=== PATIENT | female | born 1945 | race Caucasian/White ===

== ENCOUNTER 2017-08-12 13:21 | Emergency (ER) | payer OTHER ==
[~2017-08-12] VITALS: Ht 154.9 cm; Wt 42.6 kg
[~2017-08-12 13:21] MED LIST: ALBU2.5V14 NEB; ALPR0.5T PO; ASPI-630 PO; BACL10TA PO; BUDE10.2 IH; CALC200T3 PO; CETI10TA22 PO; FAMO-63 PO; FLUT9.9S NS; GABA-585 PO; GABA-586 PO; GLIP5TAB10 PO; Hydrocodone/Acetaminophen PO; LISI-338 PO; LISI10TA2 PO; MOME13HF IH; MONT10TA6 PO; PRED-220 PO; PROAIR HFA8.5 GM INH; ROFL500T7 PO; SIMV10TA3 PO; SIMV20TA PO; TIOT18CA IH
--- NOTE | 2017-08-12 14:28 | PHYS DOC ---
Past Medical History Past Medical History: Arthritis, COPD, Diabetes-Type II, Hypertension, Other Additional Past Medical Histor: o2 dependent , hip fx Past Surgical History: Other Additional Past Surgical Histo: left hip; left eye and face fx with surgery. Additional Information: Quit about 7months ago. "When I wasn't sleeping I was doing about 3 PPD." Alcohol Use: Rarely Drug Use: None Adult General Chief Complaint Chief Complaint: SHORTNESS OF BREATH HPI HPI Patient is a 72 year old female who presents with complaint of shortness of breath. Patient has history of COPD and chronic hypoxia. Patient is currently on home oxygen and runs at 2.5 L/m at baseline. The patient states that over the past few days she has had worsening shortness of breath. Patient states that she had a recent acute exacerbation of COPD and has been on a prednisone taper. Patient states that she recently stopped her prednisone taper but states that she started having worsening symptoms shortly after stopping. Patient states that she's taken a total of 30 mg today. At this time, patient states that her symptoms have improved. The patient states that she called her primary care physician's office earlier and was told to increase her home oxygen but stated this did not help. She called again and was told to come to the emergency department for evaluation. Patient follows a Dr. Coley for primary care. Patient denies any chest pain or abdominal pain currently and states that she is breathing at her baseline currently. The patient states that she thinks she needs to be placed back on prednisone for a longer period to help resolve her symptoms. Review of Systems Review of Systems Constitutional: Denies fever or chills [] Eyes: Denies change in visual acuity, redness, or eye pain [] HENT: Denies nasal congestion or sore throat [] Respiratory: Shortness of breath[] Cardiovascular: Denies chest pain or edema[] GI: Denies abdominal pain, nausea, vomiting, bloody stools or diarrhea [] : Denies dysuria or hematuria [] Musculoskeletal: Denies back pain or joint pain [] Integument: Denies rash or skin lesions [] Neurologic: Denies headache, focal weakness or sensory changes [] All other systems were reviewed and found to be within normal limits, except as documented in this note. Current Medications Current Medications Current Medications Medications (Trade) Dose Ordered Sig/Geovanny Start Time Stop Time Status Last Admin Dose Admin Methylprednisolone Sodium Succinate (SOLU-Medrol 125MG VIAL) 60 mg 1X ONCE 08/12/17 14:30 08/12/17 14:31 DC 08/12/17 15:03 60 MG Allergies Allergies Allergies Coded Allergies Type Severity Reaction Last Updated Verified No Known Drug Allergies 04/22/15 No Physical Exam Physical Exam Constitutional: Alert, afebrile, no acute distress. [] HENT: Normocephalic, atraumatic, bilateral external ears normal, oropharynx moist, no oral exudates, nose normal. [] Eyes: PERRLA, EOMI, conjunctiva normal, no discharge. [] Neck: Normal range of motion, no tenderness, supple, no stridor. [] Cardiovascular:Heart rate regular rhythm, no murmur [] Lungs & Thorax: Bilateral breath sounds clear to auscultation [] Abdomen: Bowel sounds normal, soft, no tenderness, no masses, no pulsatile masses. [] Skin: Warm, dry, no erythema, no rash. [] Back: No tenderness, no CVA tenderness. [] Extremities: No tenderness, no cyanosis, no clubbing, ROM intact, no edema. [] Neurologic: Alert and oriented X 3, normal motor function, normal sensory function, no focal deficits noted. [] Current Patient Data Vital Signs Vital Signs Date Time Temp Pulse Resp B/P (MAP) Pulse Ox O2 Delivery O2 Flow Rate FiO2 08/12/17 16:32 68 20 122/62 (82) 08/12/17 13:25 98.2 98 Nasal Cannula 4.0 98.2 Lab Values Laboratory Tests Test 08/12/17 13:42 White Blood Count 12.9 x10^3/uL (4.0-11.0) H Red Blood Count 5.11 x10^6/uL (3.50-5.40) Hemoglobin 14.5 g/dL (12.0-15.5) Hematocrit 44.9 % (36.0-47.0) Mean Corpuscular Volume 88 fL (79-100) Mean Corpuscular Hemoglobin 29 pg (25-35) Mean Corpuscular Hemoglobin Concent 32 g/dL (31-37) Red Cell Distribution Width 15.4 % (11.5-14.5) H Platelet Count 269 x10^3/uL (140-400) Neutrophils (%) (Auto) 82 % (31-73) H Lymphocytes (%) (Auto) 10 % (24-48) L Monocytes (%) (Auto) 6 % (0-9) Eosinophils (%) (Auto) 1 % (0-3) Basophils (%) (Auto) 1 % (0-3) Neutrophils # (Auto) 10.7 x10^3uL (1.8-7.7) H Lymphocytes # (Auto) 1.3 x10^3/uL (1.0-4.8) Monocytes # (Auto) 0.7 x10^3/uL (0.0-1.1) Eosinophils # (Auto) 0.2 x10^3/uL (0.0-0.7) Basophils # (Auto) 0.1 x10^3/uL (0.0-0.2) Sodium Level 136 mmol/L (136-145) Potassium Level 3.8 mmol/L (3.5-5.1) Chloride Level 96 mmol/L (98-107) L Carbon Dioxide Level 34 mmol/L (21-32) H Anion Gap 6 (6-14) Blood Urea Nitrogen 16 mg/dL (7-20) Creatinine 0.8 mg/dL (0.6-1.0) Estimated GFR (Cockcroft-Gault) 70.3 BUN/Creatinine Ratio 20 (6-20) Glucose Level 115 mg/dL (70-99) H Calcium Level 9.6 mg/dL (8.5-10.1) Total Bilirubin 0.5 mg/dL (0.2-1.0) Aspartate Amino Transferase (AST) 26 U/L (15-37) Alanine Aminotransferase (ALT) 39 U/L (14-59) Alkaline Phosphatase 66 U/L (46-116) Total Protein 7.9 g/dL (6.4-8.2) Albumin 4.2 g/dL (3.4-5.0) Albumin/Globulin Ratio 1.1 (1.0-1.7) Laboratory Tests 08/12/17 13:42 Laboratory Tests 08/12/17 13:42 EKG EKG Interpreted by me: Heart rate 64, sinus rhythm, normal intervals, normal axis, no acute ST/T-wave abnormalities present[] Radiology/Procedures Radiology/Procedures [facility] [address] [place] [address] IMAGING REPORT Signed PATIENT: ZULEIKA PIZARRO ACCOUNT: [id number] : 1945 LOCATION: ER AGE: 72 SEX: F EXAM STATUS: REG ER ORD. PHYSICIAN: PEPE LYNN MD REASON: shortness of breath PROCEDURE: PORTABLE CHEST 1V Chest x-ray Indication: Shortness of breath. History of COPD. Technique: Portable AP upright chest x-ray Comparison: Previous study from 07/22/2017 Findings: Heart is normal in size. Lungs are hyperinflated with flattening of diaphragms. No focal consolidation. No pneumothorax or pleural effusion. Visualized bony thorax within normal limits. Impression: Findings of COPD. No acute cardiopulmonary process. DICTATED and SIGNED BY: NILSON COLEY DO DATE: 08/12/17 1501 CC: PEPE LYNN MD; MARIANELA COLEY MD ~ [] Course & Med Decision Making Course & Med Decision Making Pertinent Labs and Imaging studies reviewed. (See chart for details) Patient was given 60 mg of IV Solu-Medrol in the emergency department. Patient remained in stable condition throughout her entire emergency department stay and patient's respirations are nonlabored at this time. The patient's chest x- ray does not reveal evidence of acute pneumonia or other acute cardiopulmonary abnormality. Patient feels well and states that she would like to go home but would like to be started on prednisone to continue for treatment. I spoke with her primary physician, Dr. Coley, who agreed to have patient put on a 9 day taper of prednisone. Recommended that the patient follow-up with Dr. Coley in 3- 5 days for reevaluation and recommended return emergency department for any worsening symptoms. Patient voiced understanding and in agreement with treatment plan. Dragon Disclaimer Dragon Disclaimer This electronic medical record was generated, in whole or in part, using a voice recognition dictation system. Departure Departure Impression: Primary Impression: COPD exacerbation Disposition: 01 HOME, SELF-CARE Condition: IMPROVED Referrals: MARIANELA COLEY MD (PCP) Patient Instructions: Chronic Obstructive Pulmonary Disease Additional Instructions: Follow-up with Dr. Coley in the next 3-5 days for reevaluation. Return to the emergency department for any worsening symptoms. Scripts Prednisone (PREDNISONE) 10 Mg Tablet 10 MG PO UD for PREDNISONE TAPER, #18 TAB 0 Refills Take 1 tablet by mouth three times a day for 3 days, then take 1 tablet by mouth twice a day for 3 days, then take 1 tablet by mouth daily for 3 days, then stop. Prov: PEPE LYNN MD 08/12/17 PEPE LYNN MD Aug 12, 2017 14:28
[2017-08-12 14:29] LABS: BASO # 0.1 x10^3/uL (0.0-0.2); BASO % 1 % (0-3); EOS % 1 % (0-3); HEMATOCRIT 44.9 % (36.0-47.0); HEMOGLOBIN 14.5 g/dL (12.0-15.5); LYMPH # 1.3 x10^3/uL (1.0-4.8); LYMPH % 10 % (24-48); MEAN CORPUSCULAR HEMOGLOBIN 29 pg (25-35); MEAN CORPUSCULAR HGB CONC 32 g/dL (31-37); MEAN CORPUSCULAR VOLUME 88 fL (79-100); MONO % 6 % (0-9); NEUT % 82 % (31-73); PLATELET COUNT 269 x10^3/uL (140-400); RED BLOOD COUNT 5.11 x10^6/uL (3.50-5.40); RED CELL DISTRIBUTION WIDTH 15.4 % (11.5-14.5); WHITE BLOOD COUNT 12.9 x10^3/uL (4.0-11.0)
[2017-08-12] MEDS ORDERED: methylPREDNISolone SOD SUCC PF 125 MG/2 ML VIAL. IV ONE (14:30)
[2017-08-12 14:51] LABS: CALCIUM 9.6 mg/dL (8.5-10.1); CREATININE 0.8 mg/dL (0.6-1.0); GFR 70.3; POTASSIUM 3.8 mmol/L (3.5-5.1)
[2017-08-12 14:57] LABS: ALBUMIN 4.2 g/dL (3.4-5.0); ALBUMIN/GLOBULIN RATIO 1.1 (1.0-1.7); TOTAL BILIRUBIN 0.5 mg/dL (0.2-1.0); TOTAL PROTEIN 7.9 g/dL (6.4-8.2)
--- NOTE | 2017-08-12 15:07 | RAD ---
Chest x-ray Indication: Shortness of breath. History of COPD. Technique: Portable AP upright chest x-ray Comparison: Previous study from 07/22/2017 Findings: Heart is normal in size. Lungs are hyperinflated with flattening of diaphragms. No focal consolidation. No pneumothorax or pleural effusion. Visualized bony thorax within normal limits. Impression: Findings of COPD. No acute cardiopulmonary process.
--- NOTE | 2017-08-12 16:08 | EKG ---
[facility] [address] [place] [address] Test Date: 2017-08-12 Test Time: 15:11:42 Pat Name: ZULEIKA PIZARRO Department: Room: Gender: F Mover: : 1945 Requested By: PEPE LYNN Order Number: [id number] Reading MD: Sanjiv Burch Measurements Intervals [place] Rate: 64 P: 36 OK: 110 QRS: 53 QRSD: 74 T: 59 QT: 396 QTc: 408 Interpretive Statements SINUS RHYTHM NO SPECIFIC ECG ABNORMALITIES RI6.01 Compared to ECG 07/22/2017 16:01:14 No significant changes Electronically Signed On 08-12-2017 17:56:53 [employer] DIRECTOR by Sanjiv Burch
[2017-08-12 16:32] VITALS: BP 122/62
[2017-08-12] MEDS ORDERED: PRED-220 PO (16:33)
== END 2017-08-12 17:05 | disposition home or self-care (01) ==
LOC: ER 13:21
DX: J44.1 Chronic obstructive pulmonary disease with (acute) exacerbation (principal); M19.90 Unspecified osteoarthritis, unspecified site; E11.9 Type 2 diabetes mellitus without complications; I10 Essential (primary) hypertension; Z99.81 Dependence on supplemental oxygen; Z87.891 Personal history of nicotine dependence
CPT/HCPCS: 36415; 71010; 80053; 85025; 93005; 96374; 99285; J2930

== ENCOUNTER 2017-10-16 15:06 | Inpatient (IN) | payer OTHER ==
[2017-10-16 15:31] LABS: ADD MAN DIFF? NO
[2017-10-16 15:37] LABS: BASO # 0.1 x10^3/uL (0.0-0.2); BASO % 1 % (0-3); EOS % 0 % (0-3); HEMATOCRIT 44.5 % (36.0-47.0); HEMOGLOBIN 14.3 g/dL (12.0-15.5); LYMPH # 1.6 x10^3/uL (1.0-4.8); LYMPH % 20 % (24-48); MEAN CORPUSCULAR HEMOGLOBIN 27 pg (25-35); MEAN CORPUSCULAR HGB CONC 32 g/dL (31-37); MEAN CORPUSCULAR VOLUME 84 fL (79-100); MONO # 0.5 x10^3/uL (0.0-1.1); MONO % 6 % (0-9); NEUT # 5.9 x10^3uL (1.8-7.7); NEUT % 73 % (31-73); PLATELET COUNT 280 x10^3/uL (140-400); RED BLOOD COUNT 5.32 x10^6/uL (3.50-5.40); RED CELL DISTRIBUTION WIDTH 15.9 % (11.5-14.5)
[2017-10-16 15:47] LABS: ANION GAP 8 (6-14); BLOOD UREA NITROGEN 14 mg/dL (7-20); CALCIUM 9.3 mg/dL (8.5-10.1); CARBON DIOXIDE 32 mmol/L (21-32); CHLORIDE 100 mmol/L (98-107); CREATININE 0.7 mg/dL (0.6-1.0); GLUCOSE 94 mg/dL (70-99); POTASSIUM 3.7 mmol/L (3.5-5.1); SODIUM 140 mmol/L (136-145)
[2017-10-16] MEDS: IPRATRPIUM/ALBUTEROL 0.5/2.5MG 3 ML NEBU. NEB ×4 (15:53→19:26)
[2017-10-16 15:58] LABS: LACTIC ACID 1.6 mmol/L (0.4-2.0); TROPONINI < 0.017 ng/mL (0.000-0.055)
[2017-10-16 15:59] LABS: INFLUENZA A PATIENT NEGATIVE (NEGATIVE); INFLUENZA B PATIENT NEGATIVE (NEGATIVE); OBC FLU VALID
[2017-10-16] MEDS: methylPREDNISolone SOD SUCC PF 125 MG/2 ML VIAL. IV (15:59)
[2017-10-16 16:00] LABS: NT-PRO BNP 651 pg/mL (0-124)
[2017-10-16 16:45] LABS: BASE EXCESS ABG 3 mmol/L (-3-3); HCO3 ABG 28 mmol/L (21-28); PCO2 ABG 43 mmHg (35-46); PH ABG 7.43 (7.35-7.45); PO2 ABG 76 mmHg (65-108); SAT O2 ABG 95 % (92-99)
[2017-10-16] MEDS ORDERED: ONDANSETRON PF 4 MG/2 ML VIAL. IV (16:45)
[2017-10-16] MEDS ORDERED: MORPHINE SULFATE 2 MG/ML DISP.SYRIN. IV (16:45)
[2017-10-16] MEDS ORDERED: ACETAMINOPHEN 325 MG TABLET. PO (16:45)
[2017-10-16 17:50] LABS: BILIRUBIN,URINE NEGATIVE (NEG); CLARITY,URINE CLEAR; COLOR,URINE YELLOW; GLUCOSE,URINE NEGATIVE (NEG); NITRITE,URINE NEGATIVE (NEG); PROTEIN,URINE NEGATIVE (NEG-TRACE); UROBILINOGEN,URINE 0.2 mg/dL (0.2 mg/dL)
[2017-10-16 17:59] LABS: BACTERIA,URINE 0 /HPF (0-FEW); RBC,URINE OCC /HPF (0-2); SQUAMOUS EPITHELIAL CELL,UR OCC /LPF; WBC,URINE 20-40 /HPF (0-4)
[2017-10-16] MEDS ORDERED: NON FORMULARY ITEM (Albuterol Sulfate (Proair Hfa Inhaler) 2 PUFF) INH (21:15)
[2017-10-16] MEDS ORDERED: ALBUTEROL SULFATE 2.5 MG/3 ML NEBU. NEB (21:30)
[2017-10-16] MEDS ORDERED: SIMVASTATIN 10 MG TABLET PO (21:30)
[2017-10-16] MEDS ORDERED: GABAPENTIN 100 MG CAPSULE. PO (21:30)
[2017-10-16] MEDS ORDERED: FAMOTIDINE 20 MG TABLET. PO (21:30)
[2017-10-16] MEDS: ALPRAZolam 0.5 MG TABLET PO ×2 (22:00→22:04)
[2017-10-16] MEDS: SIMVASTATIN 10 MG TABLET PO (22:05)
[2017-10-16 23:38] LABS: TROPONINI < 0.017 ng/mL (0.000-0.055)
[2017-10-17 04:02] LABS: POC GLUCOSE 147 mg/dL (70-99)
[2017-10-17 04:29] LABS: ADD MAN DIFF? NO
[2017-10-17 04:43] LABS: BASO % 0 % (0-3); EOS % 0 % (0-3); HEMATOCRIT 38.4 % (36.0-47.0); HEMOGLOBIN 12.4 g/dL (12.0-15.5); LYMPH # 1.3 x10^3/uL (1.0-4.8); LYMPH % 25 % (24-48); MEAN CORPUSCULAR HEMOGLOBIN 27 pg (25-35); MEAN CORPUSCULAR HGB CONC 32 g/dL (31-37); MEAN CORPUSCULAR VOLUME 83 fL (79-100); MONO # 0.5 x10^3/uL (0.0-1.1); MONO % 10 % (0-9); NEUT # 3.5 x10^3uL (1.8-7.7); NEUT % 65 % (31-73); PLATELET COUNT 258 x10^3/uL (140-400); RED BLOOD COUNT 4.63 x10^6/uL (3.50-5.40); RED CELL DISTRIBUTION WIDTH 15.9 % (11.5-14.5); WHITE BLOOD COUNT 5.4 x10^3/uL (4.0-11.0)
[2017-10-17 04:56] LABS: ALBUMIN 3.1 g/dL (3.4-5.0); ALBUMIN/GLOBULIN RATIO 0.9 (1.0-1.7); ALK PHOS 59 U/L (46-116); ALT (SGPT) 19 U/L (14-59); ANION GAP 6 (6-14); AST (SGOT) 16 U/L (15-37); BLOOD UREA NITROGEN 22 mg/dL (7-20); BUN/CREATININE RATIO 31 (6-20); CALCIUM 9.2 mg/dL (8.5-10.1); CARBON DIOXIDE 31 mmol/L (21-32); CHLORIDE 100 mmol/L (98-107); CREATININE 0.7 mg/dL (0.6-1.0); GLUCOSE 163 mg/dL (70-99); POTASSIUM 4.6 mmol/L (3.5-5.1); SODIUM 137 mmol/L (136-145); TOTAL BILIRUBIN 0.2 mg/dL (0.2-1.0); TOTAL PROTEIN 6.7 g/dL (6.4-8.2)
[2017-10-17 05:00] LABS: TROPONINI < 0.017 ng/mL (0.000-0.055)
[2017-10-17] MEDS ORDERED: ALBUTEROL SULFATE 2.5 MG/3 ML NEBU. NEB (07:15)
[2017-10-17] MEDS: INSULIN ASPART 300 UNITS/3 ML INSULN.PEN SQ ×3 (07:30→16:30)
[2017-10-17 07:54] LABS: POC GLUCOSE 121 mg/dL (70-99)
[2017-10-17] MEDS: BUDESONIDE 0.5 MG/2 ML NEBU. NEB ×2 (08:20→20:44)
[2017-10-17] MEDS: MONTELUKAST SODIUM 10 MG TABLET. PO (08:36)
[2017-10-17] MEDS: CETIRIZINE HCL 10 MG TABLET. PO (08:37)
[2017-10-17] MEDS: LACTOBACILLUS RHAMNOSUS GG 1 CAPSULE. PO ×2 (08:37→21:36)
[2017-10-17] MEDS: GABAPENTIN 100 MG CAPSULE. PO ×2 (08:37→21:38)
[2017-10-17] MEDS: LISINOPRIL 10 MG TABLET PO (08:37)
[2017-10-17] MEDS: glipiZIDE 5 MG TABLET PO ×2 (08:38→17:00)
[2017-10-17] MEDS: ASPIRIN CHEWABLE 81 MG TABLET. PO (08:38)
[2017-10-17] MEDS: BACLOFEN 10 MG TABLET. PO (08:38)
[2017-10-17] MEDS: ALPRAZolam 0.5 MG TABLET PO ×2 (08:38→21:37)
[2017-10-17] MEDS: FAMOTIDINE 20 MG TABLET. PO (08:39)
[2017-10-17] MEDS: methylPREDNISolone SOD SUCC PF 40 MG/ML VIAL. IV ×2 (08:39→21:36)
[2017-10-17] MEDS ORDERED: NON FORMULARY ITEM (Budesonide/Formoterol Fumarate (Symbicort 160-4.5 Mcg Inhaler) 2 PUFF) IH (09:00)
[2017-10-17] MEDS ORDERED: NON FORMULARY ITEM (Albuterol Sulfate (Albuterol Sulfate Conc Neb Soln) 1 VIAL) NEB (09:00)
[2017-10-17] MEDS ORDERED: NON FORMULARY ITEM (Tiotropium Bromide (Spiriva) 1 CAP) IH (09:00)
[2017-10-17] MEDS: IPRATRPIUM/ALBUTEROL 0.5/2.5MG 3 ML NEBU. NEB ×3 (12:00→20:44)
[2017-10-17 12:04] LABS: POC GLUCOSE 64 mg/dL (70-99)
[2017-10-17 20:47] LABS: POC GLUCOSE 143 mg/dL (70-99)
[2017-10-17] MEDS: SIMVASTATIN 10 MG TABLET PO (21:38)
[2017-10-18 05:22] LABS: ADD MAN DIFF? NO
[2017-10-18 05:39] LABS: BASO % 0 % (0-3); EOS % 0 % (0-3); HEMATOCRIT 40.1 % (36.0-47.0); HEMOGLOBIN 13.1 g/dL (12.0-15.5); LYMPH # 1.1 x10^3/uL (1.0-4.8); LYMPH % 14 % (24-48); MEAN CORPUSCULAR HEMOGLOBIN 27 pg (25-35); MEAN CORPUSCULAR HGB CONC 33 g/dL (31-37); MEAN CORPUSCULAR VOLUME 83 fL (79-100); MONO # 0.3 x10^3/uL (0.0-1.1); MONO % 4 % (0-9); NEUT # 6.5 x10^3uL (1.8-7.7); NEUT % 83 % (31-73); PLATELET COUNT 287 x10^3/uL (140-400); RED BLOOD COUNT 4.82 x10^6/uL (3.50-5.40); RED CELL DISTRIBUTION WIDTH 15.7 % (11.5-14.5); WHITE BLOOD COUNT 7.9 x10^3/uL (4.0-11.0)
[2017-10-18 06:18] LABS: ANION GAP 10 (6-14); BLOOD UREA NITROGEN 30 mg/dL (7-20); CALCIUM 9.7 mg/dL (8.5-10.1); CARBON DIOXIDE 29 mmol/L (21-32); CHLORIDE 98 mmol/L (98-107); CREATININE 0.9 mg/dL (0.6-1.0); GFR 61.4; GLUCOSE 157 mg/dL (70-99); POTASSIUM 4.2 mmol/L (3.5-5.1); SODIUM 137 mmol/L (136-145)
[2017-10-18] MEDS: IPRATRPIUM/ALBUTEROL 0.5/2.5MG 3 ML NEBU. NEB ×4 (07:21→18:42)
[2017-10-18] MEDS: BUDESONIDE 0.5 MG/2 ML NEBU. NEB ×2 (07:21→18:42)
[2017-10-18] MEDS: INSULIN ASPART 300 UNITS/3 ML INSULN.PEN SQ ×3 (07:30→16:30)
[2017-10-18] MEDS: MONTELUKAST SODIUM 10 MG TABLET. PO (08:35)
[2017-10-18] MEDS: LACTOBACILLUS RHAMNOSUS GG 1 CAPSULE. PO ×2 (08:35→21:43)
[2017-10-18] MEDS: glipiZIDE 5 MG TABLET PO ×2 (08:35→17:00)
[2017-10-18] MEDS: GABAPENTIN 100 MG CAPSULE. PO ×2 (08:35→21:42)
[2017-10-18] MEDS: FAMOTIDINE 20 MG TABLET. PO (08:35)
[2017-10-18] MEDS: ASPIRIN CHEWABLE 81 MG TABLET. PO (08:35)
[2017-10-18] MEDS: ALPRAZolam 0.5 MG TABLET PO ×2 (08:35→21:44)
[2017-10-18] MEDS: LISINOPRIL 10 MG TABLET PO (08:36)
[2017-10-18] MEDS: CETIRIZINE HCL 10 MG TABLET. PO (08:36)
[2017-10-18 08:37] LABS: POC GLUCOSE 130 mg/dL (70-99)
[2017-10-18] MEDS: methylPREDNISolone SOD SUCC PF 40 MG/ML VIAL. IV ×2 (08:37→21:42)
[2017-10-18 11:48] LABS: POC GLUCOSE 133 mg/dL (70-99)
[2017-10-18 16:36] LABS: POC GLUCOSE 104 mg/dL (70-99)
[2017-10-18 21:20] LABS: POC GLUCOSE 136 mg/dL (70-99)
[2017-10-18] MEDS: SIMVASTATIN 10 MG TABLET PO (21:43)
[2017-10-19 03:41] LABS: POC GLUCOSE 100 mg/dL (70-99)
[2017-10-19 05:18] LABS: ADD MAN DIFF? NO
[2017-10-19 05:48] LABS: BASO % 0 % (0-3); EOS % 0 % (0-3); HEMATOCRIT 39.8 % (36.0-47.0); HEMOGLOBIN 13.2 g/dL (12.0-15.5); LYMPH # 1.1 x10^3/uL (1.0-4.8); LYMPH % 11 % (24-48); MEAN CORPUSCULAR HEMOGLOBIN 27 pg (25-35); MEAN CORPUSCULAR HGB CONC 33 g/dL (31-37); MEAN CORPUSCULAR VOLUME 83 fL (79-100); MONO # 0.5 x10^3/uL (0.0-1.1); MONO % 5 % (0-9); NEUT # 8.7 x10^3uL (1.8-7.7); NEUT % 84 % (31-73); PLATELET COUNT 313 x10^3/uL (140-400); RED BLOOD COUNT 4.82 x10^6/uL (3.50-5.40); RED CELL DISTRIBUTION WIDTH 15.9 % (11.5-14.5); WHITE BLOOD COUNT 10.4 x10^3/uL (4.0-11.0)
[2017-10-19 06:01] LABS: ANION GAP 8 (6-14); BLOOD UREA NITROGEN 35 mg/dL (7-20); CALCIUM 9.6 mg/dL (8.5-10.1); CARBON DIOXIDE 31 mmol/L (21-32); CHLORIDE 96 mmol/L (98-107); CREATININE 0.8 mg/dL (0.6-1.0); GFR 70.3; GLUCOSE 159 mg/dL (70-99); POTASSIUM 4.2 mmol/L (3.5-5.1); SODIUM 135 mmol/L (136-145)
[2017-10-19] MEDS: INSULIN ASPART 300 UNITS/3 ML INSULN.PEN SQ ×3 (07:30→16:09)
[2017-10-19 08:23] LABS: POC GLUCOSE 132 mg/dL (70-99)
[2017-10-19] MEDS: ALPRAZolam 0.5 MG TABLET PO ×2 (08:57→20:42)
[2017-10-19] MEDS: methylPREDNISolone SOD SUCC PF 40 MG/ML VIAL. IV ×3 (08:57→20:41)
[2017-10-19] MEDS: CETIRIZINE HCL 10 MG TABLET. PO (08:57)
[2017-10-19] MEDS: FAMOTIDINE 20 MG TABLET. PO (08:57)
[2017-10-19] MEDS: glipiZIDE 5 MG TABLET PO ×2 (08:57→17:28)
[2017-10-19] MEDS: LACTOBACILLUS RHAMNOSUS GG 1 CAPSULE. PO ×2 (08:57→20:42)
[2017-10-19] MEDS: ASPIRIN CHEWABLE 81 MG TABLET. PO (08:57)
[2017-10-19] MEDS: GABAPENTIN 100 MG CAPSULE. PO ×2 (08:57→20:42)
[2017-10-19] MEDS: LISINOPRIL 10 MG TABLET PO (08:57)
[2017-10-19] MEDS: MONTELUKAST SODIUM 10 MG TABLET. PO (08:57)
[2017-10-19] MEDS: IPRATRPIUM/ALBUTEROL 0.5/2.5MG 3 ML NEBU. NEB ×4 (09:32→19:51)
[2017-10-19] MEDS: BUDESONIDE 0.5 MG/2 ML NEBU. NEB ×2 (09:32→19:51)
[2017-10-19 11:23] LABS: POC GLUCOSE 128 mg/dL (70-99)
[2017-10-19] MEDS: LORazepam 0.5 MG TABLET PO (15:29)
[2017-10-19 16:02] LABS: POC GLUCOSE 109 mg/dL (70-99)
[2017-10-19] MEDS: SIMVASTATIN 10 MG TABLET PO (20:42)
[2017-10-19 21:24] LABS: POC GLUCOSE 150 mg/dL (70-99)
[2017-10-20 05:09] LABS: ADD MAN DIFF? NO
[2017-10-20 05:27] LABS: BASO % 0 % (0-3); EOS % 0 % (0-3); HEMATOCRIT 37.2 % (36.0-47.0); HEMOGLOBIN 12.3 g/dL (12.0-15.5); LYMPH # 1.2 x10^3/uL (1.0-4.8); LYMPH % 9 % (24-48); MEAN CORPUSCULAR HEMOGLOBIN 28 pg (25-35); MEAN CORPUSCULAR HGB CONC 33 g/dL (31-37); MEAN CORPUSCULAR VOLUME 83 fL (79-100); MONO # 0.9 x10^3/uL (0.0-1.1); MONO % 7 % (0-9); NEUT # 11.2 x10^3uL (1.8-7.7); NEUT % 84 % (31-73); PLATELET COUNT 308 x10^3/uL (140-400); RED BLOOD COUNT 4.46 x10^6/uL (3.50-5.40); RED CELL DISTRIBUTION WIDTH 15.6 % (11.5-14.5); WHITE BLOOD COUNT 13.3 x10^3/uL (4.0-11.0)
[2017-10-20 05:37] LABS: ANION GAP 6 (6-14); BLOOD UREA NITROGEN 38 mg/dL (7-20); CALCIUM 9.8 mg/dL (8.5-10.1); CARBON DIOXIDE 30 mmol/L (21-32); CHLORIDE 99 mmol/L (98-107); CREATININE 0.8 mg/dL (0.6-1.0); GFR 70.3; GLUCOSE 98 mg/dL (70-99); POTASSIUM 4.3 mmol/L (3.5-5.1); SODIUM 135 mmol/L (136-145)
[2017-10-20] MEDS: INSULIN ASPART 300 UNITS/3 ML INSULN.PEN SQ ×3 (07:30→16:30)
[2017-10-20] MEDS: glipiZIDE 5 MG TABLET PO ×2 (08:00→16:59)
[2017-10-20] MEDS: FAMOTIDINE 20 MG TABLET. PO (08:20)
[2017-10-20] MEDS: GABAPENTIN 100 MG CAPSULE. PO ×2 (08:20→20:29)
[2017-10-20] MEDS: LACTOBACILLUS RHAMNOSUS GG 1 CAPSULE. PO ×2 (08:20→20:30)
[2017-10-20] MEDS: MONTELUKAST SODIUM 10 MG TABLET. PO (08:21)
[2017-10-20] MEDS: ALPRAZolam 0.5 MG TABLET PO ×2 (08:21→20:30)
[2017-10-20] MEDS: CETIRIZINE HCL 10 MG TABLET. PO (08:21)
[2017-10-20] MEDS: ASPIRIN CHEWABLE 81 MG TABLET. PO (08:21)
[2017-10-20] MEDS: LISINOPRIL 10 MG TABLET PO (08:21)
[2017-10-20] MEDS: methylPREDNISolone SOD SUCC PF 40 MG/ML VIAL. IV ×3 (08:22→20:30)
[2017-10-20] MEDS: OXYMETAZOLINE 0.05% NASAL SPRAY 30ML BOTTLE. NS (09:00)
[2017-10-20] MEDS ORDERED: OXYMETAZOLINE 0.05% NASAL SPRAY 30ML BOTTLE. NS (09:00)
[2017-10-20] MEDS: IPRATRPIUM/ALBUTEROL 0.5/2.5MG 3 ML NEBU. NEB ×4 (09:22→20:02)
[2017-10-20] MEDS: BUDESONIDE 0.5 MG/2 ML NEBU. NEB ×2 (09:23→20:02)
[2017-10-20] MEDS ORDERED: FLUTICASONE 50MCG/NASAL SPRAY 16GM BOTTLE. NS (11:00)
[2017-10-20 12:11] LABS: POC GLUCOSE 62 mg/dL (70-99)
[2017-10-20 12:12] LABS: POC GLUCOSE 150 mg/dL (70-99)
[2017-10-20 16:58] LABS: POC GLUCOSE 172 mg/dL (70-99)
[2017-10-20] MEDS: SIMVASTATIN 10 MG TABLET PO (20:29)
[2017-10-20] MEDS: CALCIUM CARBONATE 500 MG TAB.CHEW PO (20:29)
[2017-10-20] MEDS: BACLOFEN 10 MG TABLET. PO (20:30)
[2017-10-20] MEDS: FLUTICASONE 50MCG/NASAL SPRAY 16GM BOTTLE. NS (20:32)
[2017-10-21 06:04] LABS: ADD MAN DIFF? NO
[2017-10-21 06:16] LABS: BASO % 0 % (0-3); EOS % 0 % (0-3); HEMATOCRIT 38.4 % (36.0-47.0); HEMOGLOBIN 12.4 g/dL (12.0-15.5); LYMPH % 7 % (24-48); MEAN CORPUSCULAR HEMOGLOBIN 27 pg (25-35); MEAN CORPUSCULAR HGB CONC 32 g/dL (31-37); MEAN CORPUSCULAR VOLUME 83 fL (79-100); MONO # 1.8 x10^3/uL (0.0-1.1); MONO % 12 % (0-9); NEUT # 12.4 x10^3uL (1.8-7.7); NEUT % 82 % (31-73); PLATELET COUNT 303 x10^3/uL (140-400); RED BLOOD COUNT 4.62 x10^6/uL (3.50-5.40); RED CELL DISTRIBUTION WIDTH 16.1 % (11.5-14.5); WHITE BLOOD COUNT 15.1 x10^3/uL (4.0-11.0)
[2017-10-21 06:28] LABS: ANION GAP 6 (6-14); BLOOD UREA NITROGEN 40 mg/dL (7-20); CALCIUM 9.7 mg/dL (8.5-10.1); CARBON DIOXIDE 31 mmol/L (21-32); CHLORIDE 99 mmol/L (98-107); CREATININE 0.8 mg/dL (0.6-1.0); GFR 70.3; GLUCOSE 114 mg/dL (70-99); POTASSIUM 4.9 mmol/L (3.5-5.1); SODIUM 136 mmol/L (136-145)
[2017-10-21] MEDS: INSULIN ASPART 300 UNITS/3 ML INSULN.PEN SQ ×3 (07:30→16:30)
[2017-10-21] MEDS: IPRATRPIUM/ALBUTEROL 0.5/2.5MG 3 ML NEBU. NEB ×5 (07:57→21:13)
[2017-10-21] MEDS: BUDESONIDE 0.5 MG/2 ML NEBU. NEB ×3 (07:57→21:12)
[2017-10-21] MEDS: CETIRIZINE HCL 10 MG TABLET. PO (08:40)
[2017-10-21] MEDS: glipiZIDE 5 MG TABLET PO ×2 (08:40→17:25)
[2017-10-21] MEDS: MONTELUKAST SODIUM 10 MG TABLET. PO (08:40)
[2017-10-21] MEDS: ALPRAZolam 0.5 MG TABLET PO ×2 (08:41→20:44)
[2017-10-21] MEDS: ASPIRIN CHEWABLE 81 MG TABLET. PO (08:41)
[2017-10-21] MEDS: GABAPENTIN 100 MG CAPSULE. PO ×2 (08:41→20:44)
[2017-10-21] MEDS: LACTOBACILLUS RHAMNOSUS GG 1 CAPSULE. PO ×2 (08:41→20:44)
[2017-10-21] MEDS: FAMOTIDINE 20 MG TABLET. PO (08:41)
[2017-10-21] MEDS: methylPREDNISolone SOD SUCC PF 40 MG/ML VIAL. IV ×2 (08:41→20:45)
[2017-10-21] MEDS: LISINOPRIL 10 MG TABLET PO (08:41)
[2017-10-21] MEDS: FLUTICASONE 50MCG/NASAL SPRAY 16GM BOTTLE. NS ×2 (08:44→21:27)
[2017-10-21] MEDS: ROFLUMILAST 500 MCG TABLET. PO (08:44)
[2017-10-21 12:25] LABS: POC GLUCOSE 117 mg/dL (70-99)
[2017-10-21 16:53] LABS: POC GLUCOSE 102 mg/dL (70-99)
[2017-10-21] MEDS: SIMVASTATIN 10 MG TABLET PO (20:44)
[2017-10-22 05:51] LABS: BASO % 0 % (0-3); EOS % 0 % (0-3); HEMATOCRIT 36.3 % (36.0-47.0); HEMOGLOBIN 12.1 g/dL (12.0-15.5); LYMPH # 0.7 x10^3/uL (1.0-4.8); LYMPH % 5 % (24-48); MEAN CORPUSCULAR HEMOGLOBIN 28 pg (25-35); MEAN CORPUSCULAR HGB CONC 33 g/dL (31-37); MEAN CORPUSCULAR VOLUME 83 fL (79-100); MONO # 0.9 x10^3/uL (0.0-1.1); MONO % 6 % (0-9); NEUT # 14.3 x10^3uL (1.8-7.7); NEUT % 90 % (31-73); PLATELET COUNT 279 x10^3/uL (140-400); RED BLOOD COUNT 4.37 x10^6/uL (3.50-5.40); RED CELL DISTRIBUTION WIDTH 16.2 % (11.5-14.5)
[2017-10-22 05:52] LABS: ADD MAN DIFF? YES
[2017-10-22 06:26] LABS: ANION GAP 7 (6-14); BLOOD UREA NITROGEN 38 mg/dL (7-20); CALCIUM 9.7 mg/dL (8.5-10.1); CARBON DIOXIDE 31 mmol/L (21-32); CHLORIDE 99 mmol/L (98-107); CREATININE 0.7 mg/dL (0.6-1.0); GLUCOSE 128 mg/dL (70-99); POTASSIUM 4.7 mmol/L (3.5-5.1); SODIUM 137 mmol/L (136-145)
[2017-10-22] MEDS: INSULIN ASPART 300 UNITS/3 ML INSULN.PEN SQ ×3 (07:30→16:30)
[2017-10-22 08:10] LABS: POC GLUCOSE 120 mg/dL (70-99)
[2017-10-22] MEDS: LACTOBACILLUS RHAMNOSUS GG 1 CAPSULE. PO ×2 (08:34→21:06)
[2017-10-22] MEDS: ALPRAZolam 0.5 MG TABLET PO ×2 (08:34→21:06)
[2017-10-22] MEDS: FAMOTIDINE 20 MG TABLET. PO (08:35)
[2017-10-22] MEDS: glipiZIDE 5 MG TABLET PO ×2 (08:35→18:15)
[2017-10-22] MEDS: CETIRIZINE HCL 10 MG TABLET. PO (08:35)
[2017-10-22] MEDS: LISINOPRIL 10 MG TABLET PO (08:35)
[2017-10-22] MEDS: ROFLUMILAST 500 MCG TABLET. PO (08:35)
[2017-10-22] MEDS: MONTELUKAST SODIUM 10 MG TABLET. PO (08:36)
[2017-10-22] MEDS: GABAPENTIN 100 MG CAPSULE. PO ×2 (08:36→21:06)
[2017-10-22] MEDS: methylPREDNISolone SOD SUCC PF 40 MG/ML VIAL. IV ×2 (08:37→21:07)
[2017-10-22] MEDS: FLUTICASONE 50MCG/NASAL SPRAY 16GM BOTTLE. NS ×2 (08:40→21:07)
[2017-10-22] MEDS: ASPIRIN CHEWABLE 81 MG TABLET. PO (08:40)
[2017-10-22 11:20] LABS: ACANTHOCYTES OCC; BURR CELLS FEW; OVALOCYTES FEW; PLT ESTIMATE ADEQUATE (ADEQUATE)
[2017-10-22 11:21] LABS: % BANDS 3 % (0-9); % LYMPHS 7 % (24-48); % MONOS 4 % (0-10); % SEGS 86 % (35-66)
[2017-10-22 11:22] LABS: ANISOCYTOSIS SLIGHT
[2017-10-22 11:47] LABS: POC GLUCOSE 149 mg/dL (70-99)
[2017-10-22] MEDS: IPRATRPIUM/ALBUTEROL 0.5/2.5MG 3 ML NEBU. NEB ×3 (12:01→19:45)
[2017-10-22 17:47] LABS: POC GLUCOSE 101 mg/dL (70-99)
[2017-10-22] MEDS: BUDESONIDE 0.5 MG/2 ML NEBU. NEB (19:45)
[2017-10-22] MEDS: SIMVASTATIN 10 MG TABLET PO (21:06)
[2017-10-23] MEDS: BUDESONIDE 0.5 MG/2 ML NEBU. NEB ×2 (06:19→19:33)
[2017-10-23] MEDS: IPRATRPIUM/ALBUTEROL 0.5/2.5MG 3 ML NEBU. NEB ×4 (06:19→19:33)
[2017-10-23] MEDS: INSULIN ASPART 300 UNITS/3 ML INSULN.PEN SQ ×3 (07:30→16:30)
[2017-10-23 07:59] LABS: POC GLUCOSE 130 mg/dL (70-99)
[2017-10-23] MEDS: CETIRIZINE HCL 10 MG TABLET. PO (08:43)
[2017-10-23] MEDS: GABAPENTIN 100 MG CAPSULE. PO ×2 (08:44→20:31)
[2017-10-23] MEDS: methylPREDNISolone SOD SUCC PF 40 MG/ML VIAL. IV ×2 (08:44→20:31)
[2017-10-23] MEDS: FAMOTIDINE 20 MG TABLET. PO (08:44)
[2017-10-23] MEDS: LACTOBACILLUS RHAMNOSUS GG 1 CAPSULE. PO ×2 (08:44→20:31)
[2017-10-23] MEDS: glipiZIDE 5 MG TABLET PO ×2 (08:44→17:50)
[2017-10-23] MEDS: ALPRAZolam 0.5 MG TABLET PO ×2 (08:45→20:31)
[2017-10-23] MEDS: ASPIRIN CHEWABLE 81 MG TABLET. PO (08:45)
[2017-10-23] MEDS: MONTELUKAST SODIUM 10 MG TABLET. PO (08:45)
[2017-10-23] MEDS: LISINOPRIL 10 MG TABLET PO (08:45)
[2017-10-23] MEDS: ROFLUMILAST 500 MCG TABLET. PO (08:45)
[2017-10-23] MEDS: FLUTICASONE 50MCG/NASAL SPRAY 16GM BOTTLE. NS ×2 (09:00→20:32)
[2017-10-23 09:40] LABS: ADD MAN DIFF? NO
[2017-10-23 09:45] LABS: BASO % 0 % (0-3); EOS % 0 % (0-3); HEMOGLOBIN 13.2 g/dL (12.0-15.5); LYMPH # 1.8 x10^3/uL (1.0-4.8); LYMPH % 11 % (24-48); MEAN CORPUSCULAR HEMOGLOBIN 27 pg (25-35); MEAN CORPUSCULAR HGB CONC 32 g/dL (31-37); MEAN CORPUSCULAR VOLUME 84 fL (79-100); MONO # 1.5 x10^3/uL (0.0-1.1); MONO % 9 % (0-9); NEUT # 13.1 x10^3uL (1.8-7.7); NEUT % 80 % (31-73); PLATELET COUNT 290 x10^3/uL (140-400); RED BLOOD COUNT 4.89 x10^6/uL (3.50-5.40); RED CELL DISTRIBUTION WIDTH 15.7 % (11.5-14.5); WHITE BLOOD COUNT 16.4 x10^3/uL (4.0-11.0)
[2017-10-23 11:29] LABS: POC GLUCOSE 155 mg/dL (70-99)
[2017-10-23 17:34] LABS: POC GLUCOSE 106 mg/dL (70-99)
[2017-10-23] MEDS: SIMVASTATIN 10 MG TABLET PO (20:31)
[2017-10-23] MEDS: BACLOFEN 10 MG TABLET. PO (20:32)
[2017-10-23 20:52] LABS: POC GLUCOSE 131 mg/dL (70-99)
[2017-10-24 05:17] LABS: ADD MAN DIFF? NO
[2017-10-24 05:33] LABS: BASO % 0 % (0-3); EOS % 0 % (0-3); HEMATOCRIT 36.3 % (36.0-47.0); HEMOGLOBIN 11.8 g/dL (12.0-15.5); LYMPH # 0.8 x10^3/uL (1.0-4.8); LYMPH % 7 % (24-48); MEAN CORPUSCULAR HEMOGLOBIN 27 pg (25-35); MEAN CORPUSCULAR HGB CONC 33 g/dL (31-37); MEAN CORPUSCULAR VOLUME 83 fL (79-100); MONO # 0.9 x10^3/uL (0.0-1.1); MONO % 7 % (0-9); NEUT # 10.2 x10^3uL (1.8-7.7); NEUT % 86 % (31-73); PLATELET COUNT 279 x10^3/uL (140-400); RED BLOOD COUNT 4.37 x10^6/uL (3.50-5.40); RED CELL DISTRIBUTION WIDTH 16.2 % (11.5-14.5); WHITE BLOOD COUNT 11.9 x10^3/uL (4.0-11.0)
[2017-10-24 05:52] LABS: ANION GAP 4 (6-14); BLOOD UREA NITROGEN 31 mg/dL (7-20); CALCIUM 8.6 mg/dL (8.5-10.1); CARBON DIOXIDE 33 mmol/L (21-32); CHLORIDE 98 mmol/L (98-107); CREATININE 0.6 mg/dL (0.6-1.0); GLUCOSE 202 mg/dL (70-99); POTASSIUM 4.5 mmol/L (3.5-5.1); SODIUM 135 mmol/L (136-145)
[2017-10-24] MEDS: INSULIN ASPART 300 UNITS/3 ML INSULN.PEN SQ (07:30)
[2017-10-24] MEDS: BUDESONIDE 0.5 MG/2 ML NEBU. NEB (08:36)
[2017-10-24] MEDS: IPRATRPIUM/ALBUTEROL 0.5/2.5MG 3 ML NEBU. NEB ×2 (08:37→11:25)
[2017-10-24 09:26] LABS: POC GLUCOSE 120 mg/dL (70-99)
[2017-10-24] MEDS: ROFLUMILAST 500 MCG TABLET. PO (09:48)
[2017-10-24] MEDS: FLUTICASONE 50MCG/NASAL SPRAY 16GM BOTTLE. NS (09:48)
[2017-10-24] MEDS: LACTOBACILLUS RHAMNOSUS GG 1 CAPSULE. PO (09:48)
[2017-10-24] MEDS: MONTELUKAST SODIUM 10 MG TABLET. PO (09:49)
[2017-10-24] MEDS: glipiZIDE 5 MG TABLET PO (09:49)
[2017-10-24] MEDS: GABAPENTIN 100 MG CAPSULE. PO (09:54)
[2017-10-24] MEDS: CETIRIZINE HCL 10 MG TABLET. PO (09:54)
[2017-10-24] MEDS: ALPRAZolam 0.5 MG TABLET PO (09:54)
[2017-10-24] MEDS: FAMOTIDINE 20 MG TABLET. PO (09:54)
[2017-10-24] MEDS: ASPIRIN CHEWABLE 81 MG TABLET. PO (09:54)
[2017-10-24] MEDS: methylPREDNISolone SOD SUCC PF 40 MG/ML VIAL. IV (09:55)
[2017-10-24] MEDS: LISINOPRIL 10 MG TABLET PO (09:55)
[2017-10-24 11:30] LABS: POC GLUCOSE 84 mg/dL (70-99)
== END 2017-10-24 14:25 | disposition home or self-care (01) | DRG 682 ==
LOC: ER 15:06 → ED HOLD 17:27 → 2 SOUTH 19:39 → 2 NORTH 20:33 → 2 SOUTH 20:41
PROC: 5A09357 Assistance with Respiratory Ventilation, Less than 24 Consecutive Hours, Continuous Positive Airway Pressure (ICD-10-PCS; principal; 2017-10-17)
DX: I12.9 Hypertensive chronic kidney disease with stage 1 through stage 4 chronic kidney disease, or unspecified chronic kidney disease (principal); J96.21 Acute and chronic respiratory failure with hypoxia; E44.0 Moderate protein-calorie malnutrition; J96.22 Acute and chronic respiratory failure with hypercapnia; N39.0 Urinary tract infection, site not specified; J44.1 Chronic obstructive pulmonary disease with (acute) exacerbation; Z68.1 Body mass index [BMI] 19.9 or less, adult; N18.2 Chronic kidney disease, stage 2 (mild); E11.22 Type 2 diabetes mellitus with diabetic chronic kidney disease; E11.40 Type 2 diabetes mellitus with diabetic neuropathy, unspecified; E78.5 Hyperlipidemia, unspecified; F32.9 Major depressive disorder, single episode, unspecified; F41.9 Anxiety disorder, unspecified; I27.29 Other secondary pulmonary hypertension; Z87.891 Personal history of nicotine dependence; Z96.641 Presence of right artificial hip joint; Z99.81 Dependence on supplemental oxygen; M19.90 Unspecified osteoarthritis, unspecified site; J20.8 Acute bronchitis due to other specified organisms
CPT/HCPCS: 31720; 36415; 36600; 71045; 80048; 80053; 81001; 82805; 82962; 83605; 83880; 84484; 85007; 85025; 87086; 87804; 87804-59; 93005; 94640; 94760; 96374; 97162-GP; 97166-GO; 97530-GO; 97530-GP; 97535-GO; 99291; 99291-25; J1815; J1956; J2920; J2930; J7620; J7626

== ENCOUNTER 2018-06-06 13:58 | Emergency (ER) | payer OTHER ==
[~2018-06-06] VITALS: Ht 154.9 cm; Wt 42.6 kg
[~2018-06-06 13:58] MED LIST changes: +AMOX1TAB61 PO; +BUDE0.5A NEB; +DEXT15DR5 EACHEYE; +DOXY100C2 PO; +GUAI600T47 PO; +IPRA3AMP29 NEB; +OXYM30MI NS; +PRED2.5T PO
[2018-06-06 14:28] LABS: BILIRUBIN,URINE NEGATIVE (NEG); CLARITY,URINE CLEAR; COLOR,URINE YELLOW; NITRITE,URINE NEGATIVE (NEG); PROTEIN,URINE NEGATIVE (NEG-TRACE); UROBILINOGEN,URINE 0.2 mg/dL (0.2 mg/dL)
[2018-06-06 14:36] LABS: BACTERIA,URINE 0 /HPF (0-FEW); RBC,URINE 0 /HPF (0-2); SQUAMOUS EPITHELIAL CELL,UR FEW /LPF; WBC,URINE 0 /HPF (0-4)
[2018-06-06 14:43] VITALS: BP 144/78
--- NOTE | 2018-06-06 15:07 | PHYS DOC ---
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 Patient states she has chronic pain. She states most of the time the pain is around her abdomen. She states she was admitted at the beginning of this month for the pain. She states she called her doctor and they asked her to come to the ED to be admitted. Patient is very vague about her doctor. She initially said she has an [employer]ACILITATOR Dr. Shipman who sent her to be admitted. When inquired where Dr. Shipman practices from and if she can provided me the phone number to his clinic she was unable to produce any information. I finally asked her who her PCP is, she stated Dr. Coley Pratip. Informed patient I'll call the PCP to find out information on her visit today. I called patient's PCP Dr. Coley, he states patient has been calling his office and threatening them for pain medications. He states he already gave patient a prescription for hydrocodone 3 days ago. He states patient has called the office multiple times today. He states the office told patient they will not give her any more pain medicine and she threatened the office to come to the emergency room because they refused to give her pain medicine. Dr. Coley stated we can evaluate patient but she does not need to be admitted unless we find something acute Talk to patient about information I got from the PCP. Informed patient I will not give her any narcotics in the emergency room. PCP Dr. Coley 15:35 Informed by RN patient signed out AMA Review of Systems Review of Systems Constitutional: Denies fever or chills [] Eyes: Denies change in visual acuity, redness, or eye pain [] HENT: Denies nasal congestion or sore throat [] Respiratory: Denies cough or shortness of breath [] Cardiovascular: No additional information not addressed in HPI [] GI: Reports chronic abdominal pain denies nausea, vomiting, bloody stools or diarrhea [] : Denies dysuria or hematuria [] Musculoskeletal: Denies back pain or joint pain [] Integument: Denies rash or skin lesions [] Neurologic: Denies headache, focal weakness or sensory changes [] All other systems were reviewed and found to be within normal limits, except as documented in this note. Allergies Allergies Allergies Coded Allergies Type Severity Reaction Last Updated Verified No Known Drug Allergies 04/22/15 No Physical Exam Physical Exam Constitutional: Appears smaller than normal, no acute distress, non-toxic appearance. [] HENT: Normocephalic, atraumatic, bilateral external ears normal, oropharynx moist, no oral exudates, nose normal. [] Eyes: PERRLA, EOMI, conjunctiva normal, no discharge. [] Neck: Normal range of motion, no tenderness, supple, no stridor. [] Cardiovascular:Heart rate regular rhythm, no murmur [] Lungs & Thorax: Bilateral breath sounds clear to auscultation patient is on oxygen Abdomen: Bowel sounds normal, soft, no tenderness, no masses, no pulsatile masses. [] Skin: Warm, dry, no erythema, no rash. [] Back: No tenderness, no CVA tenderness. [] Extremities: No tenderness, no cyanosis, no clubbing, ROM intact, no edema. [] Neurologic: Alert and oriented X 3, normal motor function, normal sensory function, no focal deficits noted. [] Psychologic: Affect normal, judgement normal, mood normal. [] Current Patient Data Vital Signs Vital Signs Date Time Temp Pulse Resp B/P (MAP) Pulse Ox O2 Delivery O2 Flow Rate FiO2 06/06/18 14:43 98.7 95 18 144/78 (100) 98 Room Air 98.7 Lab Values Laboratory Tests Test 06/06/18 14:14 06/06/18 15:10 Urine Collection Type Unknown Urine Color Yellow Urine Clarity Clear Urine pH 7.0 Urine Specific [place] 1.010 Urine Protein Negative mg/dL (NEG-TRACE) Urine Glucose (UA) Negative mg/dL (NEG) Urine Ketones (Stick) Negative mg/dL (NEG) Urine Blood Negative (NEG) Urine Nitrite Negative (NEG) Urine Bilirubin Negative (NEG) Urine Urobilinogen Dipstick 0.2 mg/dL (0.2 mg/dL) Urine Leukocyte Esterase Negative (NEG) Urine RBC 0 /HPF (0-2) Urine WBC 0 /HPF (0-4) Urine Squamous Epithelial Cells Few /LPF Urine Bacteria 0 /HPF (0-FEW) Urine Opiates Screen Pos (NEG) Urine Methadone Screen Neg (NEG) Urine Barbiturates Neg (NEG) Urine Phencyclidine Screen Neg (NEG) Urine Amphetamine/Methamphetamine Neg (NEG) Urine Benzodiazepines Screen Neg (NEG) Urine Cocaine Screen Neg (NEG) Urine Cannabinoids Screen Neg (NEG) Urine Ethyl Alcohol Neg (NEG) White Blood Count 12.1 x10^3/uL (4.0-11.0) H Red Blood Count 4.32 x10^6/uL (3.50-5.40) Hemoglobin 12.2 g/dL (12.0-15.5) Hematocrit 37.2 % (36.0-47.0) Mean Corpuscular Volume 86 fL (79-100) Mean Corpuscular Hemoglobin 28 pg (25-35) Mean Corpuscular Hemoglobin Concent 33 g/dL (31-37) Red Cell Distribution Width 16.1 % (11.5-14.5) H Platelet Count 348 x10^3/uL (140-400) Neutrophils (%) (Auto) 86 % (31-73) H Lymphocytes (%) (Auto) 8 % (24-48) L Monocytes (%) (Auto) 5 % (0-9) Eosinophils (%) (Auto) 0 % (0-3) Basophils (%) (Auto) 1 % (0-3) Neutrophils # (Auto) 10.4 x10^3uL (1.8-7.7) H Lymphocytes # (Auto) 1.0 x10^3/uL (1.0-4.8) Monocytes # (Auto) 0.6 x10^3/uL (0.0-1.1) Eosinophils # (Auto) 0.0 x10^3/uL (0.0-0.7) Basophils # (Auto) 0.1 x10^3/uL (0.0-0.2) Platelet Estimate Pending Sodium Level 134 mmol/L (136-145) L Potassium Level 4.5 mmol/L (3.5-5.1) Chloride Level 96 mmol/L (98-107) L Carbon Dioxide Level 29 mmol/L (21-32) Anion Gap 9 (6-14) Blood Urea Nitrogen 20 mg/dL (7-20) Creatinine 0.7 mg/dL (0.6-1.0) Estimated GFR (Cockcroft-Gault) 81.8 BUN/Creatinine Ratio 29 (6-20) H Glucose Level 139 mg/dL (70-99) H Calcium Level 9.6 mg/dL (8.5-10.1) Total Bilirubin Pending Aspartate Amino Transferase (AST) Pending Alanine Aminotransferase (ALT) Pending Alkaline Phosphatase Pending Total Protein Pending Albumin Pending Albumin/Globulin Ratio Pending Lipase Pending Ethyl Alcohol Level < 10 mg/dL (0-10) Laboratory Tests 06/06/18 15:10 Laboratory Tests 06/06/18 15:10 EKG EKG [] Radiology/Procedures Radiology/Procedures [] Course & Med Decision Making Course & Med Decision Making Pertinent Labs and Imaging studies reviewed. (See chart for details) See HPI Dragon Disclaimer Dragon Disclaimer This electronic medical record was generated, in whole or in part, using a voice recognition dictation system. Departure Departure Impression: Primary Impression: Chronic abdominal pain Disposition: AGAINST MEDICAL ADVICE Condition: STABLE Referrals: MARIANELA COLEY MD (PCP) BERNARD THORNTON APRN Jun 06, 2018 15:07
[2018-06-06 15:18] LABS: BARBITURATES NEG (NEG); BENZODIAZEPINES NEG (NEG); CANNABINOIDS NEG (NEG); COCAINE NEG (NEG); METHADONE NEG (NEG); OPIATES POS (NEG); PHENCYCLIDINE NEG (NEG)
[2018-06-06 15:22] LABS: AMPHETAMINE/METHAMPHETAMINE NEG (NEG)
[2018-06-06 15:23] LABS: BASO # 0.1 x10^3/uL (0.0-0.2); BASO % 1 % (0-3); EOS % 0 % (0-3); HEMATOCRIT 37.2 % (36.0-47.0); HEMOGLOBIN 12.2 g/dL (12.0-15.5); LYMPH % 8 % (24-48); MEAN CORPUSCULAR HEMOGLOBIN 28 pg (25-35); MEAN CORPUSCULAR HGB CONC 33 g/dL (31-37); MEAN CORPUSCULAR VOLUME 86 fL (79-100); MONO # 0.6 x10^3/uL (0.0-1.1); MONO % 5 % (0-9); NEUT # 10.4 x10^3uL (1.8-7.7); NEUT % 86 % (31-73); PLATELET COUNT 348 x10^3/uL (140-400); RED BLOOD COUNT 4.32 x10^6/uL (3.50-5.40); RED CELL DISTRIBUTION WIDTH 16.1 % (11.5-14.5); WHITE BLOOD COUNT 12.1 x10^3/uL (4.0-11.0)
[2018-06-06 15:32] LABS: CALCIUM 9.6 mg/dL (8.5-10.1); CREATININE 0.7 mg/dL (0.6-1.0); GFR 81.8; POTASSIUM 4.5 mmol/L (3.5-5.1)
[2018-06-06 15:38] LABS: ALBUMIN 3.8 g/dL (3.4-5.0); ALBUMIN/GLOBULIN RATIO 1.1 (1.0-1.7); TOTAL BILIRUBIN 0.5 mg/dL (0.2-1.0); TOTAL PROTEIN 7.2 g/dL (6.4-8.2)
[2018-06-06 16:03] LABS: % BANDS 1 % (0-9); % LYMPHS 9 % (24-48); % MONOS 4 % (0-10); % SEGS 86 % (35-66)
[2018-06-06 16:06] LABS: ANISOCYTOSIS SLIGHT; PLT ESTIMATE ADEQUATE (ADEQUATE)
== END 2018-06-06 15:35 | disposition left against medical advice (07) ==
LOC: ER 13:58
DX: G89.29 Other chronic pain (principal); R10.9 Unspecified abdominal pain; J44.9 Chronic obstructive pulmonary disease, unspecified; E11.9 Type 2 diabetes mellitus without complications; I10 Essential (primary) hypertension
CPT/HCPCS: 36415; 80053; 80307; 81001; 83690; 85007; 85025; 99284; G0480; G0479

== ENCOUNTER 2018-06-12 16:20 | Emergency (ER) | payer OTHER ==
[~2018-06-12] VITALS: Ht 154.9 cm; Wt 42.2 kg
[2018-06-12 18:28] VITALS: BP 157/68
--- NOTE | 2018-06-12 18:40 | PHYS DOC ---
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 She reportedly called her urologist office, Dr. Antonio, because the catheter was irritating her, and she was told to come to the emergency department to have it removed. She had a catheter placed, for urinary retention, according to records reviewed from earlier this month. The patient denies any complaints of pain at this time other than discomfort from the catheter itself. Her catheter has been draining non-cloudy yellow, normal appearing urine. She denies any fevers or chills or back pain. She insists that she wants the catheter out, although I explained to her this certainly possible that she would have recurrent urinary retention and required further catheterization. The patient expressed understanding of this and still would like the catheter out. Review of Systems Review of Systems Constitutional: Denies fever or chills [] HENT: Denies nasal congestion or sore throat [] Respiratory: Denies cough or shortness of breath [] Cardiovascular: No additional information not addressed in HPI [] GI: Denies abdominal pain, nausea, vomiting, bloody stools or diarrhea [] : Denies dysuria or hematuria [] Integument: Denies rash or skin lesions [] Neurologic: Denies headache, focal weakness or sensory changes [] Endocrine: Denies polyuria or polydipsia [] Allergies Allergies Allergies Coded Allergies Type Severity Reaction Last Updated Verified No Known Drug Allergies 04/22/15 No Physical Exam Physical Exam PHYSICAL EXAM: CONSTITUTIONAL: Well developed, well nourished HEAD: normocephalic, atraumatic EENT: PERRL, EOMI. Conjunctivae normal color, sclerae non-icteric; moist mucous membranes. NECK: Supple, non-tender; no meningismus. LUNGS: Lungs CTA, breathing even and unlabored. Normal air movement. HEART: Regular rate and rhythm, no murmur CHEST: No deformity; non-tender ABDOMEN: The abdomen is soft, and non-tender, no masses or bruits. There is a Ivory catheter present, with clear urine drainage bag. EXTREM: Normal ROM; no deformity, no calf tenderness. Normal pulses palpable in all extremities. There is no pedal edema. SKIN: No rash; no diaphoresis NEURO: Alert; normal speech and cognition; CN's grossly intact; strength grossly intact without focal deficit. BACK: No CVA TTP. Current Patient Data Vital Signs Vital Signs Date Time Temp Pulse Resp B/P (MAP) Pulse Ox O2 Delivery O2 Flow Rate FiO2 06/12/18 18:28 97.9 92 24 157/68 (97) 100 2.0 97.9 06/12/18 17:55 Nasal Cannula EKG EKG [] Radiology/Procedures Radiology/Procedures [] Course & Med Decision Making Course & Med Decision Making []Patient's recent lab and imaging results of been reviewed. I discussed importance of close follow-up with her PCP and urologist for further bladder drainage monitoring and we discussed return precautions. Dragon Disclaimer Dragon Disclaimer This electronic medical record was generated, in whole or in part, using a voice recognition dictation system. Departure Departure Impression: Primary Impression: Encounter for Ivory catheter removal Disposition: HOME, SELF-CARE Condition: STABLE Referrals: MARIANELA COLEY MD (PCP) WAYNE LEVY MD Patient Instructions: Urinary Retention, Acute, Female MICHELLE HURTADO MD Jun 12, 2018 18:40
== END 2018-06-12 18:57 | disposition home or self-care (01) ==
LOC: ER 16:20
DX: Z46.6 Encounter for fitting and adjustment of urinary device (principal); R33.9 Retention of urine, unspecified; I10 Essential (primary) hypertension; J44.9 Chronic obstructive pulmonary disease, unspecified; E11.9 Type 2 diabetes mellitus without complications
CPT/HCPCS: 99281

== ENCOUNTER 2018-08-20 10:19 | Day surgery (SDC) | payer OTHER ==
[~2018-08-20] VITALS: Ht 154.9 cm; Wt 44.5 kg
[~2018-08-20 10:19] MED LIST changes: +ALEN70TA5 PO; +BUPIVAC MPF-EPI 0.5%-1:200000 30 ML VIAL. ONE; +CIPROFLOXACIN 400MG PREMIX 200 ML IV PRN; -GABA-586 PO; +GABA300C18 PO; +HYDROmorphone 2 MG/ML VIAL IV PRN; +IV RINGERS,LACTATED 1000ML 1,000 ML IV SCH; +LIDOCAINE 1% PF 2 ML VIAL. ID PRN; +LIDOCAINE 2% JELLY 6ML IN APPLICATOR. ONE; +LIDOCAINE 2% PF Vial for OR 5 ML VIAL. ONE; +LISI-334 PO; +MORPHINE SULFATE 2 MG/ML VIAL. IV PRN; +ONDANSETRON PF 4 MG/2 ML VIAL. IV PRN; +PROCHLORPERAZINE 10 MG/2 ML VIAL. IV PRN; +PROPOFOL 20 ML IV ONE; +fentaNYL PF VIAL 100 MCG/2 ML VIAL IV PRN; +fentaNYL PF VIAL 100 MCG/2 ML VIAL ONE
[2018-08-20] MEDS ORDERED: LIDOCAINE 2% 20 ML VIAL. ONE (11:07)
[2018-08-20] MEDS ORDERED: SEVOFLURANE 31 TO 60 MINUTES. IH ONE (11:13)
[2018-08-20] MEDS ORDERED: ONDANSETRON PF 4 MG/2 ML VIAL. ONE (11:13)
[2018-08-20] MEDS ORDERED: DEXAMETHASONE SOD PHOS 20 MG/5 ML VIAL. ONE (11:13)
[2018-08-20] MEDS ORDERED: ePHEDrine PF IN SALINE 50 MG/5 ML DISP.SYRIN IV ONE (11:16)
--- NOTE | 2018-08-20 12:09 | PDOC4 ---
OPERATIVE NOTE Pre-Op Diagnosis: urine retention Post-Op Diagnosis: same Procedure Performed: cysto, perc SPT placement urethra enriquez placement Surgeon: Anesthesia Type: ga Blood Loss: 10ml Specimans Obtained: none Findings: very large, thin wall, floppy bladder Complications: vaginal bleeding from atrophic vaginitis and instrumentation. WAYNE LEVY MD Aug 20, 2018 12:09
[2018-08-20 12:46] VITALS: BP 165/72
--- NOTE | 2018-08-20 12:46 | DISCH ---
DISCHARGE INSTRUCTIONS Condition on Discharge Condition on Discharge: Stable Activity After Discharge Activity Instructions for Disc: Activity as tolerated Weight Bearing Status after Di: As tolerated Diet after Discharge Diet after Discharge: Regular Diet Texture: Regular Liquid Texture: Thin Liquid Swallowing Supervision: None needed Checks after Discharge Checks after discharge: Check blood press - daily, Check blood sugar, ac/hs Contacting the DRChristopher after DC Call your doctor for: Concerns you may have Follow-Up Follow up with: dr jacobs 2 weeks Treatment/Equipment after DC Adaptive Equipment Issued: Walker Discharge Respiratory Equipmen: Oxygen, Nebulizer WAYNE JACOBS MD Aug 20, 2018 12:46
--- NOTE | 2018-08-20 13:16 | OP ---
DATE OF SURGERY: PREOPERATIVE DIAGNOSES: 1. Urinary retention. 2. Neurogenic bladder. POSTOPERATIVE DIAGNOSES: 1. Urinary retention. 2. Neurogenic bladder. PROCEDURES: 1. Cystoscopy and percutaneous suprapubic tube placement. 2. Urethral Ivory placement. SURGEON: Martha Eisenberg M.D. ANESTHESIA: General inhalation. COMPLICATIONS: Vaginal bleeding from atrophic vaginitis and instrumentation found and very large thin-walled bladder, it was very floppy. DESCRIPTION OF PROCEDURE IN DETAIL: The patient was taken back to the procedure room and placed under general anesthesia in the supine position per protocol. She was prepped and draped in the usual sterile manner in dorsal lithotomy position. Time-out was performed, SCDs were attached and IV antibiotics were administered. A 21-Filipino rigid cystoscope was advanced per urethra into the bladder. Careful systematic review of the bladder visualized a very large-capacity trabeculated with prominent vascularity of the bladder. Suprapubic area was inspected and marked under cystoscopic guidance. An 11 blade was used to cut the skin. She had bleeding from the skin, which was controlled with compression. A Bard suprapubic catheter kit was assembled with a 16-Filipino placed into the sheath. Upon entry into the bladder, the patient had unexpected movement and the sheath caused some abrasion of the posterior wall. Sheath was removed and a balloon was inflated. The needle was removed. There was some bleeding from the suprapubic site and also from inadvertent injury during the patient's move during anesthesia. This was irrigated to a clear urine. To ensure that there were no developing clots, I decided to leave a urethral Ivory, also to optimize drainage. During instrumentation, there were noted some vaginal bleeding. Speculum was used and noted this to be related to atrophic vaginitis with tear at the vaginal entry. These were stitched with 2-0 Vicryl. Vaginal packing was used just to tamponade the bleeding with excellent hemostasis. Upon final inspection, she had some mild oozing from the suprapubic tube site, presumably during entry of the trocar at one of the blood vessels. I do not think at this point she needs continuous bladder irrigation, but I will optimize her drainage for the next 2 weeks. DISPOSITION: Might observe overnight if her bleeding issues persist after anesthesia. I will keep a urethral Ivory over the next 2 weeks and will come back to the clinic to have that removed. She will have suprapubic changed as outpatient. MARTHA EISENBERG MD DR: AUGUSTINE/shaq JOB#: [id number] / [id number]
[2018-08-20] MEDS ORDERED: HYDROcodone/APAP 5/325MG 1 TAB TABLET PO ONE (13:30)
[2018-08-20] MEDS ORDERED: HYDR-3164 PO (13:43)
== END 2018-08-20 15:18 | disposition home or self-care (01) ==
LOC: SURG 10:19
PROVIDERS: ATTEND Urology
DX: R33.9 Retention of urine, unspecified (principal); N95.2 Postmenopausal atrophic vaginitis; N31.8 Other neuromuscular dysfunction of bladder; E11.9 Type 2 diabetes mellitus without complications; Z79.899 Other long term (current) drug therapy; Z79.82 Long term (current) use of aspirin; Z79.84 Long term (current) use of oral hypoglycemic drugs
CPT/HCPCS: 51040; 82962; A7015; C1725; J1100; J2001; J2405; J2704; J3010; J3490

== ENCOUNTER 2019-01-08 14:00 | Inpatient (IN) | payer OTHER ==
[~2019-01-08] VITALS: Ht 154.9 cm; Wt 41.7 kg
[~2019-01-08 14:00] MED LIST changes: +ACET325T9 PO; +ALBU2.5V8 INH; -ALEN70TA5 PO; +ALEN70TA6 PO; -BUPIVAC MPF-EPI 0.5%-1:200000 30 ML VIAL. ONE; +CIPR500T PO; -CIPROFLOXACIN 400MG PREMIX 200 ML IV PRN; +GUAI12003 PO; +HYDR-2761 PO; +HYDR-3164 PO; -HYDROmorphone 2 MG/ML VIAL IV PRN; -IV RINGERS,LACTATED 1000ML 1,000 ML IV SCH; -LIDOCAINE 1% PF 2 ML VIAL. ID PRN; -LIDOCAINE 2% JELLY 6ML IN APPLICATOR. ONE; -LIDOCAINE 2% PF Vial for OR 5 ML VIAL. ONE; -MORPHINE SULFATE 2 MG/ML VIAL. IV PRN; -ONDANSETRON PF 4 MG/2 ML VIAL. IV PRN; -PROAIR HFA8.5 GM INH; -PROCHLORPERAZINE 10 MG/2 ML VIAL. IV PRN; -PROPOFOL 20 ML IV ONE; +SENN-22 PO; -fentaNYL PF VIAL 100 MCG/2 ML VIAL IV PRN; -fentaNYL PF VIAL 100 MCG/2 ML VIAL ONE
[2019-01-08] MEDS ORDERED: ACETAMINOPHEN 325 MG TABLET. PO ONE (16:30)
--- NOTE | 2019-01-08 16:44 | PHYS DOC ---
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 She told them it has been swelling and hurting for the last few days and they recommended she come to ER for evaluation. She has been taking tylenol for pain and denies any known injury. Review of Systems Review of Systems Constitutional: Denies fever or chills Respiratory: Denies cough or shortness of breath Cardiovascular: Denies chest pain GI: Denies abdominal pain, nausea, vomiting, bloody stools or diarrhea : Denies dysuria or hematuria Musculoskeletal: Denies back pain. Reports R foot pain. Integument: Reports R foot erythema, edema and pain Neurologic: Denies headache, focal weakness or sensory changes Endocrine: Denies polyuria or polydipsia All other systems were reviewed and found to be within normal limits, except as documented in this note. Current Medications Current Medications Current Medications Medications (Trade) Dose Ordered Sig/Geovanny Start Time Stop Time Status Last Admin Dose Admin Acetaminophen (Tylenol) 650 mg 1X ONCE 01/08/19 16:30 01/08/19 16:31 DC 01/08/19 16:30 650 MG Cefazolin Sodium 50 ml @ 100 mls/hr 1X ONCE 01/08/19 16:30 01/08/19 16:59 DC 01/08/19 16:30 100 MLS/HR Allergies Allergies Allergies Coded Allergies Type Severity Reaction Last Updated Verified No Known Drug Allergies 10/30/18 No Physical Exam Physical Exam Constitutional: Well developed, well nourished, no acute distress, non-toxic appearance. Neck: Normal range of motion, no tenderness, supple, no stridor. Cardiovascular:Heart rate regular rhythm, no murmur Lungs & Thorax: Mild scattered wheezes throughout. Abdomen: Bowel sounds normal, soft, no tenderness, no masses, no pulsatile masses. Skin: Warm, dry. Erythematous R foot and ankle with small amount of redness coming up leg. Back: No tenderness, no CVA tenderness. Extremities: Significant edema of R foot, with pain and erythema. Neurologic: Alert and oriented X 3, normal motor function, normal sensory function, no focal deficits noted. Psychologic: Affect normal, judgement normal, mood normal. Current Patient Data Vital Signs Vital Signs Date Time Temp Pulse Resp B/P (MAP) Pulse Ox O2 Delivery O2 Flow Rate FiO2 01/08/19 17:00 60 175/73 (107) 100 Nasal Cannula 2.5 01/08/19 16:02 98.0 18 98.0 Lab Values Laboratory Tests Test 01/08/19 15:58 01/08/19 17:00 Urine Collection Type Unknown Urine Color Straw Urine Clarity Clear Urine pH 6.5 Urine Specific [place] <=1.005 Urine Protein Negative mg/dL (NEG-TRACE) Urine Glucose (UA) Negative mg/dL (NEG) Urine Ketones (Stick) Negative mg/dL (NEG) Urine Blood Small (NEG) Urine Nitrite Positive (NEG) Urine Bilirubin Negative (NEG) Urine Urobilinogen Dipstick 0.2 mg/dL (0.2 mg/dL) Urine Leukocyte Esterase Large (NEG) Urine RBC Occ /HPF (0-2) Urine WBC 11-20 /HPF (0-4) Urine Squamous Epithelial Cells Few /LPF Urine Bacteria Many /HPF (0-FEW) White Blood Count 9.5 x10^3/uL (4.0-11.0) Red Blood Count 4.93 x10^6/uL (3.50-5.40) Hemoglobin 12.2 g/dL (12.0-15.5) Hematocrit 38.9 % (36.0-47.0) Mean Corpuscular Volume 79 fL (79-100) Mean Corpuscular Hemoglobin 25 pg (25-35) Mean Corpuscular Hemoglobin Concent 31 g/dL (31-37) Red Cell Distribution Width 16.9 % (11.5-14.5) H Platelet Count 328 x10^3/uL (140-400) Neutrophils (%) (Auto) 64 % (31-73) Lymphocytes (%) (Auto) 25 % (24-48) Monocytes (%) (Auto) 8 % (0-9) Eosinophils (%) (Auto) 3 % (0-3) Basophils (%) (Auto) 1 % (0-3) Neutrophils # (Auto) 6.0 x10^3uL (1.8-7.7) Lymphocytes # (Auto) 2.3 x10^3/uL (1.0-4.8) Monocytes # (Auto) 0.8 x10^3/uL (0.0-1.1) Eosinophils # (Auto) 0.3 x10^3/uL (0.0-0.7) Basophils # (Auto) 0.1 x10^3/uL (0.0-0.2) Sodium Level 136 mmol/L (136-145) Potassium Level 4.2 mmol/L (3.5-5.1) Chloride Level 99 mmol/L (98-107) Carbon Dioxide Level 28 mmol/L (21-32) Anion Gap 9 (6-14) Blood Urea Nitrogen 18 mg/dL (7-20) Creatinine 0.7 mg/dL (0.6-1.0) Estimated GFR (Cockcroft-Gault) 81.8 BUN/Creatinine Ratio 26 (6-20) H Glucose Level 78 mg/dL (70-99) Lactic Acid Level 1.0 mmol/L (0.4-2.0) Calcium Level 11.1 mg/dL (8.5-10.1) H Total Bilirubin 0.3 mg/dL (0.2-1.0) Aspartate Amino Transferase (AST) 44 U/L (15-37) H Alanine Aminotransferase (ALT) 24 U/L (14-59) Alkaline Phosphatase 77 U/L (46-116) C-Reactive Protein, Quantitative 4.8 mg/L (0-3.3) H Total Protein 9.1 g/dL (6.4-8.2) H Albumin 4.4 g/dL (3.4-5.0) Albumin/Globulin Ratio 0.9 (1.0-1.7) L Laboratory Tests 01/08/19 17:00 Laboratory Tests 01/08/19 17:00 EKG EKG [] Radiology/Procedures Radiology/Procedures US neg for DVT Xray neg for osseous findings. CXR shows possible early pneumonia Course & Med Decision Making Course & Med Decision Making Pertinent Labs and Imaging studies reviewed. (See chart for details) Pt will be admitted for IV abx for cellulitis of R foot and lower leg and possible pneumonia. Urinalysis pending at time of admission. Discussed case with Dr. Coley, who is pt's PCP. Dragon Disclaimer Dragon Disclaimer This electronic medical record was generated, in whole or in part, using a voice recognition dictation system. Departure Departure Impression: Primary Impression: Cellulitis of foot, right Disposition: 09 ADMITTED INPATIENT Admitting Physician: Marianela Coley Condition: STABLE Referrals: MARIANELA COLEY MD (PCP) ECTOR CAMARILLO Jan 08, 2019 16:44
[2019-01-08 17:18] LABS: BASO # 0.1 x10^3/uL (0.0-0.2); BASO % 1 % (0-3); CALCIUM 11.1 mg/dL (8.5-10.1); CREATININE 0.7 mg/dL (0.6-1.0); EOS # 0.3 x10^3/uL (0.0-0.7); EOS % 3 % (0-3); GFR 81.8; HEMATOCRIT 38.9 % (36.0-47.0); HEMOGLOBIN 12.2 g/dL (12.0-15.5); LYMPH # 2.3 x10^3/uL (1.0-4.8); LYMPH % 25 % (24-48); MEAN CORPUSCULAR HEMOGLOBIN 25 pg (25-35); MEAN CORPUSCULAR HGB CONC 31 g/dL (31-37); MEAN CORPUSCULAR VOLUME 79 fL (79-100); MONO # 0.8 x10^3/uL (0.0-1.1); MONO % 8 % (0-9); NEUT % 64 % (31-73); PLATELET COUNT 328 x10^3/uL (140-400); POTASSIUM 4.2 mmol/L (3.5-5.1); RED BLOOD COUNT 4.93 x10^6/uL (3.50-5.40); RED CELL DISTRIBUTION WIDTH 16.9 % (11.5-14.5); WHITE BLOOD COUNT 9.5 x10^3/uL (4.0-11.0)
[2019-01-08 17:23] LABS: ALBUMIN 4.4 g/dL (3.4-5.0); ALBUMIN/GLOBULIN RATIO 0.9 (1.0-1.7); TOTAL BILIRUBIN 0.3 mg/dL (0.2-1.0); TOTAL PROTEIN 9.1 g/dL (6.4-8.2)
--- NOTE | 2019-01-08 17:24 | RAD ---
FOOT RIGHT 3V, CHEST AP ONLY Clinical History: RIGHT FOOT CELLULITIS, REDNESS, DISTAL SWELLING & PAIN FOR A FEW DAYS RATIATING UP TO THE DISTAL TIB/FIB, 1 View Chest: Nonproductive cough Technique: AP view of the chest was obtained at 01/08/2019 4:19 PM. Comparison: October 30, 2018. Findings: The cardiomediastinal silhouette is normal. The pulmonary vasculature is normal. There is vague patchy opacities in the lung bases bilaterally right more than left. Impression: Mild basal infiltrates could be early pneumonia. End impression Three-view right foot: AP lateral oblique views There is moderate bunion deformity. There is gross osteopenia which can limit sensitivity for possible nondisplaced fracture. There is no lytic destructive changes. End impression Electronically signed by: Paco Castro III, MD (01/08/2019 5:21 PM) [facility]
[2019-01-08 17:32] LABS: BILIRUBIN,URINE NEGATIVE (NEG); CLARITY,URINE CLEAR; NITRITE,URINE POSITIVE (NEG); PH,URINE 6.5; PROTEIN,URINE NEGATIVE (NEG-TRACE); UROBILINOGEN,URINE 0.2 mg/dL (0.2 mg/dL)
[2019-01-08 17:33] LABS: C-REACTIVE PROTEIN 4.8 mg/L (0-3.3)
[2019-01-08 17:41] LABS: COLOR,URINE STRAW
[2019-01-08 17:42] LABS: BACTERIA,URINE MANY /HPF (0-FEW); RBC,URINE OCC /HPF (0-2)
[2019-01-08 17:43] LABS: SQUAMOUS EPITHELIAL CELL,UR FEW /LPF
--- NOTE | 2019-01-08 18:40 | RAD ---
Right Lower Extremity Venous Doppler Ultrasound History: 3 weeks of redness and tenderness of the right foot Comparison: None Procedure: Color flow, duplex, spectral analysis and 2D images are obtained with and without compression in the area of the common femoral vein, superficial femoral vein - femoral vein junction, main femoral vein (superficial femoral vein) and popliteal vein. Veins of the proximal calf are also imaged. Findings: The soft tissue edema in the distal lower leg. There is normal duplex flow, color flow and compressibility of all visualized vein segments. No evidence of deep venous thrombus is present. Impression: No evidence of DVT. Electronically signed by: Paco Castro III, MD (01/08/2019 6:37 PM) [facility]
[2019-01-08 19:30] VITALS: BP 140/61
[2019-01-08] MEDS ORDERED: ALBUTEROL SULFATE 2.5 MG/3 ML NEBU. INH PRN (20:45)
[2019-01-08] MEDS ORDERED: ACETAMINOPHEN 325 MG TABLET. PO PRN (20:45)
[2019-01-08] MEDS ORDERED: SENNOSIDES/DOCUSATE 8.6/50MG TABLET. PO PRN (20:45)
[2019-01-08] MEDS ORDERED: BACLOFEN 10 MG TABLET. PO PRN (20:45)
[2019-01-08] MEDS: HYDROcodone/APAP 5/325MG 1 TAB TABLET PO PRN (20:55)
[2019-01-08] MEDS: GABAPENTIN 100 MG CAPSULE. PO SCH (20:55)
[2019-01-08] MEDS: ALPRAZolam 0.5 MG TABLET PO SCH (20:55)
[2019-01-08] MEDS: SIMVASTATIN 10 MG TABLET PO SCH (20:55)
[2019-01-08] MEDS: CETIRIZINE HCL 10 MG TABLET. PO SCH (20:56)
[2019-01-08] MEDS: MONTELUKAST SODIUM 10 MG TABLET. PO SCH (20:59)
[2019-01-08] MEDS ORDERED: NON FORMULARY ITEM (Budesonide/Formoterol Fumarate (Symbicort 160-4.5 Mcg Inhaler) 2 PUFF) IH SCH (21:00)
[2019-01-08 23:00] VITALS: BP 84/49
[2019-01-08] MEDS: ceFAZolin SODIUM 1 GM in IV DEXTROSE 5% 50 ML IV SCH (23:48)
[2019-01-09] VITALS (9 sets, daily range): BP systolic 84–138; BP diastolic 40–97
[2019-01-09] MEDS ORDERED: IV NORMAL SALINE 500ML BAG 500 ML IV ONE (04:00)
[2019-01-09] MEDS ORDERED: IV NORMAL SALINE 1000ML BAG 1,000 ML IV SCH (05:00)
[2019-01-09] MEDS: ceFAZolin SODIUM 1 GM in IV DEXTROSE 5% 50 ML IV SCH (06:20)
[2019-01-09] MEDS: BUDESONIDE 0.5 MG/2 ML NEBU. NEB SCH ×2 (08:00→20:48)
[2019-01-09] MEDS: ALPRAZolam 0.5 MG TABLET PO SCH ×2 (08:15→20:13)
[2019-01-09] MEDS: FAMOTIDINE 20 MG TABLET. PO SCH (08:15)
[2019-01-09] MEDS: GABAPENTIN 100 MG CAPSULE. PO SCH ×2 (08:15→20:13)
[2019-01-09] MEDS: ASPIRIN CHEWABLE 81 MG TABLET. PO SCH (08:15)
[2019-01-09] MEDS: HYDROcodone/APAP 5/325MG 1 TAB TABLET PO PRN (08:16)
[2019-01-09] MEDS: FLUTICASONE 50MCG/NASAL SPRAY 16GM BOTTLE. NS SCH (08:16)
[2019-01-09] MEDS: IPRATRPIUM/ALBUTEROL 0.5/2.5MG 3 ML NEBU. NEB SCH ×4 (08:36→20:48)
[2019-01-09] MEDS ORDERED: NON FORMULARY ITEM (Tiotropium Bromide (Spiriva) 1 CAP) IH SCH (09:00)
[2019-01-09 09:27] LABS: BASO # 0.1 x10^3/uL (0.0-0.2); BASO % 2 % (0-3); EOS # 0.4 x10^3/uL (0.0-0.7); EOS % 6 % (0-3); HEMATOCRIT 33.1 % (36.0-47.0); HEMOGLOBIN 10.7 g/dL (12.0-15.5); LYMPH # 2.4 x10^3/uL (1.0-4.8); LYMPH % 40 % (24-48); MEAN CORPUSCULAR HEMOGLOBIN 25 pg (25-35); MEAN CORPUSCULAR HGB CONC 32 g/dL (31-37); MEAN CORPUSCULAR VOLUME 79 fL (79-100); MONO # 0.7 x10^3/uL (0.0-1.1); MONO % 12 % (0-9); NEUT # 2.4 x10^3uL (1.8-7.7); NEUT % 40 % (31-73); PLATELET COUNT 275 x10^3/uL (140-400); RED BLOOD COUNT 4.19 x10^6/uL (3.50-5.40); WHITE BLOOD COUNT 6.1 x10^3/uL (4.0-11.0)
[2019-01-09 09:37] LABS: ALBUMIN 3.4 g/dL (3.4-5.0); CALCIUM 8.8 mg/dL (8.5-10.1); CREATININE 1.2 mg/dL (0.6-1.0); GFR 43.9; POTASSIUM 4.2 mmol/L (3.5-5.1); TOTAL BILIRUBIN 0.2 mg/dL (0.2-1.0); TOTAL PROTEIN 6.9 g/dL (6.4-8.2)
--- NOTE | 2019-01-09 10:14 | PDOC ---
Provider Note Provider Note Patient seen. History and Physical dictated. See dictation#[id number] MARIANELA COLEY MD Jan 09, 2019 10:14
--- NOTE | 2019-01-09 10:44 | PDOC ---
Infectious Disease Note Vital Sign Vital Signs Vital Signs Date Time Temp Pulse Resp B/P (MAP) Pulse Ox O2 Delivery O2 Flow Rate FiO2 01/09/19 09:18 Nasal Cannula 2.0 01/09/19 08:36 95 01/09/19 07:00 98.0 65 18 138/97 (111) 98.0 Labs Lab Laboratory Tests Test 01/08/19 15:58 01/08/19 17:00 01/08/19 20:55 01/09/19 07:24 Urine Collection Type Unknown Urine Color Straw Urine Clarity Clear Urine pH 6.5 Urine Specific [place] <=1.005 Urine Protein Negative mg/dL (NEG-TRACE) Urine Glucose (UA) Negative mg/dL (NEG) Urine Ketones (Stick) Negative mg/dL (NEG) Urine Blood Small (NEG) Urine Nitrite Positive (NEG) Urine Bilirubin Negative (NEG) Urine Urobilinogen Dipstick 0.2 mg/dL (0.2 mg/dL) Urine Leukocyte Esterase Large (NEG) Urine RBC Occ /HPF (0-2) Urine WBC 11-20 /HPF (0-4) Urine Squamous Epithelial Cells Few /LPF Urine Bacteria Many /HPF (0-FEW) White Blood Count 9.5 x10^3/uL (4.0-11.0) Red Blood Count 4.93 x10^6/uL (3.50-5.40) Hemoglobin 12.2 g/dL (12.0-15.5) Hematocrit 38.9 % (36.0-47.0) Mean Corpuscular Volume 79 fL (79-100) Mean Corpuscular Hemoglobin 25 pg (25-35) Mean Corpuscular Hemoglobin Concent 31 g/dL (31-37) Red Cell Distribution Width 16.9 % (11.5-14.5) Platelet Count 328 x10^3/uL (140-400) Neutrophils (%) (Auto) 64 % (31-73) Lymphocytes (%) (Auto) 25 % (24-48) Monocytes (%) (Auto) 8 % (0-9) Eosinophils (%) (Auto) 3 % (0-3) Basophils (%) (Auto) 1 % (0-3) Neutrophils # (Auto) 6.0 x10^3uL (1.8-7.7) Lymphocytes # (Auto) 2.3 x10^3/uL (1.0-4.8) Monocytes # (Auto) 0.8 x10^3/uL (0.0-1.1) Eosinophils # (Auto) 0.3 x10^3/uL (0.0-0.7) Basophils # (Auto) 0.1 x10^3/uL (0.0-0.2) Sodium Level 136 mmol/L (136-145) Potassium Level 4.2 mmol/L (3.5-5.1) Chloride Level 99 mmol/L (98-107) Carbon Dioxide Level 28 mmol/L (21-32) Anion Gap 9 (6-14) Blood Urea Nitrogen 18 mg/dL (7-20) Creatinine 0.7 mg/dL (0.6-1.0) Estimated GFR (Cockcroft-Gault) 81.8 BUN/Creatinine Ratio 26 (6-20) Glucose Level 78 mg/dL (70-99) Lactic Acid Level 1.0 mmol/L (0.4-2.0) Calcium Level 11.1 mg/dL (8.5-10.1) Total Bilirubin 0.3 mg/dL (0.2-1.0) Aspartate Amino Transf (AST/SGOT) 44 U/L (15-37) Alanine Aminotransferase (ALT/SGPT) 24 U/L (14-59) Alkaline Phosphatase 77 U/L (46-116) C-Reactive Protein, Quantitative 4.8 mg/L (0-3.3) Total Protein 9.1 g/dL (6.4-8.2) Albumin 4.4 g/dL (3.4-5.0) Albumin/Globulin Ratio 0.9 (1.0-1.7) Glucose (Fingerstick) 76 mg/dL (70-99) 78 mg/dL (70-99) Test 01/09/19 08:46 White Blood Count 6.1 x10^3/uL (4.0-11.0) Red Blood Count 4.19 x10^6/uL (3.50-5.40) Hemoglobin 10.7 g/dL (12.0-15.5) Hematocrit 33.1 % (36.0-47.0) Mean Corpuscular Volume 79 fL (79-100) Mean Corpuscular Hemoglobin 25 pg (25-35) Mean Corpuscular Hemoglobin Concent 32 g/dL (31-37) Red Cell Distribution Width 16.0 % (11.5-14.5) Platelet Count 275 x10^3/uL (140-400) Neutrophils (%) (Auto) 40 % (31-73) Lymphocytes (%) (Auto) 40 % (24-48) Monocytes (%) (Auto) 12 % (0-9) Eosinophils (%) (Auto) 6 % (0-3) Basophils (%) (Auto) 2 % (0-3) Neutrophils # (Auto) 2.4 x10^3uL (1.8-7.7) Lymphocytes # (Auto) 2.4 x10^3/uL (1.0-4.8) Monocytes # (Auto) 0.7 x10^3/uL (0.0-1.1) Eosinophils # (Auto) 0.4 x10^3/uL (0.0-0.7) Basophils # (Auto) 0.1 x10^3/uL (0.0-0.2) Sodium Level 140 mmol/L (136-145) Potassium Level 4.2 mmol/L (3.5-5.1) Chloride Level 103 mmol/L (98-107) Carbon Dioxide Level 30 mmol/L (21-32) Anion Gap 7 (6-14) Blood Urea Nitrogen 21 mg/dL (7-20) Creatinine 1.2 mg/dL (0.6-1.0) Estimated GFR (Cockcroft-Gault) 43.9 BUN/Creatinine Ratio 18 (6-20) Glucose Level 119 mg/dL (70-99) Calcium Level 8.8 mg/dL (8.5-10.1) Total Bilirubin 0.2 mg/dL (0.2-1.0) Aspartate Amino Transf (AST/SGOT) 32 U/L (15-37) Alanine Aminotransferase (ALT/SGPT) 24 U/L (14-59) Alkaline Phosphatase 63 U/L (46-116) Total Protein 6.9 g/dL (6.4-8.2) Albumin 3.4 g/dL (3.4-5.0) Albumin/Globulin Ratio 1.0 (1.0-1.7) Micro seudomonas aeruginosa 4+ AEROBIC RES 2 Final Proteus mirabilis 4+ AEROBIC RES 3 Final Mixed skin alexis 4+ ANTIMICROBIAL SUSCEPTIBILITY Final Comment S = Susceptible; I = Intermediate; R = Resistant P = Positive; N = Negative MICS are expressed in micrograms per mL Antibiotic RSLT#1 RSLT#2 RSLT#3 RSLT#4 Amikacin S<=2 Ampicillin R>=32 Cefazolin R>=64 Cefepime S =8 S<=0.12 Ceftazidime S =4 CONTINUED ON NEXT PAGE RUN DATE: 11/03/18 PAGE 2 RUN TIME: 1809 [facility] [address] [place] [address] Kodi Hampton M.D., Database Security Administrator SPEC: [id number] PATIENT: ZULEIKA PIZARRO [id number] (Continued) ------- Procedure Result ANTIMICROBIAL SUSCEPTIBILITY Final (continued) Ceftriaxone S<=0.25 Cefuroxime R>=64 Ciprofloxacin S =1 S<=0.25 Ertapenem S<=0.12 Gentamicin S<=1 S<=1 Imipenem S<=1 Levofloxacin I =4 S<=0.12 Meropenem S<=0.25 S<=0.25 Piperacillin S =8 Piperacillin/Tazobactam S<=4 Tetracycline R>=16 Ticarcillin S =16 Tobramycin S<=1 S<=1 Trimethoprim/Sulfa S<=20 Objective Assessment RLE cellultis ? UTI vs colonization of SPC POA 01/08 Tinea Recent Proteus and PSA DM Plan Plan of Care Add Fluconazole - has tolerated previously Change to Cefepime F/u labs and cults Elevation of RLE Thank you # [id number] CONNOR MCFADDEN MD Jan 09, 2019 10:44
--- NOTE | 2019-01-09 11:09 | HP ---
ADMIT DATE: 01/08/2019 HISTORY OF PRESENT ILLNESS: This 73-year-old female, who is known to have severe COPD and is oxygen dependent and who is actually homebound, went to the urologist yesterday to change her suprapubic catheter. At that time, the physician and the staff noted that her right foot was quite swollen and red and because of that, she was sent to the Emergency Room. In the Emergency Room, she was noted to have cellulitis of the right foot. She also was noted to have positive nitrite, 11-20 wbc's and many bacteria in the urine. WBC count was 9.5, hemoglobin was 12.2. Sodium 136, potassium 4.2, BUN 18, creatinine 0.7 and calcium 11.1. C-reactive protein 4.8. Total protein 9.1. Albumin 4.4. Her lower extremity ultrasound of the right lower extremity was negative for DVT. Chest x-ray was negative for acute abnormalities. X-rays of the right foot showed osteopenia and moderate bunion deformity. Chest x-ray shows mild basal infiltrates which could be chronic. Because of the cellulitis of the right foot as well as UTI, the patient was admitted for further evaluation and management. REVIEW OF SYSTEMS: The patient is complaining of dry cough. She denies any dyspnea, chest pains, palpitations, nausea, vomiting or abdominal pain. She states that she is eating better today. She admits to some pain in the right foot. She denies any history of trauma to the right foot or falls recently. Other systems reviewed and are negative. PAST MEDICAL HISTORY: The patient has a history of recurrent bronchitis and pneumonia; exacerbation of COPD; recurrent UTI; suprapubic catheter placement; recent cellulitis of the right foot; chronic respiratory failure, on oxygen by nasal cannula, doing 2-1/2 liters with exertion and 2 liters at rest, has severe COPD; chronic short-term and long-term memory loss; diabetes mellitus type 2 with neuropathy; history of hypoglycemia; hypertension; hyperlipidemia; anxiety; depression; severe protein-calorie malnutrition; physical deconditioning; secondary pulmonary hypertension and mild CKD 3 and a history of metabolic encephalopathy. PAST SURGICAL HISTORY: The patient has a right renal stone approximately in 2008. She has a history of fractured hip with open reduction and internal fixation in 2012, history of peptic ulcer disease, internal hemorrhoids, left breast surgery for fibrocystic breast disease and placement of suprapubic catheter and history of infection of the suprapubic catheter site. ALLERGIES: THE PATIENT IS ALLERGIC TO TRAMADOL. FAMILY HISTORY: Father had bleeding peptic ulcer disease and cancer of the colon. Sister had cancer of the colon. SOCIAL HISTORY: The patient is a former smoker, lives alone at home, has caregivers who provide her with part-time care. No history of alcoholism or drug abuse. MEDICATIONS: Reviewed and reconciled. PHYSICAL EXAMINATION: VITAL SIGNS: On admission, temperature 98, pulse 94 per minute, respirations 18 per minute and blood pressure was 195/88 mmHg. Subsequently, in the middle of the night, her blood pressure dropped into 70s and I ordered IV normal saline bolus as well as IV fluids. Now, the blood pressure this morning is 138/97. She is on oxygen by nasal cannula at 2 liters per minute. GENERAL: The patient is alert, oriented and in mild respiratory distress. She is coughing; cough is dry. EYES: Pupils reacting to light. Conjunctivae pale. Sclerae muddy. HENT: Throat congested. NECK: Supple. JVP normal. No thyromegaly. Trachea midline. LUNGS: Bilateral rhonchi and occasional wheezes. CARDIOVASCULAR SYSTEM: S1, S2 regular. ABDOMEN: Soft, nontender. No guarding, no rigidity. Bowel sounds present. The patient has a suprapubic catheter in place. EXTREMITIES: No edema of the legs. The patient has some edema of the right foot with some redness and slight increase in warmth. The patient states that this is a lot better than yesterday. No calf tenderness noted. CENTRAL NERVOUS SYSTEM: Alert and oriented, some cognitive deficits noted. No acute changes noted. Generalized weakness. LABORATORY DATA: Lab findings as noted earlier. IMPRESSION: 1. Cellulitis of the right foot. 2. Urinary tract infection. 3. Suprapubic catheter in place. 4. Chronic bronchitis. 5. Chronic obstructive pulmonary disease. 6. Chronic hypoxic and hypercapnic respiratory failure, on oxygen by nasal cannula at 2-1/2 liters with exertion and 2 liters at rest. 7. Osteoarthritis. 8. Diabetes mellitus type 2, diet controlled. 9. Hypertension, not controlled. 10. Acute hypotension, resolved with IV fluids last night. 11. Hypercalcemia. This may be reactive. This morning, the calcium has dropped from 11.1 to 8.8. 12. Chronic pain. 13. Memory loss. 14. Acute renal failure. PLAN: Continue IV fluids for now. May need to discontinue once the patient is seen by Dr. Vilchis, who I have consulted because of hypercalcemia as well as acute renal failure and hypotension. The patient does have a tendency to retain fluids, so we will have to be careful with the administration of fluids. Creatinine went from 0.7 on admission to 1.2. Acute renal failure is present on admission and this is due to her UTI as well as cellulitis. The patient has been started on IV Ancef. Urine culture is pending. Consult Dr. Cisneros for Infectious Disease evaluation and management. Continue to monitor blood pressure, continue to change dressing for the suprapubic catheter. For details, please review the orders. The patient has an oxygen concentrator now, but as in the past, she does not like the machine and would like to let the company that has provided her also be fired. In the past, she has fired many caregivers, home health agencies as well as equipment companies. Prognosis of this patient, longterm as well as short term, is very poor, as she insists on staying at home and she is unable to properly care for herself even with the help of caregivers. For details, please review the orders. MARIANELA COLEY MD DR: ORA/shaq JOB#: [id number] / [id number]
[2019-01-09] MEDS: CEFEPIME HCL IV Push 1 GM VIAL. IVP SCH ×2 (11:11→20:14)
[2019-01-09] MEDS: FLUCONAZOLE 100 MG TABLET. PO SCH (11:11)
--- NOTE | 2019-01-09 12:18 | PDOC2 ---
CONSULT Date of Consult Date of Consult DATE: 01/09/19 TIME: 12:09 Reason for Consult Reason for Consult: [place] Referring Physician Referring Physician: VIANCA Identification/Chief Complaint Chief Complaint FOOT INFECTION Source Source: Chart review History of Present Illness Reason for Visit: THIS IS A 73 YR OLD WITH A RIGHT FOOT INFECTION. ON ADMIT CR IS NORMAL BUT TO DAY IT IS 1.2 UP 0.5 FROM YESTERDAY C/W LA. CA LEVEL WAS HIGH AT 11.1 YESTERDAY AND TODAY IT IS WNL. RENAL CONSULT DUE TO ABOVE. PT HAS BEEN ON VIT D AT HOME BUT NO CA SUPPLEMENTS. OVERNIGHT SHE HAD AN EPISODE OF HYPOTENSION WHICH RESOLVED WITH IVF'S. TODAY SHE IS NORMOTENSIVE AND FEELING WELL. OTHER PERTINENT HX INCLUDES A SPC FOR ATONIC BLADDER. SHE HAS NO CKD Past Medical History Cardiovascular: HTN, Hyperlipidemia Pulmonary: COPD, Other CENTRAL NERVOUS SYSTEM: Other Psych: Anxiety, Depression Rheumatologic: No pertinent hx Infectious disease: No pertinent hx Renal/: No pertinent hx, Other Endocrine: Diabetes Past Surgical History Past Surgical History: Total hip replacement Social History ALCOHOL: rare Drugs: None Current Problem List Problem List Problems Medical Problems: (1) Cellulitis of foot, right Status: Acute Current Medications Current Medications Current Medications Acetaminophen (Tylenol) 650 mg 1X ONCE PO Last administered on 01/08/19at 16:30; Start 01/08/19 at 16:30; Stop 01/08/19 at 16:31; Status DC Cefazolin Sodium 50 ml @ 100 mls/hr 1X ONCE IV Last administered on 01/08/19at 16:30; Start 01/08/19 at 16:30; Stop 01/08/19 at 16:59; Status DC Acetaminophen (Tylenol) 650 mg PRN Q6HRS PRN PO MILD PAIN / TEMP; Start 01/08/19 at 20:45 Albuterol Sulfate (Ventolin Neb Soln) 2 mg PRN Q6HRS PRN INH SHORTNESS OF BREATH; Start 01/08/19 at 20:45 Alprazolam (Xanax) 0.5 mg BID PO Last administered on 01/09/19at 08:15; Start 01/08/19 at 21:00 Aspirin (Children'S Aspirin) 81 mg DAILY PO Last administered on 01/09/19at 08:15; Start 01/09/19 at 09:00 Baclofen (Lioresal) 10 mg PRN TID PRN PO MUSCLE PAIN; Start 01/08/19 at 20:45 Cetirizine HCl (ZyrTEC) 10 mg QHS PO Last administered on 01/08/19 20:56; Start 01/08/19 at 21:30 Famotidine (Pepcid) 20 mg DAILY PO Last administered on 01/09/19 08:15; Start 01/09/19 at 09:00 Gabapentin (Neurontin) 100 mg BID PO Last administered on 01/09/19 08:15; Start 01/08/19 at 21:30 Acetaminophen/ Hydrocodone Bitart (Lortab 5/325) 1 tab PRN Q6HRS PRN PO MODERATE-SEVERE PAIN Last administered on 01/09/19 08:16; Start 01/08/19 at 20:45 Albuterol/ Ipratropium (Duoneb) 3 ml RTQID NEB Last administered on 01/09/19 11:26; Start 01/09/19 at 08:00 Senna/Docusate Sodium (Senna Plus) 2 tab PRN DAILY PRN PO CONSTIPATION; Start 01/08/19 at 20:45 Simvastatin (Zocor) 10 mg QHS PO Last administered on 01/08/19 20:55; Start 01/08/19 at 21:30 Non-Formulary Medication (Alendronate Sodium ) 1 tab WEEKLY PO ; Start 01/15/19 at 09:00; Status UNV Non-Formulary Medication (Budesonide/ Formoterol Fumarate (Symbicort 160-4.5 Mcg Inhaler)) 2 puff BID IH ; Start 01/08/19 at 21:00; Status UNV Fluticasone Propionate (Flonase) 2 spray DAILY NS Last administered on 01/09/19 08:16; Start 01/09/19 at 09:00 Guaifenesin (Mucinex) 1,200 mg BID PO Last administered on 01/09/19 08:15; Start 01/08/19 at 21:30 Montelukast Sodium (Singulair) 10 mg QHS PO Last administered on 01/08/19 20:59; Start 01/08/19 at 21:00 Non-Formulary Medication (Tiotropium [place] (Spiriva)) 1 cap DAILY IH ; Start 01/09/19 at 09:00; Status UNV Cefazolin Sodium 1 gm/Dextrose 50 ml @ 100 mls/hr Q8HRS IV Last administered on 01/09/19at 06:20; Start 01/08/19 at 23:00; Stop 01/09/19 at 10:36; Status DC Budesonide (Pulmicort) 0.5 mg RTBID NEB Last administered on 01/09/19at 08:00; Start 01/09/19 at 08:00 Sodium Chloride 500 ml @ 500 mls/hr 1X ONCE IV Last administered on 01/09/19at 03:51; Start 01/09/19 at 04:00; Stop 01/09/19 at 04:59; Status DC Sodium Chloride 1,000 ml @ 100 mls/hr Q10H IV Last administered on 01/09/19at 04:59; Start 01/09/19 at 05:00; Stop 01/09/19 at 09:39; Status DC Fluconazole (Diflucan) 100 mg DAILY PO Last administered on 01/09/19at 11:11; Start 01/09/19 at 10:30 Cefepime HCl (Maxipime) 1 gm Q12HR IVP Last administered on 01/09/19at 11:11; Start 01/09/19 at 10:30 Active Scripts Active Hydrocodone-Apap 5-325 (Hydrocodone Bit/Acetaminophen) 1 Tab Tablet 1 Tab PO PRN Q6HRS PRN 7 Days Senna-Time S Tablet (Sennosides/Docusate Sodium) 1 Each Tablet 2 Tab PO PRN DAILY PRN 30 Days Tylenol (Acetaminophen) 325 Mg Tablet 650 Mg PO PRN Q6HRS PRN 30 Days Symbicort 160-4.5 Mcg Inhaler (Budesonide/Formoterol Fumarate) 10.2 Gm Hfa.aer.ad 2 Puff IH BID Duoneb 0.5-3(2.5) Mg/3 Ml (Albuterol/Ipratropium) 3 Ml Ampul.neb 3 Ml NEB RTQID Reported Mucinex (Guaifenesin) 1,200 Mg Tbmp.12hr 1 Tab PO BID Spiriva (Tiotropium [place]) 18 Mcg Cap.w.dev 1 Cap IH DAILY Alendronate Sodium 70 Mg Tablet 1 Tab PO WEEKLY Flonase Allergy Relief (Fluticasone Propionate) 9.9 Ml [place].susp 2 Sprays NS BID Simvastatin 10 Mg Tablet 1 Tab PO QHS Pepcid (Famotidine) 20 Mg Tablet 20 Mg PO BID Proair Hfa Inhaler (Albuterol Sulfate) 8.5 Gm Hfa.aer.ad 2 Puff INH PRN Q6HRS PRN Aspirin 81 Mg Tab.chew 1 Tab PO DAILY Gabapentin (Gabapentin) 100 Mg Capsule 100 Mg PO BID Baclofen 10 Mg Tablet 1 Tab PO TID PRN Singulair Tablet (Montelukast Sodium) 10 Mg Tablet 1 Tab PO QEVNG Zyrtec (Cetirizine Hcl) 10 Mg Tablet 1 Tab PO QHS Xanax (Alprazolam) 0.5 Mg Tablet 1 Tab PO BID Allergies Allergies: Coded Allergies: No Known Drug Allergies (Unverified , 10/30/18) ROS General: YES: Fatigue, Malaise PSYCHOLOGICAL ROS: YES: Anxiety, Depression HEENT: YES: Heacaches Respiratory: YES: Cough, Shortness of breath Gastrointestinal: Yes Constipation Genitourinary: YES Incontinence, YES Other (SPC) Musculoskeletal: Yes Muscular Weakness Neurological: Yes Weakness Skin: Yes Dry Skin Physical Exam General: Alert, Oriented X3, Cooperative, No acute distress HEENT: Atraumatic, PERRLA, EOMI, Mucous membr. moist/pink Lungs: Clear to auscultation, Normal air movement Heart: Regular rate, Normal S1, Normal S2 Abdomen: Normal bowel sounds, Soft, No tenderness Extremities: No cyanosis Skin: No breakdown Neuro: Normal speech Psych/Mental Status: Mental status NL, Mood NL MUSCULOSKELETAL: No joint tenderness, No deformity, No swelling Vitals VITALS Vital Signs Date Time Temp Pulse Resp B/P (MAP) Pulse Ox O2 Delivery O2 Flow Rate FiO2 01/09/19 11:27 100 Nasal Cannula 2.0 01/09/19 11:00 98.9 73 18 130/40 (70) 98.9 Labs Labs Laboratory Tests Test 01/08/19 15:58 01/08/19 17:00 01/08/19 20:55 01/09/19 07:24 Urine Collection Type Unknown Urine Color Straw Urine Clarity Clear Urine pH 6.5 Urine Specific [place] <=1.005 Urine Protein Negative mg/dL (NEG-TRACE) Urine Glucose (UA) Negative mg/dL (NEG) Urine Ketones (Stick) Negative mg/dL (NEG) Urine Blood Small (NEG) Urine Nitrite Positive (NEG) Urine Bilirubin Negative (NEG) Urine Urobilinogen Dipstick 0.2 mg/dL (0.2 mg/dL) Urine Leukocyte Esterase Large (NEG) Urine RBC Occ /HPF (0-2) Urine WBC 11-20 /HPF (0-4) Urine Squamous Epithelial Cells Few /LPF Urine Bacteria Many /HPF (0-FEW) White Blood Count 9.5 x10^3/uL (4.0-11.0) Red Blood Count 4.93 x10^6/uL (3.50-5.40) Hemoglobin 12.2 g/dL (12.0-15.5) Hematocrit 38.9 % (36.0-47.0) Mean Corpuscular Volume 79 fL (79-100) Mean Corpuscular Hemoglobin 25 pg (25-35) Mean Corpuscular Hemoglobin Concent 31 g/dL (31-37) Red Cell Distribution Width 16.9 % (11.5-14.5) Platelet Count 328 x10^3/uL (140-400) Neutrophils (%) (Auto) 64 % (31-73) Lymphocytes (%) (Auto) 25 % (24-48) Monocytes (%) (Auto) 8 % (0-9) Eosinophils (%) (Auto) 3 % (0-3) Basophils (%) (Auto) 1 % (0-3) Neutrophils # (Auto) 6.0 x10^3uL (1.8-7.7) Lymphocytes # (Auto) 2.3 x10^3/uL (1.0-4.8) Monocytes # (Auto) 0.8 x10^3/uL (0.0-1.1) Eosinophils # (Auto) 0.3 x10^3/uL (0.0-0.7) Basophils # (Auto) 0.1 x10^3/uL (0.0-0.2) Sodium Level 136 mmol/L (136-145) Potassium Level 4.2 mmol/L (3.5-5.1) Chloride Level 99 mmol/L (98-107) Carbon Dioxide Level 28 mmol/L (21-32) Anion Gap 9 (6-14) Blood Urea Nitrogen 18 mg/dL (7-20) Creatinine 0.7 mg/dL (0.6-1.0) Estimated GFR (Cockcroft-Gault) 81.8 BUN/Creatinine Ratio 26 (6-20) Glucose Level 78 mg/dL (70-99) Lactic Acid Level 1.0 mmol/L (0.4-2.0) Calcium Level 11.1 mg/dL (8.5-10.1) Total Bilirubin 0.3 mg/dL (0.2-1.0) Aspartate Amino Transf (AST/SGOT) 44 U/L (15-37) Alanine Aminotransferase (ALT/SGPT) 24 U/L (14-59) Alkaline Phosphatase 77 U/L (46-116) C-Reactive Protein, Quantitative 4.8 mg/L (0-3.3) Total Protein 9.1 g/dL (6.4-8.2) Albumin 4.4 g/dL (3.4-5.0) Albumin/Globulin Ratio 0.9 (1.0-1.7) Glucose (Fingerstick) 76 mg/dL (70-99) 78 mg/dL (70-99) Test 01/09/19 08:46 01/09/19 11:41 White Blood Count 6.1 x10^3/uL (4.0-11.0) Red Blood Count 4.19 x10^6/uL (3.50-5.40) Hemoglobin 10.7 g/dL (12.0-15.5) Hematocrit 33.1 % (36.0-47.0) Mean Corpuscular Volume 79 fL (79-100) Mean Corpuscular Hemoglobin 25 pg (25-35) Mean Corpuscular Hemoglobin Concent 32 g/dL (31-37) Red Cell Distribution Width 16.0 % (11.5-14.5) Platelet Count 275 x10^3/uL (140-400) Neutrophils (%) (Auto) 40 % (31-73) Lymphocytes (%) (Auto) 40 % (24-48) Monocytes (%) (Auto) 12 % (0-9) Eosinophils (%) (Auto) 6 % (0-3) Basophils (%) (Auto) 2 % (0-3) Neutrophils # (Auto) 2.4 x10^3uL (1.8-7.7) Lymphocytes # (Auto) 2.4 x10^3/uL (1.0-4.8) Monocytes # (Auto) 0.7 x10^3/uL (0.0-1.1) Eosinophils # (Auto) 0.4 x10^3/uL (0.0-0.7) Basophils # (Auto) 0.1 x10^3/uL (0.0-0.2) Erythrocyte Sedimentation Rate 13 (0-25) Sodium Level 140 mmol/L (136-145) Potassium Level 4.2 mmol/L (3.5-5.1) Chloride Level 103 mmol/L (98-107) Carbon Dioxide Level 30 mmol/L (21-32) Anion Gap 7 (6-14) Blood Urea Nitrogen 21 mg/dL (7-20) Creatinine 1.2 mg/dL (0.6-1.0) Estimated GFR (Cockcroft-Gault) 43.9 BUN/Creatinine Ratio 18 (6-20) Glucose Level 119 mg/dL (70-99) Calcium Level 8.8 mg/dL (8.5-10.1) Total Bilirubin 0.2 mg/dL (0.2-1.0) Aspartate Amino Transf (AST/SGOT) 32 U/L (15-37) Alanine Aminotransferase (ALT/SGPT) 24 U/L (14-59) Alkaline Phosphatase 63 U/L (46-116) Total Protein 6.9 g/dL (6.4-8.2) Albumin 3.4 g/dL (3.4-5.0) Albumin/Globulin Ratio 1.0 (1.0-1.7) Glucose (Fingerstick) 61 mg/dL (70-99) Laboratory Tests Test 01/08/19 15:58 01/08/19 17:00 01/08/19 20:55 01/09/19 07:24 Urine Collection Type Unknown Urine Color Straw Urine Clarity Clear Urine pH 6.5 Urine Specific [place] <=1.005 Urine Protein Negative mg/dL (NEG-TRACE) Urine Glucose (UA) Negative mg/dL (NEG) Urine Ketones (Stick) Negative mg/dL (NEG) Urine Blood Small (NEG) Urine Nitrite Positive (NEG) Urine Bilirubin Negative (NEG) Urine Urobilinogen Dipstick 0.2 mg/dL (0.2 mg/dL) Urine Leukocyte Esterase Large (NEG) Urine RBC Occ /HPF (0-2) Urine WBC 11-20 /HPF (0-4) Urine Squamous Epithelial Cells Few /LPF Urine Bacteria Many /HPF (0-FEW) White Blood Count 9.5 x10^3/uL (4.0-11.0) Red Blood Count 4.93 x10^6/uL (3.50-5.40) Hemoglobin 12.2 g/dL (12.0-15.5) Hematocrit 38.9 % (36.0-47.0) Mean Corpuscular Volume 79 fL (79-100) Mean Corpuscular Hemoglobin 25 pg (25-35) Mean Corpuscular Hemoglobin Concent 31 g/dL (31-37) Red Cell Distribution Width 16.9 % (11.5-14.5) Platelet Count 328 x10^3/uL (140-400) Neutrophils (%) (Auto) 64 % (31-73) Lymphocytes (%) (Auto) 25 % (24-48) Monocytes (%) (Auto) 8 % (0-9) Eosinophils (%) (Auto) 3 % (0-3) Basophils (%) (Auto) 1 % (0-3) Neutrophils # (Auto) 6.0 x10^3uL (1.8-7.7) Lymphocytes # (Auto) 2.3 x10^3/uL (1.0-4.8) Monocytes # (Auto) 0.8 x10^3/uL (0.0-1.1) Eosinophils # (Auto) 0.3 x10^3/uL (0.0-0.7) Basophils # (Auto) 0.1 x10^3/uL (0.0-0.2) Sodium Level 136 mmol/L (136-145) Potassium Level 4.2 mmol/L (3.5-5.1) Chloride Level 99 mmol/L (98-107) Carbon Dioxide Level 28 mmol/L (21-32) Anion Gap 9 (6-14) Blood Urea Nitrogen 18 mg/dL (7-20) Creatinine 0.7 mg/dL (0.6-1.0) Estimated GFR (Cockcroft-Gault) 81.8 BUN/Creatinine Ratio 26 (6-20) Glucose Level 78 mg/dL (70-99) Lactic Acid Level 1.0 mmol/L (0.4-2.0) Calcium Level 11.1 mg/dL (8.5-10.1) Total Bilirubin 0.3 mg/dL (0.2-1.0) Aspartate Amino Transf (AST/SGOT) 44 U/L (15-37) Alanine Aminotransferase (ALT/SGPT) 24 U/L (14-59) Alkaline Phosphatase 77 U/L (46-116) C-Reactive Protein, Quantitative 4.8 mg/L (0-3.3) Total Protein 9.1 g/dL (6.4-8.2) Albumin 4.4 g/dL (3.4-5.0) Albumin/Globulin Ratio 0.9 (1.0-1.7) Glucose (Fingerstick) 76 mg/dL (70-99) 78 mg/dL (70-99) Test 01/09/19 08:46 01/09/19 11:41 White Blood Count 6.1 x10^3/uL (4.0-11.0) Red Blood Count 4.19 x10^6/uL (3.50-5.40) Hemoglobin 10.7 g/dL (12.0-15.5) Hematocrit 33.1 % (36.0-47.0) Mean Corpuscular Volume 79 fL (79-100) Mean Corpuscular Hemoglobin 25 pg (25-35) Mean Corpuscular Hemoglobin Concent 32 g/dL (31-37) Red Cell Distribution Width 16.0 % (11.5-14.5) Platelet Count 275 x10^3/uL (140-400) Neutrophils (%) (Auto) 40 % (31-73) Lymphocytes (%) (Auto) 40 % (24-48) Monocytes (%) (Auto) 12 % (0-9) Eosinophils (%) (Auto) 6 % (0-3) Basophils (%) (Auto) 2 % (0-3) Neutrophils # (Auto) 2.4 x10^3uL (1.8-7.7) Lymphocytes # (Auto) 2.4 x10^3/uL (1.0-4.8) Monocytes # (Auto) 0.7 x10^3/uL (0.0-1.1) Eosinophils # (Auto) 0.4 x10^3/uL (0.0-0.7) Basophils # (Auto) 0.1 x10^3/uL (0.0-0.2) Erythrocyte Sedimentation Rate 13 (0-25) Sodium Level 140 mmol/L (136-145) Potassium Level 4.2 mmol/L (3.5-5.1) Chloride Level 103 mmol/L (98-107) Carbon Dioxide Level 30 mmol/L (21-32) Anion Gap 7 (6-14) Blood Urea Nitrogen 21 mg/dL (7-20) Creatinine 1.2 mg/dL (0.6-1.0) Estimated GFR (Cockcroft-Gault) 43.9 BUN/Creatinine Ratio 18 (6-20) Glucose Level 119 mg/dL (70-99) Calcium Level 8.8 mg/dL (8.5-10.1) Total Bilirubin 0.2 mg/dL (0.2-1.0) Aspartate Amino Transf (AST/SGOT) 32 U/L (15-37) Alanine Aminotransferase (ALT/SGPT) 24 U/L (14-59) Alkaline Phosphatase 63 U/L (46-116) Total Protein 6.9 g/dL (6.4-8.2) Albumin 3.4 g/dL (3.4-5.0) Albumin/Globulin Ratio 1.0 (1.0-1.7) Glucose (Fingerstick) 61 mg/dL (70-99) Assessment/Plan Assessment/Plan IMP LA CR UP TODAY HYPOTENSION - RESOLVED MOST LIKELY CAUSE OF LA [id number] TO VIT D SUPPLEMENTS AT HOME URINARY TRACT INFECTION RIGHT LE CELLULITIS COPD HX AND CHRONIC O2 NEEDS HX OF ATONIC BLADDER AND SPC PLAN SHE RECEIVED IVF'S OVER NIGHT AND CURRENTLY HEMODYNAMICALLY STABLE EXPECT LA TO RESOLVE, NO FURTHER IVF'S DUE TO CONCERNS OF CHF WILL CHECK LABS IN AM. FURTHER EVAL IF RENAL FXN IS NOT BETTER D/W SINGH GARCIA MD Jan 09, 2019 12:18
[2019-01-09] MEDS: SIMVASTATIN 10 MG TABLET PO SCH (20:13)
[2019-01-09] MEDS: MONTELUKAST SODIUM 10 MG TABLET. PO SCH (20:13)
[2019-01-09] MEDS: CETIRIZINE HCL 10 MG TABLET. PO SCH (20:13)
[2019-01-09] MEDS ORDERED: ALBUTEROL SULFATE 2.5 MG/3 ML NEBU. INH PRN (23:45)
[2019-01-10 03:00] VITALS: BP 102/42
--- NOTE | 2019-01-10 03:00 | CONS ---
DATE OF CONSULTATION: 01/09/2019 ROOM: 506. REQUESTING PHYSICIAN: Dr. Conner. REASON FOR CONSULTATION: UTI, cellulitis. HISTORY OF PRESENT ILLNESS: The patient is a 73-year-old female with history of diabetes and recently underwent a suprapubic catheter placement in 08/2018. She has had a history of right lower extremity cellulitis in the past and she states for 3 weeks, she has had some redness and swelling of the right lower extremity. Yesterday, she reports seeing a physician where they replaced her urinary catheter, although she states they changed the bag, but while at the appointment, she was noted to have a red lower extremity and she was sent to the Emergency Room for further evaluation. She states she has been hurting and swelling some. She states she took some antibiotics a couple of weeks ago for cold, but did not have any effect on her leg. On arrival, she had a white count of 9.5 and her creatinine was 0.7. She has been afebrile since her presentation. Urine was collected and is questionable for UTI. She was placed on cefazolin and admitted to the hospital. Currently, she is sitting upright in bed, states she is feeling somewhat better, but she has not been on her foot. Denies any fever or chills. She has no pain in her foot. No nausea, no vomiting, no shortness of air, no cough. PAST MEDICAL HISTORY: Positive for recent abdominal wound with Pseudomonas, also intermediate to Levaquin, but otherwise sensitive and Proteus that was resistant to ampicillin, cefazolin, cefuroxime, and tetracycline. She does have a history as mentioned above with previous right lower extremity cellulitis, chronic respiratory failure on home O2, urinary retention, severe COPD, diabetes with neuropathy, anxiety, depression, chronic kidney disease, history of metabolic encephalopathy. PAST SURGICAL HISTORY: Positive for right renal stone, hip fracture with open reduction and internal fixation, left breast surgery for fibrocystic breast disease as well as suprapubic catheter placement. ALLERGIES: Listed as TRAMADOL. SOCIAL HISTORY: She is a former smoker. No pets. Lives at home. FAMILY HISTORY: Noncontributory. CURRENT MEDICATIONS: Cefazolin, Tylenol, Ventolin, Xanax, baby aspirin, baclofen, Pulmicort, Zyrtec, Pepcid, gabapentin, Singulair, Zocor. PHYSICAL EXAMINATION: VITAL SIGNS: Afebrile, temperature is 98, pulse 65, respirations 18, blood pressure 138/97, satting 95% on 2 liters. CONSTITUTIONAL: She is very pleasant. She is cooperative. She is sitting upright in bed. She is in no acute distress. HEENT: Pupils equal and reactive. Oral cavity, pharynx is clear. NECK: Supple. LUNGS: Decreased in the bases. HEART: S1, S2. ABDOMEN: Soft, nontender. Suprapubic catheter without signs of any complications. EXTREMITIES: Without clubbing, cyanosis. Right lower extremity has 1+ edema. There is erythema from just below her knee to the top of her foot. She also has some tenia and some onychomycoses. SKIN: Otherwise, warm to touch without signs of rash. NEUROLOGIC: She is nonfocal and appropriate. PSYCHIATRIC: Affect is pleasant. LABORATORY DATA: White count of 6.1, hemoglobin 10.7, platelets 275, neutrophils 40, lymphs are 40. Creatinine is 1.2. Glucose of 119. Normal liver function study tests. Urine has many bacteria, few squamous cells, 11-20 wbc's, leukocyte esterase large, nitrite is positive. Foot x-ray was without osteomyelitis, but she had gross osteopenia. Chest x-ray had some mild basilar infiltrates. Lower extremity ultrasound negative for any DVT. IMPRESSION: 1. Right lower extremity cellulitis. 2. Urinary tract infection versus colonization a suprapubic catheter present on admission, 01/08/2019. 3. Tinea of her feet. 4. Recent Proteus, Pseudomonas as mentioned above. 5. Diabetes. RECOMMENDATIONS: For now, add fluconazole. She has tolerated this previously in the past. Change cefepime. We will follow up labs and cultures. Elevation of right lower extremity. Thank you for asking us to participate in this patient's care. If you have any questions, please do not hesitate to contact me. CONNOR MCFADDEN MD DR: [email or web address]/shaq JOB#: [id number] / [id number]
[2019-01-10 04:37] LABS: BASO # 0.1 x10^3/uL (0.0-0.2); BASO % 1 % (0-3); EOS # 0.2 x10^3/uL (0.0-0.7); EOS % 4 % (0-3); HEMATOCRIT 28.5 % (36.0-47.0); HEMOGLOBIN 9.1 g/dL (12.0-15.5); LYMPH # 2.6 x10^3/uL (1.0-4.8); LYMPH % 39 % (24-48); MEAN CORPUSCULAR HEMOGLOBIN 25 pg (25-35); MEAN CORPUSCULAR HGB CONC 32 g/dL (31-37); MEAN CORPUSCULAR VOLUME 78 fL (79-100); MONO % 14 % (0-9); NEUT # 2.9 x10^3uL (1.8-7.7); NEUT % 43 % (31-73); PLATELET COUNT 230 x10^3/uL (140-400); RED BLOOD COUNT 3.66 x10^6/uL (3.50-5.40); WHITE BLOOD COUNT 6.8 x10^3/uL (4.0-11.0)
[2019-01-10 05:06] LABS: ALBUMIN 2.9 g/dL (3.4-5.0); ALBUMIN/GLOBULIN RATIO 0.9 (1.0-1.7); CALCIUM 8.7 mg/dL (8.5-10.1); CREATININE 0.9 mg/dL (0.6-1.0); GFR 61.2; POTASSIUM 4.5 mmol/L (3.5-5.1); TOTAL BILIRUBIN 0.2 mg/dL (0.2-1.0); TOTAL PROTEIN 6.1 g/dL (6.4-8.2)
[2019-01-10 07:00] VITALS: BP 107/52
[2019-01-10] MEDS: IPRATRPIUM/ALBUTEROL 0.5/2.5MG 3 ML NEBU. NEB SCH ×2 (07:27→11:25)
[2019-01-10] MEDS: BUDESONIDE 0.5 MG/2 ML NEBU. NEB SCH (07:27)
[2019-01-10] MEDS: ASPIRIN CHEWABLE 81 MG TABLET. PO SCH (08:24)
[2019-01-10] MEDS: FAMOTIDINE 20 MG TABLET. PO SCH (08:24)
[2019-01-10] MEDS: FLUCONAZOLE 100 MG TABLET. PO SCH (08:24)
[2019-01-10] MEDS: ALPRAZolam 0.5 MG TABLET PO SCH (08:24)
[2019-01-10] MEDS: GABAPENTIN 100 MG CAPSULE. PO SCH (08:24)
[2019-01-10] MEDS: CEFEPIME HCL IV Push 1 GM VIAL. IVP SCH (08:25)
[2019-01-10] MEDS: FLUTICASONE 50MCG/NASAL SPRAY 16GM BOTTLE. NS SCH (08:25)
[2019-01-10 11:00] VITALS: BP 115/65
--- NOTE | 2019-01-10 11:44 | PDOC ---
PROGRESS NOTES Subjective Subjective feels better want to go home Objective Objective Vital Signs Date Time Temp Pulse Resp B/P (MAP) Pulse Ox O2 Delivery O2 Flow Rate FiO2 01/10/19 11:25 96 Nasal Cannula 2.0 01/10/19 11:00 97.9 92 18 115/65 (82) 97.9 Intake and Output 01/10/19 07:00 Intake Total 2020 ml Output Total 1300 ml Balance 720 ml Intake Oral 2020 ml Output Urine Total 1300 ml Physical Exam Abdomen: Normal bowel sounds, Soft, No tenderness Heart: Regular rate, Normal S1, Normal S2 Extremities: No cyanosis General: Alert, Oriented X3, Cooperative, No acute distress HEENT: Atraumatic, PERRLA, EOMI, Mucous membr. moist/pink Lungs: Clear to auscultation, Normal air movement MUSCULOSKELETAL: No joint tenderness, No deformity, No swelling Neuro: Normal speech Psych/Mental Status: Mental status NL, Mood NL Skin: No breakdown Diagnosis Problem List Problems Medical Problems: (1) Cellulitis of foot, right Status: Acute Assessment Assessment Problems Medical Problems: (1) Cellulitis of foot, right Status: Acute IMPRESSION: 1. Cellulitis of the right foot resolved. 2. Urinary tract infection. 3. Suprapubic catheter in place. 4. Chronic bronchitis. 5. Chronic obstructive pulmonary disease. 6. Chronic hypoxic and hypercapnic respiratory failure, on oxygen by nasal cannula at 2-1/2 liters with exertion and 2 liters at rest. 7. Osteoarthritis. 8. Diabetes mellitus type 2, diet controlled. 9. Hypertension, not controlled. 10. Acute hypotension, resolved with IV fluids last night. 11. Hypercalcemia. This may be reactive. 12. Chronic pain. 13. Memory loss. PLAN: d/c home on pts request. po Vantin urine c/s pending labs ok Plan Plan of Care Problems Medical Problems: (1) Cellulitis of foot, right Status: Acute Comment Review of Relevant I have reviewed the following items ayo (where applicable) has been applied. Labs Laboratory Tests Test 01/09/19 16:15 01/09/19 20:54 01/10/19 03:40 01/10/19 07:15 Glucose (Fingerstick) 113 mg/dL (70-99) 106 mg/dL (70-99) 105 mg/dL (70-99) White Blood Count 6.8 x10^3/uL (4.0-11.0) Red Blood Count 3.66 x10^6/uL (3.50-5.40) Hemoglobin 9.1 g/dL (12.0-15.5) Hematocrit 28.5 % (36.0-47.0) Mean Corpuscular Volume 78 fL (79-100) Mean Corpuscular Hemoglobin 25 pg (25-35) Mean Corpuscular Hemoglobin Concent 32 g/dL (31-37) Red Cell Distribution Width 16.0 % (11.5-14.5) Platelet Count 230 x10^3/uL (140-400) Neutrophils (%) (Auto) 43 % (31-73) Lymphocytes (%) (Auto) 39 % (24-48) Monocytes (%) (Auto) 14 % (0-9) Eosinophils (%) (Auto) 4 % (0-3) Basophils (%) (Auto) 1 % (0-3) Neutrophils # (Auto) 2.9 x10^3uL (1.8-7.7) Lymphocytes # (Auto) 2.6 x10^3/uL (1.0-4.8) Monocytes # (Auto) 1.0 x10^3/uL (0.0-1.1) Eosinophils # (Auto) 0.2 x10^3/uL (0.0-0.7) Basophils # (Auto) 0.1 x10^3/uL (0.0-0.2) Sodium Level 139 mmol/L (136-145) Potassium Level 4.5 mmol/L (3.5-5.1) Chloride Level 102 mmol/L (98-107) Carbon Dioxide Level 32 mmol/L (21-32) Anion Gap 5 (6-14) Blood Urea Nitrogen 26 mg/dL (7-20) Creatinine 0.9 mg/dL (0.6-1.0) Estimated GFR (Cockcroft-Gault) 61.2 BUN/Creatinine Ratio 29 (6-20) Glucose Level 124 mg/dL (70-99) Calcium Level 8.7 mg/dL (8.5-10.1) Total Bilirubin 0.2 mg/dL (0.2-1.0) Aspartate Amino Transf (AST/SGOT) 27 U/L (15-37) Alanine Aminotransferase (ALT/SGPT) 15 U/L (14-59) Alkaline Phosphatase 71 U/L (46-116) Total Protein 6.1 g/dL (6.4-8.2) Albumin 2.9 g/dL (3.4-5.0) Albumin/Globulin Ratio 0.9 (1.0-1.7) Test 01/10/19 10:52 Glucose (Fingerstick) 107 mg/dL (70-99) Microbiology 01/08/19 Blood Culture - Preliminary, Resulted NO GROWTH AFTER 1 DAY Medications Current Medications Albuterol Sulfate (Ventolin Neb Soln) 2.5 mg PRN Q6HRS PRN INH SHORTNESS OF BREATH; Start 01/09/19 at 23:45 Non-Formulary Medication (Alendronate Sodium ) 1 tab WEEKLY PO ; Start 01/15/19 at 09:00; Status UNV Vitals/I & O Vital Sign - Last 24 Hours 01/09/19 01/09/19 01/09/19 01/09/19 15:00 15:32 16:53 16:54 Temp 98.9 98.9 98.9 98.9 98.9 98.9 Pulse 74 74 74 Resp 18 B/P (MAP) 109/45 (66) 109/45 (66) 109/45 (66) Pulse Ox 98 100 100 100 O2 Delivery Nasal Cannula Nasal Cannula Nasal Cannula Nasal Cannula O2 Flow Rate 2.0 2.0 2.0 2.0 01/09/19 01/09/19 01/09/19 01/09/19 19:00 19:29 20:49 23:00 Temp 98.8 98.1 98.8 98.1 Pulse 81 83 Resp 18 18 B/P (MAP) 97/55 (69) 112/62 (79) Pulse Ox 96 97 95 O2 Delivery Nasal Cannula Nasal Cannula Nasal Cannula Nasal Cannula O2 Flow Rate 2.0 2.0 2.0 2.0 01/09/19 01/10/19 01/10/19 01/10/19 23:38 03:00 07:00 07:27 Temp 97.6 98.2 97.6 98.2 Pulse 71 88 Resp 18 18 B/P (MAP) 102/42 (62) 107/52 (70) Pulse Ox 97 97 99 97 O2 Delivery Nasal Cannula Nasal Cannula Nasal Cannula Nasal Cannula O2 Flow Rate 2.0 2.0 2.0 2.0 01/10/19 01/10/19 01/10/19 08:00 11:00 11:25 Temp 97.9 97.9 Pulse 92 Resp 18 B/P (MAP) 115/65 (82) Pulse Ox 96 96 O2 Delivery Nasal Cannula Nasal Cannula Nasal Cannula O2 Flow Rate 2.0 2.0 2.0 Intake and Output 01/09/19 01/09/19 01/10/19 15:00 23:00 07:00 Intake Total 840 ml 460 ml 720 ml Output Total 1300 ml Balance 840 ml 460 ml -580 ml NIXON HOU MD Jan 10, 2019 11:44
[2019-01-10] MEDS ORDERED: CEFP200T PO (11:49)
[2019-01-10] MEDS ORDERED: Fluconazole PO (11:49)
--- NOTE | 2019-01-10 11:51 | SNU/HH DC ---
DISCHARGE WITH HOME HEALTH DISCHARGE INFORMATION: Discharge Date: Jan 10, 2019 Final Diagnosis: Problems Medical Problems: (1) Cellulitis of foot, right Status: Acute Condition on Discharge: Stable CODE STATUS: Code Status: Full HOME HEALTH: Face to Face: I certify this patient is under my care and that I, or a nurse practitioner or physician's triage assistant working with me, had a face to face encounter that meets the physician face to face encounter requirements with this patient on []. Medical Complications: COPD RN For Eval/Treatment: Yes Physical Therapy For: Evalulation/Treatment Home Health Aide For: Self-care Pt Meets Homebound Status: Unsteady balance w/ amb, POST DISCHARGE ORDERS: Activity Instructions for Disc: Activity as tolerated Weight Bearing Status after Di: As tolerated DIET AFTER DISCHARGE: Cardiac Wound/Incision Care: Change dressing CHECKS AFTER DISCHARGE: Checks after discharge: Check blood press - daily, Check your Temp as needed FOLLOW-UP: DC TO SNF LABS: CBC,CMP in AM and once a week TREATMENT/EQUIPMENT ORDERS: Adaptive Equipment Issued: Front wheeled walker Discharge Respiratory Equipmen: Oxygen, Nebulizer CERTIFICATION STATEMENT: Certification Statement: Certification Statement: Based on the above finding, I certify that this patient is confined to the home and needs intermittent custodial care, physical therapy and/or speech therapy, or continues to need occupational therapy.~ This patient is under my care, and I have initiated the establishment of the plan of care.~ This patient will be followed by myself or a community physician who will periodically review the plan of care. Home Meds Active Scripts Cefpodoxime Proxetil (CEFPODOXIME PROXETIL) 200 Mg Tablet, 1 TAB PO BID for uti for 5 Days, #10 TAB Prov:NIXON HOU MD 01/10/19 [Fluconazole] 100 MG TABLET No Conflict Check, 100 MG PO DAILY for yeast for 5 Days, #5 TAB Prov:NIXON HOU MD 01/10/19 Hydrocodone Bit/Acetaminophen (HYDROCODONE-APAP 5-325 ) 1 Tab Tablet, 1 TAB PO PRN Q6HRS PRN for MILD PAIN for 7 Days, #28 TAB Prov:MARIANELA COLEY MD 11/03/18 Sennosides/Docusate Sodium (SENNA-TIME S TABLET) 1 Each Tablet, 2 TAB PO PRN DAILY PRN for CONSTIPATION for 30 Days, #60 TAB Prov:MARIANELA COLEY MD 11/03/18 Acetaminophen (TYLENOL) 325 Mg Tablet, 650 MG PO PRN Q6HRS PRN for MILD PAIN / TEMP for 30 Days, TAB Prov:MARIANELA COLEY MD 09/22/18 Budesonide/Formoterol Fumarate (SYMBICORT 160-4.5 MCG INHALER) 10.2 Gm Hfa.aer.ad, 2 PUFF IH BID, #10.6 GM 3 Refills Prov:JEREMY CRUZ PRECISION FILER HAND 01/06/18 Ipratropium/Albuterol Sulfate (DUONEB 0.5-3(2.5) MG/3 ML) 3 Ml Ampul.neb, 3 ML NEB RTQID, #120 EACH Prov:JEREMY CRUZ PRECISION FILER HAND 10/23/17 Reported Medications Guaifenesin (MUCINEX) 1,200 Mg Tbmp.12hr, 1 TAB PO BID for cough, #14 TAB 10/30/18 Tiotropium [place] (SPIRIVA) 18 Mcg Cap.w.dev, 1 CAP IH DAILY for COPD, #30 CAP 3 Refills 08/15/18 Alendronate Sodium (ALENDRONATE SODIUM) 70 Mg Tablet, 1 TAB PO WEEKLY for HELLP JOINTS, #4 TAB 3 Refills 08/15/18 Fluticasone Propionate (Flonase Allergy Relief) 9.9 Ml [place].susp, 2 SPRAYS NS BID, BOTTLE 10/20/17 Simvastatin (SIMVASTATIN) 10 Mg Tablet, 1 TAB PO QHS, #30 TAB 5 Refills 07/22/17 Famotidine (PEPCID) 20 Mg Tablet, 20 MG PO BID, TAB 07/22/17 Albuterol Sulfate (PROAIR HFA INHALER) 8.5 Gm Hfa.aer.ad, 2 PUFF INH PRN Q6HRS PRN for SHORTNESS OF BREATH, INHALER 0 Refills 07/22/17 Aspirin (ASPIRIN) 81 Mg Tab.chew, 1 TAB PO DAILY, #30 TAB 3 Refills 07/22/17 Gabapentin (GABAPENTIN ) 100 Mg Capsule, 100 MG PO BID, CAP 07/22/17 Baclofen (BACLOFEN) 10 Mg Tablet, 1 TAB PO TID PRN for PAIN, #90 TAB 2 Refills 04/23/15 Montelukast Sodium (SINGULAIR TABLET) 10 Mg Tablet, 1 TAB PO QEVNG for asthma, #90 TAB 1 Refill 04/23/15 Cetirizine Hcl (ZYRTEC) 10 Mg Tablet, 1 TAB PO QHS for allergy, #30 TAB 2 Refills 04/23/15 Alprazolam (XANAX) 0.5 Mg Tablet, 1 TAB PO BID for anxiety, #60 TAB 04/23/15 NIXON HOU MD Jan 10, 2019 11:51
--- NOTE | 2019-01-10 13:32 | PDOC ---
Infectious Disease Note Subjective Subjective Hoping to go home today Says swelling is gone No F/C/S + cough O2 2L NC Vital Sign Vital Signs Vital Signs Date Time Temp Pulse Resp B/P (MAP) Pulse Ox O2 Delivery O2 Flow Rate FiO2 01/10/19 11:25 96 Nasal Cannula 2.0 01/10/19 11:00 97.9 92 18 115/65 (82) 97.9 Physical Exam PHYSICAL EXAM CONSTITUTIONAL: Propped up in bed, alert, NAD HEENT: Pupils equal and reactive. Oral cavity, pharynx is clear. Dentures in place NECK: Supple. LUNGS: Decreased in the bases. HEART: S1, S2. ABDOMEN: Soft, nontender. Suprapubic catheter without signs of any compli cations. EXTREMITIES: Without clubbing, cyanosis. RLE swelling and redness improved. DP palpable some tenia and some onychomycoses. SKIN: No rash NEUROLOGIC: She is nonfocal and appropriate. PIV Labs Lab Laboratory Tests Test 01/09/19 16:15 01/09/19 20:54 01/10/19 03:40 01/10/19 07:15 Glucose (Fingerstick) 113 mg/dL (70-99) 106 mg/dL (70-99) 105 mg/dL (70-99) White Blood Count 6.8 x10^3/uL (4.0-11.0) Red Blood Count 3.66 x10^6/uL (3.50-5.40) Hemoglobin 9.1 g/dL (12.0-15.5) Hematocrit 28.5 % (36.0-47.0) Mean Corpuscular Volume 78 fL (79-100) Mean Corpuscular Hemoglobin 25 pg (25-35) Mean Corpuscular Hemoglobin Concent 32 g/dL (31-37) Red Cell Distribution Width 16.0 % (11.5-14.5) Platelet Count 230 x10^3/uL (140-400) Neutrophils (%) (Auto) 43 % (31-73) Lymphocytes (%) (Auto) 39 % (24-48) Monocytes (%) (Auto) 14 % (0-9) Eosinophils (%) (Auto) 4 % (0-3) Basophils (%) (Auto) 1 % (0-3) Neutrophils # (Auto) 2.9 x10^3uL (1.8-7.7) Lymphocytes # (Auto) 2.6 x10^3/uL (1.0-4.8) Monocytes # (Auto) 1.0 x10^3/uL (0.0-1.1) Eosinophils # (Auto) 0.2 x10^3/uL (0.0-0.7) Basophils # (Auto) 0.1 x10^3/uL (0.0-0.2) Sodium Level 139 mmol/L (136-145) Potassium Level 4.5 mmol/L (3.5-5.1) Chloride Level 102 mmol/L (98-107) Carbon Dioxide Level 32 mmol/L (21-32) Anion Gap 5 (6-14) Blood Urea Nitrogen 26 mg/dL (7-20) Creatinine 0.9 mg/dL (0.6-1.0) Estimated GFR (Cockcroft-Gault) 61.2 BUN/Creatinine Ratio 29 (6-20) Glucose Level 124 mg/dL (70-99) Calcium Level 8.7 mg/dL (8.5-10.1) Total Bilirubin 0.2 mg/dL (0.2-1.0) Aspartate Amino Transf (AST/SGOT) 27 U/L (15-37) Alanine Aminotransferase (ALT/SGPT) 15 U/L (14-59) Alkaline Phosphatase 71 U/L (46-116) Total Protein 6.1 g/dL (6.4-8.2) Albumin 2.9 g/dL (3.4-5.0) Albumin/Globulin Ratio 0.9 (1.0-1.7) Test 01/10/19 10:52 Glucose (Fingerstick) 107 mg/dL (70-99) Micro BLOOD CULTURE Preliminary NO GROWTH AFTER 1 DAY Objective Assessment Right lower extremity cellulitis. Urinary tract infection versus colonization a suprapubic catheter present on admission, 01/08/2019. Tinea of her feet. Recent Proteus, Pseudomonas Diabetes. Severe COPD, O2 dependent Plan Plan of Care Fluconazole - has tolerated previously Cefepime F/u labs and cults Elevation of RLE D/w nursing Attending Co-Sign The patient was seen and interviewed as well as examined at the bedside. The chart was reviewed. The case was discussed. Agree with the plan of care. KAREN TANG HI TEACHER Jan 10, 2019 13:32 EMILIANO PRICE MD Jan 10, 2019 14:28
[2019-01-10 15:00] VITALS: BP 129/59
--- NOTE | 2019-01-10 16:01 | NUR ---
Patient discharged, home with home health. Nursing machine setter supervisor to set up home health with [facility]. Patient understands discharge instructions. New prescription education given. IV line discontinued. Patient alert and stable. All belongings with patient. Patient very adamant about driving self back home as car was parked at doctor's office. Patient does not have any family/friends to come get her. This RN offered a cab multiple times if patient wanted one, but patient say she felt "completely fine to drive myself, I got to the doctor's office just fine when I drove here and my foot was even swollen at that time." Dr. Kulkarni had no restraints on her if she really wanted to drive herself home. Called caregiver, with no answer, will try again to let her know that patient has successfully discharged.
[2019-01-10] MEDS ORDERED: LACTOBACILLUS RHAMNOSUS GG 1 CAPSULE. PO SCH (21:00)
[2019-01-15] MEDS ORDERED: NON FORMULARY ITEM (Alendronate Sodium 1 TAB) PO SCH (09:00)
--- NOTE | 2019-01-15 10:12 | PDOC3 ---
IM DISCHARGE SUMMARY Date of Admission Date of Admission Date of Admission: Jan 08, 2019 at 17:28 Date of Discharge Date of Discharge January 10, 2019 Primary Diagnosis Primary Diagnosis 1. Cellulitis of the right foot. 2. Urinary tract infection. 3. Suprapubic catheter in place. 4. Chronic bronchitis. 5. Chronic obstructive pulmonary disease. 6. Chronic hypoxic and hypercapnic respiratory failure, on oxygen by nasal cannula at 2-1/2 liters with exertion and 2 liters at rest. 7. Osteoarthritis. 8. Diabetes mellitus type 2, diet controlled. 9. Hypertension, not controlled. 10. Acute hypotension, resolved with IV fluids last night. 11. Hypercalcemia. This may be reactive. This morning, the calcium has dropped from 11.1 to 8.8. 12. Chronic pain. 13. Memory loss. 14. Acute renal failure. Consults Consults Karsten Cisneros MD Brief hospital course Brief hospital course This 73-year-old female, who is known to have severe COPD and is oxygen dependent and who is actually homebound, went to the urologist yesterday to change her suprapubic catheter. At that time, the physician and the staff noted that her right foot was quite swollen and red and because of that, she was sent to the Emergency Room. In the Emergency Room, she was noted to have cellulitis of the right foot. She also was noted to have positive nitrite, 11-20 wbc's and many bacteria in the urine. WBC count was 9.5, hemoglobin was 12.2. Sodium 136, potassium 4.2, BUN 18, creatinine 0.7 and calcium 11.1. C-reactive protein 4.8. Total protein 9.1. Albumin 4.4. Her lower extremity ultrasound of the right lower extremity was negative for DVT. Chest x-ray was negative for acute abnormalities. X-rays of the right foot showed osteopenia and moderate bunion deformity. Chest x-ray shows mild basal infiltrates which could be chronic. Because of the cellulitis of the right foot as well as UTI, the patient was admitted for further evaluation and management. For more details regarding the past history, family history, social history, surgical history and other details, please refer to History and Physical. Continue IV fluids for now. May need to discontinue once the patient is seen by Dr. Vilchis, who I have consulted because of hypercalcemia as well as acute renal failure and hypotension. The patient does have a tendency to retain fluids, so we will have to be careful with the administration of fluids. Creatinine went from 0.7 on admission to 1.2. Acute renal failure is present on admission and this is due to her UTI as well as cellulitis. The patient has been started on IV Ancef. Urine culture is pending. Consult Dr. Cisneros for Infectious Disease evaluation and management. Continue to monitor blood pressure, continue to change dressing for the suprapubic catheter. For details, please review the orders. The patient has an oxygen concentrator now, but as in the past, she does not like the machine and would like to let the company that has provided her also be fired. In the past, she has fired many caregivers, home health agencies as well as equipment companies. 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 During the stay in the hospital patient was treated with IV fluids. Her acute renal failure continued to improve. She also was given IV cefepime and oral fluconazole for cellulitis as well as UTI. Her urine tract infection could likely also be colonization as she has a suprapubic catheter. As patient continued to do better she wanted to go home soon. She was discharged home with home health services. She was discharged on oral Vantin. Urine culture was pending at the time of discharge but subsequent a showed Pseudomonas in the urine which could be colonization. See me in the office in 5 days. Medications Medications reviewed and reconciled for discharge. Allergy Allergies Coded Allergies Type Severity Reaction Last Updated Verified No Known Drug Allergies 10/30/18 No Follow up in 5 days. DISPOSITION: Home health services Comments Discharge Management - 35 minutes. For other details please refer to discharge instructions MARIANELA COLEY MD January 15, 2019 10:12
== END 2019-01-10 16:08 | disposition home health service (06) | DRG 683 ==
LOC: ER 14:00 → 5 NORTH 17:28
PROVIDERS: ADMIT Internal Medicine; ATTEND Internal Medicine
DX: N17.9 Acute kidney failure, unspecified (principal); L03.115 Cellulitis of right lower limb; N39.0 Urinary tract infection, site not specified; J96.11 Chronic respiratory failure with hypoxia; J96.12 Chronic respiratory failure with hypercapnia; I10 Essential (primary) hypertension; B35.9 Dermatophytosis, unspecified; E11.22 Type 2 diabetes mellitus with diabetic chronic kidney disease; E11.40 Type 2 diabetes mellitus with diabetic neuropathy, unspecified; E78.5 Hyperlipidemia, unspecified; I95.9 Hypotension, unspecified; E83.52 Hypercalcemia; G89.29 Other chronic pain; I12.9 Hypertensive chronic kidney disease with stage 1 through stage 4 chronic kidney disease, or unspecified chronic kidney disease; J44.9 Chronic obstructive pulmonary disease, unspecified; M19.90 Unspecified osteoarthritis, unspecified site; F41.8 Other specified anxiety disorders; M21.619 Bunion of unspecified foot; M85.80 Other specified disorders of bone density and structure, unspecified site; Z96.649 Presence of unspecified artificial hip joint; N18.2 Chronic kidney disease, stage 2 (mild); N31.2 Flaccid neuropathic bladder, not elsewhere classified; Z80.0 Family history of malignant neoplasm of digestive organs; Z87.11 Personal history of peptic ulcer disease; Z87.440 Personal history of urinary (tract) infections; Z87.442 Personal history of urinary calculi; Z87.891 Personal history of nicotine dependence; Z99.81 Dependence on supplemental oxygen; Z87.01 Personal history of pneumonia (recurrent)
CPT/HCPCS: 36415; 71045; 73630; 80053; 81001; 82962; 83605; 85025; 85651; 86140; 87040; 87086; 87186; 93971; 94640; 94760; J0690; J0692; J7030; J7040; J7613; J7620; J7626; 97535; 99285-25

== ENCOUNTER 2019-03-02 18:22 | Inpatient (IN) | payer OTHER ==
[~2019-03-02] VITALS: Ht 154.9 cm; Wt 42.7 kg
[~2019-03-02 18:22] MED LIST changes: +CEFP200T PO; +Fluconazole PO; +MONT10TA49 PO; -MONT10TA6 PO
[2019-03-02] MEDS ORDERED: IV NORMAL SALINE 1000ML BAG 1,000 ML IV ONE (20:00)
[2019-03-02] MEDS ORDERED: ACETAMINOPHEN 325 MG TABLET. PO PRN (20:30)
[2019-03-02] MEDS ORDERED: ONDANSETRON PF 4 MG/2 ML VIAL. IV PRN (20:30)
[2019-03-02] MEDS ORDERED: CLINDAMYCIN 600MG PREMIX 50 ML IV ONE (20:30)
--- NOTE | 2019-03-02 20:31 | PHYS DOC ---
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, Alcohol Use: Rarely Drug Use: None Adult General Chief Complaint Chief Complaint: CELLULITIS HPI HPI Patient is a 74 year old [f__sex] who presents with [] Review of Systems Review of Systems Constitutional: Denies fever or chills [] Eyes: Denies change in visual acuity, redness, or eye pain [] HENT: Denies nasal congestion or sore throat [] Respiratory: Denies cough or shortness of breath [] Cardiovascular: No additional information not addressed in HPI [] GI: Denies abdominal pain, nausea, vomiting, bloody stools or diarrhea [] : Denies dysuria or hematuria [] Musculoskeletal: Denies back pain or joint pain [] Integument: Denies rash or skin lesions [] Neurologic: Denies headache, focal weakness or sensory changes [] Endocrine: Denies polyuria or polydipsia [] All other systems were reviewed and found to be within normal limits, except as documented in this note. Current Medications Current Medications Current Medications Medications (Trade) Dose Ordered Sig/Geovanny Start Time Stop Time Status Last Admin Dose Admin Sodium Chloride 1,000 ml @ 1,000 mls/hr 1X ONCE 03/02/19 20:00 03/02/19 20:59 DC 03/02/19 20:00 1,000 MLS/HR Allergies Allergies Allergies Coded Allergies Type Severity Reaction Last Updated Verified No Known Drug Allergies 10/30/18 No Physical Exam Physical Exam Constitutional: Well developed, well nourished, no acute distress, non-toxic appearance. [] HENT: Normocephalic, atraumatic, bilateral external ears normal, oropharynx moist, no oral exudates, nose normal. [] Eyes: PERRLA, EOMI, conjunctiva normal, no discharge. [] Neck: Normal range of motion, no tenderness, supple, no stridor. [] Cardiovascular:Heart rate regular rhythm, no murmur [] Lungs & Thorax: Bilateral breath sounds clear to auscultation [] Abdomen: Bowel sounds normal, soft, no tenderness, no masses, no pulsatile masses. [] Skin: Warm, dry, no erythema, no rash. [] Back: No tenderness, no CVA tenderness. [] Extremities: No tenderness, no cyanosis, no clubbing, ROM intact, no edema. [] Neurologic: Alert and oriented X 3, normal motor function, normal sensory function, no focal deficits noted. [] Psychologic: Affect normal, judgement normal, mood normal. [] Current Patient Data Vital Signs Vital Signs Date Time Temp Pulse Resp B/P (MAP) Pulse Ox O2 Delivery O2 Flow Rate FiO2 03/02/19 19:27 98.5 97 18 161/78 (105) 97 2.0 98.5 Lab Values Laboratory Tests Test 03/02/19 20:20 White Blood Count 7.9 x10^3/uL (4.0-11.0) Red Blood Count 4.62 x10^6/uL (3.50-5.40) Hemoglobin 11.4 g/dL (12.0-15.5) L Hematocrit 35.7 % (36.0-47.0) L Mean Corpuscular Volume 77 fL (79-100) L Mean Corpuscular Hemoglobin 25 pg (25-35) Mean Corpuscular Hemoglobin Concent 32 g/dL (31-37) Red Cell Distribution Width 16.7 % (11.5-14.5) H Platelet Count 360 x10^3/uL (140-400) Neutrophils (%) (Auto) 69 % (31-73) Lymphocytes (%) (Auto) 20 % (24-48) L Monocytes (%) (Auto) 8 % (0-9) Eosinophils (%) (Auto) 2 % (0-3) Basophils (%) (Auto) 1 % (0-3) Neutrophils # (Auto) 5.4 x10^3uL (1.8-7.7) Lymphocytes # (Auto) 1.6 x10^3/uL (1.0-4.8) Monocytes # (Auto) 0.6 x10^3/uL (0.0-1.1) Eosinophils # (Auto) 0.2 x10^3/uL (0.0-0.7) Basophils # (Auto) 0.1 x10^3/uL (0.0-0.2) Prothrombin Time 12.3 SEC (11.7-14.0) Prothrombin Time INR 0.9 (0.8-1.1) PTT 35 SEC (24-38) Sodium Level 139 mmol/L (136-145) Potassium Level 3.8 mmol/L (3.5-5.1) Chloride Level 101 mmol/L (98-107) Carbon Dioxide Level 31 mmol/L (21-32) Anion Gap 7 (6-14) Blood Urea Nitrogen 13 mg/dL (7-20) Creatinine 0.7 mg/dL (0.6-1.0) Estimated GFR (Cockcroft-Gault) 81.6 BUN/Creatinine Ratio 19 (6-20) Glucose Level 87 mg/dL (70-99) Lactic Acid Level 0.7 mmol/L (0.4-2.0) Calcium Level 9.7 mg/dL (8.5-10.1) Magnesium Level 1.9 mg/dL (1.8-2.4) Total Bilirubin 0.4 mg/dL (0.2-1.0) Aspartate Amino Transferase (AST) 27 U/L (15-37) Alanine Aminotransferase (ALT) 31 U/L (14-59) Alkaline Phosphatase 66 U/L (46-116) Total Protein 8.6 g/dL (6.4-8.2) H Albumin 3.7 g/dL (3.4-5.0) Albumin/Globulin Ratio 0.8 (1.0-1.7) L Laboratory Tests 03/02/19 20:20 Laboratory Tests 03/02/19 20:20 EKG EKG [] Radiology/Procedures Radiology/Procedures [] Course & Med Decision Making Course & Med Decision Making Pertinent Labs and Imaging studies reviewed. (See chart for details) Discussed antibiotic selection with Dr. Coley. Had already given Clindamycin for cellulitis. Dr. Coley requests Unasyn 1.5gm IV q6. Attempted to order, however unable due to pharmacy shortage. UA also with signs of UTI. Decision to given Rocephin 1gm x [address] Coley further evaluate in the AM. Dragon Disclaimer Dragon Disclaimer This electronic medical record was generated, in whole or in part, using a voice recognition dictation system. Departure Departure Impression: Primary Impression: Cellulitis of both lower extremities Additional Impression: UTI (urinary tract infection) Disposition: 09 ADMITTED INPATIENT Admitting Physician: Marianela Coley Condition: GUARDED Referrals: MARIANELA COLEY MD (PCP) Problem Qualifiers Additional Impression: UTI (urinary tract infection) Urinary tract infection type: acute cystitis Hematuria presence: without hematuria Qualified Codes: N30.00 - Acute cystitis without hematuria KARY TURNER DO Mar 02, 2019 20:31
[2019-03-02 20:37] LABS: BASO # 0.1 x10^3/uL (0.0-0.2); BASO % 1 % (0-3); EOS # 0.2 x10^3/uL (0.0-0.7); EOS % 2 % (0-3); HEMATOCRIT 35.7 % (36.0-47.0); HEMOGLOBIN 11.4 g/dL (12.0-15.5); LYMPH # 1.6 x10^3/uL (1.0-4.8); LYMPH % 20 % (24-48); MEAN CORPUSCULAR HEMOGLOBIN 25 pg (25-35); MEAN CORPUSCULAR HGB CONC 32 g/dL (31-37); MEAN CORPUSCULAR VOLUME 77 fL (79-100); MONO # 0.6 x10^3/uL (0.0-1.1); MONO % 8 % (0-9); NEUT # 5.4 x10^3uL (1.8-7.7); NEUT % 69 % (31-73); PLATELET COUNT 360 x10^3/uL (140-400); RED BLOOD COUNT 4.62 x10^6/uL (3.50-5.40); RED CELL DISTRIBUTION WIDTH 16.7 % (11.5-14.5); WHITE BLOOD COUNT 7.9 x10^3/uL (4.0-11.0)
[2019-03-02 20:47] LABS: PROTHROMBIN TIME PATIENT 12.3 SEC (11.7-14.0)
[2019-03-02 20:52] LABS: CALCIUM 9.7 mg/dL (8.5-10.1); CREATININE 0.7 mg/dL (0.6-1.0); GFR 81.6; POTASSIUM 3.8 mmol/L (3.5-5.1)
[2019-03-02 21:05] LABS: ALBUMIN 3.7 g/dL (3.4-5.0); ALBUMIN/GLOBULIN RATIO 0.8 (1.0-1.7); MAGNESIUM 1.9 mg/dL (1.8-2.4); TOTAL BILIRUBIN 0.4 mg/dL (0.2-1.0); TOTAL PROTEIN 8.6 g/dL (6.4-8.2)
[2019-03-02 21:11] LABS: BILIRUBIN,URINE NEGATIVE (NEG); CLARITY,URINE CLEAR; COLOR,URINE YELLOW; NITRITE,URINE POSITIVE (NEG); PROTEIN,URINE NEGATIVE (NEG-TRACE); UROBILINOGEN,URINE 0.2 mg/dL (0.2 mg/dL)
[2019-03-02 21:17] LABS: BACTERIA,URINE MANY /HPF (0-FEW); RBC,URINE 0 /HPF (0-2); WBC,URINE >40 /HPF (0-4)
[2019-03-02 21:18] LABS: HYALINE CASTS, URINE FEW /HPF; SQUAMOUS EPITHELIAL CELL,UR OCC /LPF
[2019-03-02 21:35] VITALS: BP 158/65
[2019-03-02] MEDS ORDERED: cefTRIAXone IV Push 1 GM VIAL. IVP ONE (22:00)
[2019-03-02 23:00] VITALS: BP 135/82
[2019-03-03] MEDS: ALPRAZolam 0.5 MG TABLET PO SCH ×3 (00:04→21:01)
[2019-03-03] MEDS ORDERED: ALBU1.25 NEB (00:43)
[2019-03-03] MEDS ORDERED: SENNOSIDES/DOCUSATE 8.6/50MG TABLET. PO PRN (00:45)
[2019-03-03] MEDS ORDERED: BACLOFEN 10 MG TABLET. PO PRN (00:45)
[2019-03-03] MEDS ORDERED: LISI-334 PO (01:51)
[2019-03-03] MEDS ORDERED: ROFL500T7 PO (01:53)
[2019-03-03 03:00] VITALS: BP 119/57
[2019-03-03] MEDS: IPRATRPIUM/ALBUTEROL 0.5/2.5MG 3 ML NEBU. NEB SCH ×4 (07:21→20:36)
[2019-03-03] MEDS: BUDESONIDE 0.5 MG/2 ML NEBU. NEB SCH ×2 (07:21→20:36)
[2019-03-03] MEDS: HYDROcodone/APAP 5/325MG 1 TAB TABLET PO PRN ×3 (07:23→21:00)
[2019-03-03 07:54] VITALS: BP 111/49
[2019-03-03] MEDS: ALBUTEROL SULFATE 2.5 MG/3 ML NEBU. NEB SCH ×4 (08:00→20:00)
[2019-03-03] MEDS ORDERED: ACETAMINOPHEN 325 MG TABLET. PO PRN (08:45)
[2019-03-03] MEDS ORDERED: FLUCONAZOLE 100 MG PO SCH (09:00)
[2019-03-03] MEDS ORDERED: NON FORMULARY ITEM (Alendronate Sodium 1 TAB) PO SCH (09:00)
[2019-03-03] MEDS ORDERED: NON FORMULARY ITEM (Tiotropium Bromide (Spiriva) 1 CAP) IH SCH (09:00)
[2019-03-03] MEDS ORDERED: NON FORMULARY ITEM (Budesonide/Formoterol Fumarate (Symbicort 160-4.5 Mcg Inhaler) 2 PUFF) IH SCH (09:00)
[2019-03-03] MEDS ORDERED: ALBUTEROL SULFATE 2.5 MG/3 ML NEBU. NEB SCH (09:00)
[2019-03-03] MEDS ORDERED: NON FORMULARY ITEM (Cefpodoxime Proxetil 1 TAB) PO SCH (09:00)
[2019-03-03] MEDS: ASPIRIN CHEWABLE 81 MG TABLET. PO SCH (09:14)
[2019-03-03] MEDS: GABAPENTIN 100 MG CAPSULE. PO SCH ×2 (09:14→21:01)
[2019-03-03] MEDS: FLUTICASONE 50MCG/NASAL SPRAY 16GM BOTTLE. NS SCH ×2 (09:14→21:00)
[2019-03-03] MEDS: ROFLUMILAST 500 MCG TABLET. PO SCH (09:14)
[2019-03-03] MEDS: FAMOTIDINE 20 MG TABLET. PO SCH (09:14)
[2019-03-03] MEDS: LISINOPRIL 20 MG TABLET PO SCH (09:15)
--- NOTE | 2019-03-03 09:24 | PDOC ---
Provider Note Provider Note Patient seen. History and Physical dictated. See dictation#[id number] MARIANELA COLEY MD Mar 03, 2019 09:24
--- NOTE | 2019-03-03 09:52 | HP ---
ADMIT DATE: 03/02/2019 HISTORY OF PRESENT ILLNESS: This 74-year-old female presented to our office yesterday with complaints of swelling and redness of the lower extremities. She has had some dyspnea. She denies any nausea, vomiting, abdominal pain, dysuria, fever or chills. In the office, the patient was noted to have significant cellulitis of the lower extremities with redness. Her oxygen cylinders were malfunctioning and her oxygen saturation was also low. She was sent to the hospital to the Emergency Room and subsequently admitted for further evaluation and management. SYSTEMS REVIEW: At present time, the patient does admit to some cough, congestion and dyspnea. She denies any fever, chills, nausea, vomiting, abdominal pain or diarrhea. Other systems reviewed and are negative. PAST MEDICAL HISTORY: The patient has been admitted here several times in the past for exacerbation of COPD; recurrent bronchitis; pneumonia; recurrent UTI, had a suprapubic catheter placement; recent cellulitis of the right foot; chronic respiratory failure, on oxygen by nasal cannula 2-1/2 liters with exertion and 2 liters at rest; has severe COPD; chronic short-term and long-term memory loss; diabetes mellitus type 2 with neuropathy; history of hypoglycemia; hypertension; hyperlipidemia; anxiety; depression; severe protein-calorie malnutrition; physical deconditioning; secondary pulmonary hypertension and mild CKD 3 and a history of metabolic encephalopathy. PAST SURGICAL HISTORY: The patient has a right renal stone, probably around in 2008. She has a history of fractured hip with open reduction and internal fixation in 2012, history of peptic ulcer disease and internal hemorrhoids, left breast surgery for fibrocystic disease and placement of suprapubic catheter and also history of infection of the suprapubic catheter site. ALLERGIES: The patient is allergic to TRAMADOL. FAMILY HISTORY: Father had bleeding peptic ulcer disease, cancer of the colon. Sister had cancer of the colon. SOCIAL HISTORY: The patient is a former smoker, lives alone at home, has caregivers who provide her with part-time care. No history of alcoholism or drug abuse. MEDICATIONS: Reviewed and reconciled. PHYSICAL EXAMINATION: VITAL SIGNS: Temperature 98.3, pulse 63 per minute, respirations 18 per minute and blood pressure 135/82 mmHg. GENERAL: The patient is alert and oriented, in mild distress. EYES: Pupils reacting to light. Conjunctivae pale. Sclerae muddy. HEAD, EARS, NOSE AND THROAT: Throat congested. NECK: Supple. JVP normal. No thyromegaly. Trachea midline. LUNGS: Decreased breath sounds at bases with occasional rhonchi, on oxygen by nasal cannula. CARDIOVASCULAR SYSTEM: S1 and S2 regular. ABDOMEN: Soft and nontender. No guarding and no rigidity. Bowel sounds present. EXTREMITIES: The patient has 1+ edema of both lower extremities and with redness of both legs and feet. Increased warmth. NERVOUS SYSTEM: Alert and oriented. No acute changes noted. Has chronic cognitive deficits and generalized weakness. LABORATORY FINDINGS: As noted earlier, WBC count 7.9 and hemoglobin 11.4. Sodium 139, potassium 3.8, BUN 13 and creatinine 0.7. Albumin 3.7. WBC count 7.9 and hemoglobin 11.4. INR is 0.9. Urinalysis: Nitrite positive, large leukocyte esterase and many bacteria. Urine wbc's, more than 40. However, this is a suprapubic catheter specimen. IMPRESSION: 1. Cellulitis of both lower extremities. 2. Possible urinary tract infection; however, this could be contaminated as it is a suprapubic catheter specimen. 3. Chronic bronchitis. 4. Chronic obstructive pulmonary disease. 5. Chronic hypoxic and hypercapnic respiratory failure, on oxygen by nasal cannula at 2-1/2 liters with exertion and 2 liters at rest. 6. Osteoarthritis. 7. Diabetes mellitus type 2, diet controlled. 8. Hypertension, controlled. 9. Chronic pain. 10. Cognitive deficits. 11. Physical deconditioning. PLAN: Consult Dr. Cisneros for infectious disease evaluation due to possible UTI and cellulitis. Consult Dr. Perez for Pulmonary evaluation and management. For details, please review the orders. There is a shortage of Unasyn, so it could not be ordered. I have continued IV Rocephin. We will await Dr. Cisneros's input. For details, please review the orders. MARIANELA COLEY MD DR: ORA/shaq JOB#: [id number] / [id number]
[2019-03-03 11:00] VITALS: BP 98/49
[2019-03-03] MEDS ORDERED: NON FORMULARY ITEM (Albuterol Sulfate (Albuterol Sulfate Neb Soln) 1 VIAL) NEB SCH (12:00)
--- NOTE | 2019-03-03 12:48 | NUR ---
SW following for discharge planning. Discussed with RN, pt is from home alone, has been to [facility] in the past. Pulmonary and ID consult. Pt is on 2L NC. SW will continue to follow for discharge planning.
--- NOTE | 2019-03-03 12:56 | RAD ---
Portable chest, 03/03/2019: HISTORY: COPD Comparison is made to a study from 01/08/2019. The heart size is normal. Mildly prominent interstitial opacities are probably due to fibrosis. No pulmonary consolidation is seen. There is no evidence of pleural fluid. IMPRESSION: No acute cardiopulmonary abnormality is detected. Electronically signed by: Pietro Miner MD (03/03/2019 12:53 PM) [facility]
[2019-03-03] MEDS: cefTRIAXone IV Push 1 GM VIAL. IVP SCH (13:16)
[2019-03-03] MEDS: HEPARIN for SUB-Q USE 5,000 UNIT/ML VIAL. SQ SCH ×2 (13:22→21:00)
[2019-03-03 15:00] VITALS: BP 87/45
--- NOTE | 2019-03-03 17:52 | PDOC ---
PULMONARY PROGRESS NOTES Vitals Vital Signs Date Time Temp Pulse Resp B/P (MAP) Pulse Ox O2 Delivery O2 Flow Rate FiO2 03/03/19 15:36 98 Nasal Cannula 2.0 03/03/19 15:00 97.2 67 18 87/45 (59) 97.2 General: Alert, No acute distress HEENT: Other Lungs: Clear Cardiovascular: S1, S2 Abdomen: Soft Extremities: No Edema Labs Laboratory Tests Test 03/02/19 20:20 03/02/19 21:00 03/03/19 07:12 03/03/19 11:46 White Blood Count 7.9 x10^3/uL (4.0-11.0) Red Blood Count 4.62 x10^6/uL (3.50-5.40) Hemoglobin 11.4 g/dL (12.0-15.5) Hematocrit 35.7 % (36.0-47.0) Mean Corpuscular Volume 77 fL (79-100) Mean Corpuscular Hemoglobin 25 pg (25-35) Mean Corpuscular Hemoglobin Concent 32 g/dL (31-37) Red Cell Distribution Width 16.7 % (11.5-14.5) Platelet Count 360 x10^3/uL (140-400) Neutrophils (%) (Auto) 69 % (31-73) Lymphocytes (%) (Auto) 20 % (24-48) Monocytes (%) (Auto) 8 % (0-9) Eosinophils (%) (Auto) 2 % (0-3) Basophils (%) (Auto) 1 % (0-3) Neutrophils # (Auto) 5.4 x10^3uL (1.8-7.7) Lymphocytes # (Auto) 1.6 x10^3/uL (1.0-4.8) Monocytes # (Auto) 0.6 x10^3/uL (0.0-1.1) Eosinophils # (Auto) 0.2 x10^3/uL (0.0-0.7) Basophils # (Auto) 0.1 x10^3/uL (0.0-0.2) Prothrombin Time 12.3 SEC (11.7-14.0) Prothromb Time International Ratio 0.9 (0.8-1.1) Activated Partial Thromboplast Time 35 SEC (24-38) Sodium Level 139 mmol/L (136-145) Potassium Level 3.8 mmol/L (3.5-5.1) Chloride Level 101 mmol/L (98-107) Carbon Dioxide Level 31 mmol/L (21-32) Anion Gap 7 (6-14) Blood Urea Nitrogen 13 mg/dL (7-20) Creatinine 0.7 mg/dL (0.6-1.0) Estimated GFR (Cockcroft-Gault) 81.6 BUN/Creatinine Ratio 19 (6-20) Glucose Level 87 mg/dL (70-99) Lactic Acid Level 0.7 mmol/L (0.4-2.0) Calcium Level 9.7 mg/dL (8.5-10.1) Magnesium Level 1.9 mg/dL (1.8-2.4) Total Bilirubin 0.4 mg/dL (0.2-1.0) Aspartate Amino Transf (AST/SGOT) 27 U/L (15-37) Alanine Aminotransferase (ALT/SGPT) 31 U/L (14-59) Alkaline Phosphatase 66 U/L (46-116) Total Protein 8.6 g/dL (6.4-8.2) Albumin 3.7 g/dL (3.4-5.0) Albumin/Globulin Ratio 0.8 (1.0-1.7) Urine Collection Type Unknown Urine Color Yellow Urine Clarity Clear Urine pH 6.0 Urine Specific [place] 1.015 Urine Protein Negative mg/dL (NEG-TRACE) Urine Glucose (UA) Negative mg/dL (NEG) Urine Ketones (Stick) Negative mg/dL (NEG) Urine Blood Negative (NEG) Urine Nitrite Positive (NEG) Urine Bilirubin Negative (NEG) Urine Urobilinogen Dipstick 0.2 mg/dL (0.2 mg/dL) Urine Leukocyte Esterase Large (NEG) Urine RBC 0 /HPF (0-2) Urine WBC >40 /HPF (0-4) Urine Squamous Epithelial Cells Occ /LPF Urine Bacteria Many /HPF (0-FEW) Urine Hyaline Casts Few /HPF Urine Mucus Mod /LPF Glucose (Fingerstick) 104 mg/dL (70-99) 98 mg/dL (70-99) Test 03/03/19 16:37 Glucose (Fingerstick) 79 mg/dL (70-99) Laboratory Tests Test 03/02/19 20:20 03/02/19 21:00 03/03/19 07:12 03/03/19 11:46 White Blood Count 7.9 x10^3/uL (4.0-11.0) Red Blood Count 4.62 x10^6/uL (3.50-5.40) Hemoglobin 11.4 g/dL (12.0-15.5) Hematocrit 35.7 % (36.0-47.0) Mean Corpuscular Volume 77 fL (79-100) Mean Corpuscular Hemoglobin 25 pg (25-35) Mean Corpuscular Hemoglobin Concent 32 g/dL (31-37) Red Cell Distribution Width 16.7 % (11.5-14.5) Platelet Count 360 x10^3/uL (140-400) Neutrophils (%) (Auto) 69 % (31-73) Lymphocytes (%) (Auto) 20 % (24-48) Monocytes (%) (Auto) 8 % (0-9) Eosinophils (%) (Auto) 2 % (0-3) Basophils (%) (Auto) 1 % (0-3) Neutrophils # (Auto) 5.4 x10^3uL (1.8-7.7) Lymphocytes # (Auto) 1.6 x10^3/uL (1.0-4.8) Monocytes # (Auto) 0.6 x10^3/uL (0.0-1.1) Eosinophils # (Auto) 0.2 x10^3/uL (0.0-0.7) Basophils # (Auto) 0.1 x10^3/uL (0.0-0.2) Prothrombin Time 12.3 SEC (11.7-14.0) Prothromb Time International Ratio 0.9 (0.8-1.1) Activated Partial Thromboplast Time 35 SEC (24-38) Sodium Level 139 mmol/L (136-145) Potassium Level 3.8 mmol/L (3.5-5.1) Chloride Level 101 mmol/L (98-107) Carbon Dioxide Level 31 mmol/L (21-32) Anion Gap 7 (6-14) Blood Urea Nitrogen 13 mg/dL (7-20) Creatinine 0.7 mg/dL (0.6-1.0) Estimated GFR (Cockcroft-Gault) 81.6 BUN/Creatinine Ratio 19 (6-20) Glucose Level 87 mg/dL (70-99) Lactic Acid Level 0.7 mmol/L (0.4-2.0) Calcium Level 9.7 mg/dL (8.5-10.1) Magnesium Level 1.9 mg/dL (1.8-2.4) Total Bilirubin 0.4 mg/dL (0.2-1.0) Aspartate Amino Transf (AST/SGOT) 27 U/L (15-37) Alanine Aminotransferase (ALT/SGPT) 31 U/L (14-59) Alkaline Phosphatase 66 U/L (46-116) Total Protein 8.6 g/dL (6.4-8.2) Albumin 3.7 g/dL (3.4-5.0) Albumin/Globulin Ratio 0.8 (1.0-1.7) Urine Collection Type Unknown Urine Color Yellow Urine Clarity Clear Urine pH 6.0 Urine Specific [place] 1.015 Urine Protein Negative mg/dL (NEG-TRACE) Urine Glucose (UA) Negative mg/dL (NEG) Urine Ketones (Stick) Negative mg/dL (NEG) Urine Blood Negative (NEG) Urine Nitrite Positive (NEG) Urine Bilirubin Negative (NEG) Urine Urobilinogen Dipstick 0.2 mg/dL (0.2 mg/dL) Urine Leukocyte Esterase Large (NEG) Urine RBC 0 /HPF (0-2) Urine WBC >40 /HPF (0-4) Urine Squamous Epithelial Cells Occ /LPF Urine Bacteria Many /HPF (0-FEW) Urine Hyaline Casts Few /HPF Urine Mucus Mod /LPF Glucose (Fingerstick) 104 mg/dL (70-99) 98 mg/dL (70-99) Test 03/03/19 16:37 Glucose (Fingerstick) 79 mg/dL (70-99) Medications Active Scripts Medications Dose Route/Sig Max Daily Dose Days Date Category Daliresp (Roflumilast) 500 Mcg Tablet 1 Tab PO DAILY 03/03/19 Reported Lisinopril 20 Mg Tablet 1 Tab PO DAILY 03/03/19 Reported Albuterol Sulfate Neb Soln (Albuterol Sulfate) 1.25 Mg/3 Ml Vial.neb 1 Vial NEB Q6HRS 03/03/19 Reported Cefpodoxime Proxetil 200 Mg Tablet 1 Tab PO BID 5 01/10/19 Rx [Fluconazole] 100 MG Tablet 100 Mg PO DAILY 5 01/10/19 Rx Hydrocodone-Apap 5-325 (Hydrocodone Bit/Acetaminophen) 1 Tab Tablet 1 Tab PO PRN Q6HRS PRN 7 11/03/18 Rx Senna-Time S Tablet (Sennosides/Docusate Sodium) 1 Each Tablet 2 Tab PO PRN DAILY PRN 30 11/03/18 Rx Mucinex (Guaifenesin) 1,200 Mg Tbmp.12hr 1 Tab PO BID 10/30/18 Reported Tylenol (Acetaminophen) 325 Mg Tablet 650 Mg PO PRN Q6HRS PRN 30 09/22/18 Rx Spiriva (Tiotropium [place]) 18 Mcg Cap.w.dev 1 Cap IH DAILY 08/15/18 Reported Alendronate Sodium 70 Mg Tablet 1 Tab PO WEEKLY 08/15/18 Reported Symbicort 160-4.5 Mcg Inhaler (Budesonide/Formoterol Fumarate) 10.2 Gm Hfa.aer.ad 2 Puff IH BID 01/06/18 Rx Duoneb 0.5-3(2.5) Mg/3 Ml (Albuterol/Ipratropium) 3 Ml Ampul.neb 3 Ml NEB RTQID 10/23/17 Rx Flonase Allergy Relief (Fluticasone Propionate) 9.9 Ml [place].susp 2 Sprays NS BID 10/20/17 Reported Simvastatin 10 Mg Tablet 1 Tab PO QHS 07/22/17 Reported Pepcid (Famotidine) 20 Mg Tablet 20 Mg PO BID 07/22/17 Reported Proair Hfa Inhaler (Albuterol Sulfate) 8.5 Gm Hfa.aer.ad 2 Puff INH PRN Q6HRS PRN 07/22/17 Reported Aspirin 81 Mg Tab.chew 1 Tab PO DAILY 07/22/17 Reported Gabapentin (Gabapentin) 100 Mg Capsule 100 Mg PO BID 07/22/17 Reported Baclofen 10 Mg Tablet 1 Tab PO TID PRN 04/23/15 Reported Singulair Tablet (Montelukast Sodium) 10 Mg Tablet 1 Tab PO QEVNG 04/23/15 Reported Zyrtec (Cetirizine Hcl) 10 Mg Tablet 1 Tab PO QHS 04/23/15 Reported Xanax (Alprazolam) 0.5 Mg Tablet 1 Tab PO BID 04/23/15 Reported Impression . FULL NOTE DICTATED THANKS ELMER STANLEY MD Mar 03, 2019 17:52
[2019-03-03] MEDS: MONTELUKAST SODIUM 10 MG TABLET. PO SCH (18:14)
--- NOTE | 2019-03-03 18:38 | PDOC ---
Provider Note Provider Note Pt seen and examined ID consult dictated [id number] Thank you MIKE PRICE MD Mar 03, 2019 18:38
[2019-03-03 19:00] VITALS: BP 100/46
--- NOTE | 2019-03-03 20:32 | NUR ---
VENTOLIN NOT ADMINISTERED AT THIS TIME DUONEB WAS ALSO SCHEDULED AT THE SAME TIME. ALBUTEROL IS A DUPLICATE ORDER. PHARMACY INFORMED
--- NOTE | 2019-03-03 21:00 | NUR ---
RN non-administered fluticasone at this time due to patient refusing med. Pt stated she takes fluticasone in the morning only.
--- NOTE | 2019-03-03 21:00 | NUR ---
Patient refused Heparin at this time. RN non-administered at this time and will continue to monitor.
[2019-03-03] MEDS: SIMVASTATIN 10 MG TABLET PO SCH (21:01)
[2019-03-03] MEDS: LACTOBACILLUS RHAMNOSUS GG 1 CAPSULE. PO SCH (21:01)
[2019-03-03] MEDS: FLUCONAZOLE 100 MG TABLET. PO SCH (21:01)
[2019-03-03] MEDS: CETIRIZINE HCL 10 MG TABLET. PO SCH (21:01)
--- NOTE | 2019-03-03 22:55 | CONS ---
DATE OF CONSULTATION: 03/03/2019 ATTENDING PHYSICIAN: Dr. Randy Conner. REASON FOR CONSULTATION: The patient is seen in pulmonary consultation at the request of Dr. Conner for increasing shortness of air. The patient is a 74-year-old female that presented to the office with complaints of lower extremity edema, redness. She also had some increasing shortness of breath, nausea, vomiting, and diarrhea. The patient was admitted. I was asked to see her in consultation. The patient denies productive cough. No nausea, vomiting, or diarrhea. PAST MEDICAL HISTORY: Underlying COPD with frequent acute exacerbation, recurrent bronchitis, pneumonia, recent recurrent UTI. She also has a history of suprapubic catheter placement; chronic cellulitis of the lower extremities; chronic respiratory failure, on oxygen supplementation; peripheral neuropathy; hyperlipidemia; depression; protein malnutrition; secondary pulmonary hypertension; chronic kidney disease. PAST SURGICAL HISTORY: Status post previous renal stone, fractured hip that was repaired. She has had a suprapubic catheter placement. ALLERGIES: LISTED TO TRAMADOL. FAMILY HISTORY: Father from peptic ulcer disease and cancer of the colon. Sister had cancer of the colon. SOCIAL HISTORY: She is a former smoker, quit approximately a year ago. MEDICATIONS: List was reviewed. REVIEW OF SYSTEMS: CONSTITUTIONAL: No fever or chills. EYES: No change in visual acuity. HENT: No nasal congestion or sore throat. PULMONARY: As indicated above. CARDIOVASCULAR: No chest pain. No pressure. GASTROINTESTINAL: No nausea, vomiting, or diarrhea. GENITOURINARY: No dysuria or frequency. MUSCULOSKELETAL: No localized muscle aches or joint pains. SKIN: No new skin rashes. NEUROLOGIC: No headaches, diplopia or blurred vision. CURRENT MEDICATION: List was reviewed. PHYSICAL EXAMINATION: GENERAL: The patient was on 2 liters of oxygen supplementation, in no respiratory distress. VITAL SIGNS: Stable. O2 saturation was greater than 92%. HEENT: Eyes: The sclerae were nonicteric. NECK: Jugular venous distention was not elevated. No lymphadenopathy. CHEST: Full expansion. LUNGS: Adequate airway flow with no wheezes, rales or rhonchi. CARDIOVASCULAR: Regular rate and rhythm with S1, S2, no S3. ABDOMEN: Soft, nontender, nondistended. EXTREMITIES: No clubbing, cyanosis or edema. NEUROLOGIC: The patient was awake, alert, following commands. A detailed neuro exam was not performed. Chest x-ray was reviewed. There is no acute cardiopulmonary process. LABORATORY DATA: Likewise reviewed. White count was normal. Hemoglobin and hematocrit were noted. Electrolytes were noted. IMPRESSION: 1. Acute lower extremity cellulitis. 2. Chronic obstructive pulmonary disease. 3. Chronic hypoxemic respiratory failure. 4. Osteoarthritis. 5. Chronic bronchitis. PLAN: 1. Continue nebulized treatments and oxygen supplementation. 2. The patient is seen in consultation by the Infectious Disease Service for lower extremity acute cellulitis and edema. 3. Continue home meds. I do appreciate the privilege in sharing in the patient's care. ELMER STANLEY MD DR: ZEN/shaq JOB#: [id number] / [id number]
[2019-03-03 23:00] VITALS: BP 99/48
--- NOTE | 2019-03-04 00:25 | CONS ---
DATE OF CONSULTATION: 03/03/2019 REFERRING PHYSICIAN: Dr. Conner. REASON FOR CONSULTATION: Bilateral lower extremity cellulitis. HISTORY OF PRESENT ILLNESS: A 74-year-old female who was admitted through the ER with complaints of worsening swelling, redness of both lower extremities, left greater than the right. She also had some dyspnea. The patient denies any fevers, chills, nausea, vomiting, diarrhea, abdominal pain. She has SPC which has been changed, but the patient cannot recall when, in Dr. Eisenberg office recently. Per nurse, they have made a call to Dr. Eisenberg's office to see when the last SPC exchange was done. She was sent to the Emergency Department. She had received clindamycin as an outpatient. She was started on ceftriaxone as Unasyn is on short supply. Today, the patient states that she feels a little better. The left lower extremity pain, swelling, redness has improved some. She is now able to bend her toes little better. PAST MEDICAL HISTORY: Exacerbation of COPD; recurrent bronchitis; pneumonia; recurrent UTI with suprapubic catheter in place; recent cellulitis of right foot; chronic respiratory failure, on oxygen by nasal cannula; severe COPD; short term memory loss; diabetes mellitus 2 with neuropathy; history of hypoglycemia; hypertension; hyperlipidemia; anxiety; depression; severe protein-calorie malnutrition; physical deconditioning; secondary pulmonary hypertension; mild CKD; history of metabolic encephalopathy. PAST SURGICAL HISTORY: Right renal stone, fractured hip with ORIF in 2012, history of peptic ulcer disease, internal hemorrhoids, left breast surgery for suprapubic catheter. ALLERGIES: TRAMADOL. FAMILY HISTORY: Father had peptic ulcer disease, cancer in mother. There is history of cancer of colon with sister. SOCIAL HISTORY: Former smoker, quit a year ago. Lives alone at home with caregivers. No alcoholism. No drug abuse. CURRENT MEDICATIONS: IV ceftriaxone. Other medications reviewed in medication list. PHYSICAL EXAMINATION: VITAL SIGNS: Temperature 97.2, pulse 67, respiratory rate 18, blood pressure 84/45, oxygen saturation 97% on 2 liters by nasal cannula. GENERAL: Alert, oriented, thin female in no acute distress, cooperative, pleasant. HEENT: Normocephalic, atraumatic, anicteric. No thrush. NECK: Supple. No JVD. LUNGS: Decreased breath sounds at the bases on O2 by nasal cannula. HEART: S1, S2. ABDOMEN: Soft, nontender. Suprapubic catheter site looks clean, nontender, nondistended. No CVA tenderness. EXTREMITIES: 1+ edema both lower extremities with redness, left greater than the right. Slight warmth improving per patient. Edema is improving per patient. CENTRAL NERVOUS SYSTEM: Alert, oriented. Chronic memory problems. Generalized weakness. LABORATORY DATA: WBC 7.9, hemoglobin 11.4, hematocrit 35.7, platelets 360. Sodium 139, potassium 3.8, chloride 101, bicarbonate 31, BUN 13, creatinine 0.7, glucose 87. Lactate 0.7. calcium 9.7, magnesium 1.9. LFTs within normal limits. Total protein 8.7. IMAGING: Chest x-ray shows no acute cardiopulmonary abnormality, mild prominent interstitial opacities are probably due to fibrosis. No evidence of pleural fluid. IMPRESSION: 1. Bilateral lower extremity swelling, redness, pain, left greater than the right, likely cellulitis. 2. Pyuria with SPC in place, could be contamination as the patient does not have any associated symptoms.Team is trying to reach Urology DR Eisenberg office to see when it was exchanged last time 3. Chronic bronchitis with history of chronic obstructive pulmonary disease, on home O2. 4. Osteoarthritis. 5. Diabetes mellitus 2. 6. Mild cognitive disorder. 7. Hypertension. 8. Chronic pain. 9. Physical deconditioning. RECOMMENDATIONS: 1. Continue ceftriaxone. 2. We will add fluconazole renal dosing for tinea.Renal dosing 3. Elevate both lower extremities 4. Monitor closely. 5. We will transition to p.o. soon. 6. Follow up blood culture results. 7. Discussed with RN. Thank you, Dr. Conner, for consulting Infectious Disease to participate in this patient's care. If you have any questions, do not hesitate to contact me. MIKE PRICE MD DR: SAVANNA/shaq JOB#: [id number] / [id number] MTDD
[2019-03-04 03:00] VITALS: BP 114/50
[2019-03-04 07:00] VITALS: BP 97/53
[2019-03-04] MEDS: BUDESONIDE 0.5 MG/2 ML NEBU. NEB SCH ×2 (07:31→19:18)
[2019-03-04] MEDS: IPRATRPIUM/ALBUTEROL 0.5/2.5MG 3 ML NEBU. NEB SCH ×4 (07:31→19:18)
[2019-03-04] MEDS: FLUTICASONE 50MCG/NASAL SPRAY 16GM BOTTLE. NS SCH ×2 (08:29→21:00)
[2019-03-04] MEDS: FAMOTIDINE 20 MG TABLET. PO SCH (08:30)
[2019-03-04] MEDS: ROFLUMILAST 500 MCG TABLET. PO SCH (08:30)
[2019-03-04] MEDS: ASPIRIN CHEWABLE 81 MG TABLET. PO SCH (08:30)
[2019-03-04] MEDS: LACTOBACILLUS RHAMNOSUS GG 1 CAPSULE. PO SCH ×2 (08:30→21:21)
[2019-03-04] MEDS: cefTRIAXone IV Push 1 GM VIAL. IVP SCH (08:30)
[2019-03-04] MEDS: LISINOPRIL 20 MG TABLET PO SCH (08:31)
[2019-03-04] MEDS: GABAPENTIN 100 MG CAPSULE. PO SCH ×2 (08:32→21:21)
[2019-03-04] MEDS: ALPRAZolam 0.5 MG TABLET PO SCH ×2 (08:32→21:21)
[2019-03-04] MEDS: HEPARIN for SUB-Q USE 5,000 UNIT/ML VIAL. SQ SCH ×2 (08:49→21:32)
[2019-03-04 08:56] LABS: BASO # 0.1 x10^3/uL (0.0-0.2); BASO % 1 % (0-3); EOS # 0.2 x10^3/uL (0.0-0.7); EOS % 3 % (0-3); HEMATOCRIT 30.3 % (36.0-47.0); HEMOGLOBIN 9.5 g/dL (12.0-15.5); LYMPH # 2.6 x10^3/uL (1.0-4.8); LYMPH % 40 % (24-48); MEAN CORPUSCULAR HEMOGLOBIN 24 pg (25-35); MEAN CORPUSCULAR HGB CONC 31 g/dL (31-37); MEAN CORPUSCULAR VOLUME 78 fL (79-100); MONO # 0.8 x10^3/uL (0.0-1.1); MONO % 12 % (0-9); NEUT # 2.8 x10^3uL (1.8-7.7); NEUT % 43 % (31-73); PLATELET COUNT 255 x10^3/uL (140-400); RED BLOOD COUNT 3.91 x10^6/uL (3.50-5.40); RED CELL DISTRIBUTION WIDTH 16.7 % (11.5-14.5); WHITE BLOOD COUNT 6.5 x10^3/uL (4.0-11.0)
[2019-03-04 09:06] LABS: CREATININE 0.8 mg/dL (0.6-1.0); GFR 69.9
--- NOTE | 2019-03-04 09:19 | PDOC ---
Infectious Disease Note Subjective: Subjective Pt feels better ROS: ROS Negative except for above. Vital Signs: Vital Signs Vital Signs Date Time Temp Pulse Resp B/P (MAP) Pulse Ox O2 Delivery O2 Flow Rate FiO2 03/04/19 08:31 57 97/53 03/04/19 07:31 99 Nasal Cannula 2.0 03/04/19 07:00 98.2 18 98.2 Physical Exam: PHYSICAL EXAM GENERAL: Alert, oriented, thin female in no acute distress, cooperative, pleasant. HEENT: Normocephalic, atraumatic, anicteric. No thrush. NECK: Supple. No JVD. LUNGS: Decreased breath sounds at the bases on O2 by nasal cannula. HEART: S1, S2. ABDOMEN: Soft, nontender. Suprapubic catheter site looks clean, nontender, nondistended. No CVA tenderness. EXTREMITIES: 1+ edema both lower extremities with redness, left greater than the right. Slight warmth improving per patient. Edema is improving per patient. CENTRAL NERVOUS SYSTEM: Alert, oriented. Chronic memory problems. Generalized weakness. Medications: Inpatient Meds: Current Medications Medications (Trade) Dose Ordered Sig/Geovanny Start Time Stop Time Status Last Admin Dose Admin Acetaminophen (Tylenol) 650 mg PRN Q6HRS PRN 03/03/19 08:45 Acetaminophen/ Hydrocodone Bitart (Lortab 5/325) 1 tab PRN Q6HRS PRN 03/03/19 00:45 03/03/19 21:00 1 TAB Albuterol Sulfate (Ventolin Neb Soln) 1.25 mg Q6HRS 03/03/19 09:00 Cancel Albuterol/ Ipratropium (Duoneb) 3 ml RTQID 03/03/19 08:00 03/04/19 07:31 3 ML Alprazolam (Xanax) 0.5 mg BID 03/02/19 23:45 03/04/19 08:32 0.5 MG Aspirin (Children'S Aspirin) 81 mg [id number] 03/03/19 08:00 03/04/19 08:30 81 MG Baclofen (Lioresal) 10 mg PRN TID PRN 03/03/19 00:45 Budesonide (Pulmicort) 0.5 mg RTBID 03/03/19 08:00 03/04/19 07:31 0.5 MG Ceftriaxone Sodium (Rocephin) 1 gm Q24H 03/03/19 09:00 03/04/19 08:30 1 GM Cetirizine HCl (ZyrTEC) 10 mg QHS 03/03/19 21:00 03/03/19 21:01 10 MG Clindamycin Phosphate 50 ml @ 100 mls/hr 1X ONCE 03/02/19 20:30 03/02/19 20:59 DC 03/02/19 20:30 100 MLS/HR Famotidine (Pepcid) 20 mg DAILY 03/03/19 09:00 03/04/19 08:30 20 MG Fluconazole (Diflucan) 100 mg QODAY 03/03/19 19:00 03/03/19 21:01 100 MG Fluticasone Propionate (Flonase) 2 spray BID 03/03/19 09:00 03/04/19 08:29 2 SPRAY Gabapentin (Neurontin) 100 mg BID 03/03/19 09:00 03/04/19 08:32 100 MG Guaifenesin (Mucinex) 1,200 mg BID 03/03/19 09:00 03/04/19 08:31 1,200 MG Heparin Sodium (Porcine) (Heparin Sodium) 5,000 unit Q12HR 03/03/19 09:00 03/04/19 08:49 5,000 UNIT Lactobacillus Rhamnosus (Culturelle) 1 cap BID 03/03/19 21:00 03/04/19 08:30 1 CAP Lisinopril (Prinivil) 20 mg DAILY 03/03/19 09:00 03/03/19 09:15 20 MG Montelukast Sodium (Singulair) 10 mg QEVNG 03/03/19 18:00 03/03/19 18:14 10 MG Non-Formulary Medication (Albuterol Sulfate (Albuterol Sulfate Neb Soln)) 1 vial Q6HRS 03/03/19 12:00 UNV Non-Formulary Medication (Alendronate Sodium ) 1 tab WEEKLY 03/03/19 09:00 UNV Non-Formulary Medication (Budesonide/ Formoterol Fumarate (Symbicort 160-4.5 Mcg Inhaler)) 2 puff BID 03/03/19 09:00 UNV Non-Formulary Medication (Cefpodoxime Proxetil ) 1 tab BID 03/03/19 09:00 UNV Non-Formulary Medication (Tiotropium [place] (Spiriva)) 1 cap DAILY 03/03/19 09:00 UNV Non-Formulary Medication ([Fluconazole] ) 100 mg DAILY 03/03/19 09:00 UNV Ondansetron HCl (Zofran) 4 mg PRN Q8HRS PRN 03/02/19 20:30 03/03/19 20:29 DC Roflumilast (Daliresp) 500 mcg DAILY 03/03/19 09:00 03/04/19 08:30 500 MCG Senna/Docusate Sodium (Senna Plus) 2 tab PRN DAILY PRN 03/03/19 00:45 Simvastatin (Zocor) 10 mg QHS 03/03/19 21:00 03/03/19 21:01 10 MG Sodium Chloride 1,000 ml @ 1,000 mls/hr 1X ONCE 03/02/19 20:00 03/02/19 20:59 DC 03/02/19 20:00 1,000 MLS/HR Labs: Lab Laboratory Tests Test 03/03/19 11:46 03/03/19 16:37 03/03/19 21:00 03/04/19 07:41 Glucose (Fingerstick) 98 mg/dL (70-99) 79 mg/dL (70-99) 95 mg/dL (70-99) 91 mg/dL (70-99) Test 03/04/19 08:17 White Blood Count 6.5 x10^3/uL (4.0-11.0) Red Blood Count 3.91 x10^6/uL (3.50-5.40) Hemoglobin 9.5 g/dL (12.0-15.5) Hematocrit 30.3 % (36.0-47.0) Mean Corpuscular Volume 78 fL (79-100) Mean Corpuscular Hemoglobin 24 pg (25-35) Mean Corpuscular Hemoglobin Concent 31 g/dL (31-37) Red Cell Distribution Width 16.7 % (11.5-14.5) Platelet Count 255 x10^3/uL (140-400) Neutrophils (%) (Auto) 43 % (31-73) Lymphocytes (%) (Auto) 40 % (24-48) Monocytes (%) (Auto) 12 % (0-9) Eosinophils (%) (Auto) 3 % (0-3) Basophils (%) (Auto) 1 % (0-3) Neutrophils # (Auto) 2.8 x10^3uL (1.8-7.7) Lymphocytes # (Auto) 2.6 x10^3/uL (1.0-4.8) Monocytes # (Auto) 0.8 x10^3/uL (0.0-1.1) Eosinophils # (Auto) 0.2 x10^3/uL (0.0-0.7) Basophils # (Auto) 0.1 x10^3/uL (0.0-0.2) Sodium Level 138 mmol/L (136-145) Potassium Level 4.0 mmol/L (3.5-5.1) Chloride Level 100 mmol/L (98-107) Carbon Dioxide Level 34 mmol/L (21-32) Anion Gap 4 (6-14) Blood Urea Nitrogen 14 mg/dL (7-20) Creatinine 0.8 mg/dL (0.6-1.0) Estimated GFR (Cockcroft-Gault) 69.9 Glucose Level 94 mg/dL (70-99) Calcium Level 9.0 mg/dL (8.5-10.1) Objective: Assessment: 1. Bilateral lower extremity swelling, redness, pain, left greater than the right, likely cellulitis.Improving 2. Pyuria with SPC in place, could be contamination as the patient does not have any associated symptoms. 3. Chronic bronchitis with history of chronic obstructive pulmonary disease, on home O2. 4. Osteoarthritis. 5. Diabetes mellitus 2. 6. Mild cognitive disorder. 7. Hypertension. 8. Chronic pain. 9. Physical deconditioning. Plan: Plan of Care Continue ceftriaxone.Transition to keflex to po when ready for dc home fluconazole renal dosing for tinea for 7 days SPC to be exchanged per urology protocol, DR Eisenberg elevate both lower extremities Follow up blood culture results. Discussed with FERNANDO. MIKE PRICE MD Mar 04, 2019 09:19
--- NOTE | 2019-03-04 09:57 | PDOC ---
IM PROGRESS NOTES- Subjective Subjective No pain,dyspnea. Objective Vitals Vital Signs Date Time Temp Pulse Resp B/P (MAP) Pulse Ox O2 Delivery O2 Flow Rate FiO2 03/04/19 08:31 57 97/53 03/04/19 07:31 99 Nasal Cannula 2.0 03/04/19 07:00 98.2 18 98.2 Input & Output Intake and Output 03/04/19 06:59 Intake Total 680 ml Output Total 1250 ml Balance -570 ml Intake Oral 680 ml Output Urine Total 1250 ml Physical Exam Physical Exam GENERAL: The patient is alert and oriented, in mild distress. EYES: Pupils reacting to light. Conjunctivae pale. Sclerae muddy. HEAD, EARS, NOSE AND THROAT: Throat congested. NECK: Supple. JVP normal. No thyromegaly. Trachea midline. LUNGS: Decreased breath sounds at bases with occasional rhonchi, on oxygen by nasal cannula. CARDIOVASCULAR SYSTEM: S1 and S2 regular. ABDOMEN: Soft and nontender. No guarding and no rigidity. Bowel sounds present. EXTREMITIES: The patient has 1+ edema of both lower extremities and with redness of both legs and feet. Increased warmth. NERVOUS SYSTEM: Alert and oriented. No acute changes noted. Has chronic cognitive deficits and generalized weakness. Labs Laboratory Tests Test 03/02/19 20:20 03/02/19 21:00 03/03/19 07:12 03/03/19 11:46 White Blood Count 7.9 x10^3/uL (4.0-11.0) Red Blood Count 4.62 x10^6/uL (3.50-5.40) Hemoglobin 11.4 g/dL (12.0-15.5) Hematocrit 35.7 % (36.0-47.0) Mean Corpuscular Volume 77 fL (79-100) Mean Corpuscular Hemoglobin 25 pg (25-35) Mean Corpuscular Hemoglobin Concent 32 g/dL (31-37) Red Cell Distribution Width 16.7 % (11.5-14.5) Platelet Count 360 x10^3/uL (140-400) Neutrophils (%) (Auto) 69 % (31-73) Lymphocytes (%) (Auto) 20 % (24-48) Monocytes (%) (Auto) 8 % (0-9) Eosinophils (%) (Auto) 2 % (0-3) Basophils (%) (Auto) 1 % (0-3) Neutrophils # (Auto) 5.4 x10^3uL (1.8-7.7) Lymphocytes # (Auto) 1.6 x10^3/uL (1.0-4.8) Monocytes # (Auto) 0.6 x10^3/uL (0.0-1.1) Eosinophils # (Auto) 0.2 x10^3/uL (0.0-0.7) Basophils # (Auto) 0.1 x10^3/uL (0.0-0.2) Prothrombin Time 12.3 SEC (11.7-14.0) Prothromb Time International Ratio 0.9 (0.8-1.1) Activated Partial Thromboplast Time 35 SEC (24-38) Sodium Level 139 mmol/L (136-145) Potassium Level 3.8 mmol/L (3.5-5.1) Chloride Level 101 mmol/L (98-107) Carbon Dioxide Level 31 mmol/L (21-32) Anion Gap 7 (6-14) Blood Urea Nitrogen 13 mg/dL (7-20) Creatinine 0.7 mg/dL (0.6-1.0) Estimated GFR (Cockcroft-Gault) 81.6 BUN/Creatinine Ratio 19 (6-20) Glucose Level 87 mg/dL (70-99) Lactic Acid Level 0.7 mmol/L (0.4-2.0) Calcium Level 9.7 mg/dL (8.5-10.1) Magnesium Level 1.9 mg/dL (1.8-2.4) Total Bilirubin 0.4 mg/dL (0.2-1.0) Aspartate Amino Transf (AST/SGOT) 27 U/L (15-37) Alanine Aminotransferase (ALT/SGPT) 31 U/L (14-59) Alkaline Phosphatase 66 U/L (46-116) Total Protein 8.6 g/dL (6.4-8.2) Albumin 3.7 g/dL (3.4-5.0) Albumin/Globulin Ratio 0.8 (1.0-1.7) Urine Collection Type Unknown Urine Color Yellow Urine Clarity Clear Urine pH 6.0 Urine Specific [place] 1.015 Urine Protein Negative mg/dL (NEG-TRACE) Urine Glucose (UA) Negative mg/dL (NEG) Urine Ketones (Stick) Negative mg/dL (NEG) Urine Blood Negative (NEG) Urine Nitrite Positive (NEG) Urine Bilirubin Negative (NEG) Urine Urobilinogen Dipstick 0.2 mg/dL (0.2 mg/dL) Urine Leukocyte Esterase Large (NEG) Urine RBC 0 /HPF (0-2) Urine WBC >40 /HPF (0-4) Urine Squamous Epithelial Cells Occ /LPF Urine Bacteria Many /HPF (0-FEW) Urine Hyaline Casts Few /HPF Urine Mucus Mod /LPF Glucose (Fingerstick) 104 mg/dL (70-99) 98 mg/dL (70-99) Test 03/03/19 16:37 03/03/19 21:00 03/04/19 07:41 03/04/19 08:17 Glucose (Fingerstick) 79 mg/dL (70-99) 95 mg/dL (70-99) 91 mg/dL (70-99) White Blood Count 6.5 x10^3/uL (4.0-11.0) Red Blood Count 3.91 x10^6/uL (3.50-5.40) Hemoglobin 9.5 g/dL (12.0-15.5) Hematocrit 30.3 % (36.0-47.0) Mean Corpuscular Volume 78 fL (79-100) Mean Corpuscular Hemoglobin 24 pg (25-35) Mean Corpuscular Hemoglobin Concent 31 g/dL (31-37) Red Cell Distribution Width 16.7 % (11.5-14.5) Platelet Count 255 x10^3/uL (140-400) Neutrophils (%) (Auto) 43 % (31-73) Lymphocytes (%) (Auto) 40 % (24-48) Monocytes (%) (Auto) 12 % (0-9) Eosinophils (%) (Auto) 3 % (0-3) Basophils (%) (Auto) 1 % (0-3) Neutrophils # (Auto) 2.8 x10^3uL (1.8-7.7) Lymphocytes # (Auto) 2.6 x10^3/uL (1.0-4.8) Monocytes # (Auto) 0.8 x10^3/uL (0.0-1.1) Eosinophils # (Auto) 0.2 x10^3/uL (0.0-0.7) Basophils # (Auto) 0.1 x10^3/uL (0.0-0.2) Sodium Level 138 mmol/L (136-145) Potassium Level 4.0 mmol/L (3.5-5.1) Chloride Level 100 mmol/L (98-107) Carbon Dioxide Level 34 mmol/L (21-32) Anion Gap 4 (6-14) Blood Urea Nitrogen 14 mg/dL (7-20) Creatinine 0.8 mg/dL (0.6-1.0) Estimated GFR (Cockcroft-Gault) 69.9 Glucose Level 94 mg/dL (70-99) Calcium Level 9.0 mg/dL (8.5-10.1) Laboratory Tests Test 03/03/19 11:46 03/03/19 16:37 03/03/19 21:00 03/04/19 07:41 Glucose (Fingerstick) 98 mg/dL (70-99) 79 mg/dL (70-99) 95 mg/dL (70-99) 91 mg/dL (70-99) Test 03/04/19 08:17 White Blood Count 6.5 x10^3/uL (4.0-11.0) Red Blood Count 3.91 x10^6/uL (3.50-5.40) Hemoglobin 9.5 g/dL (12.0-15.5) Hematocrit 30.3 % (36.0-47.0) Mean Corpuscular Volume 78 fL (79-100) Mean Corpuscular Hemoglobin 24 pg (25-35) Mean Corpuscular Hemoglobin Concent 31 g/dL (31-37) Red Cell Distribution Width 16.7 % (11.5-14.5) Platelet Count 255 x10^3/uL (140-400) Neutrophils (%) (Auto) 43 % (31-73) Lymphocytes (%) (Auto) 40 % (24-48) Monocytes (%) (Auto) 12 % (0-9) Eosinophils (%) (Auto) 3 % (0-3) Basophils (%) (Auto) 1 % (0-3) Neutrophils # (Auto) 2.8 x10^3uL (1.8-7.7) Lymphocytes # (Auto) 2.6 x10^3/uL (1.0-4.8) Monocytes # (Auto) 0.8 x10^3/uL (0.0-1.1) Eosinophils # (Auto) 0.2 x10^3/uL (0.0-0.7) Basophils # (Auto) 0.1 x10^3/uL (0.0-0.2) Sodium Level 138 mmol/L (136-145) Potassium Level 4.0 mmol/L (3.5-5.1) Chloride Level 100 mmol/L (98-107) Carbon Dioxide Level 34 mmol/L (21-32) Anion Gap 4 (6-14) Blood Urea Nitrogen 14 mg/dL (7-20) Creatinine 0.8 mg/dL (0.6-1.0) Estimated GFR (Cockcroft-Gault) 69.9 Glucose Level 94 mg/dL (70-99) Calcium Level 9.0 mg/dL (8.5-10.1) Meds Current Medications Cetirizine HCl (ZyrTEC) 10 mg QHS PO Last administered on 03/03/19at 21:01; Start 03/03/19 at 21:00 Fluconazole (Diflucan) 100 mg QODAY PO Last administered on 03/03/19 21:01; Start 03/03/19 at 19:00 Lactobacillus Rhamnosus (Culturelle) 1 cap BID PO Last administered on 03/04/19at 08:30; Start 03/03/19 at 21:00 Montelukast Sodium (Singulair) 10 mg QEVNG PO Last administered on 03/03/19at 18:14; Start 03/03/19 at 18:00 Non-Formulary Medication (Albuterol Sulfate (Albuterol Sulfate Neb Soln)) 1 vial Q6HRS NEB ; Start 03/03/19 at 12:00; Status UNV Simvastatin (Zocor) 10 mg QHS PO Last administered on 03/03/19at 21:01; Start 03/03/19 at 21:00 Assessment Assessment 1. Cellulitis of both lower extremities. 2. Possible urinary tract infection; however, this could be contaminated as it is a suprapubic catheter specimen. 3. Chronic bronchitis. 4. Chronic obstructive pulmonary disease. 5. Chronic hypoxic and hypercapnic respiratory failure, on oxygen by nasal cannula at 2-1/2 liters with exertion and 2 liters at rest. 6. Osteoarthritis. 7. Diabetes mellitus type 2, diet controlled. 8. Hypertension, controlled. 9. Chronic pain. 10. Cognitive deficits. 11. Physical deconditioning. PLAN: Consult Dr. Cisneros for infectious disease evaluation due to possible UTI and cellulitis. Consult Dr. Perez for Pulmonary evaluation and management. For details, please review the orders. There is a shortage of Unasyn, so it could not be ordered. I have continued IV Rocephin. We will await Dr. Cisneros's input. For details, please review the orders. Anemia- hemoglobin has dropped to 9.5. Continue to monitor. Cellulitis of lower extremities- continue Rocephin Acute on chronic hypoxic respiratory failure- continue oxygen COPD- breathing treatment Plan Plan For more details regarding further plans, please refer to the orders. MARIANELA COLEY MD Mar 04, 2019 09:57
--- NOTE | 2019-03-04 10:44 | PDOC ---
PULMONARY PROGRESS NOTES Vitals Vital Signs Date Time Temp Pulse Resp B/P (MAP) Pulse Ox O2 Delivery O2 Flow Rate FiO2 03/04/19 08:31 57 97/53 03/04/19 08:00 Nasal Cannula 2.0 03/04/19 07:31 99 03/04/19 07:00 98.2 18 98.2 General: Alert, No acute distress HEENT: Other Lungs: Clear Cardiovascular: S1, S2 Abdomen: Soft Extremities: No Edema Labs Laboratory Tests Test 03/02/19 20:20 03/02/19 21:00 03/03/19 07:12 03/03/19 11:46 White Blood Count 7.9 x10^3/uL (4.0-11.0) Red Blood Count 4.62 x10^6/uL (3.50-5.40) Hemoglobin 11.4 g/dL (12.0-15.5) Hematocrit 35.7 % (36.0-47.0) Mean Corpuscular Volume 77 fL (79-100) Mean Corpuscular Hemoglobin 25 pg (25-35) Mean Corpuscular Hemoglobin Concent 32 g/dL (31-37) Red Cell Distribution Width 16.7 % (11.5-14.5) Platelet Count 360 x10^3/uL (140-400) Neutrophils (%) (Auto) 69 % (31-73) Lymphocytes (%) (Auto) 20 % (24-48) Monocytes (%) (Auto) 8 % (0-9) Eosinophils (%) (Auto) 2 % (0-3) Basophils (%) (Auto) 1 % (0-3) Neutrophils # (Auto) 5.4 x10^3uL (1.8-7.7) Lymphocytes # (Auto) 1.6 x10^3/uL (1.0-4.8) Monocytes # (Auto) 0.6 x10^3/uL (0.0-1.1) Eosinophils # (Auto) 0.2 x10^3/uL (0.0-0.7) Basophils # (Auto) 0.1 x10^3/uL (0.0-0.2) Prothrombin Time 12.3 SEC (11.7-14.0) Prothromb Time International Ratio 0.9 (0.8-1.1) Activated Partial Thromboplast Time 35 SEC (24-38) Sodium Level 139 mmol/L (136-145) Potassium Level 3.8 mmol/L (3.5-5.1) Chloride Level 101 mmol/L (98-107) Carbon Dioxide Level 31 mmol/L (21-32) Anion Gap 7 (6-14) Blood Urea Nitrogen 13 mg/dL (7-20) Creatinine 0.7 mg/dL (0.6-1.0) Estimated GFR (Cockcroft-Gault) 81.6 BUN/Creatinine Ratio 19 (6-20) Glucose Level 87 mg/dL (70-99) Lactic Acid Level 0.7 mmol/L (0.4-2.0) Calcium Level 9.7 mg/dL (8.5-10.1) Magnesium Level 1.9 mg/dL (1.8-2.4) Total Bilirubin 0.4 mg/dL (0.2-1.0) Aspartate Amino Transf (AST/SGOT) 27 U/L (15-37) Alanine Aminotransferase (ALT/SGPT) 31 U/L (14-59) Alkaline Phosphatase 66 U/L (46-116) Total Protein 8.6 g/dL (6.4-8.2) Albumin 3.7 g/dL (3.4-5.0) Albumin/Globulin Ratio 0.8 (1.0-1.7) Urine Collection Type Unknown Urine Color Yellow Urine Clarity Clear Urine pH 6.0 Urine Specific [place] 1.015 Urine Protein Negative mg/dL (NEG-TRACE) Urine Glucose (UA) Negative mg/dL (NEG) Urine Ketones (Stick) Negative mg/dL (NEG) Urine Blood Negative (NEG) Urine Nitrite Positive (NEG) Urine Bilirubin Negative (NEG) Urine Urobilinogen Dipstick 0.2 mg/dL (0.2 mg/dL) Urine Leukocyte Esterase Large (NEG) Urine RBC 0 /HPF (0-2) Urine WBC >40 /HPF (0-4) Urine Squamous Epithelial Cells Occ /LPF Urine Bacteria Many /HPF (0-FEW) Urine Hyaline Casts Few /HPF Urine Mucus Mod /LPF Glucose (Fingerstick) 104 mg/dL (70-99) 98 mg/dL (70-99) Test 03/03/19 16:37 03/03/19 21:00 03/04/19 07:41 03/04/19 08:17 Glucose (Fingerstick) 79 mg/dL (70-99) 95 mg/dL (70-99) 91 mg/dL (70-99) White Blood Count 6.5 x10^3/uL (4.0-11.0) Red Blood Count 3.91 x10^6/uL (3.50-5.40) Hemoglobin 9.5 g/dL (12.0-15.5) Hematocrit 30.3 % (36.0-47.0) Mean Corpuscular Volume 78 fL (79-100) Mean Corpuscular Hemoglobin 24 pg (25-35) Mean Corpuscular Hemoglobin Concent 31 g/dL (31-37) Red Cell Distribution Width 16.7 % (11.5-14.5) Platelet Count 255 x10^3/uL (140-400) Neutrophils (%) (Auto) 43 % (31-73) Lymphocytes (%) (Auto) 40 % (24-48) Monocytes (%) (Auto) 12 % (0-9) Eosinophils (%) (Auto) 3 % (0-3) Basophils (%) (Auto) 1 % (0-3) Neutrophils # (Auto) 2.8 x10^3uL (1.8-7.7) Lymphocytes # (Auto) 2.6 x10^3/uL (1.0-4.8) Monocytes # (Auto) 0.8 x10^3/uL (0.0-1.1) Eosinophils # (Auto) 0.2 x10^3/uL (0.0-0.7) Basophils # (Auto) 0.1 x10^3/uL (0.0-0.2) Sodium Level 138 mmol/L (136-145) Potassium Level 4.0 mmol/L (3.5-5.1) Chloride Level 100 mmol/L (98-107) Carbon Dioxide Level 34 mmol/L (21-32) Anion Gap 4 (6-14) Blood Urea Nitrogen 14 mg/dL (7-20) Creatinine 0.8 mg/dL (0.6-1.0) Estimated GFR (Cockcroft-Gault) 69.9 Glucose Level 94 mg/dL (70-99) Calcium Level 9.0 mg/dL (8.5-10.1) Laboratory Tests Test 03/03/19 11:46 03/03/19 16:37 03/03/19 21:00 03/04/19 07:41 Glucose (Fingerstick) 98 mg/dL (70-99) 79 mg/dL (70-99) 95 mg/dL (70-99) 91 mg/dL (70-99) Test 03/04/19 08:17 White Blood Count 6.5 x10^3/uL (4.0-11.0) Red Blood Count 3.91 x10^6/uL (3.50-5.40) Hemoglobin 9.5 g/dL (12.0-15.5) Hematocrit 30.3 % (36.0-47.0) Mean Corpuscular Volume 78 fL (79-100) Mean Corpuscular Hemoglobin 24 pg (25-35) Mean Corpuscular Hemoglobin Concent 31 g/dL (31-37) Red Cell Distribution Width 16.7 % (11.5-14.5) Platelet Count 255 x10^3/uL (140-400) Neutrophils (%) (Auto) 43 % (31-73) Lymphocytes (%) (Auto) 40 % (24-48) Monocytes (%) (Auto) 12 % (0-9) Eosinophils (%) (Auto) 3 % (0-3) Basophils (%) (Auto) 1 % (0-3) Neutrophils # (Auto) 2.8 x10^3uL (1.8-7.7) Lymphocytes # (Auto) 2.6 x10^3/uL (1.0-4.8) Monocytes # (Auto) 0.8 x10^3/uL (0.0-1.1) Eosinophils # (Auto) 0.2 x10^3/uL (0.0-0.7) Basophils # (Auto) 0.1 x10^3/uL (0.0-0.2) Sodium Level 138 mmol/L (136-145) Potassium Level 4.0 mmol/L (3.5-5.1) Chloride Level 100 mmol/L (98-107) Carbon Dioxide Level 34 mmol/L (21-32) Anion Gap 4 (6-14) Blood Urea Nitrogen 14 mg/dL (7-20) Creatinine 0.8 mg/dL (0.6-1.0) Estimated GFR (Cockcroft-Gault) 69.9 Glucose Level 94 mg/dL (70-99) Calcium Level 9.0 mg/dL (8.5-10.1) Medications Active Scripts Medications Dose Route/Sig Max Daily Dose Days Date Category Daliresp (Roflumilast) 500 Mcg Tablet 1 Tab PO DAILY 03/03/19 Reported Lisinopril 20 Mg Tablet 1 Tab PO DAILY 03/03/19 Reported Albuterol Sulfate Neb Soln (Albuterol Sulfate) 1.25 Mg/3 Ml Vial.neb 1 Vial NEB Q6HRS 03/03/19 Reported Cefpodoxime Proxetil 200 Mg Tablet 1 Tab PO BID 5 01/10/19 Rx [Fluconazole] 100 MG Tablet 100 Mg PO DAILY 5 01/10/19 Rx Hydrocodone-Apap 5-325 (Hydrocodone Bit/Acetaminophen) 1 Tab Tablet 1 Tab PO PRN Q6HRS PRN 7 11/03/18 Rx Senna-Time S Tablet (Sennosides/Docusate Sodium) 1 Each Tablet 2 Tab PO PRN DAILY PRN 30 11/03/18 Rx Mucinex (Guaifenesin) 1,200 Mg Tbmp.12hr 1 Tab PO BID 10/30/18 Reported Tylenol (Acetaminophen) 325 Mg Tablet 650 Mg PO PRN Q6HRS PRN 30 09/22/18 Rx Spiriva (Tiotropium [place]) 18 Mcg Cap.w.dev 1 Cap IH DAILY 08/15/18 Reported Alendronate Sodium 70 Mg Tablet 1 Tab PO WEEKLY 08/15/18 Reported Symbicort 160-4.5 Mcg Inhaler (Budesonide/Formoterol Fumarate) 10.2 Gm Hfa.aer.ad 2 Puff IH BID 01/06/18 Rx Duoneb 0.5-3(2.5) Mg/3 Ml (Albuterol/Ipratropium) 3 Ml Ampul.neb 3 Ml NEB RTQID 10/23/17 Rx Flonase Allergy Relief (Fluticasone Propionate) 9.9 Ml Luther.susp 2 Sprays NS BID 10/20/17 Reported Simvastatin 10 Mg Tablet 1 Tab PO QHS 07/22/17 Reported Pepcid (Famotidine) 20 Mg Tablet 20 Mg PO BID 07/22/17 Reported Proair Hfa Inhaler (Albuterol Sulfate) 8.5 Gm Hfa.aer.ad 2 Puff INH PRN Q6HRS PRN 07/22/17 Reported Aspirin 81 Mg Tab.chew 1 Tab PO DAILY 07/22/17 Reported Gabapentin (Gabapentin) 100 Mg Capsule 100 Mg PO BID 07/22/17 Reported Baclofen 10 Mg Tablet 1 Tab PO TID PRN 04/23/15 Reported Singulair Tablet (Montelukast Sodium) 10 Mg Tablet 1 Tab PO QEVNG 04/23/15 Reported Zyrtec (Cetirizine Hcl) 10 Mg Tablet 1 Tab PO QHS 04/23/15 Reported Xanax (Alprazolam) 0.5 Mg Tablet 1 Tab PO BID 04/23/15 Reported Impression . FULL NOTE DICTATED THANKS ELMER STANLEY MD Mar 04, 2019 10:44
[2019-03-04 11:00] VITALS: BP 120/58
[2019-03-04 15:00] VITALS: BP 119/71
--- NOTE | 2019-03-04 15:04 | NUR ---
SW following for discharge planning. Discussed with RN, pt is from home, was at [facility] in October of this year. SW met with pt to discuss discharge planning, pt current with [facility] and would like to continue with this. SW confirmed with [facility] PT/RN. SW requiring resumption of care orders when upon discharge. SW will continue to follow, RN notified.
[2019-03-04] MEDS: MONTELUKAST SODIUM 10 MG TABLET. PO SCH (17:34)
[2019-03-04 19:00] VITALS: BP 118/64
[2019-03-04] MEDS ORDERED: ALBUTEROL SULFATE 2.5 MG/3 ML NEBU. NEB SCH (21:00)
[2019-03-04] MEDS: HYDROcodone/APAP 5/325MG 1 TAB TABLET PO PRN (21:21)
[2019-03-04] MEDS: SIMVASTATIN 10 MG TABLET PO SCH (21:21)
[2019-03-04] MEDS: CETIRIZINE HCL 10 MG TABLET. PO SCH (21:22)
[2019-03-04 23:00] VITALS: BP 133/52
[2019-03-05 03:00] VITALS: BP 100/36
[2019-03-05 07:00] VITALS: BP 99/41
[2019-03-05] MEDS: BUDESONIDE 0.5 MG/2 ML NEBU. NEB SCH (07:04)
[2019-03-05] MEDS: IPRATRPIUM/ALBUTEROL 0.5/2.5MG 3 ML NEBU. NEB SCH ×2 (07:04→11:19)
[2019-03-05 07:51] LABS: BASO # 0.1 x10^3/uL (0.0-0.2); BASO % 2 % (0-3); EOS # 0.2 x10^3/uL (0.0-0.7); EOS % 3 % (0-3); HEMATOCRIT 29.5 % (36.0-47.0); HEMOGLOBIN 9.5 g/dL (12.0-15.5); LYMPH # 2.1 x10^3/uL (1.0-4.8); LYMPH % 35 % (24-48); MEAN CORPUSCULAR HEMOGLOBIN 25 pg (25-35); MEAN CORPUSCULAR HGB CONC 32 g/dL (31-37); MEAN CORPUSCULAR VOLUME 77 fL (79-100); MONO % 17 % (0-9); NEUT # 2.5 x10^3uL (1.8-7.7); NEUT % 43 % (31-73); PLATELET COUNT 254 x10^3/uL (140-400); RED BLOOD COUNT 3.83 x10^6/uL (3.50-5.40); RED CELL DISTRIBUTION WIDTH 16.5 % (11.5-14.5); WHITE BLOOD COUNT 5.8 x10^3/uL (4.0-11.0)
[2019-03-05 08:09] LABS: CALCIUM 9.2 mg/dL (8.5-10.1); CREATININE 0.7 mg/dL (0.6-1.0); GFR 81.6; POTASSIUM 4.2 mmol/L (3.5-5.1)
[2019-03-05] MEDS: ROFLUMILAST 500 MCG TABLET. PO SCH (08:29)
[2019-03-05] MEDS: FLUTICASONE 50MCG/NASAL SPRAY 16GM BOTTLE. NS SCH (08:29)
[2019-03-05] MEDS: ALPRAZolam 0.5 MG TABLET PO SCH (08:29)
[2019-03-05] MEDS: GABAPENTIN 100 MG CAPSULE. PO SCH (08:30)
[2019-03-05] MEDS: ASPIRIN CHEWABLE 81 MG TABLET. PO SCH (08:30)
[2019-03-05] MEDS: LACTOBACILLUS RHAMNOSUS GG 1 CAPSULE. PO SCH (08:30)
[2019-03-05] MEDS: FAMOTIDINE 20 MG TABLET. PO SCH (08:30)
[2019-03-05] MEDS: cefTRIAXone IV Push 1 GM VIAL. IVP SCH (08:30)
[2019-03-05] MEDS: FLUCONAZOLE 100 MG TABLET. PO SCH (08:30)
[2019-03-05] MEDS: HEPARIN for SUB-Q USE 5,000 UNIT/ML VIAL. SQ SCH (08:32)
--- NOTE | 2019-03-05 08:41 | PDOC ---
Infectious Disease Note Subjective: Subjective Pt feels better ready for dc home today lle swelling and pain is improving ROS: ROS Negative except for above. Vital Signs: Vital Signs Vital Signs Date Time Temp Pulse Resp B/P (MAP) Pulse Ox O2 Delivery O2 Flow Rate FiO2 03/05/19 07:07 99 Nasal Cannula 2.0 03/05/19 03:00 97.6 72 18 100/36 (57) 97.6 Physical Exam: PHYSICAL EXAM GENERAL: Alert, oriented, thin female in no acute distress, cooperative, pleasant. HEENT: Normocephalic, atraumatic, anicteric. No thrush. NECK: Supple. No JVD. LUNGS: Decreased breath sounds at the bases on O2 by nasal cannula. HEART: S1, S2. ABDOMEN: Soft, nontender. Suprapubic catheter site looks clean, nontender, nondistended. No CVA tenderness. EXTREMITIES: 1+ edema both lower extremities with redness, left greater than the right. Slight warmth improving per patient. Edema is improving per patient. CENTRAL NERVOUS SYSTEM: Alert, oriented. Chronic memory problems. Generalized weakness. Medications: Inpatient Meds: Current Medications Medications (Trade) Dose Ordered Sig/Geovanny Start Time Stop Time Status Last Admin Dose Admin Acetaminophen (Tylenol) 650 mg PRN Q6HRS PRN 03/03/19 08:45 Acetaminophen/ Hydrocodone Bitart (Lortab 5/325) 1 tab PRN Q6HRS PRN 03/03/19 00:45 03/04/19 21:21 1 TAB Albuterol Sulfate (Ventolin Neb Soln) 2.5 mg QHS 03/04/19 21:00 03/04/19 23:20 2.5 MG Albuterol/ Ipratropium (Duoneb) 3 ml RTQID 03/03/19 08:00 03/05/19 07:04 3 ML Alprazolam (Xanax) 0.5 mg BID 03/02/19 23:45 03/05/19 08:29 0.5 MG Aspirin (Children'S Aspirin) 81 mg [id number] 03/03/19 08:00 03/05/19 08:30 81 MG Baclofen (Lioresal) 10 mg PRN TID PRN 03/03/19 00:45 Budesonide (Pulmicort) 0.5 mg RTBID 03/03/19 08:00 03/05/19 07:04 0.5 MG Ceftriaxone Sodium (Rocephin) 1 gm Q24H 03/03/19 09:00 03/05/19 08:30 1 GM Cetirizine HCl (ZyrTEC) 10 mg QHS 03/03/19 21:00 03/04/19 21:22 10 MG Clindamycin Phosphate 50 ml @ 100 mls/hr 1X ONCE 03/02/19 20:30 03/02/19 20:59 DC 03/02/19 20:30 100 MLS/HR Famotidine (Pepcid) 20 mg DAILY 03/03/19 09:00 03/05/19 08:30 20 MG Fluconazole (Diflucan) 100 mg QODAY 03/03/19 19:00 03/05/19 08:30 100 MG Fluticasone Propionate (Flonase) 2 spray BID 03/03/19 09:00 03/05/19 08:29 2 SPRAY Gabapentin (Neurontin) 100 mg BID 03/03/19 09:00 03/05/19 08:30 100 MG Guaifenesin (Mucinex) 1,200 mg BID 03/03/19 09:00 03/05/19 08:29 1,200 MG Heparin Sodium (Porcine) (Heparin Sodium) 5,000 unit Q12HR 03/03/19 09:00 03/05/19 08:32 5,000 UNIT Lactobacillus Rhamnosus (Culturelle) 1 cap BID 03/03/19 21:00 03/05/19 08:30 1 CAP Lisinopril (Prinivil) 20 mg DAILY 03/03/19 09:00 03/03/19 09:15 20 MG Montelukast Sodium (Singulair) 10 mg QEVNG 03/03/19 18:00 03/04/19 17:34 10 MG Non-Formulary Medication (Albuterol Sulfate (Albuterol Sulfate Neb Soln)) 1 vial Q6HRS 03/03/19 12:00 UNV Non-Formulary Medication (Alendronate Sodium ) 1 tab WEEKLY 03/03/19 09:00 UNV Non-Formulary Medication (Budesonide/ Formoterol Fumarate (Symbicort 160-4.5 Mcg Inhaler)) 2 puff BID 03/03/19 09:00 UNV Non-Formulary Medication (Cefpodoxime Proxetil ) 1 tab BID 03/03/19 09:00 UNV Non-Formulary Medication (Tiotropium [place] (Spiriva)) 1 cap DAILY 03/03/19 09:00 UNV Non-Formulary Medication ([Fluconazole] ) 100 mg DAILY 03/03/19 09:00 UNV Ondansetron HCl (Zofran) 4 mg PRN Q8HRS PRN 03/02/19 20:30 03/03/19 20:29 DC Roflumilast (Daliresp) 500 mcg DAILY 03/03/19 09:00 03/05/19 08:29 500 MCG Senna/Docusate Sodium (Senna Plus) 2 tab PRN DAILY PRN 03/03/19 00:45 Simvastatin (Zocor) 10 mg QHS 03/03/19 21:00 03/04/19 21:21 10 MG Sodium Chloride 1,000 ml @ 1,000 mls/hr 1X ONCE 03/02/19 20:00 03/02/19 20:59 DC 03/02/19 20:00 1,000 MLS/HR Labs: Lab Laboratory Tests Test 03/04/19 11:26 03/04/19 16:36 03/04/19 20:50 03/05/19 07:10 Glucose (Fingerstick) 89 mg/dL (70-99) 108 mg/dL (70-99) 113 mg/dL (70-99) White Blood Count 5.8 x10^3/uL (4.0-11.0) Red Blood Count 3.83 x10^6/uL (3.50-5.40) Hemoglobin 9.5 g/dL (12.0-15.5) Hematocrit 29.5 % (36.0-47.0) Mean Corpuscular Volume 77 fL (79-100) Mean Corpuscular Hemoglobin 25 pg (25-35) Mean Corpuscular Hemoglobin Concent 32 g/dL (31-37) Red Cell Distribution Width 16.5 % (11.5-14.5) Platelet Count 254 x10^3/uL (140-400) Neutrophils (%) (Auto) 43 % (31-73) Lymphocytes (%) (Auto) 35 % (24-48) Monocytes (%) (Auto) 17 % (0-9) Eosinophils (%) (Auto) 3 % (0-3) Basophils (%) (Auto) 2 % (0-3) Neutrophils # (Auto) 2.5 x10^3uL (1.8-7.7) Lymphocytes # (Auto) 2.1 x10^3/uL (1.0-4.8) Monocytes # (Auto) 1.0 x10^3/uL (0.0-1.1) Eosinophils # (Auto) 0.2 x10^3/uL (0.0-0.7) Basophils # (Auto) 0.1 x10^3/uL (0.0-0.2) Sodium Level 137 mmol/L (136-145) Potassium Level 4.2 mmol/L (3.5-5.1) Chloride Level 98 mmol/L (98-107) Carbon Dioxide Level 34 mmol/L (21-32) Anion Gap 5 (6-14) Blood Urea Nitrogen 13 mg/dL (7-20) Creatinine 0.7 mg/dL (0.6-1.0) Estimated GFR (Cockcroft-Gault) 81.6 Glucose Level 86 mg/dL (70-99) Calcium Level 9.2 mg/dL (8.5-10.1) Test 03/05/19 07:53 Glucose (Fingerstick) 87 mg/dL (70-99) Objective: Assessment: 1. Bilateral lower extremity swelling, redness, pain, left greater than the right, likely cellulitis.Improved 2. Pyuria with SPC in place, could be contamination as the patient does not have any associated symptoms.PSAE in UC, likely contaminant Unable to say when it was changed 3. Chronic bronchitis with history of chronic obstructive pulmonary disease, on home O2. 4. Osteoarthritis. 5. Diabetes mellitus 2. 6. Mild cognitive disorder. 7. Hypertension. 8. Chronic pain. 9. Physical deconditioning. Plan: Plan of Care OK to dc home today on keflex starting tomorrow for 4 more days fluconazole renal dosing for tinea for 7 days SPC to be exchanged today elevate both lower extremities Discussed with RN. MIKE PRICE MD Mar 05, 2019 08:41
[2019-03-05] MEDS ORDERED: CEPH-264 PO (10:55)
--- NOTE | 2019-03-05 10:58 | PDOC ---
PULMONARY PROGRESS NOTES Vitals Vital Signs Date Time Temp Pulse Resp B/P (MAP) Pulse Ox O2 Delivery O2 Flow Rate FiO2 03/05/19 07:07 99 Nasal Cannula 2.0 03/05/19 07:00 98.1 82 16 99/41 (60) 98.1 General: Alert, No acute distress HEENT: Other Lungs: Clear Cardiovascular: S1, S2 Abdomen: Soft Extremities: No Edema Labs Laboratory Tests Test 03/03/19 11:46 03/03/19 16:37 03/03/19 21:00 03/04/19 07:41 Glucose (Fingerstick) 98 mg/dL (70-99) 79 mg/dL (70-99) 95 mg/dL (70-99) 91 mg/dL (70-99) Test 03/04/19 08:17 03/04/19 11:26 03/04/19 16:36 03/04/19 20:50 White Blood Count 6.5 x10^3/uL (4.0-11.0) Red Blood Count 3.91 x10^6/uL (3.50-5.40) Hemoglobin 9.5 g/dL (12.0-15.5) Hematocrit 30.3 % (36.0-47.0) Mean Corpuscular Volume 78 fL (79-100) Mean Corpuscular Hemoglobin 24 pg (25-35) Mean Corpuscular Hemoglobin Concent 31 g/dL (31-37) Red Cell Distribution Width 16.7 % (11.5-14.5) Platelet Count 255 x10^3/uL (140-400) Neutrophils (%) (Auto) 43 % (31-73) Lymphocytes (%) (Auto) 40 % (24-48) Monocytes (%) (Auto) 12 % (0-9) Eosinophils (%) (Auto) 3 % (0-3) Basophils (%) (Auto) 1 % (0-3) Neutrophils # (Auto) 2.8 x10^3uL (1.8-7.7) Lymphocytes # (Auto) 2.6 x10^3/uL (1.0-4.8) Monocytes # (Auto) 0.8 x10^3/uL (0.0-1.1) Eosinophils # (Auto) 0.2 x10^3/uL (0.0-0.7) Basophils # (Auto) 0.1 x10^3/uL (0.0-0.2) Sodium Level 138 mmol/L (136-145) Potassium Level 4.0 mmol/L (3.5-5.1) Chloride Level 100 mmol/L (98-107) Carbon Dioxide Level 34 mmol/L (21-32) Anion Gap 4 (6-14) Blood Urea Nitrogen 14 mg/dL (7-20) Creatinine 0.8 mg/dL (0.6-1.0) Estimated GFR (Cockcroft-Gault) 69.9 Glucose Level 94 mg/dL (70-99) Calcium Level 9.0 mg/dL (8.5-10.1) Glucose (Fingerstick) 89 mg/dL (70-99) 108 mg/dL (70-99) 113 mg/dL (70-99) Test 03/05/19 07:10 03/05/19 07:53 White Blood Count 5.8 x10^3/uL (4.0-11.0) Red Blood Count 3.83 x10^6/uL (3.50-5.40) Hemoglobin 9.5 g/dL (12.0-15.5) Hematocrit 29.5 % (36.0-47.0) Mean Corpuscular Volume 77 fL (79-100) Mean Corpuscular Hemoglobin 25 pg (25-35) Mean Corpuscular Hemoglobin Concent 32 g/dL (31-37) Red Cell Distribution Width 16.5 % (11.5-14.5) Platelet Count 254 x10^3/uL (140-400) Neutrophils (%) (Auto) 43 % (31-73) Lymphocytes (%) (Auto) 35 % (24-48) Monocytes (%) (Auto) 17 % (0-9) Eosinophils (%) (Auto) 3 % (0-3) Basophils (%) (Auto) 2 % (0-3) Neutrophils # (Auto) 2.5 x10^3uL (1.8-7.7) Lymphocytes # (Auto) 2.1 x10^3/uL (1.0-4.8) Monocytes # (Auto) 1.0 x10^3/uL (0.0-1.1) Eosinophils # (Auto) 0.2 x10^3/uL (0.0-0.7) Basophils # (Auto) 0.1 x10^3/uL (0.0-0.2) Sodium Level 137 mmol/L (136-145) Potassium Level 4.2 mmol/L (3.5-5.1) Chloride Level 98 mmol/L (98-107) Carbon Dioxide Level 34 mmol/L (21-32) Anion Gap 5 (6-14) Blood Urea Nitrogen 13 mg/dL (7-20) Creatinine 0.7 mg/dL (0.6-1.0) Estimated GFR (Cockcroft-Gault) 81.6 Glucose Level 86 mg/dL (70-99) Calcium Level 9.2 mg/dL (8.5-10.1) Glucose (Fingerstick) 87 mg/dL (70-99) Laboratory Tests Test 03/04/19 11:26 03/04/19 16:36 03/04/19 20:50 03/05/19 07:10 Glucose (Fingerstick) 89 mg/dL (70-99) 108 mg/dL (70-99) 113 mg/dL (70-99) White Blood Count 5.8 x10^3/uL (4.0-11.0) Red Blood Count 3.83 x10^6/uL (3.50-5.40) Hemoglobin 9.5 g/dL (12.0-15.5) Hematocrit 29.5 % (36.0-47.0) Mean Corpuscular Volume 77 fL (79-100) Mean Corpuscular Hemoglobin 25 pg (25-35) Mean Corpuscular Hemoglobin Concent 32 g/dL (31-37) Red Cell Distribution Width 16.5 % (11.5-14.5) Platelet Count 254 x10^3/uL (140-400) Neutrophils (%) (Auto) 43 % (31-73) Lymphocytes (%) (Auto) 35 % (24-48) Monocytes (%) (Auto) 17 % (0-9) Eosinophils (%) (Auto) 3 % (0-3) Basophils (%) (Auto) 2 % (0-3) Neutrophils # (Auto) 2.5 x10^3uL (1.8-7.7) Lymphocytes # (Auto) 2.1 x10^3/uL (1.0-4.8) Monocytes # (Auto) 1.0 x10^3/uL (0.0-1.1) Eosinophils # (Auto) 0.2 x10^3/uL (0.0-0.7) Basophils # (Auto) 0.1 x10^3/uL (0.0-0.2) Sodium Level 137 mmol/L (136-145) Potassium Level 4.2 mmol/L (3.5-5.1) Chloride Level 98 mmol/L (98-107) Carbon Dioxide Level 34 mmol/L (21-32) Anion Gap 5 (6-14) Blood Urea Nitrogen 13 mg/dL (7-20) Creatinine 0.7 mg/dL (0.6-1.0) Estimated GFR (Cockcroft-Gault) 81.6 Glucose Level 86 mg/dL (70-99) Calcium Level 9.2 mg/dL (8.5-10.1) Test 03/05/19 07:53 Glucose (Fingerstick) 87 mg/dL (70-99) Medications Active Scripts Medications Dose Route/Sig Max Daily Dose Days Date Category Daliresp (Roflumilast) 500 Mcg Tablet 1 Tab PO DAILY 03/03/19 Reported Lisinopril 20 Mg Tablet 1 Tab PO DAILY 03/03/19 Reported Albuterol Sulfate Neb Soln (Albuterol Sulfate) 1.25 Mg/3 Ml Vial.neb 1 Vial NEB Q6HRS 03/03/19 Reported Cefpodoxime Proxetil 200 Mg Tablet 1 Tab PO BID 5 01/10/19 Rx [Fluconazole] 100 MG Tablet 100 Mg PO DAILY 5 01/10/19 Rx Hydrocodone-Apap 5-325 (Hydrocodone Bit/Acetaminophen) 1 Tab Tablet 1 Tab PO PRN Q6HRS PRN 7 11/03/18 Rx Senna-Time S Tablet (Sennosides/Docusate Sodium) 1 Each Tablet 2 Tab PO PRN DAILY PRN 30 11/03/18 Rx Mucinex (Guaifenesin) 1,200 Mg Tbmp.12hr 1 Tab PO BID 10/30/18 Reported Tylenol (Acetaminophen) 325 Mg Tablet 650 Mg PO PRN Q6HRS PRN 30 09/22/18 Rx Spiriva (Tiotropium [place]) 18 Mcg Cap.w.dev 1 Cap IH DAILY 08/15/18 Reported Alendronate Sodium 70 Mg Tablet 1 Tab PO WEEKLY 08/15/18 Reported Symbicort 160-4.5 Mcg Inhaler (Budesonide/Formoterol Fumarate) 10.2 Gm Hfa.aer.ad 2 Puff IH BID 01/06/18 Rx Duoneb 0.5-3(2.5) Mg/3 Ml (Albuterol/Ipratropium) 3 Ml Ampul.neb 3 Ml NEB RTQID 10/23/17 Rx Flonase Allergy Relief (Fluticasone Propionate) 9.9 Ml [place].susp 2 Sprays NS BID 10/20/17 Reported Simvastatin 10 Mg Tablet 1 Tab PO QHS 07/22/17 Reported Pepcid (Famotidine) 20 Mg Tablet 20 Mg PO BID 07/22/17 Reported Proair Hfa Inhaler (Albuterol Sulfate) 8.5 Gm Hfa.aer.ad 2 Puff INH PRN Q6HRS PRN 07/22/17 Reported Aspirin 81 Mg Tab.chew 1 Tab PO DAILY 07/22/17 Reported Gabapentin (Gabapentin) 100 Mg Capsule 100 Mg PO BID 07/22/17 Reported Baclofen 10 Mg Tablet 1 Tab PO TID PRN 04/23/15 Reported Singulair Tablet (Montelukast Sodium) 10 Mg Tablet 1 Tab PO QEVNG 04/23/15 Reported Zyrtec (Cetirizine Hcl) 10 Mg Tablet 1 Tab PO QHS 04/23/15 Reported Xanax (Alprazolam) 0.5 Mg Tablet 1 Tab PO BID 04/23/15 Reported Impression . FULL NOTE DICTATED THANKS ELMER STANLEY MD Mar 05, 2019 10:58
[2019-03-05 11:00] VITALS: BP 118/73
--- NOTE | 2019-03-05 11:00 | SNU/HH DC ---
DISCHARGE WITH HOME HEALTH DISCHARGE INFORMATION: Final Diagnosis: Problems Medical Problems: (1) Cellulitis of both lower extremities Status: Acute (2) UTI (urinary tract infection) Status: Acute Condition on Discharge: Stable HOME HEALTH: Face to Face: I certify this patient is under my care and that I, or a nurse practitioner or physician's observation assistant working with me, had a face to face encounter that meets the physician face to face encounter requirements with this patient on []. Medical Complications: Falls RN For Eval/Treatment: Yes Pt Meets Homebound Status: Unsteady balance w/ amb, POST DISCHARGE ORDERS: Activity Instructions for Disc: Activity as tolerated Weight Bearing Status after Di: As tolerated DIET AFTER DISCHARGE: Regular CHECKS AFTER DISCHARGE: Checks after discharge: Check blood press - daily, Check your Temp as needed FOLLOW-UP: PCP to follow Home Health: yes Follow up with: Dr.Pratip Coley in 5 days TREATMENT/EQUIPMENT ORDERS: Adaptive Equipment Issued: Front wheeled walker Discharge Respiratory Equipmen: Oxygen (2 lit/min at rest and 2 1/2 lit/min on exertion) CERTIFICATION STATEMENT: Certification Statement: Certification Statement: Based on the above finding, I certify that this patient is confined to the home and needs intermittent senior care care, physical therapy and/or speech therapy, or continues to need occupational therapy.~ This patient is under my care, and I have initiated the establishment of the plan of care.~ This patient will be followed by myself or a community physician who will periodically review the plan of care. Home Meds Active Scripts Cefpodoxime Proxetil (CEFPODOXIME PROXETIL) 200 Mg Tablet, 1 TAB PO BID for uti for 5 Days, #10 TAB Prov:NIXON HOU MD 01/10/19 [Fluconazole] 100 MG TABLET No Conflict Check, 100 MG PO DAILY for yeast for 5 Days, #5 TAB Prov:NIXON HOU MD 01/10/19 Hydrocodone Bit/Acetaminophen (HYDROCODONE-APAP 5-325 ) 1 Tab Tablet, 1 TAB PO PRN Q6HRS PRN for MILD PAIN for 7 Days, #28 TAB Prov:MARIANELA COLEY MD 11/03/18 Sennosides/Docusate Sodium (SENNA-TIME S TABLET) 1 Each Tablet, 2 TAB PO PRN DAILY PRN for CONSTIPATION for 30 Days, #60 TAB Prov:MARIANELA COLEY MD 11/03/18 Acetaminophen (TYLENOL) 325 Mg Tablet, 650 MG PO PRN Q6HRS PRN for MILD PAIN / TEMP for 30 Days, TAB Prov:MARIANELA COLEY MD 09/22/18 Budesonide/Formoterol Fumarate (SYMBICORT 160-4.5 MCG INHALER) 10.2 Gm Hfa.aer.ad, 2 PUFF IH BID, #10.6 GM 3 Refills Prov:JEREMY CRUZ APRN 01/06/18 Ipratropium/Albuterol Sulfate (DUONEB 0.5-3(2.5) MG/3 ML) 3 Ml Ampul.neb, 3 ML NEB RTQID, #120 EACH Prov:JEREMY CRUZ [employer] 10/23/17 Reported Medications Roflumilast (DALIRESP) 500 Mcg Tablet, 1 TAB PO DAILY for COPD, #90 TAB 3 Refills 03/03/19 Lisinopril (LISINOPRIL) 20 Mg Tablet, 1 TAB PO DAILY for HTN, #30 TAB 5 Refills 03/03/19 Albuterol Sulfate (ALBUTEROL SULFATE NEB SOLN) 1.25 Mg/3 Ml Vial.neb, 1 VIAL NEB Q6HRS for SOA, #150 ML 03/03/19 Guaifenesin (MUCINEX) 1,200 Mg Tbmp.12hr, 1 TAB PO BID for cough, #14 TAB 10/30/18 Tiotropium [place] (SPIRIVA) 18 Mcg Cap.w.dev, 1 CAP IH DAILY for COPD, #30 CAP 3 Refills 08/15/18 Alendronate Sodium (ALENDRONATE SODIUM) 70 Mg Tablet, 1 TAB PO WEEKLY for HELLP JOINTS, #4 TAB 3 Refills 08/15/18 Fluticasone Propionate (Flonase Allergy Relief) 9.9 Ml [place].susp, 2 SPRAYS NS BID, BOTTLE 10/20/17 Simvastatin (SIMVASTATIN) 10 Mg Tablet, 1 TAB PO QHS, #30 TAB 5 Refills 07/22/17 Famotidine (PEPCID) 20 Mg Tablet, 20 MG PO BID, TAB 07/22/17 Albuterol Sulfate (PROAIR HFA INHALER) 8.5 Gm Hfa.aer.ad, 2 PUFF INH PRN Q6HRS PRN for SHORTNESS OF BREATH, INHALER 0 Refills 07/22/17 Aspirin (ASPIRIN) 81 Mg Tab.chew, 1 TAB PO DAILY, #30 TAB 3 Refills 07/22/17 Gabapentin (GABAPENTIN ) 100 Mg Capsule, 100 MG PO BID, CAP 07/22/17 Baclofen (BACLOFEN) 10 Mg Tablet, 1 TAB PO TID PRN for PAIN, #90 TAB 2 Refills 04/23/15 Montelukast Sodium (SINGULAIR TABLET ) 10 Mg Tablet, 1 TAB PO QEVNG for asthma, #90 TAB 1 Refill 04/23/15 Cetirizine Hcl (ZYRTEC) 10 Mg Tablet, 1 TAB PO QHS for allergy, #30 TAB 2 Refills 04/23/15 Alprazolam (XANAX) 0.5 Mg Tablet, 1 TAB PO BID for anxiety, #60 TAB 04/23/15 MARIANELA COLEY MD Mar 05, 2019 11:00
--- NOTE | 2019-03-05 11:23 | PDOC3 ---
IM DISCHARGE SUMMARY Date of Admission Date of Admission Date of Admission: Mar 02, 2019 at 20:24 Date of Discharge Date of Discharge March 05, 2019 Primary Diagnosis Primary Diagnosis 1. Cellulitis of both lower extremities. 2. Possible urinary tract infection; however, this could be contaminated as it is a suprapubic catheter specimen. 3. Chronic bronchitis. 4. Chronic obstructive pulmonary disease. 5. Chronic hypoxic and hypercapnic respiratory failure, on oxygen by nasal cannula at 2-1/2 liters with exertion and 2 liters at rest. 6. Osteoarthritis. 7. Diabetes mellitus type 2, diet controlled. 8. Hypertension, controlled. 9. Chronic pain. 10. Cognitive deficits. 11. Physical deconditioning. Consults Consults Karsten White MD, Dr. Perez Labs Labs Laboratory Tests Test 03/02/19 20:20 03/02/19 21:00 03/03/19 07:12 03/03/19 11:46 White Blood Count 7.9 x10^3/uL (4.0-11.0) Red Blood Count 4.62 x10^6/uL (3.50-5.40) Hemoglobin 11.4 g/dL (12.0-15.5) Hematocrit 35.7 % (36.0-47.0) Mean Corpuscular Volume 77 fL (79-100) Mean Corpuscular Hemoglobin 25 pg (25-35) Mean Corpuscular Hemoglobin Concent 32 g/dL (31-37) Red Cell Distribution Width 16.7 % (11.5-14.5) Platelet Count 360 x10^3/uL (140-400) Neutrophils (%) (Auto) 69 % (31-73) Lymphocytes (%) (Auto) 20 % (24-48) Monocytes (%) (Auto) 8 % (0-9) Eosinophils (%) (Auto) 2 % (0-3) Basophils (%) (Auto) 1 % (0-3) Neutrophils # (Auto) 5.4 x10^3uL (1.8-7.7) Lymphocytes # (Auto) 1.6 x10^3/uL (1.0-4.8) Monocytes # (Auto) 0.6 x10^3/uL (0.0-1.1) Eosinophils # (Auto) 0.2 x10^3/uL (0.0-0.7) Basophils # (Auto) 0.1 x10^3/uL (0.0-0.2) Prothrombin Time 12.3 SEC (11.7-14.0) Prothromb Time International Ratio 0.9 (0.8-1.1) Activated Partial Thromboplast Time 35 SEC (24-38) Sodium Level 139 mmol/L (136-145) Potassium Level 3.8 mmol/L (3.5-5.1) Chloride Level 101 mmol/L (98-107) Carbon Dioxide Level 31 mmol/L (21-32) Anion Gap 7 (6-14) Blood Urea Nitrogen 13 mg/dL (7-20) Creatinine 0.7 mg/dL (0.6-1.0) Estimated GFR (Cockcroft-Gault) 81.6 BUN/Creatinine Ratio 19 (6-20) Glucose Level 87 mg/dL (70-99) Lactic Acid Level 0.7 mmol/L (0.4-2.0) Calcium Level 9.7 mg/dL (8.5-10.1) Magnesium Level 1.9 mg/dL (1.8-2.4) Total Bilirubin 0.4 mg/dL (0.2-1.0) Aspartate Amino Transf (AST/SGOT) 27 U/L (15-37) Alanine Aminotransferase (ALT/SGPT) 31 U/L (14-59) Alkaline Phosphatase 66 U/L (46-116) Total Protein 8.6 g/dL (6.4-8.2) Albumin 3.7 g/dL (3.4-5.0) Albumin/Globulin Ratio 0.8 (1.0-1.7) Urine Collection Type Unknown Urine Color Yellow Urine Clarity Clear Urine pH 6.0 Urine Specific [place] 1.015 Urine Protein Negative mg/dL (NEG-TRACE) Urine Glucose (UA) Negative mg/dL (NEG) Urine Ketones (Stick) Negative mg/dL (NEG) Urine Blood Negative (NEG) Urine Nitrite Positive (NEG) Urine Bilirubin Negative (NEG) Urine Urobilinogen Dipstick 0.2 mg/dL (0.2 mg/dL) Urine Leukocyte Esterase Large (NEG) Urine RBC 0 /HPF (0-2) Urine WBC >40 /HPF (0-4) Urine Squamous Epithelial Cells Occ /LPF Urine Bacteria Many /HPF (0-FEW) Urine Hyaline Casts Few /HPF Urine Mucus Mod /LPF Glucose (Fingerstick) 104 mg/dL (70-99) 98 mg/dL (70-99) Test 03/03/19 16:37 03/03/19 21:00 03/04/19 07:41 03/04/19 08:17 Glucose (Fingerstick) 79 mg/dL (70-99) 95 mg/dL (70-99) 91 mg/dL (70-99) White Blood Count 6.5 x10^3/uL (4.0-11.0) Red Blood Count 3.91 x10^6/uL (3.50-5.40) Hemoglobin 9.5 g/dL (12.0-15.5) Hematocrit 30.3 % (36.0-47.0) Mean Corpuscular Volume 78 fL (79-100) Mean Corpuscular Hemoglobin 24 pg (25-35) Mean Corpuscular Hemoglobin Concent 31 g/dL (31-37) Red Cell Distribution Width 16.7 % (11.5-14.5) Platelet Count 255 x10^3/uL (140-400) Neutrophils (%) (Auto) 43 % (31-73) Lymphocytes (%) (Auto) 40 % (24-48) Monocytes (%) (Auto) 12 % (0-9) Eosinophils (%) (Auto) 3 % (0-3) Basophils (%) (Auto) 1 % (0-3) Neutrophils # (Auto) 2.8 x10^3uL (1.8-7.7) Lymphocytes # (Auto) 2.6 x10^3/uL (1.0-4.8) Monocytes # (Auto) 0.8 x10^3/uL (0.0-1.1) Eosinophils # (Auto) 0.2 x10^3/uL (0.0-0.7) Basophils # (Auto) 0.1 x10^3/uL (0.0-0.2) Sodium Level 138 mmol/L (136-145) Potassium Level 4.0 mmol/L (3.5-5.1) Chloride Level 100 mmol/L (98-107) Carbon Dioxide Level 34 mmol/L (21-32) Anion Gap 4 (6-14) Blood Urea Nitrogen 14 mg/dL (7-20) Creatinine 0.8 mg/dL (0.6-1.0) Estimated GFR (Cockcroft-Gault) 69.9 Glucose Level 94 mg/dL (70-99) Calcium Level 9.0 mg/dL (8.5-10.1) Test 03/04/19 11:26 03/04/19 16:36 03/04/19 20:50 03/05/19 07:10 Glucose (Fingerstick) 89 mg/dL (70-99) 108 mg/dL (70-99) 113 mg/dL (70-99) White Blood Count 5.8 x10^3/uL (4.0-11.0) Red Blood Count 3.83 x10^6/uL (3.50-5.40) Hemoglobin 9.5 g/dL (12.0-15.5) Hematocrit 29.5 % (36.0-47.0) Mean Corpuscular Volume 77 fL (79-100) Mean Corpuscular Hemoglobin 25 pg (25-35) Mean Corpuscular Hemoglobin Concent 32 g/dL (31-37) Red Cell Distribution Width 16.5 % (11.5-14.5) Platelet Count 254 x10^3/uL (140-400) Neutrophils (%) (Auto) 43 % (31-73) Lymphocytes (%) (Auto) 35 % (24-48) Monocytes (%) (Auto) 17 % (0-9) Eosinophils (%) (Auto) 3 % (0-3) Basophils (%) (Auto) 2 % (0-3) Neutrophils # (Auto) 2.5 x10^3uL (1.8-7.7) Lymphocytes # (Auto) 2.1 x10^3/uL (1.0-4.8) Monocytes # (Auto) 1.0 x10^3/uL (0.0-1.1) Eosinophils # (Auto) 0.2 x10^3/uL (0.0-0.7) Basophils # (Auto) 0.1 x10^3/uL (0.0-0.2) Sodium Level 137 mmol/L (136-145) Potassium Level 4.2 mmol/L (3.5-5.1) Chloride Level 98 mmol/L (98-107) Carbon Dioxide Level 34 mmol/L (21-32) Anion Gap 5 (6-14) Blood Urea Nitrogen 13 mg/dL (7-20) Creatinine 0.7 mg/dL (0.6-1.0) Estimated GFR (Cockcroft-Gault) 81.6 Glucose Level 86 mg/dL (70-99) Calcium Level 9.2 mg/dL (8.5-10.1) Test 03/05/19 07:53 Glucose (Fingerstick) 87 mg/dL (70-99) Brief hospital course Brief hospital course This 74-year-old female presented to our office yesterday with complaints of swelling and redness of the lower extremities. She has had some dyspnea. She denies any nausea, vomiting, abdominal pain, dysuria, fever or chills. In the office, the patient was noted to have significant cellulitis of the lower extremities with redness. Her oxygen cylinders were malfunctioning and her oxygen saturation was also low. She was sent to the hospital to the Emergency Room and subsequently admitted for further evaluation and management. For more details regarding the past history, family history, social history, surgical history and other details, please refer to History and Physical. Consult Dr. White for infectious disease evaluation due to possible UTI and cellulitis. Consult Dr. Perez for Pulmonary evaluation and management. For details, please review the orders. There is a shortage of Unasyn, so it could not be ordered. I have continued IV Rocephin. We will await Dr. White's input. For details, please review the orders. Anemia- hemoglobin has dropped to 9.5. Continue to monitor. Cellulitis of lower extremities-initially treated with IV Rocephin. Patient is doing better so it'll be changed to Keflex 500 mg by mouth 3 times a day for 4 more days. Acute on chronic hypoxic respiratory failure- continue oxygen COPD- breathing treatment Urine culture shows pseudomonas. Discussed with Dr. Lezama. Patient is clinically improving and this is a suprapubic catheter specimen. This appears to be contamination. She has recommended that the suprapubic catheter be changed prior to patient being discharged. Patient is feeling much better. Discharged today to home with home health services. Long-term as well as short-term prognosis of this patient is very poor due to her multiple medical problems. Medications Medications reviewed and reconciled for discharge. Allergy Allergies Coded Allergies Type Severity Reaction Last Updated Verified No Known Drug Allergies 10/30/18 No Follow up in 5 days. DISPOSITION: Home health services Comments Discharge Management - 35 minutes. For other details please refer to discharge instructions MARIANELA COLEY MD Mar 05, 2019 11:23
--- NOTE | 2019-03-05 12:34 | NUR ---
SW following. Discussed with RN, pt ready to discharge home with [facility]. Transportation set up for 1400. Pt choice and rights from signed and placed on chart. RN notified. No further SW needs.
--- NOTE | 2019-03-05 14:27 | NUR ---
Discharge Note: ZACHARIAH PIZARRO [place] Discharge instructions and discharge home medications reviewed with Patient and a copy given. All questions have been answered and understanding verbalized. The following instructions and handouts were given: Discharge Instructions, Cellulitis and Diabetic Diet Teaching, Prescription for Keflex. Discontinued lines and drains: Peripheral IV Left Arm Removed, Catheter intact. Patient discharged to Home with [facility] via Facility Transport
== END 2019-03-05 14:33 | disposition home health service (06) | DRG 602 ==
LOC: ER 18:22 → 4 NORTH 20:24
PROVIDERS: ADMIT Internal Medicine; ATTEND Internal Medicine
DX: L03.115 Cellulitis of right lower limb (principal); J96.21 Acute and chronic respiratory failure with hypoxia; J96.22 Acute and chronic respiratory failure with hypercapnia; N39.0 Urinary tract infection, site not specified; L03.116 Cellulitis of left lower limb; J44.9 Chronic obstructive pulmonary disease, unspecified; Z99.81 Dependence on supplemental oxygen; M19.90 Unspecified osteoarthritis, unspecified site; F09 Unspecified mental disorder due to known physiological condition; I12.9 Hypertensive chronic kidney disease with stage 1 through stage 4 chronic kidney disease, or unspecified chronic kidney disease; E11.22 Type 2 diabetes mellitus with diabetic chronic kidney disease; F41.8 Other specified anxiety disorders; N18.3 Chronic kidney disease, stage 3 (moderate); D64.9 Anemia, unspecified; E11.40 Type 2 diabetes mellitus with diabetic neuropathy, unspecified; E78.00 Pure hypercholesterolemia, unspecified; E78.5 Hyperlipidemia, unspecified; B96.5 Pseudomonas (aeruginosa) (mallei) (pseudomallei) as the cause of diseases classified elsewhere; G89.29 Other chronic pain; I27.29 Other secondary pulmonary hypertension; K21.9 Gastro-esophageal reflux disease without esophagitis; N18.2 Chronic kidney disease, stage 2 (mild); Z80.0 Family history of malignant neoplasm of digestive organs; Z87.11 Personal history of peptic ulcer disease; Z87.440 Personal history of urinary (tract) infections; Z87.442 Personal history of urinary calculi; Z87.891 Personal history of nicotine dependence
CPT/HCPCS: 36415; 71045; 80048; 80053; 81001; 82962; 83605; 83735; 85025; 85610; 85730; 87040; 87086; 87186; 94640; 94760; 96365; J0696; J1644; J3490; J7030; J7613; J7620; J7626; 99285-25

== ENCOUNTER 2019-04-15 18:22 | Inpatient (IN) | payer OTHER, MEDICAID ==
[~2019-04-15] VITALS: Ht 154.9 cm; Wt 39.3 kg
[~2019-04-15 18:22] MED LIST changes: +ALBU1.25 NEB; +CEPH-264 PO
[2019-04-15] MEDS ORDERED: IPRATRPIUM/ALBUTEROL 0.5/2.5MG 3 ML NEBU. ONE (18:28)
[2019-04-15] MEDS ORDERED: levOFLOXacin PER PHARMACY. MC PRN ×2 (18:45→20:00)
[2019-04-15 19:00] LABS: BASO # 0.1 x10^3/uL (0.0-0.2); BASO % 0 % (0-3); EOS # 0.3 x10^3/uL (0.0-0.7); EOS % 2 % (0-3); HEMATOCRIT 36.4 % (36.0-47.0); HEMOGLOBIN 11.6 g/dL (12.0-15.5); LYMPH # 0.9 x10^3/uL (1.0-4.8); LYMPH % 7 % (24-48); MEAN CORPUSCULAR HEMOGLOBIN 24 pg (25-35); MEAN CORPUSCULAR HGB CONC 32 g/dL (31-37); MEAN CORPUSCULAR VOLUME 76 fL (79-100); MONO # 0.9 x10^3/uL (0.0-1.1); MONO % 6 % (0-9); NEUT # 11.8 x10^3/uL (1.8-7.7); NEUT % 84 % (31-73); PLATELET COUNT 303 x10^3/uL (140-400); RED BLOOD COUNT 4.77 x10^6/uL (3.50-5.40); RED CELL DISTRIBUTION WIDTH 17.5 % (11.5-14.5)
[2019-04-15] MEDS ORDERED: ACETAMINOPHEN 500 MG TABLET PO ONE (19:00)
[2019-04-15] MEDS ORDERED: methylPREDNISolone SOD SUCC PF 125 MG/2 ML VIAL. IV ONE (19:00)
[2019-04-15] MEDS ORDERED: IV NORMAL SALINE 1000ML BAG 1,000 ML IV ONE (19:00)
[2019-04-15] MEDS ORDERED: ALBUTEROL SULFATE 2.5 MG/3 ML NEBU. NEB ONE (19:00)
[2019-04-15 19:06] LABS: CALCIUM 9.4 mg/dL (8.5-10.1); CREATININE 0.7 mg/dL (0.6-1.0); GFR 81.6; POTASSIUM 4.3 mmol/L (3.5-5.1)
[2019-04-15 19:09] LABS: PROTHROMBIN TIME PATIENT 12.1 SEC (11.7-14.0)
[2019-04-15 19:12] LABS: ALBUMIN 3.7 g/dL (3.4-5.0); ALBUMIN/GLOBULIN RATIO 0.8 (1.0-1.7); TOTAL BILIRUBIN 0.3 mg/dL (0.2-1.0); TOTAL PROTEIN 8.5 g/dL (6.4-8.2)
--- NOTE | 2019-04-15 19:28 | RAD ---
Exam: Chest one view INDICATION: Cough TECHNIQUE: Frontal view of the chest Comparisons: 04/02/2019 FINDINGS: The cardiomediastinal silhouette and pulmonary vessels are within normal limits. Developing consolidative changes noted within the right lower lobe. No pleural effusion. IMPRESSION: Developing consolidative changes in the right lower lobe favored to represent developing pneumonia. Electronically signed by: Joon Kerr MD (04/15/2019 7:26 PM) [facility]
--- NOTE | 2019-04-15 19:30 | RAD ---
Exam: Left lower extremity venous duplex study INDICATION: Leg swelling TECHNIQUE: Using a combination of real-time ultrasound imaging and color-flow and pulse Doppler imaging techniques along with graded compression and augmentation, duplex evaluation of the deep venous systems of leftlower extremity was performed. Multiple images were obtained. Findings: There is no sonographic evidence for deep venous thrombosis involving the visualized deep venous structures of the left lower extremity. Soft tissue edema in the lower leg. IMPRESSION: 1. No acute DVT in the left lower extremities. 2. Mild soft tissue edema in the lower leg. Electronically signed by: Joon Kerr MD (04/15/2019 7:27 PM) [facility]
--- NOTE | 2019-04-15 19:52 | PHYS DOC ---
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, Alcohol Use: Rarely Drug Use: None Adult General Chief Complaint Chief Complaint: SHORTNESS OF BREATH HPI HPI Patient is a 74 year old female was presenting to the emergency room with a chief complaint of brought in by ambulance increasing shortness of breath cough with yellow sputum generalized weakness no chest pain �3 days symptoms are worsening apparently was 73% on home oxygen when the medics got there Review of Systems Review of Systems Constitutional: Eyes: Denies change in visual acuity, redness, or eye pain [] HENT: Denies nasal congestion or sore throat [] Respiratory: Neurologic: Denies headache, focal weakness or sensory changes [] Endocrine: Denies polyuria or polydipsia [] All other systems were reviewed and found to be within normal limits, except as documented in this note. Current Medications Current Medications Current Medications Medications (Trade) Dose Ordered Sig/Geovanny Start Time Stop Time Status Last Admin Dose Admin Acetaminophen (Tylenol) 1,000 mg 1X ONCE 04/15/19 19:00 04/15/19 19:01 DC 04/15/19 19:21 1,000 MG Albuterol Sulfate (Ventolin Neb Soln) 2.5 mg 1X ONCE 04/15/19 19:00 04/15/19 19:01 DC 04/15/19 18:43 2.5 MG Albuterol/ Ipratropium (Duoneb) 3 ml RTQID 04/15/19 20:00 04/16/19 19:59 UNV Ceftriaxone Sodium (Rocephin) 1 gm 1X ONCE 04/15/19 19:45 04/15/19 19:46 UNV Levofloxacin/ Dextrose 150 ml @ 100 mls/hr 1X ONCE 04/15/19 19:45 04/15/19 21:14 UNV Levofloxacin/ Dextrose (Levaquin Per Pharmacy) 1 each PRN DAILY PRN 04/15/19 18:45 Cancel Methylprednisolone Sodium Succinate (SOLU-Medrol 125MG VIAL) 125 mg 1X ONCE 04/15/19 19:00 04/15/19 19:01 DC 04/15/19 19:20 125 MG Sodium Chloride 1,000 ml @ 1,000 mls/hr 1X ONCE 04/15/19 19:00 04/15/19 19:59 04/15/19 19:20 1,000 MLS/HR Allergies Allergies Allergies Coded Allergies Type Severity Reaction Last Updated Verified No Known Drug Allergies 10/30/18 No Physical Exam Physical Exam Constitutional: Cachectic and chronically ill-appearing HENT: Normocephalic, atraumatic, bilateral external ears normal, oropharynx dry moist, no oral exudates, nose normal. [] Eyes: PERRLA, EOMI, conjunctiva normal, no discharge. [] Neck: Normal range of motion, no tenderness, supple, no stridor. [] Cardiovascular: Tachycardic no definite murmurs Lungs & Thorax: Wheezing noted bilaterally rhonchi at the right lung base Abdomen: Bowel sounds normal, soft, no tenderness, no masses, no pulsatile masses. [] Skin: Warm, dry, no erythema, no rash. [] Back: No tenderness, no CVA tenderness. [] Extremities: No tenderness, no cyanosis, no clubbing, ROM intact, 2+ left greater than right lower extremity edema wet read of the ultrasound was negative Neurologic: Alert and oriented X 3, normal motor function, normal sensory function, no focal deficits noted. [] Psychologic: Affect normal, judgement normal, mood normal. [] Current Patient Data Vital Signs Vital Signs Date Time Temp Pulse Resp B/P (MAP) Pulse Ox O2 Delivery O2 Flow Rate FiO2 04/15/19 18:43 97 Nasal Cannula 2.0 04/15/19 18:24 102.0 123 33 161/84 (109) 102.0 Lab Values Laboratory Tests Test 04/15/19 18:40 White Blood Count 14.0 x10^3/uL (4.0-11.0) H Red Blood Count 4.77 x10^6/uL (3.50-5.40) Hemoglobin 11.6 g/dL (12.0-15.5) L Hematocrit 36.4 % (36.0-47.0) Mean Corpuscular Volume 76 fL (79-100) L Mean Corpuscular Hemoglobin 24 pg (25-35) L Mean Corpuscular Hemoglobin Concent 32 g/dL (31-37) Red Cell Distribution Width 17.5 % (11.5-14.5) H Platelet Count 303 x10^3/uL (140-400) Neutrophils (%) (Auto) 84 % (31-73) H Lymphocytes (%) (Auto) 7 % (24-48) L Monocytes (%) (Auto) 6 % (0-9) Eosinophils (%) (Auto) 2 % (0-3) Basophils (%) (Auto) 0 % (0-3) Neutrophils # (Auto) 11.8 x10^3/uL (1.8-7.7) H Lymphocytes # (Auto) 0.9 x10^3/uL (1.0-4.8) L Monocytes # (Auto) 0.9 x10^3/uL (0.0-1.1) Eosinophils # (Auto) 0.3 x10^3/uL (0.0-0.7) Basophils # (Auto) 0.1 x10^3/uL (0.0-0.2) Prothrombin Time 12.1 SEC (11.7-14.0) Prothrombin Time INR 0.9 (0.8-1.1) Sodium Level 139 mmol/L (136-145) Potassium Level 4.3 mmol/L (3.5-5.1) Chloride Level 100 mmol/L (98-107) Carbon Dioxide Level 33 mmol/L (21-32) H Anion Gap 6 (6-14) Blood Urea Nitrogen 26 mg/dL (7-20) H Creatinine 0.7 mg/dL (0.6-1.0) Estimated GFR (Cockcroft-Gault) 81.6 BUN/Creatinine Ratio 37 (6-20) H Glucose Level 112 mg/dL (70-99) H Lactic Acid Level 1.1 mmol/L (0.4-2.0) Calcium Level 9.4 mg/dL (8.5-10.1) Total Bilirubin 0.3 mg/dL (0.2-1.0) Aspartate Amino Transferase (AST) 36 U/L (15-37) Alanine Aminotransferase (ALT) 32 U/L (14-59) Alkaline Phosphatase 74 U/L (46-116) Troponin I Quantitative < 0.017 ng/mL (0.000-0.055) ZD-Tfd-H-Type Natriuretic Peptide 243 pg/mL (0-449) Total Protein 8.5 g/dL (6.4-8.2) H Albumin 3.7 g/dL (3.4-5.0) Albumin/Globulin Ratio 0.8 (1.0-1.7) L Procalcitonin 0.14 ng/mL (0.00-0.10) H Laboratory Tests 04/15/19 18:40 Laboratory Tests 04/15/19 18:40 EKG EKG []Sinus tachycardia rate 119 no acute ischemic changes noted interpreted by me the time of encounter Radiology/Procedures Radiology/Procedures [] Impressions: Right lower lobe pneumonia Course & Med Decision Making Course & Med Decision Making Pertinent Labs and Imaging studies reviewed. (See chart for details) []I talked with Dr. Coley, who agreed on ceftriaxone usual pneumonia coverage for now. Urinalysis is currently pending patient is a suprapubic catheter. Please pulmonary consult 74-year-old female with known COPD on home oxygen presenting with pneumonia her oxygenation is adequate here in the emergency room low 90s on 2-3 L She was wheezing a fair amount when gave her nebs she was still wheezing but it sounded a little better. She is speaking full sentences she is awake and alert think she warrants admission for antibiotics and further evaluation. Dragon Disclaimer Dragon Disclaimer This electronic medical record was generated, in whole or in part, using a voice recognition dictation system. Departure Departure Impression: Primary Impression: Pneumonia Additional Impression: COPD exacerbation Disposition: 09 ADMITTED INPATIENT Admitting Physician: Marianela Coley Condition: STABLE Referrals: MARIANELA COLEY MD (PCP) Problem Qualifiers MARGARETH CALLES MD Apr 15, 2019 19:52
[2019-04-15] MEDS ORDERED: cefTRIAXone IV Push 1 GM VIAL. IVP ONE (20:00)
[2019-04-15] MEDS: IPRATRPIUM/ALBUTEROL 0.5/2.5MG 3 ML NEBU. NEB SCH ×2 (20:00→20:10)
[2019-04-15 20:39] LABS: BILIRUBIN,URINE NEGATIVE (NEG); CLARITY,URINE CLOUDY; COLOR,URINE YELLOW; NITRITE,URINE POSITIVE (NEG); PH,URINE 7.5; PROTEIN,URINE NEGATIVE (NEG-TRACE); UROBILINOGEN,URINE 0.2 mg/dL (0.2 mg/dL)
[2019-04-15 20:43] LABS: BACTERIA,URINE MANY /HPF (0-FEW)
[2019-04-15 20:44] LABS: RBC,URINE 0 /HPF (0-2)
[2019-04-15] MEDS: BUDESONIDE 0.5 MG/2 ML NEBU. NEB SCH (21:00)
[2019-04-15] MEDS ORDERED: FAMOTIDINE 20 MG TABLET. PO SCH (23:00)
[2019-04-15 23:08] VITALS: BP 114/66
[2019-04-15] MEDS: SIMVASTATIN 10 MG TABLET PO SCH (23:11)
[2019-04-15] MEDS: GABAPENTIN 100 MG CAPSULE. PO SCH (23:11)
[2019-04-15] MEDS: ALPRAZolam 0.5 MG TABLET PO SCH (23:11)
[2019-04-16 03:43] VITALS: BP 95/48
--- NOTE | 2019-04-16 05:37 | EKG ---
[facility] [address] [place] [address] Test Date: 2019-04-15 Test Time: 18:29:57 Pat Name: ZULEIKA PIZARRO Department: Room: Gender: F [employer] Assistant: : 1945 Requested By: MARGARETH CALLES Order Number: [id number] Reading MD: Measurements Intervals [place] Rate: 119 P: 90 SC: 106 QRS: 139 QRSD: 78 T: 65 QT: 298 QTc: 420 Interpretive Statements SINUS TACHYCARDIA LOW LIMB LEAD VOLTAGE QRS(T) CONTOUR ABNORMALITY CONSIDER ANTEROSEPTAL MYOCARDIAL DAMAGE CONSISTENT WITH HIGH LATERAL INFARCT PROBABLY OLD ABNORMAL ECG RI6.01 No previous ECG available for comparison
[2019-04-16] MEDS: BUDESONIDE 0.5 MG/2 ML NEBU. NEB SCH ×2 (07:11→20:04)
[2019-04-16] MEDS: IPRATRPIUM/ALBUTEROL 0.5/2.5MG 3 ML NEBU. NEB SCH ×4 (07:11→20:04)
[2019-04-16 07:57] VITALS: BP 125/77
[2019-04-16] MEDS: ALPRAZolam 0.5 MG TABLET PO SCH ×2 (09:23→20:50)
[2019-04-16] MEDS: GABAPENTIN 100 MG CAPSULE. PO SCH ×2 (09:23→20:49)
[2019-04-16] MEDS: FAMOTIDINE 20 MG TABLET. PO SCH (09:23)
--- NOTE | 2019-04-16 10:31 | CONS ---
DATE OF CONSULTATION: PULMONARY CONSULTATION ATTENDING PHYSICIAN: Dr. Malik Conner. REASON FOR CONSULTATION: Pneumonia. HISTORY OF PRESENT ILLNESS: The patient is a 74-year-old who has COPD and has chronic respiratory failure, on home oxygen at 2 liters. She was brought into the hospital with complaint of increased shortness of breath. She had a cough with yellow sputum production. She is overall felt weak and fatigue. No chest pain, no headaches, no nausea, vomiting, no diarrhea. Her saturations were 73% on home oxygen when the medics got there. She was brought into the Emergency Room and a chest x-ray was reviewed by me. There has been faint interstitial marking in the right lower lobe and also mild prominence at the upper lobe as well. Clinical and radiographic findings compatible with pneumonia. She was started on antibiotics and requiring 2.5 liters of oxygen. PAST MEDICAL HISTORY: Significant for history of COPD, history of chronic respiratory failure, on home oxygen at 2 liters. History of diabetes and history of neuropathy. PAST SURGICAL HISTORY: No recent surgeries. Before that, she had hip, left eye and face surgery. Tumor removed from the left breast. REVIEW OF SYSTEMS: Twelve-point system obtained. Pertinent positives discussed in my history of present illness, otherwise noncontributory. All systems that were negative were reviewed as well. ALLERGIES: None. MEDICATIONS: All reviewed as listed in the MRAD including antibiotics and bronchodilators, DuoNebs and Pulmicort. SOCIAL HISTORY: Smoked for at least 45 years before quitting a year ago. PHYSICAL EXAMINATION: VITAL SIGNS: Reviewed, afebrile, blood pressure stable, pulse ox 96% on 2.5 liters. HEENT: Sclerae nonicteric. NECK: Supple. LUNGS: With diminished breath sounds at the bases. CARDIOVASCULAR: With a regular rate. ABDOMEN: Soft. EXTREMITIES: With minimal edema on the left lower extremity. LABORATORY DATA: Reviewed. White cell count 14,000, hemoglobin 11.6 and platelets are 303. INR 0.9. Procalcitonin 0.14. Sodium 139, BUN and creatinine 26 and 0.7. IMPRESSION: 1. Dyspnea secondary to pneumonia in a patient who has underlying chronic obstructive pulmonary disease and has chronic hypoxic respiratory failure. 2. Abnormal chest x-ray with mild interstitial infiltrates in the right lower lobe and also faint infiltrate in the upper lobes as well. Clinical and radiographic findings are consistent with pneumonia, likely gram-negative. 3. Underlying chronic obstructive pulmonary disease with chronic respiratory failure, on home oxygen at 2 liters. Currently requiring 2.5-3 liters. 4. Leukocytosis secondary to pneumonia. RECOMMENDATIONS: 1. Continue with present oxygen. 2. Continue with present antibiotics. 3. Continue with present bronchodilators. 4. We will obtain noncontrast CT chest to better assess for infiltrates. 5. Add DVT prophylaxis. 6. Continue with Pepcid. 7. Discussed with RN. We will follow along with you. PEDRO ROBERSON MD DR: DENEEN/shaq JOB#: [id number] / [id number]
[2019-04-16] MEDS ORDERED: SENNOSIDES/DOCUSATE 8.6/50MG TABLET. PO PRN (11:00)
[2019-04-16 11:08] VITALS: BP 95/56
[2019-04-16] MEDS ORDERED: PIP/TAZO PER PHARMACY MC PRN (11:30)
--- NOTE | 2019-04-16 11:35 | PDOC ---
Provider Note Provider Note Pt seen and examined ID consult dictated Thank you MIKE PRICE MD Apr 16, 2019 11:35
--- NOTE | 2019-04-16 11:56 | PDOC ---
Provider Note Provider Note Patient seen. History and Physical dictated. See dictation#[id number] MARIANELA COLEY MD Apr 16, 2019 11:56
[2019-04-16] MEDS: LISINOPRIL 20 MG TABLET PO SCH (12:00)
[2019-04-16] MEDS ORDERED: NON FORMULARY ITEM (Albuterol Sulfate (Albuterol Sulfate Neb Soln) 1 VIAL) NEB SCH (12:00)
--- NOTE | 2019-04-16 12:12 | RAD ---
CT CHEST WO CONTRAST Indication: CHF versus pneumonia Technique: Noncontrast CT imaging was performed of the chest, multiplanar reconstruction images submitted. One or more of the following individualized dose reduction techniques were utilized for this examination: 1. Automated exposure control 2. Adjustment of the mA and/or kV according to patient size 3. Use of iterative reconstruction technique. Comparison: April 22, 2015 chest CTA Findings: There is fairly severe emphysema. There is very mild peripheral infiltrate of left lower lobe dependently closer to the lung base, very minimal linear atelectasis right lower lobe. There is no pleural fluid. There is very small quantity of pericardial fluid. There is atherosclerotic calcification of the thoracic aorta. Thoracic aortic caliber is within normal limits. No significantly enlarged nodes are identified of the chest, similar subcentimeter mediastinal nodes. There is atherosclerotic calcification of the visualized carotid arteries in the neck bilaterally. There is some bronchial wall thickening and mild endobronchial density of left lower lobe branches. IMPRESSION: 1. There is bronchial wall thickening and mild endobronchial density of the left lower lobe branches, mucous plugging and bronchitis considered more likely than mass. There is very mild peripheral left lower lobe infiltrate near the lung base. There is mild right lower lobe atelectasis. 2. There is fairly severe emphysema. 3. There is no pleural fluid. Electronically signed by: Chago Adams MD (04/16/2019 12:08 PM) [id number]
[2019-04-16] MEDS: ASPIRIN CHEWABLE 81 MG TABLET. PO SCH (12:37)
[2019-04-16] MEDS: ROFLUMILAST 500 MCG TABLET. PO SCH (12:37)
[2019-04-16] MEDS: PIPERACILLIN/TAZOBACTAM 3.375 GM in IV NORMAL SALINE 50ML 50 ML IV SCH ×3 (12:38→23:40)
[2019-04-16] MEDS: HEPARIN for SUB-Q USE 5,000 UNIT/ML VIAL. SQ SCH ×3 (12:54→21:00)
--- NOTE | 2019-04-16 14:06 | HP ---
ADMIT DATE: HISTORY OF PRESENT ILLNESS: This is a 74-year-old female who is known to have severe COPD, who was brought to the emergency room by EMS because of chest pains, cough, congestion with yellowish expectoration and dyspnea, getting worse for 3 days. The patient was noted to have pneumonia and is admitted for further evaluation and management. SYSTEMS REVIEW: At present time, the patient is complaining of cough, congestion, dyspnea, chest pains, weakness, fever, chills. She denies any nausea, vomiting, diarrhea. Other systems reviewed and are negative. PAST MEDICAL HISTORY: The patient is known to have a history of recurrent pneumonia and bronchitis, exacerbation of COPD, recurrent UTI, suprapubic catheter placement, recent cellulitis of the foot, chronic respiratory failure on oxygen by nasal cannula 2.5 liters with exertion and 2 liters at rest, chronic short-term and long-term memory loss, diabetes mellitus type 2 with neuropathy controlled with diabetes, hypertension, hyperlipidemia, anxiety, depression, severe protein-calorie malnutrition, physical deconditioning, secondary pulmonary hypertension, mild CKD 3, and history of metabolic encephalopathy. PAST SURGICAL HISTORY: The patient had right renal stone in 2008, history of fractured hip with open reduction and internal fixation in 2012, history of peptic ulcer disease and internal hemorrhoids, left breast surgery for fibrocystic disease, and placement of suprapubic catheter and also has a history of infection of the suprapubic site. ALLERGIES: TRAMADOL. FAMILY HISTORY: Father had bleeding peptic ulcer disease, cancer of the colon. Sister had cancer of the colon. SOCIAL HISTORY: A former smoker. No history of alcoholism or drug abuse. Lives alone at home. Has part-time caregivers. MEDICATIONS: Reviewed and reconciled. PHYSICAL EXAMINATION: VITAL SIGNS: Temperature max 100.4, pulse 118 per minute, respirations 32 per minute, blood pressure 118/72 mmHg. GENERAL: The patient is an elderly female who is alert, oriented, in moderate respiratory distress, on oxygen by nasal cannula. EYES: Pupils reacting to light. Conjunctivae pale. Sclerae muddy. HENT: Throat congested. NECK: Supple. JVP normal. No thyromegaly. Trachea midline. LUNGS: Bilateral wheezing, tachypnea present. ABDOMEN: Soft, nontender. No guarding, no rigidity. CARDIOVASCULAR: S1, S2 regular. Tachycardia present. EXTREMITIES: No edema, no cyanosis. No calf tenderness. CENTRAL NERVOUS SYSTEM: Alert and oriented. Generalized weakness. Some cognitive deficits. LABORATORY FINDINGS: WBC count 14, hemoglobin is 11.6. Sodium 139, potassium 4.3, BUN 26, creatinine 0.7, glucose 112. Urinalysis positive for nitrite, moderate leukocyte esterase, wbc's 11-20, bacteria many. IMPRESSION: 1. Pneumonia. Chest x-ray shows consolidation in the right lower lung. CT scan pending. 2. Acute exacerbation of chronic obstructive pulmonary disease. 3. Acute on chronic respiratory failure, hypoxic and hypercarbic. 4. Osteoarthritis. 5. Diabetes mellitus type 2 with neuropathy, diet controlled. 6. Chronic bronchitis. 7. Hypertension. 8. Chronic pain. 9. Cognitive deficits. 10. Physical deconditioning. 11. Possible urinary tract infection; however, this could be contaminated as the patient has a suprapubic catheter. PLAN: For details, please refer to the orders. Start her IV antibiotics. The patient is on Rocephin and Zithromax. Consultation has been obtained with Dr. Cisneros and then also Dr. Lott for Infectious Disease evaluation and Pulmonary evaluation and management. The patient has been started on her home medications. For details, please refer to the orders. She was given 1 dose of steroids yesterday. She is actually on ceftriaxone and Levaquin at this time. Prognosis of this patient is very poor. For details, please refer to the orders. MARIANELA COLEY MD DR: ORA/shaq JOB#: [id number] / [id number]
[2019-04-16 15:23] VITALS: BP 94/49
--- NOTE | 2019-04-16 16:00 | NUR ---
SW following pt for dc planning. Chart reviewed and pt lives at home. Pt has used [facility] in the past. No SW needs at this time. Will continue to follow.
[2019-04-16] MEDS: methylPREDNISolone SOD SUCC PF 40 MG/ML VIAL. IV SCH (16:52)
[2019-04-16] MEDS: MONTELUKAST SODIUM 10 MG TABLET. PO SCH (17:36)
[2019-04-16 19:20] VITALS: BP 98/46
[2019-04-16] MEDS: CETIRIZINE HCL 10 MG TABLET. PO SCH (20:49)
[2019-04-16] MEDS: SIMVASTATIN 10 MG TABLET PO SCH (20:50)
[2019-04-16] MEDS ORDERED: NON FORMULARY ITEM (Budesonide/Formoterol Fumarate (Symbicort 160-4.5 Mcg Inhaler) 2 PUFF) IH SCH (21:00)
--- NOTE | 2019-04-16 22:05 | CONS ---
DATE OF CONSULTATION: 04/16/2019 REFERRING PHYSICIAN: Dr. Randy Conner. REASON FOR CONSULTATION: Urinary tract infection. HISTORY OF PRESENT ILLNESS: A 74-year-old female who presented to the ER with chief complaints of increased shortness of breath, cough with yellow sputum, generalized weakness for the past 3 days, worsening with hypoxia. The patient was febrile with elevated white count. She denied any sick contact, nausea, vomiting, diarrhea, headache, chest pain with deep breathing. A chest x-ray revealed an infiltrate in the right lower lung as well as the upper lobe. The patient was started on IV Levaquin. She also received a dose of ceftriaxone in the ER, she was requiring 2.5 liters of oxygen. UA showed pyuria. ID consult has been requested for antibiotic management. PAST MEDICAL HISTORY: Exacerbation of COPD, recurrent bronchitis, pneumonia, recurrent UTI with suprapubic catheter in place, which was changed yesterday in the ER per patient. Last cultures have been positive for Pseudomonas in 02/2019. It was not treated as it was thought to be a contaminant. History of recent cellulitis of right foot; chronic respiratory failure, on home O2 by nasal cannula, severe COPD, short-term memory loss, diabetes mellitus 2 with neuropathy, history of hypoglycemia, hypertension, hyperlipidemia, anxiety, depression, severe protein-calorie malnutrition, physical deconditioning; secondary pulmonary hypertension, mild CKD, metabolic encephalopathy, and peptic ulcer disease. PAST SURGICAL HISTORY: Right renal stone, fractured hip with ORIF, internal hemorrhoids, left breast surgery, and suprapubic catheter placement. ALLERGIES: TRAMADOL. FAMILY HISTORY: As per HPI. SOCIAL HISTORY: Former smoker, quit a couple of years ago. Lives alone at home with caregiver. No alcoholism. No drug use. CURRENT MEDICATIONS: IV Levaquin, IV Rocephin 1 dose in the ER. Other medications reviewed in medication list. PHYSICAL EXAMINATION: VITAL SIGNS: T-max 102, current temperature is 98.5, pulse 92, respiratory rate 18, blood pressure 95/56, oxygen saturation 96% on 2 liters nasal cannula. GENERAL: Alert, oriented, thin female, lying in bed comfortably, undergoing respiratory treatment, cooperative, pleasant. HEENT: Normocephalic, atraumatic, anicteric. No thrush. NECK: Supple, no JVD. LUNGS: Decreased breath sound at the bases. HEART: S1, S2. ABDOMEN: Soft, nontender. Suprapubic catheter site looks good, nontender, nondistended. No CVA tenderness. EXTREMITIES: Minimal edema of lower extremity. CENTRAL NERVOUS SYSTEM: Alert and oriented. Chronic memory issues. LABORATORY DATA: WBC 14.0, hemoglobin 11.6, hematocrit 36.4, platelets 303, neutrophil percent is 84. Sodium 139, potassium 4.3, chloride 100, bicarbonate 33, BUN 26, creatinine 0.7, glucose 112. Lactate 1.1. Procalcitonin 0.14. UA shows moderate leukocyte esterase, positive nitrite, 11-20 wbc's. Micro: Blood culture and urine culture pending at this time. Chest x-ray, developing consolidative changes in the right lower lobe, favored to be developing pneumonia. Lower extremity ultrasound, no acute DVT. Mild soft tissue edema in lower leg. CT chest is pending at this time. IMPRESSION: 1. Fever. 2. Leukocytosis. 3. Right lung infiltrates.h/o COPD 4. Pyuria with a suprapubic catheter in place, which was changed in the ED yesterday with history of Pseudomonas in the urine, resistant to Levaquin. 6. History of renal stone. RECOMMENDATIONS: 1. Continue empiric Levaquin for atypical coverage. 2. We will add empiric Zosyn, may need renal dosing. 3. Follow up urine and blood cultures. 4. Continue supportive care. 5. Follow up labs and cultures. 6. Followup CT chest. 7. We will modify treatment depending on further culture and RADHA data. Discussed with RN. We will follow along with you for allowing me to participate in this patient's care. MIKE PRICE MD DR: SAVANNA/shaq JOB#: [id number] / [id number] KARI
[2019-04-16 23:52] VITALS: BP 102/49
[2019-04-17 03:27] VITALS: BP 102/51
[2019-04-17] MEDS: PIPERACILLIN/TAZOBACTAM 3.375 GM in IV NORMAL SALINE 50ML 50 ML IV SCH ×3 (05:12→17:00)
[2019-04-17 07:00] VITALS: BP 108/53
[2019-04-17] MEDS: BUDESONIDE 0.5 MG/2 ML NEBU. NEB SCH ×2 (07:17→20:33)
[2019-04-17] MEDS: IPRATRPIUM/ALBUTEROL 0.5/2.5MG 3 ML NEBU. NEB SCH ×4 (07:18→20:33)
[2019-04-17 07:20] LABS: BASO % 0 % (0-3); EOS % 0 % (0-3); HEMATOCRIT 28.2 % (36.0-47.0); LYMPH # 0.9 x10^3/uL (1.0-4.8); LYMPH % 11 % (24-48); MEAN CORPUSCULAR HEMOGLOBIN 24 pg (25-35); MEAN CORPUSCULAR HGB CONC 32 g/dL (31-37); MEAN CORPUSCULAR VOLUME 76 fL (79-100); MONO # 0.4 x10^3/uL (0.0-1.1); MONO % 5 % (0-9); NEUT # 6.8 x10^3/uL (1.8-7.7); NEUT % 84 % (31-73); PLATELET COUNT 247 x10^3/uL (140-400); RED CELL DISTRIBUTION WIDTH 17.7 % (11.5-14.5); WHITE BLOOD COUNT 8.1 x10^3/uL (4.0-11.0)
[2019-04-17 07:36] LABS: CALCIUM 8.4 mg/dL (8.5-10.1); CREATININE 0.9 mg/dL (0.6-1.0); POTASSIUM 4.4 mmol/L (3.5-5.1)
--- NOTE | 2019-04-17 07:58 | PDOC ---
Infectious Disease Note Subjective: Subjective pt says feels a little better no f/c/this am cough but unable to bring up sputum ROS: ROS Negative otherwise. Vital Signs: Vital Signs Vital Signs Date Time Temp Pulse Resp B/P (MAP) Pulse Ox O2 Delivery O2 Flow Rate FiO2 04/17/19 07:18 97 Nasal Cannula 2.0 04/17/19 03:27 98.4 75 18 102/51 (68) 98.4 Physical Exam: PHYSICAL EXAM GENERAL: Alert, oriented, thin female, lying in bed comfortably, undergoing respiratory treatment, cooperative, pleasant. HEENT: Normocephalic, atraumatic, anicteric. No thrush. NECK: Supple, no JVD. LUNGS: Decreased breath sounds bilaterally with some scattered rhonci HEART: S1, S2.No murmurs ABDOMEN: Soft, nontender. Suprapubic catheter site looks good, nontender, nondistended. No CVA tenderness. EXTREMITIES: Minimal edema of lower extremity. CENTRAL NERVOUS SYSTEM: Alert and oriented. Chronic memory issues. Medications: Inpatient Meds: Current Medications Medications (Trade) Dose Ordered Sig/Geovanny Start Time Stop Time Status Last Admin Dose Admin Acetaminophen (Tylenol) 650 mg PRN Q6HRS PRN 04/15/19 22:45 Albuterol Sulfate (Ventolin Neb Soln) 2.5 mg 1X ONCE 04/15/19 19:00 04/15/19 19:01 DC 04/15/19 18:43 2.5 MG Albuterol/ Ipratropium (Duoneb) 3 ml RTQID 04/16/19 12:00 04/17/19 07:18 3 ML Alprazolam (Xanax) 0.5 mg BID 04/15/19 23:00 04/16/19 20:50 0.5 MG Aspirin (Children'S Aspirin) 81 mg DAILY 04/16/19 11:00 04/16/19 12:37 81 MG Budesonide (Pulmicort) 0.5 mg RTBID 04/15/19 21:00 04/17/19 07:17 0.5 MG Ceftriaxone Sodium (Rocephin) 1 gm 1X ONCE 04/15/19 20:00 04/15/19 20:01 DC 04/15/19 20:38 1 GM Cetirizine HCl (ZyrTEC) 10 mg QHS 04/16/19 21:00 04/16/19 20:49 10 MG Cyclobenzaprine HCl (Flexeril) 10 mg PRN TID PRN 04/15/19 22:45 Famotidine (Pepcid) 20 mg DAILY 04/16/19 09:00 04/16/19 09:23 20 MG Fluticasone Propionate (Flonase) 1 spray BID 04/17/19 09:00 Gabapentin (Neurontin) 100 mg BID 04/15/19 23:00 04/16/19 20:49 100 MG Guaifenesin (Mucinex) 600 mg BID 04/16/19 12:00 04/16/19 20:50 600 MG Heparin Sodium (Porcine) (Heparin Sodium) 5,000 unit Q12HR 04/16/19 12:15 04/16/19 20:57 5,000 UNIT Levofloxacin/ Dextrose 50 ml @ 50 mls/hr Q24H 04/16/19 21:00 04/16/19 20:49 50 MLS/HR Levofloxacin/ Dextrose (Levaquin Per Pharmacy) 1 each PRN DAILY PRN 04/15/19 20:00 Lisinopril (Prinivil) 20 mg DAILY 04/16/19 12:00 Methylprednisolone Sodium Succinate (SOLU-Medrol 40MG VIAL) 60 mg [id number] 04/16/19 16:00 04/16/19 16:52 60 MG Methylprednisolone Sodium Succinate (SOLU-Medrol 125MG VIAL) 125 mg 1X ONCE 04/15/19 19:00 04/15/19 19:01 DC 04/15/19 19:20 125 MG Montelukast Sodium (Singulair) 10 mg QEVNG 04/16/19 18:00 04/16/19 17:36 10 MG Non-Formulary Medication (Albuterol Sulfate (Albuterol Sulfate Neb Soln)) 1 vial Q6HRS 04/16/19 12:00 UNV Non-Formulary Medication (Alendronate Sodium ) 1 tab WEEKLY 04/23/19 09:00 UNV Non-Formulary Medication (Budesonide/ Formoterol Fumarate (Symbicort 160-4.5 Mcg Inhaler)) 2 puff BID 04/16/19 21:00 UNV Non-Formulary Medication (Tiotropium [place] (Spiriva)) 1 cap DAILY 04/17/19 09:00 UNV Piperacillin Sod/ Tazobactam Sod (Zosyn Per Pharmacy) 1 each PRN DAILY PRN 04/16/19 11:30 Piperacillin Sod/ Tazobactam Sod 3.375 gm/Sodium Chloride 50 ml @ 100 mls/hr Q6HRS 04/16/19 12:00 04/17/19 05:12 100 MLS/HR Roflumilast (Daliresp) 500 mcg DAILY 04/16/19 12:00 04/16/19 12:37 500 MCG Senna/Docusate Sodium (Senna Plus) 2 tab PRN DAILY PRN 04/16/19 11:00 Simvastatin (Zocor) 10 mg QHS 04/15/19 23:00 04/16/19 20:50 10 MG Sodium Chloride 1,000 ml @ 1,000 mls/hr 1X ONCE 04/15/19 19:00 04/15/19 19:59 DC 04/15/19 19:20 1,000 MLS/HR Labs: Lab Laboratory Tests Test 04/16/19 11:46 04/16/19 16:54 04/16/19 19:56 04/17/19 05:20 Glucose (Fingerstick) 141 mg/dL (70-99) 98 mg/dL (70-99) 165 mg/dL (70-99) White Blood Count 8.1 x10^3/uL (4.0-11.0) Red Blood Count 3.70 x10^6/uL (3.50-5.40) Hemoglobin 9.0 g/dL (12.0-15.5) Hematocrit 28.2 % (36.0-47.0) Mean Corpuscular Volume 76 fL (79-100) Mean Corpuscular Hemoglobin 24 pg (25-35) Mean Corpuscular Hemoglobin Concent 32 g/dL (31-37) Red Cell Distribution Width 17.7 % (11.5-14.5) Platelet Count 247 x10^3/uL (140-400) Neutrophils (%) (Auto) 84 % (31-73) Lymphocytes (%) (Auto) 11 % (24-48) Monocytes (%) (Auto) 5 % (0-9) Eosinophils (%) (Auto) 0 % (0-3) Basophils (%) (Auto) 0 % (0-3) Neutrophils # (Auto) 6.8 x10^3/uL (1.8-7.7) Lymphocytes # (Auto) 0.9 x10^3/uL (1.0-4.8) Monocytes # (Auto) 0.4 x10^3/uL (0.0-1.1) Eosinophils # (Auto) 0.0 x10^3/uL (0.0-0.7) Basophils # (Auto) 0.0 x10^3/uL (0.0-0.2) Sodium Level 141 mmol/L (136-145) Potassium Level 4.4 mmol/L (3.5-5.1) Chloride Level 104 mmol/L (98-107) Carbon Dioxide Level 29 mmol/L (21-32) Anion Gap 8 (6-14) Blood Urea Nitrogen 30 mg/dL (7-20) Creatinine 0.9 mg/dL (0.6-1.0) Estimated GFR (Cockcroft-Gault) 61.0 Glucose Level 120 mg/dL (70-99) Calcium Level 8.4 mg/dL (8.5-10.1) Objective: Assessment: 1. Fever.source likely pulmonary and or gu 2. Leukocytosis. 3. Right lung infiltrate. 4. Dyspnea secondary to pneumonia in patient with underlying chronic obstructive pulmonary disease and has chronic hypoxic respiratory failure, on home O2. 5. Pyuria with a suprapubic catheter in place, which was changed in the ED yesterday with history of Pseudomonas in the urine, resistant to Levaquin. 6. History of renal stone. Plan: Plan of Care 1. Continue empiric Levaquin ,renal dosing 2. continue Zosyn, may need renal dosing. 3. Follow up urine and blood cultures. 4. Continue supportive care. 5. Follow up labs Discussed with RN. MIKE PRICE MD Apr 17, 2019 07:58
--- NOTE | 2019-04-17 08:39 | PDOC ---
PULMONARY PROGRESS NOTES Subjective PT STILL SOA AND WHEEZING Vitals Vital Signs Date Time Temp Pulse Resp B/P (MAP) Pulse Ox O2 Delivery O2 Flow Rate FiO2 04/17/19 07:18 97 Nasal Cannula 2.0 04/17/19 07:00 98.0 61 16 108/53 (71) 98.0 ROS: No Nausea, No Chest Pain, No Abdominal Pain, No Increase Cough General: Alert, No acute distress HEENT: Other Lungs: Wheezing Cardiovascular: S1, S2 Abdomen: Soft Extremities: No Edema Labs Laboratory Tests Test 04/15/19 18:40 04/15/19 20:30 04/16/19 07:26 04/16/19 11:46 White Blood Count 14.0 x10^3/uL (4.0-11.0) Red Blood Count 4.77 x10^6/uL (3.50-5.40) Hemoglobin 11.6 g/dL (12.0-15.5) Hematocrit 36.4 % (36.0-47.0) Mean Corpuscular Volume 76 fL (79-100) Mean Corpuscular Hemoglobin 24 pg (25-35) Mean Corpuscular Hemoglobin Concent 32 g/dL (31-37) Red Cell Distribution Width 17.5 % (11.5-14.5) Platelet Count 303 x10^3/uL (140-400) Neutrophils (%) (Auto) 84 % (31-73) Lymphocytes (%) (Auto) 7 % (24-48) Monocytes (%) (Auto) 6 % (0-9) Eosinophils (%) (Auto) 2 % (0-3) Basophils (%) (Auto) 0 % (0-3) Neutrophils # (Auto) 11.8 x10^3/uL (1.8-7.7) Lymphocytes # (Auto) 0.9 x10^3/uL (1.0-4.8) Monocytes # (Auto) 0.9 x10^3/uL (0.0-1.1) Eosinophils # (Auto) 0.3 x10^3/uL (0.0-0.7) Basophils # (Auto) 0.1 x10^3/uL (0.0-0.2) Prothrombin Time 12.1 SEC (11.7-14.0) Prothromb Time International Ratio 0.9 (0.8-1.1) Sodium Level 139 mmol/L (136-145) Potassium Level 4.3 mmol/L (3.5-5.1) Chloride Level 100 mmol/L (98-107) Carbon Dioxide Level 33 mmol/L (21-32) Anion Gap 6 (6-14) Blood Urea Nitrogen 26 mg/dL (7-20) Creatinine 0.7 mg/dL (0.6-1.0) Estimated GFR (Cockcroft-Gault) 81.6 BUN/Creatinine Ratio 37 (6-20) Glucose Level 112 mg/dL (70-99) Lactic Acid Level 1.1 mmol/L (0.4-2.0) Calcium Level 9.4 mg/dL (8.5-10.1) Total Bilirubin 0.3 mg/dL (0.2-1.0) Aspartate Amino Transf (AST/SGOT) 36 U/L (15-37) Alanine Aminotransferase (ALT/SGPT) 32 U/L (14-59) Alkaline Phosphatase 74 U/L (46-116) Troponin I Quantitative < 0.017 ng/mL (0.000-0.055) KU-Lpp-D-Type Natriuretic Peptide 243 pg/mL (0-449) Total Protein 8.5 g/dL (6.4-8.2) Albumin 3.7 g/dL (3.4-5.0) Albumin/Globulin Ratio 0.8 (1.0-1.7) Procalcitonin 0.14 ng/mL (0.00-0.10) Urine Collection Type Unknown Urine Color Yellow Urine Clarity Cloudy Urine pH 7.5 Urine Specific [place] 1.015 Urine Protein Negative mg/dL (NEG-TRACE) Urine Glucose (UA) Negative mg/dL (NEG) Urine Ketones (Stick) Negative mg/dL (NEG) Urine Blood Negative (NEG) Urine Nitrite Positive (NEG) Urine Bilirubin Negative (NEG) Urine Urobilinogen Dipstick 0.2 mg/dL (0.2 mg/dL) Urine Leukocyte Esterase Moderate (NEG) Urine RBC 0 /HPF (0-2) Urine WBC 11-20 /HPF (0-4) Urine Bacteria Many /HPF (0-FEW) Glucose (Fingerstick) 182 mg/dL (70-99) 141 mg/dL (70-99) Test 04/16/19 16:54 8/1/19 19:56 04/17/19 05:20 04/17/19 07:19 Glucose (Fingerstick) 98 mg/dL (70-99) 165 mg/dL (70-99) 117 mg/dL (70-99) White Blood Count 8.1 x10^3/uL (4.0-11.0) Red Blood Count 3.70 x10^6/uL (3.50-5.40) Hemoglobin 9.0 g/dL (12.0-15.5) Hematocrit 28.2 % (36.0-47.0) Mean Corpuscular Volume 76 fL (79-100) Mean Corpuscular Hemoglobin 24 pg (25-35) Mean Corpuscular Hemoglobin Concent 32 g/dL (31-37) Red Cell Distribution Width 17.7 % (11.5-14.5) Platelet Count 247 x10^3/uL (140-400) Neutrophils (%) (Auto) 84 % (31-73) Lymphocytes (%) (Auto) 11 % (24-48) Monocytes (%) (Auto) 5 % (0-9) Eosinophils (%) (Auto) 0 % (0-3) Basophils (%) (Auto) 0 % (0-3) Neutrophils # (Auto) 6.8 x10^3/uL (1.8-7.7) Lymphocytes # (Auto) 0.9 x10^3/uL (1.0-4.8) Monocytes # (Auto) 0.4 x10^3/uL (0.0-1.1) Eosinophils # (Auto) 0.0 x10^3/uL (0.0-0.7) Basophils # (Auto) 0.0 x10^3/uL (0.0-0.2) Sodium Level 141 mmol/L (136-145) Potassium Level 4.4 mmol/L (3.5-5.1) Chloride Level 104 mmol/L (98-107) Carbon Dioxide Level 29 mmol/L (21-32) Anion Gap 8 (6-14) Blood Urea Nitrogen 30 mg/dL (7-20) Creatinine 0.9 mg/dL (0.6-1.0) Estimated GFR (Cockcroft-Gault) 61.0 Glucose Level 120 mg/dL (70-99) Calcium Level 8.4 mg/dL (8.5-10.1) Laboratory Tests Test 04/16/19 11:46 04/16/19 16:54 04/16/19 19:56 04/17/19 05:20 Glucose (Fingerstick) 141 mg/dL (70-99) 98 mg/dL (70-99) 165 mg/dL (70-99) White Blood Count 8.1 x10^3/uL (4.0-11.0) Red Blood Count 3.70 x10^6/uL (3.50-5.40) Hemoglobin 9.0 g/dL (12.0-15.5) Hematocrit 28.2 % (36.0-47.0) Mean Corpuscular Volume 76 fL (79-100) Mean Corpuscular Hemoglobin 24 pg (25-35) Mean Corpuscular Hemoglobin Concent 32 g/dL (31-37) Red Cell Distribution Width 17.7 % (11.5-14.5) Platelet Count 247 x10^3/uL (140-400) Neutrophils (%) (Auto) 84 % (31-73) Lymphocytes (%) (Auto) 11 % (24-48) Monocytes (%) (Auto) 5 % (0-9) Eosinophils (%) (Auto) 0 % (0-3) Basophils (%) (Auto) 0 % (0-3) Neutrophils # (Auto) 6.8 x10^3/uL (1.8-7.7) Lymphocytes # (Auto) 0.9 x10^3/uL (1.0-4.8) Monocytes # (Auto) 0.4 x10^3/uL (0.0-1.1) Eosinophils # (Auto) 0.0 x10^3/uL (0.0-0.7) Basophils # (Auto) 0.0 x10^3/uL (0.0-0.2) Sodium Level 141 mmol/L (136-145) Potassium Level 4.4 mmol/L (3.5-5.1) Chloride Level 104 mmol/L (98-107) Carbon Dioxide Level 29 mmol/L (21-32) Anion Gap 8 (6-14) Blood Urea Nitrogen 30 mg/dL (7-20) Creatinine 0.9 mg/dL (0.6-1.0) Estimated GFR (Cockcroft-Gault) 61.0 Glucose Level 120 mg/dL (70-99) Calcium Level 8.4 mg/dL (8.5-10.1) Test 04/17/19 07:19 Glucose (Fingerstick) 117 mg/dL (70-99) Medications Active Scripts Medications Dose Route/Sig Max Daily Dose Days Date Category Daliresp (Roflumilast) 500 Mcg Tablet 1 Tab PO DAILY 03/03/19 Reported Lisinopril 20 Mg Tablet 1 Tab PO DAILY 03/03/19 Reported Albuterol Sulfate Neb Soln (Albuterol Sulfate) 1.25 Mg/3 Ml Vial.neb 1 Vial NEB Q6HRS 03/03/19 Reported Senna-Time S Tablet (Sennosides/Docusate Sodium) 1 Each Tablet 2 Tab PO PRN DAILY PRN 30 11/03/18 Rx Mucinex (Guaifenesin) 1,200 Mg Tbmp.12hr 1 Tab PO BID 10/30/18 Reported Tylenol (Acetaminophen) 325 Mg Tablet 650 Mg PO PRN Q6HRS PRN 30 09/22/18 Rx Spiriva (Tiotropium [place]) 18 Mcg Cap.w.dev 1 Cap IH DAILY 08/15/18 Reported Alendronate Sodium 70 Mg Tablet 1 Tab PO WEEKLY 08/15/18 Reported Symbicort 160-4.5 Mcg Inhaler (Budesonide/Formoterol Fumarate) 10.2 Gm Hfa.aer.ad 2 Puff IH BID 01/06/18 Rx Duoneb 0.5-3(2.5) Mg/3 Ml (Albuterol/Ipratropium) 3 Ml Ampul.neb 3 Ml NEB RTQID 10/23/17 Rx Flonase Allergy Relief (Fluticasone Propionate) 9.9 Ml [place].susp 2 Sprays NS BID 10/20/17 Reported Simvastatin 10 Mg Tablet 1 Tab PO QHS 07/22/17 Reported Pepcid (Famotidine) 20 Mg Tablet 20 Mg PO BID 07/22/17 Reported Proair Hfa Inhaler (Albuterol Sulfate) 8.5 Gm Hfa.aer.ad 2 Puff INH PRN Q6HRS PRN 07/22/17 Reported Aspirin 81 Mg Tab.chew 1 Tab PO DAILY 07/22/17 Reported Gabapentin (Gabapentin) 100 Mg Capsule 100 Mg PO BID 07/22/17 Reported Baclofen 10 Mg Tablet 1 Tab PO TID PRN 04/23/15 Reported Singulair Tablet (Montelukast Sodium) 10 Mg Tablet 1 Tab PO QEVNG 04/23/15 Reported Zyrtec (Cetirizine Hcl) 10 Mg Tablet 1 Tab PO QHS 04/23/15 Reported Xanax (Alprazolam) 0.5 Mg Tablet 1 Tab PO BID 04/23/15 Reported Impression . IMPRESSION: 1. Dyspnea secondary to pneumonia in a patient who has underlying chronic obstructive pulmonary disease and has chronic hypoxic respiratory failure. 2. Abnormal chest x-ray 3. Underlying chronic obstructive pulmonary disease with chronic respiratory failure, on home oxygen at 2 liters. Currently requiring 2.5-3 liters. 4. Leukocytosis secondary to pneumonia. IMPRESSION: 1. There is bronchial wall thickening and mild endobronchial density of the left lower lobe branches, mucous plugging and bronchitis considered more likely than mass. There is very mild peripheral left lower lobe infiltrate near the lung base. There is mild right lower lobe atelectasis. 2. There is fairly severe emphysema. 3. There is no pleural fluid. Plan . treat pneumonia and AECOPD 02 STEROID PT STILL SOA AND NOT ABLE TO COMPLETE FULL SENTENCES A TIMES SIGNIFICANT WHEEZE ON EXAM ELMER STANLEY MD Apr 17, 2019 08:38
[2019-04-17] MEDS: FAMOTIDINE 20 MG TABLET. PO SCH (08:55)
[2019-04-17] MEDS: ASPIRIN CHEWABLE 81 MG TABLET. PO SCH (08:55)
[2019-04-17] MEDS: GABAPENTIN 100 MG CAPSULE. PO SCH ×2 (08:55→21:24)
[2019-04-17] MEDS: ROFLUMILAST 500 MCG TABLET. PO SCH (08:55)
[2019-04-17] MEDS: FLUTICASONE 50MCG/NASAL SPRAY 16GM BOTTLE. NS SCH ×2 (08:55→21:00)
[2019-04-17] MEDS: ALPRAZolam 0.5 MG TABLET PO SCH ×2 (08:55→21:24)
[2019-04-17] MEDS: methylPREDNISolone SOD SUCC PF 40 MG/ML VIAL. IV SCH ×2 (08:56→17:00)
[2019-04-17] MEDS ORDERED: NON FORMULARY ITEM (Tiotropium Bromide (Spiriva) 1 CAP) IH SCH (09:00)
[2019-04-17] MEDS: HEPARIN for SUB-Q USE 5,000 UNIT/ML VIAL. SQ SCH ×2 (09:00→21:00)
[2019-04-17] MEDS: LISINOPRIL 20 MG TABLET PO SCH (09:00)
--- NOTE | 2019-04-17 09:41 | PDOC ---
IM PROGRESS NOTES- Subjective Subjective Has dyspnea cough and congestion. Objective Vitals/I&O Vital Signs Date Time Temp Pulse Resp B/P (MAP) Pulse Ox O2 Delivery O2 Flow Rate FiO2 04/17/19 07:18 97 Nasal Cannula 2.0 04/17/19 07:00 98.0 61 16 108/53 (71) 98.0 I & O 04/16/19 04/16/19 04/17/19 14:59 22:59 06:59 Intake Total 150 ml 450 ml Output Total 900 ml 1550 ml Balance -750 ml -1100 ml Physical Exam Physical Exam GENERAL: The patient is an elderly female who is alert, oriented, in moderate respiratory distress, on oxygen by nasal cannula. EYES: Pupils reacting to light. Conjunctivae pale. Sclerae muddy. HENT: Throat congested. NECK: Supple. JVP normal. No thyromegaly. Trachea midline. LUNGS: Bilateral wheezing, tachypnea present. ABDOMEN: Soft, nontender. No guarding, no rigidity. CARDIOVASCULAR: S1, S2 regular. Tachycardia present. EXTREMITIES: No edema, no cyanosis. No calf tenderness. CENTRAL NERVOUS SYSTEM: Alert and oriented. Generalized weakness. Some cognitive deficits. Labs Laboratory Tests Test 04/16/19 11:46 04/16/19 16:54 04/16/19 19:56 04/17/19 05:20 Glucose (Fingerstick) 141 mg/dL (70-99) H 98 mg/dL (70-99) 165 mg/dL (70-99) H White Blood Count 8.1 x10^3/uL (4.0-11.0) Red Blood Count 3.70 x10^6/uL (3.50-5.40) Hemoglobin 9.0 g/dL (12.0-15.5) L Hematocrit 28.2 % (36.0-47.0) L Mean Corpuscular Volume 76 fL (79-100) L Mean Corpuscular Hemoglobin 24 pg (25-35) L Mean Corpuscular Hemoglobin Concent 32 g/dL (31-37) Red Cell Distribution Width 17.7 % (11.5-14.5) H Platelet Count 247 x10^3/uL (140-400) Neutrophils (%) (Auto) 84 % (31-73) H Lymphocytes (%) (Auto) 11 % (24-48) L Monocytes (%) (Auto) 5 % (0-9) Eosinophils (%) (Auto) 0 % (0-3) Basophils (%) (Auto) 0 % (0-3) Neutrophils # (Auto) 6.8 x10^3/uL (1.8-7.7) Lymphocytes # (Auto) 0.9 x10^3/uL (1.0-4.8) L Monocytes # (Auto) 0.4 x10^3/uL (0.0-1.1) Eosinophils # (Auto) 0.0 x10^3/uL (0.0-0.7) Basophils # (Auto) 0.0 x10^3/uL (0.0-0.2) Sodium Level 141 mmol/L (136-145) Potassium Level 4.4 mmol/L (3.5-5.1) Chloride Level 104 mmol/L (98-107) Carbon Dioxide Level 29 mmol/L (21-32) Anion Gap 8 (6-14) Blood Urea Nitrogen 30 mg/dL (7-20) H Creatinine 0.9 mg/dL (0.6-1.0) Estimated GFR (Cockcroft-Gault) 61.0 Glucose Level 120 mg/dL (70-99) H Calcium Level 8.4 mg/dL (8.5-10.1) L Test 04/17/19 07:19 Glucose (Fingerstick) 117 mg/dL (70-99) H Laboratory Tests 04/17/19 05:20 Laboratory Tests 04/17/19 05:20 Meds Current Medications Medications (Trade) Dose Ordered Sig/Geovanny Route PRN Reason Start Time Stop Time Status Last Admin Dose Admin Levofloxacin/ Dextrose 50 ml @ 50 mls/hr Q24H IV 04/16/19 21:00 04/16/19 20:49 Aspirin (Children'S Aspirin) 81 mg DAILY PO 04/16/19 11:00 04/17/19 08:55 Cetirizine HCl (ZyrTEC) 10 mg QHS PO 04/16/19 21:00 04/16/19 20:49 Albuterol/ Ipratropium (Duoneb) 3 ml RTQID NEB 04/16/19 12:00 04/17/19 07:18 Montelukast Sodium (Singulair) 10 mg QEVNG PO 04/16/19 18:00 04/16/19 17:36 Fluticasone Propionate (Flonase) 1 spray BID NS 04/17/19 09:00 04/17/19 08:55 Guaifenesin (Mucinex) 600 mg BID PO 04/16/19 12:00 04/17/19 08:55 Roflumilast (Daliresp) 500 mcg DAILY PO 04/16/19 12:00 04/17/19 08:55 Piperacillin Sod/ Tazobactam Sod 3.375 gm/Sodium Chloride 50 ml @ 100 mls/hr Q6HRS IV 04/16/19 12:00 04/17/19 05:12 Methylprednisolone Sodium Succinate (SOLU-Medrol 40MG VIAL) 60 mg [id number] IV 04/16/19 16:00 04/17/19 08:56 Heparin Sodium (Porcine) (Heparin Sodium) 5,000 unit Q12HR SQ 04/16/19 12:15 04/17/19 09:00 Assessment Assessment 1. Pneumonia. Chest x-ray shows consolidation in the right lower lung. CT scan pending. 2. Acute exacerbation of chronic obstructive pulmonary disease. 3. Acute on chronic respiratory failure, hypoxic and hypercarbic. 4. Osteoarthritis. 5. Diabetes mellitus type 2 with neuropathy, diet controlled. 6. Chronic bronchitis. 7. Hypertension. 8. Chronic pain. 9. Cognitive deficits. 10. Physical deconditioning. 11. Possible urinary tract infection; however, this could be contaminated as the patient has a suprapubic catheter. PLAN: For details, please refer to the orders. Start her on IV antibiotics. The patient is on Rocephin and Zithromax. Consultation has been obtained with Dr. Cisneros and then also Dr. Lott for Infectious Disease evaluation and Pulmonary evaluation and management. The patient has been started on her home medications. For details, please refer to the orders. She was given 1 dose of steroids yesterday. She is actually on ceftriaxone and Levaquin at this time. Prognosis of this patient is very poor. For details, please refer to the orders. Acute on chronic hypoxic and hypercarbic respiratory failure- continue oxygen by nasal cannula Pneumonia- continue IV Rocephin and Levaquin. WBC count is improving. WBC decreased from 14-9. Exacerbation of COPD- continue IV steroids and breathing treatment Anemia- monitor. Hypotension- IV fluids hold the blood pressure medicine. Continue telemetry. Plan Plan For more details regarding further plans, please refer to the orders. MARIANELA COLEY MD Apr 17, 2019 09:41
[2019-04-17] MEDS ORDERED: IV NORMAL SALINE 500ML BAG 500 ML IV ONE (10:45)
[2019-04-17 11:27] VITALS: BP 104/56
[2019-04-17 15:56] VITALS: BP 135/62
[2019-04-17] MEDS: MONTELUKAST SODIUM 10 MG TABLET. PO SCH (16:59)
[2019-04-17 20:00] VITALS: BP 141/65
[2019-04-17] MEDS: SIMVASTATIN 10 MG TABLET PO SCH (21:24)
[2019-04-17] MEDS: LACTOBACILLUS RHAMNOSUS GG 1 CAPSULE. PO SCH (21:24)
[2019-04-17] MEDS: CETIRIZINE HCL 10 MG TABLET. PO SCH (21:24)
[2019-04-17 23:10] VITALS: BP 147/51
[2019-04-18] MEDS: PIPERACILLIN/TAZOBACTAM 3.375 GM in IV NORMAL SALINE 50ML 50 ML IV SCH ×4 (00:39→18:28)
[2019-04-18 03:10] VITALS: BP 134/56
[2019-04-18 07:15] VITALS: BP 146/68
[2019-04-18 08:25] LABS: BASO % 0 % (0-3); EOS % 0 % (0-3); HEMATOCRIT 30.2 % (36.0-47.0); HEMOGLOBIN 9.6 g/dL (12.0-15.5); LYMPH # 1.4 x10^3/uL (1.0-4.8); LYMPH % 15 % (24-48); MEAN CORPUSCULAR HEMOGLOBIN 24 pg (25-35); MEAN CORPUSCULAR HGB CONC 32 g/dL (31-37); MEAN CORPUSCULAR VOLUME 76 fL (79-100); MONO # 1.2 x10^3/uL (0.0-1.1); MONO % 12 % (0-9); NEUT # 7.1 x10^3/uL (1.8-7.7); NEUT % 73 % (31-73); PLATELET COUNT 287 x10^3/uL (140-400); RED BLOOD COUNT 3.97 x10^6/uL (3.50-5.40); RED CELL DISTRIBUTION WIDTH 18.1 % (11.5-14.5); WHITE BLOOD COUNT 9.8 x10^3/uL (4.0-11.0)
[2019-04-18] MEDS: IPRATRPIUM/ALBUTEROL 0.5/2.5MG 3 ML NEBU. NEB SCH ×4 (08:29→19:50)
[2019-04-18] MEDS: BUDESONIDE 0.5 MG/2 ML NEBU. NEB SCH ×2 (08:29→19:50)
[2019-04-18 08:43] LABS: CALCIUM 8.6 mg/dL (8.5-10.1); CREATININE 0.6 mg/dL (0.6-1.0); GFR 97.5; POTASSIUM 4.1 mmol/L (3.5-5.1)
[2019-04-18] MEDS: methylPREDNISolone SOD SUCC PF 40 MG/ML VIAL. IV SCH ×2 (08:53→16:35)
[2019-04-18] MEDS: FLUTICASONE 50MCG/NASAL SPRAY 16GM BOTTLE. NS SCH ×2 (08:53→20:19)
[2019-04-18] MEDS: GABAPENTIN 100 MG CAPSULE. PO SCH ×2 (08:56→19:42)
[2019-04-18] MEDS: ROFLUMILAST 500 MCG TABLET. PO SCH (08:56)
[2019-04-18] MEDS: LACTOBACILLUS RHAMNOSUS GG 1 CAPSULE. PO SCH ×2 (08:56→19:41)
[2019-04-18] MEDS: FAMOTIDINE 20 MG TABLET. PO SCH (08:57)
[2019-04-18] MEDS: ALPRAZolam 0.5 MG TABLET PO SCH ×2 (08:57→19:41)
[2019-04-18] MEDS: LISINOPRIL 20 MG TABLET PO SCH (08:57)
[2019-04-18] MEDS: ASPIRIN CHEWABLE 81 MG TABLET. PO SCH (08:57)
--- NOTE | 2019-04-18 10:34 | PDOC ---
PROGRESS NOTES Subjective Subjective feels better today Objective Objective Vital Signs Date Time Temp Pulse Resp B/P (MAP) Pulse Ox O2 Delivery O2 Flow Rate FiO2 04/18/19 08:57 91 146/68 04/18/19 08:31 97 Nasal Cannula 2.0 04/18/19 07:15 98.5 19 98.5 Intake and Output 04/18/19 06:59 Intake Total 1960 ml Output Total 2450 ml Balance -490 ml Intake Oral 1960 ml Output Urine Total 2450 ml Physical Exam Abdomen: Normal bowel sounds Heart: Regular rate Extremities: No clubbing General: Alert HEENT: PERRLA Lungs: Other (wheezing mild) MUSCULOSKELETAL: No joint tenderness, No deformity, No swelling Neck: Supple Neuro: Normal speech Assessment Assessment 1. Pneumonia. Chest x-ray shows consolidation in the right lower lung. 2. Acute exacerbation of chronic obstructive pulmonary disease. 3. Acute on chronic respiratory failure, hypoxic and hypercarbic. 4. Osteoarthritis. 5. Diabetes mellitus type 2 with neuropathy, diet controlled. 6. Chronic bronchitis. 7. Hypertension. 8. Chronic pain. 9. Cognitive deficits. 10. Physical deconditioning. 11. Possible urinary tract infection; however, this could be contaminated as the patient has a suprapubic catheter. PLAN: levaquin+zosyn CT chest reviewed iv solumedrol pt/ot Duoneb labs ok. urne c/s mixed. Comment Review of Relevant I have reviewed the following items ayo (where applicable) has been applied. Labs Laboratory Tests Test 04/17/19 11:56 04/17/19 16:31 04/17/19 21:13 04/18/19 07:28 Glucose (Fingerstick) 137 mg/dL (70-99) 156 mg/dL (70-99) 148 mg/dL (70-99) White Blood Count 9.8 x10^3/uL (4.0-11.0) Red Blood Count 3.97 x10^6/uL (3.50-5.40) Hemoglobin 9.6 g/dL (12.0-15.5) Hematocrit 30.2 % (36.0-47.0) Mean Corpuscular Volume 76 fL (79-100) Mean Corpuscular Hemoglobin 24 pg (25-35) Mean Corpuscular Hemoglobin Concent 32 g/dL (31-37) Red Cell Distribution Width 18.1 % (11.5-14.5) Platelet Count 287 x10^3/uL (140-400) Neutrophils (%) (Auto) 73 % (31-73) Lymphocytes (%) (Auto) 15 % (24-48) Monocytes (%) (Auto) 12 % (0-9) Eosinophils (%) (Auto) 0 % (0-3) Basophils (%) (Auto) 0 % (0-3) Neutrophils # (Auto) 7.1 x10^3/uL (1.8-7.7) Lymphocytes # (Auto) 1.4 x10^3/uL (1.0-4.8) Monocytes # (Auto) 1.2 x10^3/uL (0.0-1.1) Eosinophils # (Auto) 0.0 x10^3/uL (0.0-0.7) Basophils # (Auto) 0.0 x10^3/uL (0.0-0.2) Sodium Level 139 mmol/L (136-145) Potassium Level 4.1 mmol/L (3.5-5.1) Chloride Level 102 mmol/L (98-107) Carbon Dioxide Level 30 mmol/L (21-32) Anion Gap 7 (6-14) Blood Urea Nitrogen 23 mg/dL (7-20) Creatinine 0.6 mg/dL (0.6-1.0) Estimated GFR (Cockcroft-Gault) 97.5 Glucose Level 107 mg/dL (70-99) Calcium Level 8.6 mg/dL (8.5-10.1) Test 04/18/19 07:45 Glucose (Fingerstick) 110 mg/dL (70-99) Microbiology 04/15/19 Blood Culture - Preliminary, Resulted NO GROWTH AFTER 2 DAYS 04/15/19 Urine Culture - Final, Complete 04/15/19 Urine Culture Result 1 (RADHA) - Final, Complete Medications Current Medications Lactobacillus Rhamnosus (Culturelle) 1 cap BID PO Last administered on 04/18/19at 08:56; Start 04/17/19 at 21:00 Non-Formulary Medication (Alendronate Sodium ) 1 tab WEEKLY PO ; Start 04/23/19 at 09:00; Status UNV Sodium Chloride 500 ml @ 63 mls/hr 1X ONCE IV Last administered on 04/17/19at 10:45; Start 04/17/19 at 10:45; Stop 04/17/19 at 18:41; Status DC Vitals/I & O Vital Sign - Last 24 Hours 04/17/19 04/17/19 04/17/19 04/17/19 11:23 11:27 15:33 15:56 Temp 97.9 97.9 97.9 97.9 Pulse 83 84 Resp 18 20 B/P (MAP) 104/56 (72) 135/62 (86) Pulse Ox 97 96 97 95 O2 Delivery Nasal Cannula Nasal Cannula Nasal Cannula Nasal Cannula O2 Flow Rate 2.0 3.0 2.0 3.0 04/17/19 04/17/19 04/17/19 04/17/19 19:10 20:00 20:33 23:10 Temp 99.0 98.5 99.0 98.5 Pulse 81 81 Resp 18 20 B/P (MAP) 141/65 (90) 147/51 (83) Pulse Ox 98 97 96 O2 Delivery Nasal Cannula Nasal Cannula Nasal Cannula Nasal Cannula O2 Flow Rate 2.0 2.0 2.0 3.0 04/18/19 04/18/19 04/18/19 04/18/19 03:10 07:15 08:00 08:31 Temp 98.3 98.5 98.3 98.5 Pulse 74 91 Resp 20 19 B/P (MAP) 134/56 (82) 146/68 (94) Pulse Ox 95 98 97 O2 Delivery Nasal Cannula Nasal Cannula Nasal Cannula Nasal Cannula O2 Flow Rate 3.0 3.0 2.0 2.0 04/18/19 04/18/19 08:31 08:57 Pulse 91 B/P (MAP) 146/68 Pulse Ox 97 O2 Delivery Nasal Cannula O2 Flow Rate 2.0 Intake and Output 04/17/19 04/17/19 04/18/19 14:59 22:59 06:59 Intake Total 550 ml 360 ml 1050 ml Output Total 250 ml 750 ml 1450 ml Balance 300 ml -390 ml -400 ml NIXON HOU MD Apr 18, 2019 10:34
[2019-04-18 11:24] VITALS: BP 152/81
--- NOTE | 2019-04-18 12:13 | PDOC ---
PULMONARY PROGRESS NOTES Subjective PT STILL SOA AND WHEEZING Vitals Vital Signs Date Time Temp Pulse Resp B/P (MAP) Pulse Ox O2 Delivery O2 Flow Rate FiO2 04/18/19 11:27 97 Nasal Cannula 2.0 04/18/19 11:24 98.5 104 18 152/81 (104) 98.5 ROS: No Nausea, No Chest Pain, No Abdominal Pain, No Increase Cough General: Alert, No acute distress HEENT: Other Lungs: Wheezing Cardiovascular: S1, S2 Abdomen: Soft Extremities: No Edema Labs Laboratory Tests Test 04/16/19 16:54 04/16/19 19:56 04/17/19 05:20 04/17/19 07:19 Glucose (Fingerstick) 98 mg/dL (70-99) 165 mg/dL (70-99) 117 mg/dL (70-99) White Blood Count 8.1 x10^3/uL (4.0-11.0) Red Blood Count 3.70 x10^6/uL (3.50-5.40) Hemoglobin 9.0 g/dL (12.0-15.5) Hematocrit 28.2 % (36.0-47.0) Mean Corpuscular Volume 76 fL (79-100) Mean Corpuscular Hemoglobin 24 pg (25-35) Mean Corpuscular Hemoglobin Concent 32 g/dL (31-37) Red Cell Distribution Width 17.7 % (11.5-14.5) Platelet Count 247 x10^3/uL (140-400) Neutrophils (%) (Auto) 84 % (31-73) Lymphocytes (%) (Auto) 11 % (24-48) Monocytes (%) (Auto) 5 % (0-9) Eosinophils (%) (Auto) 0 % (0-3) Basophils (%) (Auto) 0 % (0-3) Neutrophils # (Auto) 6.8 x10^3/uL (1.8-7.7) Lymphocytes # (Auto) 0.9 x10^3/uL (1.0-4.8) Monocytes # (Auto) 0.4 x10^3/uL (0.0-1.1) Eosinophils # (Auto) 0.0 x10^3/uL (0.0-0.7) Basophils # (Auto) 0.0 x10^3/uL (0.0-0.2) Sodium Level 141 mmol/L (136-145) Potassium Level 4.4 mmol/L (3.5-5.1) Chloride Level 104 mmol/L (98-107) Carbon Dioxide Level 29 mmol/L (21-32) Anion Gap 8 (6-14) Blood Urea Nitrogen 30 mg/dL (7-20) Creatinine 0.9 mg/dL (0.6-1.0) Estimated GFR (Cockcroft-Gault) 61.0 Glucose Level 120 mg/dL (70-99) Calcium Level 8.4 mg/dL (8.5-10.1) Test 04/17/19 11:56 04/17/19 16:31 04/17/19 21:13 04/18/19 07:28 Glucose (Fingerstick) 137 mg/dL (70-99) 156 mg/dL (70-99) 148 mg/dL (70-99) White Blood Count 9.8 x10^3/uL (4.0-11.0) Red Blood Count 3.97 x10^6/uL (3.50-5.40) Hemoglobin 9.6 g/dL (12.0-15.5) Hematocrit 30.2 % (36.0-47.0) Mean Corpuscular Volume 76 fL (79-100) Mean Corpuscular Hemoglobin 24 pg (25-35) Mean Corpuscular Hemoglobin Concent 32 g/dL (31-37) Red Cell Distribution Width 18.1 % (11.5-14.5) Platelet Count 287 x10^3/uL (140-400) Neutrophils (%) (Auto) 73 % (31-73) Lymphocytes (%) (Auto) 15 % (24-48) Monocytes (%) (Auto) 12 % (0-9) Eosinophils (%) (Auto) 0 % (0-3) Basophils (%) (Auto) 0 % (0-3) Neutrophils # (Auto) 7.1 x10^3/uL (1.8-7.7) Lymphocytes # (Auto) 1.4 x10^3/uL (1.0-4.8) Monocytes # (Auto) 1.2 x10^3/uL (0.0-1.1) Eosinophils # (Auto) 0.0 x10^3/uL (0.0-0.7) Basophils # (Auto) 0.0 x10^3/uL (0.0-0.2) Sodium Level 139 mmol/L (136-145) Potassium Level 4.1 mmol/L (3.5-5.1) Chloride Level 102 mmol/L (98-107) Carbon Dioxide Level 30 mmol/L (21-32) Anion Gap 7 (6-14) Blood Urea Nitrogen 23 mg/dL (7-20) Creatinine 0.6 mg/dL (0.6-1.0) Estimated GFR (Cockcroft-Gault) 97.5 Glucose Level 107 mg/dL (70-99) Calcium Level 8.6 mg/dL (8.5-10.1) Test 04/18/19 07:45 Glucose (Fingerstick) 110 mg/dL (70-99) Laboratory Tests Test 04/17/19 16:31 04/17/19 21:13 04/18/19 07:28 04/18/19 07:45 Glucose (Fingerstick) 156 mg/dL (70-99) 148 mg/dL (70-99) 110 mg/dL (70-99) White Blood Count 9.8 x10^3/uL (4.0-11.0) Red Blood Count 3.97 x10^6/uL (3.50-5.40) Hemoglobin 9.6 g/dL (12.0-15.5) Hematocrit 30.2 % (36.0-47.0) Mean Corpuscular Volume 76 fL (79-100) Mean Corpuscular Hemoglobin 24 pg (25-35) Mean Corpuscular Hemoglobin Concent 32 g/dL (31-37) Red Cell Distribution Width 18.1 % (11.5-14.5) Platelet Count 287 x10^3/uL (140-400) Neutrophils (%) (Auto) 73 % (31-73) Lymphocytes (%) (Auto) 15 % (24-48) Monocytes (%) (Auto) 12 % (0-9) Eosinophils (%) (Auto) 0 % (0-3) Basophils (%) (Auto) 0 % (0-3) Neutrophils # (Auto) 7.1 x10^3/uL (1.8-7.7) Lymphocytes # (Auto) 1.4 x10^3/uL (1.0-4.8) Monocytes # (Auto) 1.2 x10^3/uL (0.0-1.1) Eosinophils # (Auto) 0.0 x10^3/uL (0.0-0.7) Basophils # (Auto) 0.0 x10^3/uL (0.0-0.2) Sodium Level 139 mmol/L (136-145) Potassium Level 4.1 mmol/L (3.5-5.1) Chloride Level 102 mmol/L (98-107) Carbon Dioxide Level 30 mmol/L (21-32) Anion Gap 7 (6-14) Blood Urea Nitrogen 23 mg/dL (7-20) Creatinine 0.6 mg/dL (0.6-1.0) Estimated GFR (Cockcroft-Gault) 97.5 Glucose Level 107 mg/dL (70-99) Calcium Level 8.6 mg/dL (8.5-10.1) Medications Active Scripts Medications Dose Route/Sig Max Daily Dose Days Date Category Daliresp (Roflumilast) 500 Mcg Tablet 1 Tab PO DAILY 03/03/19 Reported Lisinopril 20 Mg Tablet 1 Tab PO DAILY 03/03/19 Reported Albuterol Sulfate Neb Soln (Albuterol Sulfate) 1.25 Mg/3 Ml Vial.neb 1 Vial NEB Q6HRS 03/03/19 Reported Senna-Time S Tablet (Sennosides/Docusate Sodium) 1 Each Tablet 2 Tab PO PRN DAILY PRN 30 11/03/18 Rx Mucinex (Guaifenesin) 1,200 Mg Tbmp.12hr 1 Tab PO BID 10/30/18 Reported Tylenol (Acetaminophen) 325 Mg Tablet 650 Mg PO PRN Q6HRS PRN 30 09/22/18 Rx Spiriva (Tiotropium [place]) 18 Mcg Cap.w.dev 1 Cap IH DAILY 08/15/18 Reported Alendronate Sodium 70 Mg Tablet 1 Tab PO WEEKLY 08/15/18 Reported Symbicort 160-4.5 Mcg Inhaler (Budesonide/Formoterol Fumarate) 10.2 Gm Hfa.aer.ad 2 Puff IH BID 01/06/18 Rx Duoneb 0.5-3(2.5) Mg/3 Ml (Albuterol/Ipratropium) 3 Ml Ampul.neb 3 Ml NEB RTQID 10/23/17 Rx Flonase Allergy Relief (Fluticasone Propionate) 9.9 Ml [place].susp 2 Sprays NS BID 10/20/17 Reported Simvastatin 10 Mg Tablet 1 Tab PO QHS 07/22/17 Reported Pepcid (Famotidine) 20 Mg Tablet 20 Mg PO BID 07/22/17 Reported Proair Hfa Inhaler (Albuterol Sulfate) 8.5 Gm Hfa.aer.ad 2 Puff INH PRN Q6HRS PRN 07/22/17 Reported Aspirin 81 Mg Tab.chew 1 Tab PO DAILY 07/22/17 Reported Gabapentin (Gabapentin) 100 Mg Capsule 100 Mg PO BID 07/22/17 Reported Baclofen 10 Mg Tablet 1 Tab PO TID PRN 04/23/15 Reported Singulair Tablet (Montelukast Sodium) 10 Mg Tablet 1 Tab PO QEVNG 04/23/15 Reported Zyrtec (Cetirizine Hcl) 10 Mg Tablet 1 Tab PO QHS 04/23/15 Reported Xanax (Alprazolam) 0.5 Mg Tablet 1 Tab PO BID 04/23/15 Reported Impression . IMPRESSION: 1. Dyspnea secondary to pneumonia in a patient who has underlying chronic obstructive pulmonary disease and has chronic hypoxic respiratory failure. 2. Abnormal chest x-ray 3. Underlying chronic obstructive pulmonary disease with chronic respiratory failure, on home oxygen at 2 liters. Currently requiring 2.5-3 liters. 4. Leukocytosis secondary to pneumonia. IMPRESSION: 1. There is bronchial wall thickening and mild endobronchial density of the left lower lobe branches, mucous plugging and bronchitis considered more likely than mass. There is very mild peripheral left lower lobe infiltrate near the lung base. There is mild right lower lobe atelectasis. 2. There is fairly severe emphysema. 3. There is no pleural fluid. Plan . PT IMPROVING SLOWLY TREATMENT FOR PNEUMONIA AECOPD 02 STEROID ELMER STANLEY MD Apr 18, 2019 12:13
--- NOTE | 2019-04-18 15:04 | PDOC ---
Infectious Disease Note Subjective Subjective Feeling better starting to get some phlegm up today O2 2.5 L Denies SOA/CP/F/C/S/N/V/D ROS ROS per HPI Vital Sign Vital Signs Vital Signs Date Time Temp Pulse Resp B/P (MAP) Pulse Ox O2 Delivery O2 Flow Rate FiO2 04/18/19 11:27 97 Nasal Cannula 2.0 04/18/19 11:24 98.5 104 18 152/81 (104) 98.5 Physical Exam PHYSICAL EXAM GENERAL: Propped up in bed, alert, watching TV HEENT: Oral cavity clear. + dentures NECK: Supple LUNGS: Improved aeration HEART: S1, S2 ABDOMEN: Soft, nontender. Suprapubic catheter site looks good, nontender, EXTREMITIES: Minimal edema of lower extremity. CENTRAL NERVOUS SYSTEM: Alert and oriented. Chronic memory issues. Labs Lab Laboratory Tests Test 04/17/19 16:31 04/17/19 21:13 04/18/19 07:28 04/18/19 07:45 Glucose (Fingerstick) 156 mg/dL (70-99) 148 mg/dL (70-99) 110 mg/dL (70-99) White Blood Count 9.8 x10^3/uL (4.0-11.0) Red Blood Count 3.97 x10^6/uL (3.50-5.40) Hemoglobin 9.6 g/dL (12.0-15.5) Hematocrit 30.2 % (36.0-47.0) Mean Corpuscular Volume 76 fL (79-100) Mean Corpuscular Hemoglobin 24 pg (25-35) Mean Corpuscular Hemoglobin Concent 32 g/dL (31-37) Red Cell Distribution Width 18.1 % (11.5-14.5) Platelet Count 287 x10^3/uL (140-400) Neutrophils (%) (Auto) 73 % (31-73) Lymphocytes (%) (Auto) 15 % (24-48) Monocytes (%) (Auto) 12 % (0-9) Eosinophils (%) (Auto) 0 % (0-3) Basophils (%) (Auto) 0 % (0-3) Neutrophils # (Auto) 7.1 x10^3/uL (1.8-7.7) Lymphocytes # (Auto) 1.4 x10^3/uL (1.0-4.8) Monocytes # (Auto) 1.2 x10^3/uL (0.0-1.1) Eosinophils # (Auto) 0.0 x10^3/uL (0.0-0.7) Basophils # (Auto) 0.0 x10^3/uL (0.0-0.2) Sodium Level 139 mmol/L (136-145) Potassium Level 4.1 mmol/L (3.5-5.1) Chloride Level 102 mmol/L (98-107) Carbon Dioxide Level 30 mmol/L (21-32) Anion Gap 7 (6-14) Blood Urea Nitrogen 23 mg/dL (7-20) Creatinine 0.6 mg/dL (0.6-1.0) Estimated GFR (Cockcroft-Gault) 97.5 Glucose Level 107 mg/dL (70-99) Calcium Level 8.6 mg/dL (8.5-10.1) Test 04/18/19 12:08 Glucose (Fingerstick) 120 mg/dL (70-99) Micro Microbiology 04/15/19 Blood Culture - Preliminary, Resulted NO GROWTH AFTER 2 DAYS URINE CULTURE RES 1 Final Comment Mixed urogenital alexis Objective Assessment Fever.source likely pulmonary and or gu Leukocytosis - better Right lung infiltrate. Dyspnea secondary to pneumonia in patient with underlying COPD and has chronic hypoxic respiratory failure, on home O2 2L. Pyuria with a suprapubic catheter in place, which was changed 04/15 with history of Pseudomonas in the urine, resistant to Levaquin. History of renal stone. Plan Plan of Care Continue empiric Levaquin and Zosyn Cultures neg to date Supportive care Patient seen and examined. Chart reviewed in detail. Case discussed with SUEDING AND BUFFING MACHINE OPERATOR. Agree with above plan. KARNE TANG APRN Apr 18, 2019 15:04 SIMON SNELL MD Apr 18, 2019 20:37
[2019-04-18 15:45] VITALS: BP 132/60
[2019-04-18] MEDS: MONTELUKAST SODIUM 10 MG TABLET. PO SCH (18:29)
[2019-04-18 19:32] VITALS: BP 151/81
[2019-04-18] MEDS: SIMVASTATIN 10 MG TABLET PO SCH (19:41)
[2019-04-18] MEDS: CETIRIZINE HCL 10 MG TABLET. PO SCH (19:42)
[2019-04-18] MEDS: HEPARIN for SUB-Q USE 5,000 UNIT/ML VIAL. SQ SCH (19:49)
[2019-04-18] MEDS: ACETAMINOPHEN 325 MG TABLET. PO PRN (20:39)
[2019-04-18] MEDS ORDERED: ALBUTEROL SULFATE 2.5 MG/3 ML NEBU. NEB PRN (20:45)
[2019-04-18 23:23] VITALS: BP 129/70
[2019-04-19] MEDS: PIPERACILLIN/TAZOBACTAM 3.375 GM in IV NORMAL SALINE 50ML 50 ML IV SCH ×5 (00:29→23:52)
[2019-04-19 03:00] VITALS: BP 142/68
[2019-04-19 07:20] VITALS: BP 166/75
[2019-04-19] MEDS: BUDESONIDE 0.5 MG/2 ML NEBU. NEB SCH ×2 (07:36→19:28)
[2019-04-19] MEDS: IPRATRPIUM/ALBUTEROL 0.5/2.5MG 3 ML NEBU. NEB SCH ×4 (07:36→19:28)
--- NOTE | 2019-04-19 08:53 | PDOC ---
Infectious Disease Note Subjective Subjective Anxiety attach last night, feeling better this morning Chest little tight No fevers O2 down to 2 L - baseline ROS ROS per HPI Vital Sign Vital Signs Vital Signs Date Time Temp Pulse Resp B/P (MAP) Pulse Ox O2 Delivery O2 Flow Rate FiO2 04/19/19 07:38 97 Nasal Cannula 2.0 04/19/19 07:20 97.5 100 19 166/75 (105) 97.5 Physical Exam PHYSICAL EXAM GENERAL: Propped up in bed, alert, watching TV HEENT: Oral cavity clear. + dentures NECK: Supple LUNGS: Diminished aeration, nonlabored HEART: S1, S2 ABDOMEN: Soft, nontender. Suprapubic catheter site looks good, nontender, EXTREMITIES: Minimal edema of lower extremity. OIL PROCESSING TECHNICIAN: Alert and oriented. Chronic memory issues. PIV Labs Lab Laboratory Tests Test 04/18/19 12:08 04/18/19 16:57 04/18/19 20:54 04/19/19 07:13 Glucose (Fingerstick) 120 mg/dL (70-99) 182 mg/dL (70-99) 214 mg/dL (70-99) 92 mg/dL (70-99) Micro Microbiology 04/15/19 Blood Culture - Preliminary, Resulted NO GROWTH AFTER 3 DAYS URINE CULTURE RES 1 Final Comment Mixed urogenital alexis Objective Assessment Fever.source likely pulmonary and or gu - better Leukocytosis - better Right lung infiltrate. Dyspnea secondary to pneumonia in patient with underlying COPD and has chronic hypoxic respiratory failure, on home O2 2L. Pyuria with a suprapubic catheter in place, which was changed 04/15 with history of Pseudomonas in the urine, resistant to Levaquin. History of renal stone. Plan Plan of Care Continue empiric Levaquin and Zosyn Cultures neg to date Supportive care Patient seen and examined. Chart reviewed in detail. Case discussed with FRONT COUNTER ATTENDANT. Agree with above plan. KAREN TANG APRN Apr 19, 2019 08:53 SIMON SNELL MD Apr 19, 2019 16:39
[2019-04-19] MEDS: ALPRAZolam 0.5 MG TABLET PO SCH ×3 (09:34→20:23)
[2019-04-19] MEDS: FLUTICASONE 50MCG/NASAL SPRAY 16GM BOTTLE. NS SCH ×2 (09:39→20:24)
[2019-04-19] MEDS: LISINOPRIL 20 MG TABLET PO SCH (09:40)
--- NOTE | 2019-04-19 09:42 | PDOC ---
PULMONARY PROGRESS NOTES Subjective PT THIS AM HAD A TOUGH TIME BREATHING NOW BETTER Vitals Vital Signs Date Time Temp Pulse Resp B/P (MAP) Pulse Ox O2 Delivery O2 Flow Rate FiO2 04/19/19 07:38 97 Nasal Cannula 2.0 04/19/19 07:20 97.5 100 19 166/75 (105) 97.5 ROS: No Nausea, No Chest Pain, No Abdominal Pain, No Increase Cough General: Alert, No acute distress HEENT: Other Lungs: Wheezing Cardiovascular: S1, S2 Abdomen: Soft Extremities: No Edema Labs Laboratory Tests Test 04/17/19 11:56 04/17/19 16:31 04/17/19 21:13 04/18/19 07:28 Glucose (Fingerstick) 137 mg/dL (70-99) 156 mg/dL (70-99) 148 mg/dL (70-99) White Blood Count 9.8 x10^3/uL (4.0-11.0) Red Blood Count 3.97 x10^6/uL (3.50-5.40) Hemoglobin 9.6 g/dL (12.0-15.5) Hematocrit 30.2 % (36.0-47.0) Mean Corpuscular Volume 76 fL (79-100) Mean Corpuscular Hemoglobin 24 pg (25-35) Mean Corpuscular Hemoglobin Concent 32 g/dL (31-37) Red Cell Distribution Width 18.1 % (11.5-14.5) Platelet Count 287 x10^3/uL (140-400) Neutrophils (%) (Auto) 73 % (31-73) Lymphocytes (%) (Auto) 15 % (24-48) Monocytes (%) (Auto) 12 % (0-9) Eosinophils (%) (Auto) 0 % (0-3) Basophils (%) (Auto) 0 % (0-3) Neutrophils # (Auto) 7.1 x10^3/uL (1.8-7.7) Lymphocytes # (Auto) 1.4 x10^3/uL (1.0-4.8) Monocytes # (Auto) 1.2 x10^3/uL (0.0-1.1) Eosinophils # (Auto) 0.0 x10^3/uL (0.0-0.7) Basophils # (Auto) 0.0 x10^3/uL (0.0-0.2) Sodium Level 139 mmol/L (136-145) Potassium Level 4.1 mmol/L (3.5-5.1) Chloride Level 102 mmol/L (98-107) Carbon Dioxide Level 30 mmol/L (21-32) Anion Gap 7 (6-14) Blood Urea Nitrogen 23 mg/dL (7-20) Creatinine 0.6 mg/dL (0.6-1.0) Estimated GFR (Cockcroft-Gault) 97.5 Glucose Level 107 mg/dL (70-99) Calcium Level 8.6 mg/dL (8.5-10.1) Test 04/18/19 07:45 04/18/19 12:08 04/18/19 16:57 04/18/19 20:54 Glucose (Fingerstick) 110 mg/dL (70-99) 120 mg/dL (70-99) 182 mg/dL (70-99) 214 mg/dL (70-99) Test 04/19/19 07:13 Glucose (Fingerstick) 92 mg/dL (70-99) Laboratory Tests Test 04/18/19 12:08 04/18/19 16:57 04/18/19 20:54 04/19/19 07:13 Glucose (Fingerstick) 120 mg/dL (70-99) 182 mg/dL (70-99) 214 mg/dL (70-99) 92 mg/dL (70-99) Medications Active Scripts Medications Dose Route/Sig Max Daily Dose Days Date Category Daliresp (Roflumilast) 500 Mcg Tablet 1 Tab PO DAILY 03/03/19 Reported Lisinopril 20 Mg Tablet 1 Tab PO DAILY 03/03/19 Reported Albuterol Sulfate Neb Soln (Albuterol Sulfate) 1.25 Mg/3 Ml Vial.neb 1 Vial NEB Q6HRS 03/03/19 Reported Senna-Time S Tablet (Sennosides/Docusate Sodium) 1 Each Tablet 2 Tab PO PRN DAILY PRN 30 11/03/18 Rx Mucinex (Guaifenesin) 1,200 Mg Tbmp.12hr 1 Tab PO BID 10/30/18 Reported Tylenol (Acetaminophen) 325 Mg Tablet 650 Mg PO PRN Q6HRS PRN 30 09/22/18 Rx Spiriva (Tiotropium [place]) 18 Mcg Cap.w.dev 1 Cap IH DAILY 08/15/18 Reported Alendronate Sodium 70 Mg Tablet 1 Tab PO WEEKLY 08/15/18 Reported Symbicort 160-4.5 Mcg Inhaler (Budesonide/Formoterol Fumarate) 10.2 Gm Hfa.aer.ad 2 Puff IH BID 01/06/18 Rx Duoneb 0.5-3(2.5) Mg/3 Ml (Albuterol/Ipratropium) 3 Ml Ampul.neb 3 Ml NEB RTQID 10/23/17 Rx Flonase Allergy Relief (Fluticasone Propionate) 9.9 Ml [place].susp 2 Sprays NS BID 10/20/17 Reported Simvastatin 10 Mg Tablet 1 Tab PO QHS 07/22/17 Reported Pepcid (Famotidine) 20 Mg Tablet 20 Mg PO BID 07/22/17 Reported Proair Hfa Inhaler (Albuterol Sulfate) 8.5 Gm Hfa.aer.ad 2 Puff INH PRN Q6HRS PRN 07/22/17 Reported Aspirin 81 Mg Tab.chew 1 Tab PO DAILY 07/22/17 Reported Gabapentin (Gabapentin) 100 Mg Capsule 100 Mg PO BID 07/22/17 Reported Baclofen 10 Mg Tablet 1 Tab PO TID PRN 04/23/15 Reported Singulair Tablet (Montelukast Sodium) 10 Mg Tablet 1 Tab PO QEVNG 04/23/15 Reported Zyrtec (Cetirizine Hcl) 10 Mg Tablet 1 Tab PO QHS 04/23/15 Reported Xanax (Alprazolam) 0.5 Mg Tablet 1 Tab PO BID 04/23/15 Reported Impression . IMPRESSION: 1. Dyspnea secondary to pneumonia in a patient who has underlying chronic obstructive pulmonary disease and has chronic hypoxic respiratory failure. 2. Abnormal chest x-ray 3. Underlying chronic obstructive pulmonary disease with chronic respiratory failure, on home oxygen at 2 liters. Currently requiring 2.5-3 liters. 4. Leukocytosis secondary to pneumonia. IMPRESSION: 1. There is bronchial wall thickening and mild endobronchial density of the left lower lobe branches, mucous plugging and bronchitis considered more likely than mass. There is very mild peripheral left lower lobe infiltrate near the lung base. There is mild right lower lobe atelectasis. 2. There is fairly severe emphysema. 3. There is no pleural fluid. Plan . MAY NEED SNU WILL CONTINUE THE SAME PT IMPROVING SLOWLY TREATMENT FOR PNEUMONIA AECOPD 02 STEROID ELMER STANLEY MD Apr 19, 2019 09:42
[2019-04-19] MEDS: LACTOBACILLUS RHAMNOSUS GG 1 CAPSULE. PO SCH ×2 (09:43→20:24)
[2019-04-19] MEDS: methylPREDNISolone SOD SUCC PF 40 MG/ML VIAL. IV SCH (09:44)
[2019-04-19] MEDS: ROFLUMILAST 500 MCG TABLET. PO SCH (09:44)
[2019-04-19] MEDS: FAMOTIDINE 20 MG TABLET. PO SCH (09:46)
[2019-04-19] MEDS: GABAPENTIN 100 MG CAPSULE. PO SCH ×2 (09:46→20:24)
[2019-04-19] MEDS: ASPIRIN CHEWABLE 81 MG TABLET. PO SCH (09:46)
[2019-04-19] MEDS: HEPARIN for SUB-Q USE 5,000 UNIT/ML VIAL. SQ SCH ×2 (09:56→20:33)
--- NOTE | 2019-04-19 10:36 | PDOC ---
PROGRESS NOTES Subjective Subjective 1 episode of bronchospasm this morning ,hard to breath Objective Objective Vital Signs Date Time Temp Pulse Resp B/P (MAP) Pulse Ox O2 Delivery O2 Flow Rate FiO2 04/19/19 09:58 97 Nasal Cannula 2.0 04/19/19 09:40 100 166/75 04/19/19 07:20 97.5 19 97.5 Intake and Output 04/19/19 07:00 Intake Total 1390 ml Output Total 2350 ml Balance -960 ml Intake Oral 1390 ml Output Urine Total 2350 ml # Bowel Movements 3 Physical Exam Abdomen: Normal bowel sounds Heart: Regular rate Extremities: No clubbing General: Alert HEENT: PERRLA Lungs: Other (wheezing severe) MUSCULOSKELETAL: No joint tenderness, No deformity, No swelling Neck: Supple Neuro: Normal speech Assessment Assessment *Severe bronchospasm, bronchitis 1. Pneumonia. Chest x-ray shows consolidation in the right lower lung. 2. Acute exacerbation of chronic obstructive pulmonary disease. 3. Acute on chronic respiratory failure, hypoxic and hypercarbic. 4. Osteoarthritis. 5. Diabetes mellitus type 2 with neuropathy, diet controlled. 6. Chronic bronchitis. 7. Hypertension. 8. Chronic pain. 9. Cognitive deficits. 10. Physical deconditioning. 11. Possible urinary tract infection; however, this could be contaminated as the patient has a suprapubic catheter. PLAN: inc solumedrol to 60 mg tid. add Mucomyst to duoneb inc duoneb frequency spoke with RT. levaquin+zosyn CT chest , mucous plug+bronchial thickening labs ok pt/ot Duoneb urne c/s mixed. poor prognosis Comment Review of Relevant I have reviewed the following items ayo (where applicable) has been applied. Labs Laboratory Tests Test 04/18/19 12:08 04/18/19 16:57 04/18/19 20:54 04/19/19 07:13 Glucose (Fingerstick) 120 mg/dL (70-99) 182 mg/dL (70-99) 214 mg/dL (70-99) 92 mg/dL (70-99) Microbiology 04/15/19 Blood Culture - Preliminary, Resulted NO GROWTH AFTER 3 DAYS 04/15/19 Urine Culture - Final, Complete 04/15/19 Urine Culture Result 1 (RADHA) - Final, Complete Medications Current Medications Albuterol Sulfate (Ventolin Neb Soln) 2.5 mg PRN Q2HRS PRN NEB SHORTNESS OF BREATH Last administered on 04/19/19at 09:58; Start 04/18/19 at 20:45 Non-Formulary Medication (Alendronate Sodium ) 1 tab WEEKLY PO ; Start 04/23/19 at 09:00; Status UNV Vitals/I & O Vital Sign - Last 24 Hours 04/18/19 04/18/19 04/18/19 04/18/19 11:24 11:27 15:39 15:45 Temp 98.5 98.4 98.5 98.4 Pulse 104 85 Resp 18 18 B/P (MAP) 152/81 (104) 132/60 (84) Pulse Ox 95 97 97 99 O2 Delivery Nasal Cannula Nasal Cannula Nasal Cannula Nasal Cannula O2 Flow Rate 3.0 2.0 2.0 3.0 04/18/19 04/18/19 04/18/19 04/18/19 19:32 19:50 20:00 23:23 Temp 98.4 98.6 98.4 98.6 Pulse 99 91 Resp 18 B/P (MAP) 151/81 (104) 129/70 (89) Pulse Ox 97 97 97 O2 Delivery Nasal Cannula Nasal Cannula Nasal Cannula Nasal Cannula O2 Flow Rate 3.0 2.0 3.0 3.0 04/19/19 04/19/19 04/19/19 04/19/19 03:00 07:20 07:38 09:40 Temp 98.7 97.5 98.7 97.5 Pulse 69 100 100 Resp 20 19 B/P (MAP) 142/68 (92) 166/75 (105) 166/75 Pulse Ox 98 97 97 O2 Delivery Nasal Cannula Nasal Cannula Nasal Cannula O2 Flow Rate 3.0 3.0 2.0 04/19/19 09:58 Pulse Ox 97 O2 Delivery Nasal Cannula O2 Flow Rate 2.0 Intake and Output 04/18/19 04/18/19 04/19/19 15:00 23:00 07:00 Intake Total 760 ml 450 ml 180 ml Output Total 500 ml 1850 ml Balance 760 ml -50 ml -1670 ml NIXON HOU MD Apr 19, 2019 10:36
[2019-04-19] MEDS ORDERED: ALBUTEROL SULFATE 2.5 MG/3 ML NEBU. NEB PRN (10:45)
[2019-04-19 10:55] VITALS: BP 142/82
[2019-04-19] MEDS: CYCLOBENZAPRINE 10 MG TABLET. PO PRN ×2 (11:00→20:22)
[2019-04-19] MEDS: ACETYLCYSTEINE 20% NEB SCH ×2 (11:33→15:44)
[2019-04-19] MEDS: [UNRECOGNIZED DRUG - OTHER] NEB SCH ×2 (11:33→15:44)
[2019-04-19] MEDS: methylPREDNISolone SOD SUCC PF 125 MG/2 ML VIAL. IV SCH ×2 (13:35→20:23)
[2019-04-19 15:14] VITALS: BP 119/63
[2019-04-19] MEDS: MONTELUKAST SODIUM 10 MG TABLET. PO SCH (17:38)
[2019-04-19 19:41] VITALS: BP 118/59
[2019-04-19] MEDS: SIMVASTATIN 10 MG TABLET PO SCH (20:23)
[2019-04-19] MEDS: CETIRIZINE HCL 10 MG TABLET. PO SCH (20:23)
[2019-04-19 23:23] VITALS: BP 110/67
[2019-04-20 03:42] VITALS: BP 127/60
[2019-04-20] MEDS: PIPERACILLIN/TAZOBACTAM 3.375 GM in IV NORMAL SALINE 50ML 50 ML IV SCH ×2 (05:20→11:47)
[2019-04-20 07:00] VITALS: BP 150/71
[2019-04-20] MEDS: BUDESONIDE 0.5 MG/2 ML NEBU. NEB SCH ×2 (07:23→20:14)
[2019-04-20] MEDS: IPRATRPIUM/ALBUTEROL 0.5/2.5MG 3 ML NEBU. NEB SCH ×5 (07:23→23:09)
[2019-04-20] MEDS: ACETYLCYSTEINE 20% NEB SCH ×2 (07:45→20:00)
[2019-04-20] MEDS: [UNRECOGNIZED DRUG - OTHER] NEB SCH ×2 (07:45→20:00)
[2019-04-20] MEDS: ALPRAZolam 0.5 MG TABLET PO SCH ×3 (08:13→21:15)
[2019-04-20] MEDS: FLUTICASONE 50MCG/NASAL SPRAY 16GM BOTTLE. NS SCH ×2 (08:13→21:15)
[2019-04-20] MEDS: methylPREDNISolone SOD SUCC PF 125 MG/2 ML VIAL. IV SCH ×2 (08:13→13:41)
[2019-04-20] MEDS: LACTOBACILLUS RHAMNOSUS GG 1 CAPSULE. PO SCH ×2 (08:13→21:16)
[2019-04-20] MEDS: GABAPENTIN 100 MG CAPSULE. PO SCH ×2 (08:14→21:17)
[2019-04-20] MEDS: FAMOTIDINE 20 MG TABLET. PO SCH (08:14)
[2019-04-20] MEDS: LISINOPRIL 20 MG TABLET PO SCH (08:14)
[2019-04-20] MEDS: ROFLUMILAST 500 MCG TABLET. PO SCH (08:14)
[2019-04-20] MEDS: ASPIRIN CHEWABLE 81 MG TABLET. PO SCH (08:15)
[2019-04-20] MEDS: HEPARIN for SUB-Q USE 5,000 UNIT/ML VIAL. SQ SCH ×2 (08:26→21:00)
--- NOTE | 2019-04-20 08:37 | NUR ---
SW following pt. PT/OT recommends home with home health/assistance. SW will arrange HH if ordered by Physician.
--- NOTE | 2019-04-20 08:42 | PDOC ---
PULMONARY PROGRESS NOTES Subjective BETTER TODAY LESS SOA Vitals Vital Signs Date Time Temp Pulse Resp B/P (MAP) Pulse Ox O2 Delivery O2 Flow Rate FiO2 04/20/19 08:14 91 150/71 04/20/19 07:24 100 Nasal Cannula 2.0 04/20/19 03:42 97.4 20 97.4 ROS: No Nausea, No Chest Pain, No Abdominal Pain, No Increase Cough General: Alert, No acute distress HEENT: Other Lungs: Wheezing Cardiovascular: S1, S2 Abdomen: Soft Extremities: No Edema Labs Laboratory Tests Test 04/18/19 12:08 04/18/19 16:57 04/18/19 20:54 04/19/19 07:13 Glucose (Fingerstick) 120 mg/dL (70-99) 182 mg/dL (70-99) 214 mg/dL (70-99) 92 mg/dL (70-99) Test 04/19/19 11:23 04/19/19 16:33 04/19/19 20:30 Glucose (Fingerstick) 99 mg/dL (70-99) 155 mg/dL (70-99) 183 mg/dL (70-99) Laboratory Tests Test 04/19/19 11:23 04/19/19 16:33 04/19/19 20:30 Glucose (Fingerstick) 99 mg/dL (70-99) 155 mg/dL (70-99) 183 mg/dL (70-99) Medications Active Scripts Medications Dose Route/Sig Max Daily Dose Days Date Category Daliresp (Roflumilast) 500 Mcg Tablet 1 Tab PO DAILY 03/03/19 Reported Lisinopril 20 Mg Tablet 1 Tab PO DAILY 03/03/19 Reported Albuterol Sulfate Neb Soln (Albuterol Sulfate) 1.25 Mg/3 Ml Vial.neb 1 Vial NEB Q6HRS 03/03/19 Reported Senna-Time S Tablet (Sennosides/Docusate Sodium) 1 Each Tablet 2 Tab PO PRN DAILY PRN 30 11/03/18 Rx Mucinex (Guaifenesin) 1,200 Mg Tbmp.12hr 1 Tab PO BID 10/30/18 Reported Tylenol (Acetaminophen) 325 Mg Tablet 650 Mg PO PRN Q6HRS PRN 30 09/22/18 Rx Spiriva (Tiotropium [place]) 18 Mcg Cap.w.dev 1 Cap IH DAILY 11/30/18 Reported Alendronate Sodium 70 Mg Tablet 1 Tab PO WEEKLY 08/15/18 Reported Symbicort 160-4.5 Mcg Inhaler (Budesonide/Formoterol Fumarate) 10.2 Gm Hfa.aer.ad 2 Puff IH BID 01/06/18 Rx Duoneb 0.5-3(2.5) Mg/3 Ml (Albuterol/Ipratropium) 3 Ml Ampul.neb 3 Ml NEB RTQID 10/23/17 Rx Flonase Allergy Relief (Fluticasone Propionate) 9.9 Ml [place].susp 2 Sprays NS BID 10/20/17 Reported Simvastatin 10 Mg Tablet 1 Tab PO QHS 07/22/17 Reported Pepcid (Famotidine) 20 Mg Tablet 20 Mg PO BID 07/22/17 Reported Proair Hfa Inhaler (Albuterol Sulfate) 8.5 Gm Hfa.aer.ad 2 Puff INH PRN Q6HRS PRN 07/22/17 Reported Aspirin 81 Mg Tab.chew 1 Tab PO DAILY 07/22/17 Reported Gabapentin (Gabapentin) 100 Mg Capsule 100 Mg PO BID 07/22/17 Reported Baclofen 10 Mg Tablet 1 Tab PO TID PRN 04/23/15 Reported Singulair Tablet (Montelukast Sodium) 10 Mg Tablet 1 Tab PO QEVNG 04/23/15 Reported Zyrtec (Cetirizine Hcl) 10 Mg Tablet 1 Tab PO QHS 04/23/15 Reported Xanax (Alprazolam) 0.5 Mg Tablet 1 Tab PO BID 04/23/15 Reported Impression . IMPRESSION: 1. Dyspnea secondary to pneumonia in a patient who has underlying chronic obstructive pulmonary disease and has chronic hypoxic respiratory failure. 2. Abnormal chest x-ray 3. Underlying chronic obstructive pulmonary disease with chronic respiratory failure, on home oxygen at 2 liters. Currently requiring 2.5-3 liters. 4. Leukocytosis secondary to pneumonia. IMPRESSION: 1. There is bronchial wall thickening and mild endobronchial density of the left lower lobe branches, mucous plugging and bronchitis considered more likely than mass. There is very mild peripheral left lower lobe infiltrate near the lung base. There is mild right lower lobe atelectasis. 2. There is fairly severe emphysema. 3. There is no pleural fluid. Plan . WILL D/W DR COLEY MAY NEED SNU WILL CONTINUE THE SAME PT IMPROVING SLOWLY TREATMENT FOR PNEUMONIA AECOPD 02 STEROID ELMER STANLEY MD Apr 20, 2019 08:42
[2019-04-20] MEDS: ACETAMINOPHEN 325 MG TABLET. PO PRN ×2 (09:14→21:16)
--- NOTE | 2019-04-20 09:43 | PDOC ---
Infectious Disease Note Subjective Subjective Breathing better, less anxious but has a headache No fevers/chills O2 down to 2 L - baseline ROS ROS per HPI Vital Sign Vital Signs Vital Signs Date Time Temp Pulse Resp B/P (MAP) Pulse Ox O2 Delivery O2 Flow Rate FiO2 04/20/19 08:14 91 150/71 04/20/19 08:00 Nasal Cannula 2.0 04/20/19 07:24 100 04/20/19 03:42 97.4 20 97.4 Physical Exam PHYSICAL EXAM GENERAL: Propped up in bed, alert, watching TV HEENT: Oral cavity clear. + dentures NECK: Supple LUNGS: Diminished aeration, nonlabored HEART: S1, S2 ABDOMEN: Soft, nontender. Suprapubic catheter site looks good, nontender, EXTREMITIES: Minimal edema of lower extremity. 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 Dyspnea secondary to pneumonia in patient with underlying COPD and has chronic hypoxic respiratory failure, on home O2 2L. Pyuria with a suprapubic catheter in place, which was changed 04/15 with history of Pseudomonas in the urine, resistant to Levaquin. History of renal stone. Plan Plan of Care Discontinue empiric Levaquin and Zosyn (since 04/16) begin Cefdinir Cultures neg to date Supportive care Attending Co-Sign Attending Co-Sign The patient was seen and interviewed as well as examined at the bedside. The chart was reviewed. The case was discussed. Agree with the plan of care. KAREN TANG APRN Apr 20, 2019 09:43 CONNOR MCFADDEN MD Apr 20, 2019 15:09
--- NOTE | 2019-04-20 10:48 | PDOC ---
IM PROGRESS NOTES- Subjective Subjective Has dyspnea cough and congestion.C/o insomnia.Feeling slightly better. Objective Vitals/I&O Vital Signs Date Time Temp Pulse Resp B/P (MAP) Pulse Ox O2 Delivery O2 Flow Rate FiO2 04/20/19 08:14 91 150/71 04/20/19 08:00 Nasal Cannula 2.0 04/20/19 07:24 100 04/20/19 07:00 98.2 16 98.2 I & O 04/19/19 04/19/19 04/20/19 15:00 23:00 07:00 Intake Total 720 ml 480 ml 310 ml Output Total 1400 ml 650 ml 750 ml Balance -680 ml -170 ml -440 ml Physical Exam Physical Exam GENERAL: The patient is an elderly female who is alert, oriented, in moderate respiratory distress, on oxygen by nasal cannula. EYES: Pupils reacting to light. Conjunctivae pale. Sclerae muddy. HENT: Throat congested. NECK: Supple. JVP normal. No thyromegaly. Trachea midline. LUNGS: decreased wheezing, tachypnea present. ABDOMEN: Soft, nontender. No guarding, no rigidity. CARDIOVASCULAR: S1, S2 regular. Tachycardia present. EXTREMITIES: No edema, no cyanosis. No calf tenderness. CENTRAL NERVOUS SYSTEM: Alert and oriented. Generalized weakness. Some cognitive deficits. Labs Laboratory Tests Test 04/19/19 11:23 04/19/19 16:33 04/19/19 20:30 04/20/19 08:19 Glucose (Fingerstick) 99 mg/dL (70-99) 155 mg/dL (70-99) H 183 mg/dL (70-99) H 113 mg/dL (70-99) H Meds Current Medications Medications (Trade) Dose Ordered Sig/Geovanny Route PRN Reason Start Time Stop Time Status Last Admin Dose Admin Alprazolam (Xanax) 0.5 mg TID PO 04/19/19 14:00 04/20/19 08:13 Methylprednisolone Sodium Succinate (SOLU-Medrol 125MG VIAL) 60 mg TID IV 04/19/19 14:00 04/20/19 08:13 Albuterol/ Ipratropium (Duoneb) 3 ml Q4HRS W/A NEB 04/19/19 14:00 04/20/19 07:23 Acetylcysteine (Mucomyst 20% Resp Treatment) 600 mg RTBID NEB 04/19/19 12:00 04/20/19 07:45 Assessment Assessment *Severe bronchospasm, bronchitis 1. Pneumonia. Chest x-ray shows consolidation in the right lower lung. 2. Acute exacerbation of chronic obstructive pulmonary disease. 3. Acute on chronic respiratory failure, hypoxic and hypercarbic. 4. Osteoarthritis. 5. Diabetes mellitus type 2 with neuropathy, diet controlled. 6. Chronic bronchitis. 7. Hypertension. 8. Chronic pain. 9. Cognitive deficits. 10. Physical deconditioning. 11. Possible urinary tract infection; however, this could be contaminated as the patient has a suprapubic catheter. PLAN: spoke with RT. levaquin+zosyn CT chest , mucous plug+bronchial thickening labs ok pt/ot Duoneb urne c/s mixed. poor prognosis For details, please refer to the orders. Start her on IV antibiotics. The patient is on Rocephin and Zithromax. Consultation has been obtained with Dr. Cisneros and then also Dr. Lott for Infectious Disease evaluation and Pulmonary evaluation and management. The patient has been started on her home medications. For details, please refer to the orders. She was given 1 dose of steroids yesterday. She is actually on ceftriaxone and Levaquin at this time. Prognosis of this patient is very poor. For details, please refer to the orders. Acute on chronic hypoxic and hypercarbic respiratory failure- continue oxygen by nasal cannula Pneumonia- continue IV Rocephin and Levaquin. WBC count is improving. Rocephin,Zithromax stopped. Antibiotics changed to Levaquin and Zosyn. Exacerbation of COPD- continue IV steroids and breathing treatment Decrease solumedrol to 60 mg bid. add Mucomyst to duoneb inc duoneb frequency Anemia- monitor. Hypotension- IV fluids hold the blood pressure medicine. Continue telemetry. Plan Plan For more details regarding further plans, please refer to the orders. MARIANELA COLEY MD Apr 20, 2019 10:48
[2019-04-20 11:00] VITALS: BP 126/57
[2019-04-20 11:54] LABS: BASO % 0 % (0-3); EOS % 0 % (0-3); HEMATOCRIT 31.5 % (36.0-47.0); LYMPH # 0.7 x10^3/uL (1.0-4.8); LYMPH % 11 % (24-48); MEAN CORPUSCULAR HEMOGLOBIN 24 pg (25-35); MEAN CORPUSCULAR HGB CONC 32 g/dL (31-37); MEAN CORPUSCULAR VOLUME 76 fL (79-100); MONO # 0.4 x10^3/uL (0.0-1.1); MONO % 6 % (0-9); NEUT # 5.5 x10^3/uL (1.8-7.7); NEUT % 83 % (31-73); PLATELET COUNT 286 x10^3/uL (140-400); RED BLOOD COUNT 4.15 x10^6/uL (3.50-5.40); WHITE BLOOD COUNT 6.6 x10^3/uL (4.0-11.0)
[2019-04-20 12:00] LABS: CREATININE 0.8 mg/dL (0.6-1.0); GFR 69.9; POTASSIUM 3.9 mmol/L (3.5-5.1)
[2019-04-20 15:00] VITALS: BP 126/69
[2019-04-20 19:00] VITALS: BP 126/66
[2019-04-20] MEDS: MONTELUKAST SODIUM 10 MG TABLET. PO SCH (21:15)
[2019-04-20] MEDS: CEFDINIR 300 MG CAPSULE PO SCH (21:15)
[2019-04-20] MEDS ORDERED: ZOLPIDEM 5 MG TABLET. PO PRN (21:15)
[2019-04-20] MEDS: CYCLOBENZAPRINE 10 MG TABLET. PO PRN (21:16)
[2019-04-20] MEDS: CETIRIZINE HCL 10 MG TABLET. PO SCH (21:16)
[2019-04-20] MEDS: SIMVASTATIN 10 MG TABLET PO SCH (21:17)
[2019-04-20 23:49] VITALS: BP 135/84
[2019-04-21 03:02] VITALS: BP 145/65
[2019-04-21 07:00] VITALS: BP 146/99
[2019-04-21] MEDS: IPRATRPIUM/ALBUTEROL 0.5/2.5MG 3 ML NEBU. NEB SCH ×3 (07:00→15:09)
[2019-04-21] MEDS: BUDESONIDE 0.5 MG/2 ML NEBU. NEB SCH (07:01)
[2019-04-21 07:52] LABS: CALCIUM 9.6 mg/dL (8.5-10.1); CREATININE 0.7 mg/dL (0.6-1.0); GFR 81.6; POTASSIUM 3.8 mmol/L (3.5-5.1)
[2019-04-21] MEDS: [UNRECOGNIZED DRUG - OTHER] NEB SCH (08:00)
[2019-04-21] MEDS: ACETYLCYSTEINE 20% NEB SCH (08:00)
[2019-04-21 08:10] LABS: BASO % 0 % (0-3); EOS % 0 % (0-3); HEMATOCRIT 32.1 % (36.0-47.0); HEMOGLOBIN 10.2 g/dL (12.0-15.5); LYMPH # 1.5 x10^3/uL (1.0-4.8); LYMPH % 18 % (24-48); MEAN CORPUSCULAR HEMOGLOBIN 24 pg (25-35); MEAN CORPUSCULAR HGB CONC 32 g/dL (31-37); MEAN CORPUSCULAR VOLUME 76 fL (79-100); MONO # 1.2 x10^3/uL (0.0-1.1); MONO % 13 % (0-9); NEUT # 6.1 x10^3/uL (1.8-7.7); NEUT % 69 % (31-73); PLATELET COUNT 336 x10^3/uL (140-400); RED BLOOD COUNT 4.23 x10^6/uL (3.50-5.40); RED CELL DISTRIBUTION WIDTH 18.3 % (11.5-14.5); WHITE BLOOD COUNT 8.8 x10^3/uL (4.0-11.0)
[2019-04-21] MEDS: FLUTICASONE 50MCG/NASAL SPRAY 16GM BOTTLE. NS SCH (08:32)
[2019-04-21] MEDS: ROFLUMILAST 500 MCG TABLET. PO SCH (08:32)
[2019-04-21] MEDS: methylPREDNISolone SOD SUCC PF 125 MG/2 ML VIAL. IV SCH (08:32)
[2019-04-21] MEDS: ASPIRIN CHEWABLE 81 MG TABLET. PO SCH (08:33)
[2019-04-21] MEDS: CEFDINIR 300 MG CAPSULE PO SCH (08:33)
[2019-04-21] MEDS: LACTOBACILLUS RHAMNOSUS GG 1 CAPSULE. PO SCH (08:34)
[2019-04-21] MEDS: ALPRAZolam 0.5 MG TABLET PO SCH (08:34)
[2019-04-21] MEDS: FAMOTIDINE 20 MG TABLET. PO SCH (08:34)
[2019-04-21] MEDS: GABAPENTIN 100 MG CAPSULE. PO SCH (08:34)
[2019-04-21] MEDS: LISINOPRIL 20 MG TABLET PO SCH (08:36)
[2019-04-21] MEDS: HEPARIN for SUB-Q USE 5,000 UNIT/ML VIAL. SQ SCH (09:00)
--- NOTE | 2019-04-21 09:42 | PDOC ---
PROGRESS NOTES Subjective Subjective feels good ,want to go home Objective Objective Vital Signs Date Time Temp Pulse Resp B/P (MAP) Pulse Ox O2 Delivery O2 Flow Rate FiO2 04/21/19 08:36 81 146/99 04/21/19 07:01 99 Nasal Cannula 2.0 04/21/19 03:02 98.6 18 98.6 Intake and Output 04/21/19 07:00 Intake Total 1750 ml Output Total 1400 ml Balance 350 ml Intake Oral 1750 ml Output Urine Total 1400 ml # Bowel Movements 1 Physical Exam Abdomen: Normal bowel sounds Heart: Regular rate Extremities: No clubbing General: Alert HEENT: PERRLA Lungs: Other (wheezing severe) MUSCULOSKELETAL: No joint tenderness, No deformity, No swelling Neck: Supple Neuro: Normal speech Assessment Assessment *Severe bronchospasm, bronchitis 1. Pneumonia. Chest x-ray shows consolidation in the right lower lung. 2. Acute exacerbation of chronic obstructive pulmonary disease. 3. Acute on chronic respiratory failure, hypoxic and hypercarbic. 4. Osteoarthritis. 5. Diabetes mellitus type 2 with neuropathy, diet controlled. 6. Chronic bronchitis. 7. Hypertension. 8. Chronic pain. 9. Cognitive deficits. 10. Physical deconditioning. 11. Possible urinary tract infection; however, this could be contaminated as the patient has a suprapubic catheter. PLAN:d/c home today omnicef+prednisone for 7 days. f/u office in [address] chest , mucous plug+bronchial thickening labs ok pt/ot Nicky resendez c/s mixed. poor prognosis For details, please refer to the orders. Start her on IV antibiotics. The patient is on Rocephin and Zithromax. Consultation has been obtained with Dr. Cisneros and then also Dr. Lott for Infectious Disease evaluation and Pulmonary evaluation and management. The patient has been started on her home medications. For details, please refer to the orders. She was given 1 dose of steroids yesterday. She is actually on ceftriaxone and Levaquin at this time. Prognosis of this patient is very poor. For details, please refer to the orders. Acute on chronic hypoxic and hypercarbic respiratory failure- continue oxygen by nasal cannula Pneumonia- continue IV Rocephin and Levaquin. WBC count is improving. Rocephin,Zithromax stopped. Antibiotics changed to Levaquin and Zosyn. Exacerbation of COPD- continue IV steroids and breathing treatment Decrease solumedrol to 60 mg bid. add Mucomyst to duoneb inc duoneb frequency Anemia- monitor. Hypotension- IV fluids hold the blood pressure medicine. Continue telemetry. Comment Review of Relevant I have reviewed the following items ayo (where applicable) has been applied. Labs Laboratory Tests Test 04/20/19 11:45 04/20/19 11:46 04/20/19 16:59 04/20/19 20:49 White Blood Count 6.6 x10^3/uL (4.0-11.0) Red Blood Count 4.15 x10^6/uL (3.50-5.40) Hemoglobin 10.0 g/dL (12.0-15.5) Hematocrit 31.5 % (36.0-47.0) Mean Corpuscular Volume 76 fL (79-100) Mean Corpuscular Hemoglobin 24 pg (25-35) Mean Corpuscular Hemoglobin Concent 32 g/dL (31-37) Red Cell Distribution Width 18.0 % (11.5-14.5) Platelet Count 286 x10^3/uL (140-400) Neutrophils (%) (Auto) 83 % (31-73) Lymphocytes (%) (Auto) 11 % (24-48) Monocytes (%) (Auto) 6 % (0-9) Eosinophils (%) (Auto) 0 % (0-3) Basophils (%) (Auto) 0 % (0-3) Neutrophils # (Auto) 5.5 x10^3/uL (1.8-7.7) Lymphocytes # (Auto) 0.7 x10^3/uL (1.0-4.8) Monocytes # (Auto) 0.4 x10^3/uL (0.0-1.1) Eosinophils # (Auto) 0.0 x10^3/uL (0.0-0.7) Basophils # (Auto) 0.0 x10^3/uL (0.0-0.2) Sodium Level 139 mmol/L (136-145) Potassium Level 3.9 mmol/L (3.5-5.1) Chloride Level 100 mmol/L (98-107) Carbon Dioxide Level 31 mmol/L (21-32) Anion Gap 8 (6-14) Blood Urea Nitrogen 18 mg/dL (7-20) Creatinine 0.8 mg/dL (0.6-1.0) Estimated GFR (Cockcroft-Gault) 69.9 Glucose Level 141 mg/dL (70-99) Calcium Level 9.0 mg/dL (8.5-10.1) Glucose (Fingerstick) 137 mg/dL (70-99) 176 mg/dL (70-99) 178 mg/dL (70-99) Test 04/21/19 03:05 04/21/19 08:16 White Blood Count 8.8 x10^3/uL (4.0-11.0) Red Blood Count 4.23 x10^6/uL (3.50-5.40) Hemoglobin 10.2 g/dL (12.0-15.5) Hematocrit 32.1 % (36.0-47.0) Mean Corpuscular Volume 76 fL (79-100) Mean Corpuscular Hemoglobin 24 pg (25-35) Mean Corpuscular Hemoglobin Concent 32 g/dL (31-37) Red Cell Distribution Width 18.3 % (11.5-14.5) Platelet Count 336 x10^3/uL (140-400) Neutrophils (%) (Auto) 69 % (31-73) Lymphocytes (%) (Auto) 18 % (24-48) Monocytes (%) (Auto) 13 % (0-9) Eosinophils (%) (Auto) 0 % (0-3) Basophils (%) (Auto) 0 % (0-3) Neutrophils # (Auto) 6.1 x10^3/uL (1.8-7.7) Lymphocytes # (Auto) 1.5 x10^3/uL (1.0-4.8) Monocytes # (Auto) 1.2 x10^3/uL (0.0-1.1) Eosinophils # (Auto) 0.0 x10^3/uL (0.0-0.7) Basophils # (Auto) 0.0 x10^3/uL (0.0-0.2) Sodium Level 141 mmol/L (136-145) Potassium Level 3.8 mmol/L (3.5-5.1) Chloride Level 101 mmol/L (98-107) Carbon Dioxide Level 31 mmol/L (21-32) Anion Gap 9 (6-14) Blood Urea Nitrogen 17 mg/dL (7-20) Creatinine 0.7 mg/dL (0.6-1.0) Estimated GFR (Cockcroft-Gault) 81.6 Glucose Level 86 mg/dL (70-99) Calcium Level 9.6 mg/dL (8.5-10.1) Glucose (Fingerstick) 84 mg/dL (70-99) Microbiology 04/15/19 Urine Culture - Final, Complete 04/15/19 Urine Culture Result 1 (RADHA) - Final, Complete 04/15/19 Blood Culture - Final, Complete NO GROWTH AFTER 5 DAYS Medications Current Medications Cefdinir (Omnicef) 300 mg BID PO Last administered on 04/21/19at 08:36; Start 04/20/19 at 21:00 Methylprednisolone Sodium Succinate (SOLU-Medrol 125MG VIAL) 60 mg BID92 IV Last administered on 04/21/19at 08:36; Start 04/20/19 at 14:00 Non-Formulary Medication (Alendronate Sodium ) 1 tab WEEKLY PO ; Start 04/23/19 at 09:00; Status UNV Zolpidem Tartrate (Ambien) 5 mg PRN QHS PRN PO INSOMNIA Last administered on 04/20/19at 21:15; Start 04/20/19 at 21:15 Vitals/I & O Vital Sign - Last 24 Hours 04/20/19 04/20/19 04/20/19 04/20/19 11:00 15:00 15:21 19:00 Temp 98.1 97.4 98.4 98.1 97.4 98.4 Pulse 76 82 84 Resp 20 16 18 B/P (MAP) 126/57 (80) 126/69 (88) 126/66 (86) Pulse Ox 99 99 99 99 O2 Delivery Nasal Cannula Nasal Cannula Nasal Cannula Nasal Cannula O2 Flow Rate 3.0 3.0 2.0 3.0 04/20/19 04/20/19 04/20/19 04/20/19 20:00 20:16 20:18 20:22 O2 Delivery Nasal Cannula Nasal Cannula Nasal Cannula Nasal Cannula O2 Flow Rate 2.0 2.0 2.0 2.0 04/20/19 04/20/19 04/21/19 04/21/19 23:11 23:49 03:02 07:01 Temp 98.3 98.6 98.3 98.6 Pulse 72 66 Resp 18 18 B/P (MAP) 135/84 (101) 145/65 (91) Pulse Ox 99 99 99 O2 Delivery Nasal Cannula Nasal Cannula Nasal Cannula Nasal Cannula O2 Flow Rate 2.0 3.0 3.0 2.0 04/21/19 08:36 Pulse 81 B/P (MAP) 146/99 Intake and Output 04/20/19 04/20/19 04/21/19 15:00 23:00 07:00 Intake Total 500 ml 600 ml 650 ml Output Total 300 ml 850 ml 250 ml Balance 200 ml -250 ml 400 ml NIXON HOU MD Apr 21, 2019 09:42
[2019-04-21] MEDS ORDERED: CEFD300C PO (09:47)
[2019-04-21] MEDS ORDERED: PRED50TA PO (09:47)
[2019-04-21 11:00] VITALS: BP 134/63
--- NOTE | 2019-04-21 11:29 | PDOC ---
PULMONARY PROGRESS NOTES Subjective NO INCREASE SOA Vitals Vital Signs Date Time Temp Pulse Resp B/P (MAP) Pulse Ox O2 Delivery O2 Flow Rate FiO2 04/21/19 11:18 96 Nasal Cannula 4.5 04/21/19 08:36 81 146/99 04/21/19 07:00 98.5 16 98.5 ROS: No Nausea, No Chest Pain, No Abdominal Pain, No Increase Cough General: Alert, No acute distress HEENT: Other Lungs: Other (decrease bs) Cardiovascular: S1, S2 Abdomen: Soft Neuro Exam: Alert Extremities: No Edema Skin: Warm Labs Laboratory Tests Test 04/19/19 16:33 04/19/19 20:30 04/20/19 08:19 04/20/19 11:45 Glucose (Fingerstick) 155 mg/dL (70-99) 183 mg/dL (70-99) 113 mg/dL (70-99) White Blood Count 6.6 x10^3/uL (4.0-11.0) Red Blood Count 4.15 x10^6/uL (3.50-5.40) Hemoglobin 10.0 g/dL (12.0-15.5) Hematocrit 31.5 % (36.0-47.0) Mean Corpuscular Volume 76 fL (79-100) Mean Corpuscular Hemoglobin 24 pg (25-35) Mean Corpuscular Hemoglobin Concent 32 g/dL (31-37) Red Cell Distribution Width 18.0 % (11.5-14.5) Platelet Count 286 x10^3/uL (140-400) Neutrophils (%) (Auto) 83 % (31-73) Lymphocytes (%) (Auto) 11 % (24-48) Monocytes (%) (Auto) 6 % (0-9) Eosinophils (%) (Auto) 0 % (0-3) Basophils (%) (Auto) 0 % (0-3) Neutrophils # (Auto) 5.5 x10^3/uL (1.8-7.7) Lymphocytes # (Auto) 0.7 x10^3/uL (1.0-4.8) Monocytes # (Auto) 0.4 x10^3/uL (0.0-1.1) Eosinophils # (Auto) 0.0 x10^3/uL (0.0-0.7) Basophils # (Auto) 0.0 x10^3/uL (0.0-0.2) Sodium Level 139 mmol/L (136-145) Potassium Level 3.9 mmol/L (3.5-5.1) Chloride Level 100 mmol/L (98-107) Carbon Dioxide Level 31 mmol/L (21-32) Anion Gap 8 (6-14) Blood Urea Nitrogen 18 mg/dL (7-20) Creatinine 0.8 mg/dL (0.6-1.0) Estimated GFR (Cockcroft-Gault) 69.9 Glucose Level 141 mg/dL (70-99) Calcium Level 9.0 mg/dL (8.5-10.1) Test 04/20/19 11:46 04/20/19 16:59 04/20/19 20:49 04/21/19 03:05 Glucose (Fingerstick) 137 mg/dL (70-99) 176 mg/dL (70-99) 178 mg/dL (70-99) White Blood Count 8.8 x10^3/uL (4.0-11.0) Red Blood Count 4.23 x10^6/uL (3.50-5.40) Hemoglobin 10.2 g/dL (12.0-15.5) Hematocrit 32.1 % (36.0-47.0) Mean Corpuscular Volume 76 fL (79-100) Mean Corpuscular Hemoglobin 24 pg (25-35) Mean Corpuscular Hemoglobin Concent 32 g/dL (31-37) Red Cell Distribution Width 18.3 % (11.5-14.5) Platelet Count 336 x10^3/uL (140-400) Neutrophils (%) (Auto) 69 % (31-73) Lymphocytes (%) (Auto) 18 % (24-48) Monocytes (%) (Auto) 13 % (0-9) Eosinophils (%) (Auto) 0 % (0-3) Basophils (%) (Auto) 0 % (0-3) Neutrophils # (Auto) 6.1 x10^3/uL (1.8-7.7) Lymphocytes # (Auto) 1.5 x10^3/uL (1.0-4.8) Monocytes # (Auto) 1.2 x10^3/uL (0.0-1.1) Eosinophils # (Auto) 0.0 x10^3/uL (0.0-0.7) Basophils # (Auto) 0.0 x10^3/uL (0.0-0.2) Sodium Level 141 mmol/L (136-145) Potassium Level 3.8 mmol/L (3.5-5.1) Chloride Level 101 mmol/L (98-107) Carbon Dioxide Level 31 mmol/L (21-32) Anion Gap 9 (6-14) Blood Urea Nitrogen 17 mg/dL (7-20) Creatinine 0.7 mg/dL (0.6-1.0) Estimated GFR (Cockcroft-Gault) 81.6 Glucose Level 86 mg/dL (70-99) Calcium Level 9.6 mg/dL (8.5-10.1) Test 04/21/19 08:16 Glucose (Fingerstick) 84 mg/dL (70-99) Laboratory Tests Test 04/20/19 11:45 04/20/19 11:46 04/20/19 16:59 04/20/19 20:49 White Blood Count 6.6 x10^3/uL (4.0-11.0) Red Blood Count 4.15 x10^6/uL (3.50-5.40) Hemoglobin 10.0 g/dL (12.0-15.5) Hematocrit 31.5 % (36.0-47.0) Mean Corpuscular Volume 76 fL (79-100) Mean Corpuscular Hemoglobin 24 pg (25-35) Mean Corpuscular Hemoglobin Concent 32 g/dL (31-37) Red Cell Distribution Width 18.0 % (11.5-14.5) Platelet Count 286 x10^3/uL (140-400) Neutrophils (%) (Auto) 83 % (31-73) Lymphocytes (%) (Auto) 11 % (24-48) Monocytes (%) (Auto) 6 % (0-9) Eosinophils (%) (Auto) 0 % (0-3) Basophils (%) (Auto) 0 % (0-3) Neutrophils # (Auto) 5.5 x10^3/uL (1.8-7.7) Lymphocytes # (Auto) 0.7 x10^3/uL (1.0-4.8) Monocytes # (Auto) 0.4 x10^3/uL (0.0-1.1) Eosinophils # (Auto) 0.0 x10^3/uL (0.0-0.7) Basophils # (Auto) 0.0 x10^3/uL (0.0-0.2) Sodium Level 139 mmol/L (136-145) Potassium Level 3.9 mmol/L (3.5-5.1) Chloride Level 100 mmol/L (98-107) Carbon Dioxide Level 31 mmol/L (21-32) Anion Gap 8 (6-14) Blood Urea Nitrogen 18 mg/dL (7-20) Creatinine 0.8 mg/dL (0.6-1.0) Estimated GFR (Cockcroft-Gault) 69.9 Glucose Level 141 mg/dL (70-99) Calcium Level 9.0 mg/dL (8.5-10.1) Glucose (Fingerstick) 137 mg/dL (70-99) 176 mg/dL (70-99) 178 mg/dL (70-99) Test 04/21/19 03:05 04/21/19 08:16 White Blood Count 8.8 x10^3/uL (4.0-11.0) Red Blood Count 4.23 x10^6/uL (3.50-5.40) Hemoglobin 10.2 g/dL (12.0-15.5) Hematocrit 32.1 % (36.0-47.0) Mean Corpuscular Volume 76 fL (79-100) Mean Corpuscular Hemoglobin 24 pg (25-35) Mean Corpuscular Hemoglobin Concent 32 g/dL (31-37) Red Cell Distribution Width 18.3 % (11.5-14.5) Platelet Count 336 x10^3/uL (140-400) Neutrophils (%) (Auto) 69 % (31-73) Lymphocytes (%) (Auto) 18 % (24-48) Monocytes (%) (Auto) 13 % (0-9) Eosinophils (%) (Auto) 0 % (0-3) Basophils (%) (Auto) 0 % (0-3) Neutrophils # (Auto) 6.1 x10^3/uL (1.8-7.7) Lymphocytes # (Auto) 1.5 x10^3/uL (1.0-4.8) Monocytes # (Auto) 1.2 x10^3/uL (0.0-1.1) Eosinophils # (Auto) 0.0 x10^3/uL (0.0-0.7) Basophils # (Auto) 0.0 x10^3/uL (0.0-0.2) Sodium Level 141 mmol/L (136-145) Potassium Level 3.8 mmol/L (3.5-5.1) Chloride Level 101 mmol/L (98-107) Carbon Dioxide Level 31 mmol/L (21-32) Anion Gap 9 (6-14) Blood Urea Nitrogen 17 mg/dL (7-20) Creatinine 0.7 mg/dL (0.6-1.0) Estimated GFR (Cockcroft-Gault) 81.6 Glucose Level 86 mg/dL (70-99) Calcium Level 9.6 mg/dL (8.5-10.1) Glucose (Fingerstick) 84 mg/dL (70-99) Medications Active Scripts Medications Dose Route/Sig Max Daily Dose Days Date Category Daliresp (Roflumilast) 500 Mcg Tablet 1 Tab PO DAILY 03/03/19 Reported Lisinopril 20 Mg Tablet 1 Tab PO DAILY 03/03/19 Reported Albuterol Sulfate Neb Soln (Albuterol Sulfate) 1.25 Mg/3 Ml Vial.neb 1 Vial NEB Q6HRS 03/03/19 Reported Senna-Time S Tablet (Sennosides/Docusate Sodium) 1 Each Tablet 2 Tab PO PRN DAILY PRN 30 11/03/18 Rx Mucinex (Guaifenesin) 1,200 Mg Tbmp.12hr 1 Tab PO BID 10/30/18 Reported Tylenol (Acetaminophen) 325 Mg Tablet 650 Mg PO PRN Q6HRS PRN 30 09/22/18 Rx Spiriva (Tiotropium [place]) 18 Mcg Cap.w.dev 1 Cap IH DAILY 08/15/18 Reported Alendronate Sodium 70 Mg Tablet 1 Tab PO WEEKLY 08/15/18 Reported Symbicort 160-4.5 Mcg Inhaler (Budesonide/Formoterol Fumarate) 10.2 Gm Hfa.aer.ad 2 Puff IH BID 01/06/18 Rx Duoneb 0.5-3(2.5) Mg/3 Ml (Albuterol/Ipratropium) 3 Ml Ampul.neb 3 Ml NEB RTQID 10/23/17 Rx Flonase Allergy Relief (Fluticasone Propionate) 9.9 Ml [place].susp 2 Sprays NS BID 10/20/17 Reported Simvastatin 10 Mg Tablet 1 Tab PO QHS 07/22/17 Reported Pepcid (Famotidine) 20 Mg Tablet 20 Mg PO BID 07/22/17 Reported Proair Hfa Inhaler (Albuterol Sulfate) 8.5 Gm Hfa.aer.ad 2 Puff INH PRN Q6HRS PRN 07/22/17 Reported Aspirin 81 Mg Tab.chew 1 Tab PO DAILY 07/22/17 Reported Gabapentin (Gabapentin) 100 Mg Capsule 100 Mg PO BID 07/22/17 Reported Baclofen 10 Mg Tablet 1 Tab PO TID PRN 04/23/15 Reported Singulair Tablet (Montelukast Sodium) 10 Mg Tablet 1 Tab PO QEVNG 04/23/15 Reported Zyrtec (Cetirizine Hcl) 10 Mg Tablet 1 Tab PO QHS 04/23/15 Reported Xanax (Alprazolam) 0.5 Mg Tablet 1 Tab PO BID 04/23/15 Reported Impression . IMPRESSION: 1. Dyspnea secondary to pneumonia in a patient who has underlying chronic obstructive pulmonary disease and has chronic hypoxic respiratory failure. compensated 2. Abnormal chest x-ray 3. Underlying chronic obstructive pulmonary disease with chronic respiratory failure, on home oxygen at 2 liters. Currently requiring 2.5-3 liters. 4. Leukocytosis secondary to pneumonia.resolved IMPRESSION: 1. There is bronchial wall thickening and mild endobronchial density of the left lower lobe branches, mucous plugging and bronchitis considered more likely than mass. There is very mild peripheral left lower lobe infiltrate near the lung base. There is mild right lower lobe atelectasis. 2. There is fairly severe emphysema. 3. There is no pleural fluid. Plan . CONTINUE OXYGEN MAY NEED SNU PT IMPROVING SLOWLY TREATMENT FOR PNEUMONIA. PO ABX NOW DC IV STEROIDS, CHANGE TO PO 02 PEDRO ROBERSON MD Apr 21, 2019 11:29
--- NOTE | 2019-04-21 11:56 | NUR ---
SW following pt. Per RN, Pt states she has private home care services and discharging with self care today.
--- NOTE | 2019-04-21 16:20 | NUR ---
Discharge Note: ZULEIKA PIZARRO[address] [place] [address] Discharge instructions and discharge home medications reviewed with patient and a copy given. Prescriptions for cefdinir and prednisone called to the patient's pharmacy. All questions have been answered and understanding verbalized. The following instructions and handouts were given: Take cefdinir twice a day as instructed. Prednisone once a day for 7 days. Continue other home meds. Watch out for worsening of symptoms, fever, shortness of breath. Call MD/ go to ER. Follow up with PCP in a week. Discontinued lines and drains: peripheral IV intact, patient tolerated removal, no complications noted. Changed enriquez leg bag. Patient discharged to home, with child care cook (sees her daily at home)via wheelchair with transport personnel at 1520.
[2019-04-23] MEDS ORDERED: NON FORMULARY ITEM (Alendronate Sodium 1 TAB) PO SCH (09:00)
--- NOTE | 2019-04-23 09:51 | PDOC3 ---
IM DISCHARGE SUMMARY Date of Admission Date of Admission Date of Admission: Apr 15, 2019 at 20:53 Primary Diagnosis Primary Diagnosis 1. Pneumonia. Chest x-ray shows consolidation in the right lower lung. 2. Acute exacerbation of chronic obstructive pulmonary disease. 3. Acute on chronic respiratory failure, hypoxic and hypercarbic. 4. Osteoarthritis. 5. Diabetes mellitus type 2 with neuropathy, diet controlled. 6. Chronic bronchitis. 7. Hypertension. 8. Chronic pain. 9. Cognitive deficits. 10. Physical deconditioning. 11. Possible urinary tract infection; however, this could be contaminated as the patient has a suprapubic catheter. Consults Consults Chico Lott MD; Karsten White MD Brief hospital course Brief hospital course This is a 74-year-old female who is known to have severe COPD, who was brought to the emergency room by EMS because of chest pains, cough, congestion with yellowish expectoration and dyspnea, getting worse for 3 days. The patient was noted to have pneumonia and is admitted for further evaluation and management. For more details regarding the past history, family history, social history, surgical history and other details, please refer to History and Physical. The patient is on Rocephin and Zithromax. Consultation has been obtained with Dr. White and then also Dr. Lott for Infectious Disease evaluation and Pulmonary evaluation and management. The patient has been started on her home medications. For details, please refer to the orders. She was given 1 dose of steroids yesterday. She is actually on ceftriaxone and Levaquin at this time. Prognosis of this patient is very poor. For details, please refer to the orders. Acute on chronic hypoxic and hypercarbic respiratory failure- continue oxygen by nasal cannula Pneumonia- continue IV Rocephin and Levaquin. WBC count is improving. Rocephin,Zithromax stopped. Antibiotics changed to Levaquin and Zosyn. Exacerbation of COPD- continue IV steroids and breathing treatment patient was given IV Solu-Medrol but as the steroids were tapered her wheezing got worse and again the steroids had to be increased. CT chest showed peribronchial thickening. After the IV steroids were increased she started feeling better. On 04/21/2019 IV steroids were changed to oral steroids and patient was discharged home on oral Omnicef 300 mg twice a day for 7 days and high-dose steroids to be tapered add Mucomyst to duoneb inc duoneb frequency Anemia- monitor. Hypotension- IV fluids hold the blood pressure medicine. Continue telemetry. Hypotension was corrected with fluids and adjustment of medications. Patient was doing much better and was discharged home with home health services on 04/21/2019. Patient did not want to go to group home. Her long-term as well as short-term prognosis is very poor due to her multiple medical problems. Medications Medications reviewed and reconciled for discharge. Allergy Allergies Coded Allergies Type Severity Reaction Last Updated Verified No Known Drug Allergies 10/30/18 No Follow up in 5 days. DISPOSITION: Home health services Comments Discharge Management - 35 minutes. For other details please refer to discharge instructions MARIANELA COLEY MD Apr 23, 2019 09:51
== END 2019-04-21 15:23 | disposition home or self-care (01) | DRG 871 ==
LOC: ER 18:22 → 6 SOUTH 20:53
PROVIDERS: ADMIT Internal Medicine; ATTEND Internal Medicine
DX: A41.9 Sepsis, unspecified organism (principal); J18.9 Pneumonia, unspecified organism; J96.21 Acute and chronic respiratory failure with hypoxia; J96.22 Acute and chronic respiratory failure with hypercapnia; J98.11 Atelectasis; N39.0 Urinary tract infection, site not specified; E11.22 Type 2 diabetes mellitus with diabetic chronic kidney disease; E11.40 Type 2 diabetes mellitus with diabetic neuropathy, unspecified; E78.00 Pure hypercholesterolemia, unspecified; F41.9 Anxiety disorder, unspecified; G47.00 Insomnia, unspecified; G89.29 Other chronic pain; I12.9 Hypertensive chronic kidney disease with stage 1 through stage 4 chronic kidney disease, or unspecified chronic kidney disease; I27.29 Other secondary pulmonary hypertension; E78.5 Hyperlipidemia, unspecified; J43.9 Emphysema, unspecified; K21.9 Gastro-esophageal reflux disease without esophagitis; K58.9 Irritable bowel syndrome, unspecified; M19.90 Unspecified osteoarthritis, unspecified site; N18.2 Chronic kidney disease, stage 2 (mild); Z80.0 Family history of malignant neoplasm of digestive organs; Z87.01 Personal history of pneumonia (recurrent); Z87.11 Personal history of peptic ulcer disease; Z87.440 Personal history of urinary (tract) infections; Z87.442 Personal history of urinary calculi; Z87.891 Personal history of nicotine dependence; Z99.81 Dependence on supplemental oxygen; F32.9 Major depressive disorder, single episode, unspecified
CPT/HCPCS: 36415; 71045; 71250; 80048; 80053; 81001; 82962; 83605; 83880; 84145; 84484; 85025; 85610; 87040; 87086; 93005; 93971; 94640; 96361; 96365; 96375; J0696; J1644; J1956; J2543; J2920; J2930; J7030; J7040; J7613; J7620; J7626; 99285-25; G0378

== ENCOUNTER 2019-04-28 18:13 | Inpatient (IN) | payer OTHER, MEDICAID ==
[~2019-04-28] VITALS: Ht 154.9 cm; Wt 44.9 kg
[~2019-04-28 18:13] MED LIST changes: +CEFD300C PO; +PRED50TA PO
[2019-04-28 20:51] LABS: BASO % 0 % (0-3); EOS % 0 % (0-3); HEMATOCRIT 31.8 % (36.0-47.0); HEMOGLOBIN 10.2 g/dL (12.0-15.5); LYMPH % 8 % (24-48); MEAN CORPUSCULAR HEMOGLOBIN 24 pg (25-35); MEAN CORPUSCULAR HGB CONC 32 g/dL (31-37); MEAN CORPUSCULAR VOLUME 75 fL (79-100); MONO % 9 % (0-9); NEUT # 9.9 x10^3/uL (1.8-7.7); NEUT % 83 % (31-73); PLATELET COUNT 435 x10^3/uL (140-400); RED BLOOD COUNT 4.22 x10^6/uL (3.50-5.40); RED CELL DISTRIBUTION WIDTH 18.7 % (11.5-14.5); WHITE BLOOD COUNT 11.9 x10^3/uL (4.0-11.0)
[2019-04-28 21:02] LABS: CALCIUM 8.8 mg/dL (8.5-10.1); CREATININE 0.8 mg/dL (0.6-1.0); GFR 69.9; POTASSIUM 3.6 mmol/L (3.5-5.1)
[2019-04-28 21:07] LABS: ALBUMIN 3.5 g/dL (3.4-5.0); ALBUMIN/GLOBULIN RATIO 0.9 (1.0-1.7); TOTAL BILIRUBIN 0.2 mg/dL (0.2-1.0); TOTAL PROTEIN 7.5 g/dL (6.4-8.2)
[2019-04-28] MEDS ORDERED: IOHEXOL 300 MG/ML 100ML VIAL. IV ONE (21:30)
[2019-04-28] MEDS ORDERED: CONTRAST GIVEN. MC PRN (21:30)
--- NOTE | 2019-04-28 21:57 | PHYS DOC ---
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 Patient was discharged on April 23, 2019 which is 5 days ago. Patient denies any bloody stools. Denies any nausea vomiting. She states she is feeling weaker as a results of this diarrhea. She states she has generalized abdominal pain from the diarrhea. Review of Systems Review of Systems Constitutional: Reports weakness. Denies fever or chills [] Eyes: Denies change in visual acuity, redness, or eye pain [] HENT: Denies nasal congestion or sore throat [] Respiratory: Denies cough or shortness of breath [] Cardiovascular: No additional information not addressed in HPI [] GI: Reports abdominal pain and diarrhea, denies nausea, vomiting, bloody stools or diarrhea [] : Denies dysuria or hematuria [] Musculoskeletal: Denies back pain or joint pain [] Integument: Denies rash or skin lesions [] Neurologic: Denies headache, focal weakness or sensory changes [] All other systems were reviewed and found to be within normal limits, except as documented in this note. Current Medications Current Medications Current Medications Medications (Trade) Dose Ordered Sig/Geovanny Start Time Stop Time Status Last Admin Dose Admin Info (CONTRAST GIVEN -- Rx MONITORING) 1 each PRN DAILY PRN 04/28/19 21:30 04/30/19 21:29 Iohexol (Omnipaque 300 Mg/ml) 75 ml 1X ONCE 04/28/19 21:30 04/28/19 21:31 DC 04/28/19 21:33 75 ML Levofloxacin/ Dextrose 100 ml @ 100 mls/hr 1X ONCE 04/28/19 22:00 04/28/19 22:59 UNV Methylprednisolone Sodium Succinate (SOLU-Medrol 40MG VIAL) 60 mg Q8HRS 04/28/19 22:00 UNV Morphine Sulfate (Morphine Sulfate) 4 mg PRN Q2HR PRN 04/28/19 22:00 04/29/19 21:59 UNV Ondansetron HCl (Zofran) 4 mg PRN Q8HRS PRN 04/28/19 22:00 04/29/19 21:59 UNV Piperacillin Sod/ Tazobactam Sod 3.375 gm/Sodium Chloride 50 ml @ 100 mls/hr Q8HRS 04/28/19 22:00 UNV Sodium Chloride 1,000 ml @ 75 mls/hr 1X ONCE 04/28/19 22:00 04/29/19 11:19 UNV Zolpidem Tartrate (Ambien) 5 mg PRN QHS PRN 04/28/19 22:00 UNV Allergies Allergies Allergies Coded Allergies Type Severity Reaction Last Updated Verified No Known Drug Allergies 10/30/18 No Physical Exam Physical Exam Constitutional: Emaciated thin appearing patient, no acute distress, non-toxic appearance. [] HENT: Normocephalic, atraumatic, bilateral external ears normal, oropharynx moist, no oral exudates, nose normal. [] Eyes: PERRLA, EOMI, conjunctiva normal, no discharge. [] Neck: Normal range of motion, no tenderness, supple, no stridor. [] Cardiovascular:Heart rate regular rhythm, no murmur [] Lungs & Thorax: Patient is on oxygen, diminished breath sounds to posterior lung bases. Abdomen: Bowel sounds normal, soft, diffuse tenderness throughout the abdomen with most of it being on the left lower quadrant, negative Salcedo sign, negative psoas sign, negative obturator sign, no masses, no pulsatile masses. [] Skin: Warm, dry, no erythema, no rash. [] Back: No tenderness, no CVA tenderness. [] Extremities: No tenderness, no cyanosis, no clubbing, ROM intact, no edema. [] Neurologic: Alert and oriented X 3, normal motor function, normal sensory function, no focal deficits noted. [] Psychologic: Affect normal, judgement normal, mood normal. [] Current Patient Data Vital Signs Vital Signs Date Time Temp Pulse Resp B/P (MAP) Pulse Ox O2 Delivery O2 Flow Rate FiO2 04/28/19 21:45 73 16 143/64 (90) 100 Nasal Cannula 2.0 04/28/19 19:42 98.2 98.2 Lab Values Laboratory Tests Test 04/28/19 20:44 White Blood Count 11.9 x10^3/uL (4.0-11.0) H Red Blood Count 4.22 x10^6/uL (3.50-5.40) Hemoglobin 10.2 g/dL (12.0-15.5) L Hematocrit 31.8 % (36.0-47.0) L Mean Corpuscular Volume 75 fL (79-100) L Mean Corpuscular Hemoglobin 24 pg (25-35) L Mean Corpuscular Hemoglobin Concent 32 g/dL (31-37) Red Cell Distribution Width 18.7 % (11.5-14.5) H Platelet Count 435 x10^3/uL (140-400) H Neutrophils (%) (Auto) 83 % (31-73) H Lymphocytes (%) (Auto) 8 % (24-48) L Monocytes (%) (Auto) 9 % (0-9) Eosinophils (%) (Auto) 0 % (0-3) Basophils (%) (Auto) 0 % (0-3) Neutrophils # (Auto) 9.9 x10^3/uL (1.8-7.7) H Lymphocytes # (Auto) 1.0 x10^3/uL (1.0-4.8) Monocytes # (Auto) 1.0 x10^3/uL (0.0-1.1) Eosinophils # (Auto) 0.0 x10^3/uL (0.0-0.7) Basophils # (Auto) 0.0 x10^3/uL (0.0-0.2) Sodium Level 140 mmol/L (136-145) Potassium Level 3.6 mmol/L (3.5-5.1) Chloride Level 102 mmol/L (98-107) Carbon Dioxide Level 30 mmol/L (21-32) Anion Gap 8 (6-14) Blood Urea Nitrogen 30 mg/dL (7-20) H Creatinine 0.8 mg/dL (0.6-1.0) Estimated GFR (Cockcroft-Gault) 69.9 BUN/Creatinine Ratio 38 (6-20) H Glucose Level 173 mg/dL (70-99) H Calcium Level 8.8 mg/dL (8.5-10.1) Total Bilirubin 0.2 mg/dL (0.2-1.0) Aspartate Amino Transferase (AST) 18 U/L (15-37) Alanine Aminotransferase (ALT) 40 U/L (14-59) Alkaline Phosphatase 70 U/L (46-116) Total Protein 7.5 g/dL (6.4-8.2) Albumin 3.5 g/dL (3.4-5.0) Albumin/Globulin Ratio 0.9 (1.0-1.7) L Lipase 80 U/L (73-393) Laboratory Tests 04/28/19 20:44 Laboratory Tests 04/28/19 20:44 EKG EKG [] Radiology/Procedures Radiology/Procedures [] Course & Med Decision Making Course & Med Decision Making Pertinent Labs and Imaging studies reviewed. (See chart for details) This is a 74-year-old female patient well known to this ED presenting today complaining of diarrhea that began after she was discharged from the hospital on April 23, 2019. She was given IV antibiotics during that admission. She was also sent home with antibiotics. CBC with a WBC of 11.9, CMP with no acute findings. Vitals on arrival O2 sats 100% on 2 L of oxygen, temperature 98.2 heart rate 87 respiration 20 blood pressure 140/64. CAT scan still pending Spoke with -he requested we start patient on the IV antibiotics she was on during her admission which is Levaquin and Zosyn. He also requested we start patient on Solu-Medrol as well as Ambien and consult pulmonary. Dragon Disclaimer Dragon Disclaimer This electronic medical record was generated, in whole or in part, using a voice recognition dictation system. Departure Departure Impression: Primary Impression: Diarrhea Additional Impression: COPD exacerbation Disposition: ADMITTED INPATIENT Condition: STABLE Referrals: MARIANELA COLEY MD (PCP) Problem Qualifiers Primary Impression: Diarrhea Diarrhea type: unspecified type Qualified Codes: R19.7 - Diarrhea, unspecified BERNARD [employer]ON [employer] Apr 28, 2019 21:57
--- NOTE | 2019-04-28 21:58 | RAD ---
Exam: CT abdomen and pelvis with contrast INDICATION: Diarrhea 1 week TECHNIQUE: Sequential axial images through the abdomen and pelvis obtained following the administration of 75 mL of Omni 300 IV contrast. Sagittal and coronal reformatted images were reconstructed from the axial data and reviewed. Comparisons: 05/22/2018 FINDINGS: Heart size is normal. No pericardial effusion. Large cysts are again noted at the right lung base. Linear bandlike opacity likely represents sequela from prior inflammatory process. Mild intrahepatic ductal dilatation. Liver is otherwise unremarkable. spleen, gallbladder and adrenals are unremarkable. There is mild pancreatic ductal dilatation noted. No peripancreatic inflammatory changes or fluid collection. Kidneys demonstrate symmetric enhancement. Numerous hypoattenuating cystic lesions are noted in the kidneys bilaterally which are too small to characterize likely representing simple cysts. No renal or ureteral calculi are identified. Bladder is decompressed. There is a suprapubic catheter with Ivory balloon within the bladder. Evaluation of the pelvis is markedly limited secondary to metallic streak artifact from hip arthroplasty. Large stool burden is noted predominantly within the ascending colon. Otherwise, the large and small bowel are unremarkable. No obstruction. No free intra-abdominal air. There is a small amount of free fluid noted probably within the pelvis. The abdominal aorta has a normal course and caliber. IVC filter is noted. No enlarged intra-abdominal lymph nodes are identified. Right hip arthroplasty noted. No suspicious osseous lesions or acute fractures. IMPRESSION: 1. Stool noted within the colon. No acute process in the bowel identified. 2. Suprapubic catheter in a decompressed bladder. 3. Mild intrahepatic biliary ductal dilatation and pancreatic ductal dilatation. Recommend correlation with LFTs to determine the need for further evaluation with ERCP. Exposure: One or more of the following in the visualized dose reduction techniques were utilized for this examination: 1. Automated exposure control 2. Adjustment of the MA and/or KV according to patient size 3. Use of iterative of reconstructive technique Electronically signed by: Joon Kerr MD (04/28/2019 9:55 PM) [facility]
[2019-04-28] MEDS ORDERED: IV NORMAL SALINE 1000ML BAG 1,000 ML IV ONE (22:00)
[2019-04-28] MEDS ORDERED: ZOLPIDEM 5 MG TABLET. PO PRN (22:00)
[2019-04-28] MEDS ORDERED: ONDANSETRON PF 4 MG/2 ML VIAL. IV PRN (22:00)
[2019-04-28 23:00] VITALS: BP 130/57
[2019-04-28] MEDS: methylPREDNISolone SOD SUCC PF 40 MG/ML VIAL. IV SCH (23:35)
[2019-04-29] MEDS: PIPERACILLIN/TAZOBACTAM 3.375 GM in IV NORMAL SALINE 50ML 50 ML IV SCH ×2 (02:01→06:22)
[2019-04-29 03:00] VITALS: BP 121/61
[2019-04-29 05:11] LABS: BASO % 0 % (0-3); EOS % 0 % (0-3); HEMATOCRIT 27.3 % (36.0-47.0); HEMOGLOBIN 8.8 g/dL (12.0-15.5); LYMPH # 0.6 x10^3/uL (1.0-4.8); LYMPH % 7 % (24-48); MEAN CORPUSCULAR HEMOGLOBIN 24 pg (25-35); MEAN CORPUSCULAR HGB CONC 32 g/dL (31-37); MEAN CORPUSCULAR VOLUME 75 fL (79-100); MONO # 0.3 x10^3/uL (0.0-1.1); MONO % 3 % (0-9); NEUT # 7.6 x10^3/uL (1.8-7.7); NEUT % 90 % (31-73); PLATELET COUNT 351 x10^3/uL (140-400); RED BLOOD COUNT 3.62 x10^6/uL (3.50-5.40); RED CELL DISTRIBUTION WIDTH 18.6 % (11.5-14.5); WHITE BLOOD COUNT 8.5 x10^3/uL (4.0-11.0)
[2019-04-29 05:41] LABS: ALBUMIN 2.8 g/dL (3.4-5.0); ALBUMIN/GLOBULIN RATIO 0.8 (1.0-1.7); CALCIUM 8.3 mg/dL (8.5-10.1); CREATININE 0.7 mg/dL (0.6-1.0); GFR 81.6; POTASSIUM 4.1 mmol/L (3.5-5.1); TOTAL BILIRUBIN 0.2 mg/dL (0.2-1.0); TOTAL PROTEIN 6.3 g/dL (6.4-8.2)
[2019-04-29] MEDS: methylPREDNISolone SOD SUCC PF 40 MG/ML VIAL. IV SCH ×2 (06:21→14:30)
[2019-04-29 07:00] VITALS: BP 137/63
[2019-04-29 07:32] LABS: % LYMPHS 8 % (24-48); % MONOS 1 % (0-10); % SEGS 91 % (35-66)
[2019-04-29 07:33] LABS: HYPERSEGS PRESENT; PLT ESTIMATE ADEQUATE (ADEQUATE)
[2019-04-29] MEDS: MORPHINE SULFATE 4 MG/ML VIAL. IV PRN ×4 (08:10→21:25)
[2019-04-29] MEDS ORDERED: ALBUTEROL SULFATE 2.5 MG/3 ML NEBU. INH PRN (09:30)
[2019-04-29] MEDS ORDERED: SENNOSIDES/DOCUSATE 8.6/50MG TABLET. PO PRN (09:30)
[2019-04-29] MEDS ORDERED: ACETAMINOPHEN 325 MG TABLET. PO PRN (09:30)
[2019-04-29] MEDS ORDERED: CYCLOBENZAPRINE 10 MG TABLET. PO PRN (09:45)
--- NOTE | 2019-04-29 10:06 | PDOC ---
Infectious Disease Note Vital Sign Vital Signs Vital Signs Date Time Temp Pulse Resp B/P (MAP) Pulse Ox O2 Delivery O2 Flow Rate FiO2 04/29/19 09:10 20 04/29/19 08:10 Room Air 04/29/19 07:00 98.1 88 137/63 (87) 100 98.1 04/29/19 02:25 2.0 Labs Lab Laboratory Tests Test 04/28/19 20:44 04/29/19 05:00 White Blood Count 11.9 x10^3/uL (4.0-11.0) 8.5 x10^3/uL (4.0-11.0) Red Blood Count 4.22 x10^6/uL (3.50-5.40) 3.62 x10^6/uL (3.50-5.40) Hemoglobin 10.2 g/dL (12.0-15.5) 8.8 g/dL (12.0-15.5) Hematocrit 31.8 % (36.0-47.0) 27.3 % (36.0-47.0) Mean Corpuscular Volume 75 fL (79-100) 75 fL (79-100) Mean Corpuscular Hemoglobin 24 pg (25-35) 24 pg (25-35) Mean Corpuscular Hemoglobin Concent 32 g/dL (31-37) 32 g/dL (31-37) Red Cell Distribution Width 18.7 % (11.5-14.5) 18.6 % (11.5-14.5) Platelet Count 435 x10^3/uL (140-400) 351 x10^3/uL (140-400) Neutrophils (%) (Auto) 83 % (31-73) 90 % (31-73) Lymphocytes (%) (Auto) 8 % (24-48) 7 % (24-48) Monocytes (%) (Auto) 9 % (0-9) 3 % (0-9) Eosinophils (%) (Auto) 0 % (0-3) 0 % (0-3) Basophils (%) (Auto) 0 % (0-3) 0 % (0-3) Neutrophils # (Auto) 9.9 x10^3/uL (1.8-7.7) 7.6 x10^3/uL (1.8-7.7) Lymphocytes # (Auto) 1.0 x10^3/uL (1.0-4.8) 0.6 x10^3/uL (1.0-4.8) Monocytes # (Auto) 1.0 x10^3/uL (0.0-1.1) 0.3 x10^3/uL (0.0-1.1) Eosinophils # (Auto) 0.0 x10^3/uL (0.0-0.7) 0.0 x10^3/uL (0.0-0.7) Basophils # (Auto) 0.0 x10^3/uL (0.0-0.2) 0.0 x10^3/uL (0.0-0.2) Sodium Level 140 mmol/L (136-145) 141 mmol/L (136-145) Potassium Level 3.6 mmol/L (3.5-5.1) 4.1 mmol/L (3.5-5.1) Chloride Level 102 mmol/L (98-107) 105 mmol/L (98-107) Carbon Dioxide Level 30 mmol/L (21-32) 29 mmol/L (21-32) Anion Gap 8 (6-14) 7 (6-14) Blood Urea Nitrogen 30 mg/dL (7-20) 25 mg/dL (7-20) Creatinine 0.8 mg/dL (0.6-1.0) 0.7 mg/dL (0.6-1.0) Estimated GFR (Cockcroft-Gault) 69.9 81.6 BUN/Creatinine Ratio 38 (6-20) 36 (6-20) Glucose Level 173 mg/dL (70-99) 123 mg/dL (70-99) Calcium Level 8.8 mg/dL (8.5-10.1) 8.3 mg/dL (8.5-10.1) Total Bilirubin 0.2 mg/dL (0.2-1.0) 0.2 mg/dL (0.2-1.0) Aspartate Amino Transf (AST/SGOT) 18 U/L (15-37) 15 U/L (15-37) Alanine Aminotransferase (ALT/SGPT) 40 U/L (14-59) 34 U/L (14-59) Alkaline Phosphatase 70 U/L (46-116) 60 U/L (46-116) Total Protein 7.5 g/dL (6.4-8.2) 6.3 g/dL (6.4-8.2) Albumin 3.5 g/dL (3.4-5.0) 2.8 g/dL (3.4-5.0) Albumin/Globulin Ratio 0.9 (1.0-1.7) 0.8 (1.0-1.7) Lipase 80 U/L (73-393) Segmented Neutrophils % 91 % (35-66) Lymphocytes % 8 % (24-48) Monocytes % 1 % (0-10) Hypersegmented Neutrophils Present Platelet Estimate Adequate (ADEQUATE) Objective Assessment Shingles Diarrhea Weakness Plan Plan of Care valacyclovir supportive care fluids EMILIANO PRICE MD Apr 29, 2019 10:06
--- NOTE | 2019-04-29 10:18 | PDOC ---
Provider Note Provider Note Patient seen. History and Physical dictated. See dictation #[id number] MARIANELA COLEY MD Apr 29, 2019 10:18
[2019-04-29] MEDS: valACYclovir 500 MG TABLET. PO SCH ×2 (10:52→20:34)
[2019-04-29] MEDS: FAMOTIDINE 20 MG TABLET. PO SCH (10:52)
[2019-04-29] MEDS: GABAPENTIN 100 MG CAPSULE. PO SCH ×2 (10:52→20:33)
[2019-04-29] MEDS: ALPRAZolam 0.5 MG TABLET PO SCH ×2 (10:52→20:33)
[2019-04-29] MEDS: FLUTICASONE 50MCG/NASAL SPRAY 16GM BOTTLE. NS SCH ×2 (10:52→20:33)
[2019-04-29] MEDS: ASPIRIN CHEWABLE 81 MG TABLET. PO SCH (10:53)
[2019-04-29] MEDS: ROFLUMILAST 500 MCG TABLET. PO SCH (10:53)
[2019-04-29] MEDS: LISINOPRIL 20 MG TABLET PO SCH (10:57)
[2019-04-29 11:00] VITALS: BP 153/60
[2019-04-29] MEDS ORDERED: NON FORMULARY ITEM (Albuterol Sulfate (Albuterol Sulfate Neb Soln) 1 VIAL) NEB SCH (12:00)
[2019-04-29] MEDS: IPRATRPIUM/ALBUTEROL 0.5/2.5MG 3 ML NEBU. NEB SCH ×3 (12:16→18:20)
--- NOTE | 2019-04-29 13:06 | HP ---
ADMIT DATE: 04/29/2019 HISTORY OF PRESENT ILLNESS: This is a 74-year-old old female with severe COPD, who was recently admitted to this institution on 04/15 for pneumonia and exacerbation of COPD, was discharged on 04/23. She went home on prednisone 50 mg daily and oral antibiotics. However, when she was seen in the office yesterday, she was confused. She complained of diarrhea as she was taking excessive amounts of Xanax. She also developed shingles and because of the diarrhea, confusion, shingles and insomnia and not sure what medication she was taking, the patient was sent to the Emergency Room. The patient claimed in the office that she had taken 4 tablets of 50 mg prednisone that day, but she had only 7 tablets given at the time of discharge and she should have left only 1 tablet. In the Emergency Room, the patient was evaluated and admitted for further evaluation and management. PAST MEDICAL HISTORY: Severe COPD, recurrent bronchitis and pneumonia, chronic cognitive deficits, suprapubic catheter for urinary retention, hypertension, diabetes with neuropathy, hyperlipidemia, anxiety, depression, severe malnutrition, secondary pulmonary hypertension, recurrent UTI. PAST SURGICAL HISTORY: Right renal stone 2008, fractured hip with ORIF in 2012, left breast surgery for fibrocystic disease, peptic ulcer disease, suprapubic catheter. ALLERGIES: TRAMADOL. FAMILY HISTORY: Father had bleeding peptic ulcer disease, cancer of the colon. Sister had colon cancer. SOCIAL HISTORY: Former smoker. No history of alcoholism or drug abuse. Lives alone at home, has part-time caregivers. MEDICATIONS: Reviewed and reconciled. PHYSICAL EXAMINATION: VITAL SIGNS: Temperature 98.1, respirations 24 per minute, pulse 88 per minute, blood pressure 137/63. GENERAL: Alert and oriented, forgetful, mild respiratory distress. HEENT: Mild congestion of throat. Eyes, unremarkable. NECK: Supple. LUNGS: Decreased breath sounds, no wheezing. CARDIOVASCULAR SYSTEM: S1, S2 regular. ABDOMEN: Soft, nontender. EXTREMITIES: No edema. CENTRAL NERVOUS SYSTEM: Alert and forgetful. Generalized weakness. SKIN: The patient has shingles in the lower back on the right side. LABORATORY FINDINGS: Sodium 140, potassium 3.6, BUN 30, creatinine 0.8, glucose 173, albumin 3.5. WBC count 11.9 yesterday, 8.5 today; hemoglobin 10.2. CT abdomen and pelvis showed some stool. IMPRESSION: 1. Exacerbation of chronic obstructive pulmonary disease. 2. Recent pneumonia. Repeat chest x-ray. 3. Diarrhea, better in the hospital. 4. Acute metabolic encephalopathy. 5. Shingles or herpes zoster. 6. Anxiety. PLAN: Taper steroids as soon as possible because of the anxiety and confusion. Consult Infectious Disease specialist, Dr. Lezama and Dr. Perez. Continue IV Zosyn and Levaquin. For details, please refer to the orders. MARIANELA COLEY MD DR: ORA/shaq JOB#: [id number] / [id number]
[2019-04-29] MEDS ORDERED: valACYclovir 500 MG TABLET. PO SCH (14:00)
[2019-04-29 15:00] VITALS: BP 143/71
--- NOTE | 2019-04-29 15:59 | RAD ---
EXAM: CHEST 1 VIEW History: Pneumonia COMPARISON: 04/15/2019 TECHNIQUE: Single portable radiograph of the chest FINDINGS: The cardiac silhouette is unremarkable. Mild prominent bilateral interstitial lung markings likely chronic interstitial changes similar to prior exam. Minimal right lung base airspace opacities likely atelectasis or infiltrates. IMPRESSION: Minimal right lung base airspace opacities likely atelectasis or infiltrate slightly improved since prior exam. Electronically signed by: Ramírez Alfaro MD (04/29/2019 3:56 PM) [id number]
[2019-04-29] MEDS: BUDESONIDE 0.5 MG/2 ML NEBU. NEB SCH (18:20)
[2019-04-29] MEDS: MONTELUKAST SODIUM 10 MG TABLET. PO SCH (18:24)
[2019-04-29 19:00] VITALS: BP 148/60
--- NOTE | 2019-04-29 19:16 | PDOC ---
PULMONARY PROGRESS NOTES Vitals Vital Signs Date Time Temp Pulse Resp B/P (MAP) Pulse Ox O2 Delivery O2 Flow Rate FiO2 04/29/19 18:24 20 Nasal Cannula 04/29/19 18:20 2.0 04/29/19 15:00 97.9 51 143/71 (95) 99 97.9 General: Alert, No acute distress HEENT: Other Lungs: Other Cardiovascular: S1, S2 Abdomen: Soft Extremities: No Edema Labs Laboratory Tests Test 04/28/19 20:44 04/29/19 05:00 White Blood Count 11.9 x10^3/uL (4.0-11.0) 8.5 x10^3/uL (4.0-11.0) Red Blood Count 4.22 x10^6/uL (3.50-5.40) 3.62 x10^6/uL (3.50-5.40) Hemoglobin 10.2 g/dL (12.0-15.5) 8.8 g/dL (12.0-15.5) Hematocrit 31.8 % (36.0-47.0) 27.3 % (36.0-47.0) Mean Corpuscular Volume 75 fL (79-100) 75 fL (79-100) Mean Corpuscular Hemoglobin 24 pg (25-35) 24 pg (25-35) Mean Corpuscular Hemoglobin Concent 32 g/dL (31-37) 32 g/dL (31-37) Red Cell Distribution Width 18.7 % (11.5-14.5) 18.6 % (11.5-14.5) Platelet Count 435 x10^3/uL (140-400) 351 x10^3/uL (140-400) Neutrophils (%) (Auto) 83 % (31-73) 90 % (31-73) Lymphocytes (%) (Auto) 8 % (24-48) 7 % (24-48) Monocytes (%) (Auto) 9 % (0-9) 3 % (0-9) Eosinophils (%) (Auto) 0 % (0-3) 0 % (0-3) Basophils (%) (Auto) 0 % (0-3) 0 % (0-3) Neutrophils # (Auto) 9.9 x10^3/uL (1.8-7.7) 7.6 x10^3/uL (1.8-7.7) Lymphocytes # (Auto) 1.0 x10^3/uL (1.0-4.8) 0.6 x10^3/uL (1.0-4.8) Monocytes # (Auto) 1.0 x10^3/uL (0.0-1.1) 0.3 x10^3/uL (0.0-1.1) Eosinophils # (Auto) 0.0 x10^3/uL (0.0-0.7) 0.0 x10^3/uL (0.0-0.7) Basophils # (Auto) 0.0 x10^3/uL (0.0-0.2) 0.0 x10^3/uL (0.0-0.2) Sodium Level 140 mmol/L (136-145) 141 mmol/L (136-145) Potassium Level 3.6 mmol/L (3.5-5.1) 4.1 mmol/L (3.5-5.1) Chloride Level 102 mmol/L (98-107) 105 mmol/L (98-107) Carbon Dioxide Level 30 mmol/L (21-32) 29 mmol/L (21-32) Anion Gap 8 (6-14) 7 (6-14) Blood Urea Nitrogen 30 mg/dL (7-20) 25 mg/dL (7-20) Creatinine 0.8 mg/dL (0.6-1.0) 0.7 mg/dL (0.6-1.0) Estimated GFR (Cockcroft-Gault) 69.9 81.6 BUN/Creatinine Ratio 38 (6-20) 36 (6-20) Glucose Level 173 mg/dL (70-99) 123 mg/dL (70-99) Calcium Level 8.8 mg/dL (8.5-10.1) 8.3 mg/dL (8.5-10.1) Total Bilirubin 0.2 mg/dL (0.2-1.0) 0.2 mg/dL (0.2-1.0) Aspartate Amino Transf (AST/SGOT) 18 U/L (15-37) 15 U/L (15-37) Alanine Aminotransferase (ALT/SGPT) 40 U/L (14-59) 34 U/L (14-59) Alkaline Phosphatase 70 U/L (46-116) 60 U/L (46-116) Total Protein 7.5 g/dL (6.4-8.2) 6.3 g/dL (6.4-8.2) Albumin 3.5 g/dL (3.4-5.0) 2.8 g/dL (3.4-5.0) Albumin/Globulin Ratio 0.9 (1.0-1.7) 0.8 (1.0-1.7) Lipase 80 U/L (73-393) Segmented Neutrophils % 91 % (35-66) Lymphocytes % 8 % (24-48) Monocytes % 1 % (0-10) Hypersegmented Neutrophils Present Platelet Estimate Adequate (ADEQUATE) Laboratory Tests Test 04/28/19 20:44 04/29/19 05:00 White Blood Count 11.9 x10^3/uL (4.0-11.0) 8.5 x10^3/uL (4.0-11.0) Red Blood Count 4.22 x10^6/uL (3.50-5.40) 3.62 x10^6/uL (3.50-5.40) Hemoglobin 10.2 g/dL (12.0-15.5) 8.8 g/dL (12.0-15.5) Hematocrit 31.8 % (36.0-47.0) 27.3 % (36.0-47.0) Mean Corpuscular Volume 75 fL (79-100) 75 fL (79-100) Mean Corpuscular Hemoglobin 24 pg (25-35) 24 pg (25-35) Mean Corpuscular Hemoglobin Concent 32 g/dL (31-37) 32 g/dL (31-37) Red Cell Distribution Width 18.7 % (11.5-14.5) 18.6 % (11.5-14.5) Platelet Count 435 x10^3/uL (140-400) 351 x10^3/uL (140-400) Neutrophils (%) (Auto) 83 % (31-73) 90 % (31-73) Lymphocytes (%) (Auto) 8 % (24-48) 7 % (24-48) Monocytes (%) (Auto) 9 % (0-9) 3 % (0-9) Eosinophils (%) (Auto) 0 % (0-3) 0 % (0-3) Basophils (%) (Auto) 0 % (0-3) 0 % (0-3) Neutrophils # (Auto) 9.9 x10^3/uL (1.8-7.7) 7.6 x10^3/uL (1.8-7.7) Lymphocytes # (Auto) 1.0 x10^3/uL (1.0-4.8) 0.6 x10^3/uL (1.0-4.8) Monocytes # (Auto) 1.0 x10^3/uL (0.0-1.1) 0.3 x10^3/uL (0.0-1.1) Eosinophils # (Auto) 0.0 x10^3/uL (0.0-0.7) 0.0 x10^3/uL (0.0-0.7) Basophils # (Auto) 0.0 x10^3/uL (0.0-0.2) 0.0 x10^3/uL (0.0-0.2) Sodium Level 140 mmol/L (136-145) 141 mmol/L (136-145) Potassium Level 3.6 mmol/L (3.5-5.1) 4.1 mmol/L (3.5-5.1) Chloride Level 102 mmol/L (98-107) 105 mmol/L (98-107) Carbon Dioxide Level 30 mmol/L (21-32) 29 mmol/L (21-32) Anion Gap 8 (6-14) 7 (6-14) Blood Urea Nitrogen 30 mg/dL (7-20) 25 mg/dL (7-20) Creatinine 0.8 mg/dL (0.6-1.0) 0.7 mg/dL (0.6-1.0) Estimated GFR (Cockcroft-Gault) 69.9 81.6 BUN/Creatinine Ratio 38 (6-20) 36 (6-20) Glucose Level 173 mg/dL (70-99) 123 mg/dL (70-99) Calcium Level 8.8 mg/dL (8.5-10.1) 8.3 mg/dL (8.5-10.1) Total Bilirubin 0.2 mg/dL (0.2-1.0) 0.2 mg/dL (0.2-1.0) Aspartate Amino Transf (AST/SGOT) 18 U/L (15-37) 15 U/L (15-37) Alanine Aminotransferase (ALT/SGPT) 40 U/L (14-59) 34 U/L (14-59) Alkaline Phosphatase 70 U/L (46-116) 60 U/L (46-116) Total Protein 7.5 g/dL (6.4-8.2) 6.3 g/dL (6.4-8.2) Albumin 3.5 g/dL (3.4-5.0) 2.8 g/dL (3.4-5.0) Albumin/Globulin Ratio 0.9 (1.0-1.7) 0.8 (1.0-1.7) Lipase 80 U/L (73-393) Segmented Neutrophils % 91 % (35-66) Lymphocytes % 8 % (24-48) Monocytes % 1 % (0-10) Hypersegmented Neutrophils Present Platelet Estimate Adequate (ADEQUATE) Medications Active Scripts Medications Dose Route/Sig Max Daily Dose Days Date Category Prednisone 50 Mg Tablet 1 Tab PO DAILY 04/21/19 Rx Cefdinir 300 Mg Capsule 300 Mg PO BID 7 04/21/19 Rx Daliresp (Roflumilast) 500 Mcg Tablet 1 Tab PO DAILY 03/03/19 Reported Lisinopril 20 Mg Tablet 1 Tab PO DAILY 03/03/19 Reported Albuterol Sulfate Neb Soln (Albuterol Sulfate) 1.25 Mg/3 Ml Vial.neb 1 Vial NEB Q6HRS 03/03/19 Reported Senna-Time S Tablet (Sennosides/Docusate Sodium) 1 Each Tablet 2 Tab PO PRN DAILY PRN 30 11/03/18 Rx Mucinex (Guaifenesin) 1,200 Mg Tbmp.12hr 1 Tab PO BID 10/30/18 Reported Tylenol (Acetaminophen) 325 Mg Tablet 650 Mg PO PRN Q6HRS PRN 30 09/22/18 Rx Spiriva (Tiotropium [place]) 18 Mcg Cap.w.dev 1 Cap IH DAILY 08/15/18 Reported Alendronate Sodium 70 Mg Tablet 1 Tab PO WEEKLY 08/15/18 Reported Symbicort 160-4.5 Mcg Inhaler (Budesonide/Formoterol Fumarate) 10.2 Gm Hfa.aer.ad 2 Puff IH BID 01/06/18 Rx Duoneb 0.5-3(2.5) Mg/3 Ml (Albuterol/Ipratropium) 3 Ml Ampul.neb 3 Ml NEB RTQID 10/23/17 Rx Flonase Allergy Relief (Fluticasone Propionate) 9.9 Ml [place].susp 2 Sprays NS BID 10/20/17 Reported Simvastatin 10 Mg Tablet 1 Tab PO QHS 07/22/17 Reported Pepcid (Famotidine) 20 Mg Tablet 20 Mg PO BID 07/22/17 Reported Proair Hfa Inhaler (Albuterol Sulfate) 8.5 Gm Hfa.aer.ad 2 Puff INH PRN Q6HRS PRN 07/22/17 Reported Aspirin 81 Mg Tab.chew 1 Tab PO DAILY 07/22/17 Reported Gabapentin (Gabapentin) 100 Mg Capsule 100 Mg PO BID 07/22/17 Reported Baclofen 10 Mg Tablet 1 Tab PO TID PRN 04/23/15 Reported Singulair Tablet (Montelukast Sodium) 10 Mg Tablet 1 Tab PO QEVNG 04/23/15 Reported Zyrtec (Cetirizine Hcl) 10 Mg Tablet 1 Tab PO QHS 04/23/15 Reported Xanax (Alprazolam) 0.5 Mg Tablet 1 Tab PO BID 04/23/15 Reported Impression . FULL NOTE DICTATED THANKS AGREE WITH CURRENT RX AECOPD ELMER FAIR MD Apr 29, 2019 19:16
[2019-04-29] MEDS: CETIRIZINE HCL 10 MG TABLET. PO SCH (20:34)
[2019-04-29 23:00] VITALS: BP 138/58
--- NOTE | 2019-04-29 23:53 | CONS ---
DATE OF CONSULTATION: 04/29/2019 REQUESTING PHYSICIAN: Dr. Randy Conner. REASON FOR CONSULTATION: Shingles. HISTORY OF PRESENT ILLNESS: This is a 74-year-old female who had recently been discharged after having fever about 5 days or so at home. The patient then went to the doctor's office where she was very weak, not feeling well, had diarrhea. The patient was asked to come back. The patient is admitted with that. The patient in fact at some point had broke out in rash in the back, now it is shingles, diagnosis has been entertained. The patient has had some chills. She has weakness, but denies any nausea, vomiting or diarrhea. Denies any shortness of breath other than her usual. PAST MEDICAL HISTORY: Positive for diabetes mellitus; hypertension; hyperlipidemia; COPD, the patient is on home oxygen; has had hip fracture repair done; lung nodules; breast tumor removal done; neuropathy; and anxiety. SOCIAL HISTORY: Negative for smoking, alcohol or illicit drug use. ALLERGIES: No known drug allergies. CURRENT MEDICATIONS: Reviewed. REVIEW OF SYSTEMS: As per HPI, all other systems reviewed are negative. PHYSICAL EXAMINATION: GENERAL: Alert and oriented female, not in distress, very debilitated. VITAL SIGNS: Stable, afebrile. HEENT: NAD. NECK: Supple, no JVP, no lymphadenopathy. LUNGS: Clear. HEART: S1, S2 regular. ABDOMEN: Benign. EXTREMITIES: No edema or cyanosis. SKIN: The patient does have a right side of the back in the lumbar area where she has a maculopapular rash with clusters looking like herpes zoster. Rest of the skin examination is unremarkable. NEUROLOGICAL: The patient is neurologically alert, awake and appropriate. No focal neurologic deficit. LABORATORY DATA: White count yesterday was 11.9, today is 8.5. BUN and creatinine is [address] for some reason was done, which was unremarkable. IMPRESSION: 1. Herpes zoster. 2. Chronic obstructive pulmonary disease. 3. Diabetes. 4. Hypertension. 5. Arthritis. 6. Debility. RECOMMENDATIONS: We will initiate valacyclovir. Discontinue Zosyn. Supportive care, hydration and we will continue to follow. Thank you very much, Dr. Conner, for giving me the opportunity to participate in this patient's care. EMILIANO PRICE MD DR: JOSHUA/shaq JOB#: [id number] / [id number]
[2019-04-30 03:00] VITALS: BP 131/66
[2019-04-30] MEDS ORDERED: ONDANSETRON ODT 4 MG TAB.RAPDIS. PO PRN (05:15)
[2019-04-30] MEDS: HYDROcodone/APAP 5/325MG 1 TAB TABLET PO PRN ×3 (05:27→21:47)
--- NOTE | 2019-04-30 06:48 | CONS ---
DATE OF CONSULTATION: 04/29/2019 ATTENDING PHYSICIAN: Randy Conner M.D. REASON FOR CONSULTATION: The patient seen in pulmonary consultation at the request of Dr. Conner for abnormal x-ray. HISTORY OF PRESENT ILLNESS: The patient is a 74-year-old female that presented with increasing shortness of breath, cough, mostly nonproductive. She was recently discharged from the hospital; she was on prednisone and oral antibiotics. She was also having some back pain. She developed shingles, diarrhea, confusion, increasing temperature. She was admitted. I was asked to see her in consultation as a result of the repeat chest x-ray being abnormal. She has a right lower lobe airspace disease. The patient is currently being seen by Infectious Disease Service and is being treated with valacyclovir and IV fluids. She reports of wheezing and cough mostly nonproductive. PAST MEDICAL HISTORY: Severe COPD with recurrent acute exacerbations. She has a suprapubic catheter for urinary retention, hypertension, diabetes, neuropathy, hyperlipidemia, previous shingles, anxiety, depression and secondary pulmonary hypertension. PAST SURGICAL HISTORY: Status post hip replacement, renal stone extraction, left breast surgery for fibrocystic disease. FAMILY HISTORY: Peptic ulcer disease, cancer. SOCIAL HISTORY: She is a former smoker. Denies any current use of alcohol. ALLERGIES: No known drug allergies. REVIEW OF SYSTEMS: As indicated above, otherwise, a 10-point system was reviewed and negative. PHYSICAL EXAMINATION: VITAL SIGNS: The patient was in no respiratory distress, currently on 2 L of oxygen supplementation, saturation greater than 92%. HEENT: Eyes, the sclerae were nonicteric. NECK: Jugular venous distention was not elevated. No lymphadenopathy. CHEST: Full expansion. LUNGS: Adequate coarse breath sounds with both inspiratory and expiratory wheeze. CARDIOVASCULAR: Regular rate and rhythm with S1, S2, no S3. ABDOMEN: Soft, nontender, nondistended. EXTREMITIES: No clubbing, cyanosis or edema. LABORATORY DATA: Labs were reviewed. White count was 11.9, hemoglobin and hematocrit were noted. Chest x-ray as indicated above. IMPRESSION: 1. Abnormal x-ray revealing infiltrate, suspect residual from previous pneumonia. 2. Acute exacerbation of chronic obstructive pulmonary disease secondary to acute nonspecific bronchitis, possibly viral in nature. 3. Shingles. 4. Diarrhea. 5. Generalized weakness. 6. Other comorbidities as indicated above. PLAN: 1. Continue current support. 2. Follow ID recommendations. 3. Steroids. 4. Nebulized treatments. I do appreciate the privilege in sharing the patient's care. ELMER STANLEY MD DR: ZEN/shaq JOB#: [id number] / [id number]
[2019-04-30 07:00] VITALS: BP 114/54
[2019-04-30] MEDS: IPRATRPIUM/ALBUTEROL 0.5/2.5MG 3 ML NEBU. NEB SCH ×4 (07:10→19:33)
[2019-04-30] MEDS: BUDESONIDE 0.5 MG/2 ML NEBU. NEB SCH ×2 (07:10→19:33)
--- NOTE | 2019-04-30 08:09 | NUR ---
SW following pt for dc planning. Chart reviewed and pt lives at home, frequent admit and has private home care services. PT/OT pending. Will continue to follow.
[2019-04-30 08:12] LABS: BASO % 0 % (0-3); EOS % 0 % (0-3); HEMATOCRIT 29.5 % (36.0-47.0); HEMOGLOBIN 9.3 g/dL (12.0-15.5); LYMPH % 16 % (24-48); MEAN CORPUSCULAR HEMOGLOBIN 24 pg (25-35); MEAN CORPUSCULAR HGB CONC 31 g/dL (31-37); MEAN CORPUSCULAR VOLUME 77 fL (79-100); MONO # 1.8 x10^3/uL (0.0-1.1); MONO % 14 % (0-9); NEUT # 8.7 x10^3/uL (1.8-7.7); NEUT % 70 % (31-73); PLATELET COUNT 357 x10^3/uL (140-400); RED BLOOD COUNT 3.85 x10^6/uL (3.50-5.40); RED CELL DISTRIBUTION WIDTH 18.8 % (11.5-14.5); WHITE BLOOD COUNT 12.5 x10^3/uL (4.0-11.0)
[2019-04-30 08:17] LABS: CALCIUM 8.6 mg/dL (8.5-10.1); CREATININE 0.6 mg/dL (0.6-1.0); GFR 97.5; POTASSIUM 4.3 mmol/L (3.5-5.1)
[2019-04-30] MEDS: LISINOPRIL 20 MG TABLET PO SCH (09:07)
[2019-04-30] MEDS: valACYclovir 500 MG TABLET. PO SCH ×2 (09:08→21:46)
[2019-04-30] MEDS: GABAPENTIN 100 MG CAPSULE. PO SCH ×2 (09:08→21:46)
[2019-04-30] MEDS: ALPRAZolam 0.5 MG TABLET PO SCH ×2 (09:08→21:46)
[2019-04-30] MEDS: FAMOTIDINE 20 MG TABLET. PO SCH (09:08)
[2019-04-30] MEDS: ASPIRIN CHEWABLE 81 MG TABLET. PO SCH (09:08)
[2019-04-30] MEDS: ROFLUMILAST 500 MCG TABLET. PO SCH (09:09)
[2019-04-30] MEDS: FLUTICASONE 50MCG/NASAL SPRAY 16GM BOTTLE. NS SCH ×2 (09:11→21:00)
[2019-04-30] MEDS: methylPREDNISolone SOD SUCC PF 40 MG/ML VIAL. IV SCH (09:11)
--- NOTE | 2019-04-30 09:20 | NUR ---
IP: patient has diagnosis of shingles, requires contact and airborne precautions until lesions are dry and scabbed.
--- NOTE | 2019-04-30 09:39 | PDOC ---
IM PROGRESS NOTES- Subjective Subjective Has cough and congestion.Has insomnia,acid reflux. Objective Vitals/I&O Vital Signs Date Time Temp Pulse Resp B/P (MAP) Pulse Ox O2 Delivery O2 Flow Rate FiO2 04/30/19 09:12 66 114/54 04/30/19 07:12 Nasal Cannula 2.0 04/30/19 07:00 97.9 16 98 97.9 I & O 04/29/19 04/29/19 04/30/19 15:00 23:00 07:00 Intake Total 440 ml 550 ml 200 ml Output Total 900 ml Balance 440 ml 550 ml -700 ml Physical Exam Physical Exam GENERAL: Alert and oriented, forgetful, mild respiratory distress. HEENT: Mild congestion of throat. Eyes, unremarkable. NECK: Supple. LUNGS: Decreased breath sounds, no wheezing. CARDIOVASCULAR SYSTEM: S1, S2 regular. ABDOMEN: Soft, nontender. EXTREMITIES: No edema. CENTRAL NERVOUS SYSTEM: Alert and forgetful. Generalized weakness. SKIN: The patient has shingles in the lower back on the right side. Labs Laboratory Tests Test 04/30/19 08:00 White Blood Count 12.5 x10^3/uL (4.0-11.0) H Red Blood Count 3.85 x10^6/uL (3.50-5.40) Hemoglobin 9.3 g/dL (12.0-15.5) L Hematocrit 29.5 % (36.0-47.0) L Mean Corpuscular Volume 77 fL (79-100) L Mean Corpuscular Hemoglobin 24 pg (25-35) L Mean Corpuscular Hemoglobin Concent 31 g/dL (31-37) Red Cell Distribution Width 18.8 % (11.5-14.5) H Platelet Count 357 x10^3/uL (140-400) Neutrophils (%) (Auto) 70 % (31-73) Lymphocytes (%) (Auto) 16 % (24-48) L Monocytes (%) (Auto) 14 % (0-9) H Eosinophils (%) (Auto) 0 % (0-3) Basophils (%) (Auto) 0 % (0-3) Neutrophils # (Auto) 8.7 x10^3/uL (1.8-7.7) H Lymphocytes # (Auto) 2.0 x10^3/uL (1.0-4.8) Monocytes # (Auto) 1.8 x10^3/uL (0.0-1.1) H Eosinophils # (Auto) 0.0 x10^3/uL (0.0-0.7) Basophils # (Auto) 0.0 x10^3/uL (0.0-0.2) Sodium Level 140 mmol/L (136-145) Potassium Level 4.3 mmol/L (3.5-5.1) Chloride Level 102 mmol/L (98-107) Carbon Dioxide Level 37 mmol/L (21-32) H Anion Gap 1 (6-14) L Blood Urea Nitrogen 27 mg/dL (7-20) H Creatinine 0.6 mg/dL (0.6-1.0) Estimated GFR (Cockcroft-Gault) 97.5 Glucose Level 113 mg/dL (70-99) H Calcium Level 8.6 mg/dL (8.5-10.1) Laboratory Tests 04/30/19 08:00 Laboratory Tests 04/30/19 08:00 Meds Current Medications Medications (Trade) Dose Ordered Sig/Geovanny Route PRN Reason Start Time Stop Time Status Last Admin Dose Admin Alprazolam (Xanax) 0.5 mg BID PO 04/29/19 10:00 04/30/19 09:12 Cetirizine HCl (ZyrTEC) 10 mg QHS PO 04/29/19 21:00 04/29/19 20:34 Famotidine (Pepcid) 20 mg DAILY PO 04/29/19 10:00 04/30/19 09:12 Gabapentin (Neurontin) 100 mg BID PO 04/29/19 10:00 04/30/19 09:12 Albuterol/ Ipratropium (Duoneb) 3 ml RTQID NEB 04/29/19 12:00 04/30/19 07:10 Montelukast Sodium (Singulair) 10 mg QEVNG PO 04/29/19 18:00 04/29/19 18:24 Budesonide (Pulmicort) 0.5 mg RTBID NEB 04/29/19 20:00 04/30/19 07:10 Fluticasone Propionate (Flonase) 2 spray BID NS 04/29/19 10:00 04/30/19 09:12 Guaifenesin (Mucinex) 600 mg BID PO 04/29/19 10:00 04/30/19 09:12 Methylprednisolone Sodium Succinate (SOLU-Medrol 40MG VIAL) 40 mg BID92 IV 04/29/19 14:00 04/30/19 09:12 Valacyclovir HCl (Valtrex) 1,000 mg BID PO 04/29/19 11:00 04/30/19 09:12 Ondansetron HCl (Zofran Odt) 4 mg PRN Q6HRS PRN PO NAUSEA/VOMITING 1ST CHOICE 04/30/19 05:15 04/30/19 05:27 Acetaminophen/ Hydrocodone Bitart (Lortab 5/325) 1 tab PRN Q6HRS PRN PO MODERATE PAIN 4-6 04/30/19 05:15 04/30/19 05:27 Assessment Assessment 1. Exacerbation of chronic obstructive pulmonary disease. 2. Recent pneumonia. Repeat chest x-ray. 3. Diarrhea, better in the hospital. 4. Acute metabolic encephalopathy. 5. Shingles or herpes zoster. 6. Anxiety. 7.Acute on chronic hypoxic and hypercarbic respiratory failure. PLAN: Taper steroids as soon as possible because of the anxiety and confusion. Consult Infectious Disease specialist, Dr. Lezama and Dr. Perez. started on IV Zosyn and Levaquin. For details, please refer to the orders. Herpes Zoster- Valtrex. Acute Bronchitis- off Zosyn,off antibiotics. COPD exacerbation- taper steroids. GERD Discharge in AM if stable. Plan Plan For more details regarding further plans, please refer to the orders. MARIANELA COLEY MD Apr 30, 2019 09:39
--- NOTE | 2019-04-30 09:46 | PDOC ---
Infectious Disease Note Subjective Subjective pt is feeling better ROS ROS no n/v/d/sob/fever Vital Sign Vital Signs Vital Signs Date Time Temp Pulse Resp B/P (MAP) Pulse Ox O2 Delivery O2 Flow Rate FiO2 04/30/19 09:12 66 114/54 04/30/19 07:12 Nasal Cannula 2.0 04/30/19 07:00 97.9 16 98 97.9 Physical Exam PHYSICAL EXAM GENERAL: Alert and oriented female, not in distress, very debilitated. VITAL SIGNS: Stable, afebrile. HEENT: NAD. NECK: Supple, no JVP, no lymphadenopathy. LUNGS: Clear. HEART: S1, S2 regular. ABDOMEN: Benign. EXTREMITIES: No edema or cyanosis. SKIN: The patient does have a right side of the back in the lumbar area where she has a maculopapular rash with clusters looking like herpes zoster. Rest of the skin examination is unremarkable. NEUROLOGICAL: The patient is neurologically alert, awake and appropriate. No focal neurologic deficit. Labs Lab Laboratory Tests Test 04/30/19 08:00 White Blood Count 12.5 x10^3/uL (4.0-11.0) Red Blood Count 3.85 x10^6/uL (3.50-5.40) Hemoglobin 9.3 g/dL (12.0-15.5) Hematocrit 29.5 % (36.0-47.0) Mean Corpuscular Volume 77 fL (79-100) Mean Corpuscular Hemoglobin 24 pg (25-35) Mean Corpuscular Hemoglobin Concent 31 g/dL (31-37) Red Cell Distribution Width 18.8 % (11.5-14.5) Platelet Count 357 x10^3/uL (140-400) Neutrophils (%) (Auto) 70 % (31-73) Lymphocytes (%) (Auto) 16 % (24-48) Monocytes (%) (Auto) 14 % (0-9) Eosinophils (%) (Auto) 0 % (0-3) Basophils (%) (Auto) 0 % (0-3) Neutrophils # (Auto) 8.7 x10^3/uL (1.8-7.7) Lymphocytes # (Auto) 2.0 x10^3/uL (1.0-4.8) Monocytes # (Auto) 1.8 x10^3/uL (0.0-1.1) Eosinophils # (Auto) 0.0 x10^3/uL (0.0-0.7) Basophils # (Auto) 0.0 x10^3/uL (0.0-0.2) Sodium Level 140 mmol/L (136-145) Potassium Level 4.3 mmol/L (3.5-5.1) Chloride Level 102 mmol/L (98-107) Carbon Dioxide Level 37 mmol/L (21-32) Anion Gap 1 (6-14) Blood Urea Nitrogen 27 mg/dL (7-20) Creatinine 0.6 mg/dL (0.6-1.0) Estimated GFR (Cockcroft-Gault) 97.5 Glucose Level 113 mg/dL (70-99) Calcium Level 8.6 mg/dL (8.5-10.1) Objective Assessment Shingles Diarrhea Weakness COPD Plan Plan of Care valacyclovir for 1 wk supportive care fluids ok to d/c home or SNF EMILIANO PRICE MD Apr 30, 2019 09:46
[2019-04-30 11:00] VITALS: BP 150/82
--- NOTE | 2019-04-30 11:36 | PDOC ---
PULMONARY PROGRESS NOTES Subjective PT LESS SOA AND WHEEZE Vitals Vital Signs Date Time Temp Pulse Resp B/P (MAP) Pulse Ox O2 Delivery O2 Flow Rate FiO2 04/30/19 11:12 Nasal Cannula 2.0 04/30/19 11:00 98.0 77 16 150/82 (104) 98 98.0 ROS: No Nausea, No Chest Pain, No Abdominal Pain, No Increase Cough General: Alert, No acute distress Lungs: Clear Cardiovascular: S1, S2 Abdomen: Soft Neuro Exam: Alert Extremities: No Edema Skin: Warm Labs Laboratory Tests Test 04/28/19 20:44 04/29/19 05:00 04/30/19 08:00 White Blood Count 11.9 x10^3/uL (4.0-11.0) 8.5 x10^3/uL (4.0-11.0) 12.5 x10^3/uL (4.0-11.0) Red Blood Count 4.22 x10^6/uL (3.50-5.40) 3.62 x10^6/uL (3.50-5.40) 3.85 x10^6/uL (3.50-5.40) Hemoglobin 10.2 g/dL (12.0-15.5) 8.8 g/dL (12.0-15.5) 9.3 g/dL (12.0-15.5) Hematocrit 31.8 % (36.0-47.0) 27.3 % (36.0-47.0) 29.5 % (36.0-47.0) Mean Corpuscular Volume 75 fL (79-100) 75 fL (79-100) 77 fL (79-100) Mean Corpuscular Hemoglobin 24 pg (25-35) 24 pg (25-35) 24 pg (25-35) Mean Corpuscular Hemoglobin Concent 32 g/dL (31-37) 32 g/dL (31-37) 31 g/dL (31-37) Red Cell Distribution Width 18.7 % (11.5-14.5) 18.6 % (11.5-14.5) 18.8 % (11.5-14.5) Platelet Count 435 x10^3/uL (140-400) 351 x10^3/uL (140-400) 357 x10^3/uL (140-400) Neutrophils (%) (Auto) 83 % (31-73) 90 % (31-73) 70 % (31-73) Lymphocytes (%) (Auto) 8 % (24-48) 7 % (24-48) 16 % (24-48) Monocytes (%) (Auto) 9 % (0-9) 3 % (0-9) 14 % (0-9) Eosinophils (%) (Auto) 0 % (0-3) 0 % (0-3) 0 % (0-3) Basophils (%) (Auto) 0 % (0-3) 0 % (0-3) 0 % (0-3) Neutrophils # (Auto) 9.9 x10^3/uL (1.8-7.7) 7.6 x10^3/uL (1.8-7.7) 8.7 x10^3/uL (1.8-7.7) Lymphocytes # (Auto) 1.0 x10^3/uL (1.0-4.8) 0.6 x10^3/uL (1.0-4.8) 2.0 x10^3/uL (1.0-4.8) Monocytes # (Auto) 1.0 x10^3/uL (0.0-1.1) 0.3 x10^3/uL (0.0-1.1) 1.8 x10^3/uL (0.0-1.1) Eosinophils # (Auto) 0.0 x10^3/uL (0.0-0.7) 0.0 x10^3/uL (0.0-0.7) 0.0 x10^3/uL (0.0-0.7) Basophils # (Auto) 0.0 x10^3/uL (0.0-0.2) 0.0 x10^3/uL (0.0-0.2) 0.0 x10^3/uL (0.0-0.2) Sodium Level 140 mmol/L (136-145) 141 mmol/L (136-145) 140 mmol/L (136-145) Potassium Level 3.6 mmol/L (3.5-5.1) 4.1 mmol/L (3.5-5.1) 4.3 mmol/L (3.5-5.1) Chloride Level 102 mmol/L (98-107) 105 mmol/L (98-107) 102 mmol/L (98-107) Carbon Dioxide Level 30 mmol/L (21-32) 29 mmol/L (21-32) 37 mmol/L (21-32) Anion Gap 8 (6-14) 7 (6-14) 1 (6-14) Blood Urea Nitrogen 30 mg/dL (7-20) 25 mg/dL (7-20) 27 mg/dL (7-20) Creatinine 0.8 mg/dL (0.6-1.0) 0.7 mg/dL (0.6-1.0) 0.6 mg/dL (0.6-1.0) Estimated GFR (Cockcroft-Gault) 69.9 81.6 97.5 BUN/Creatinine Ratio 38 (6-20) 36 (6-20) Glucose Level 173 mg/dL (70-99) 123 mg/dL (70-99) 113 mg/dL (70-99) Calcium Level 8.8 mg/dL (8.5-10.1) 8.3 mg/dL (8.5-10.1) 8.6 mg/dL (8.5-10.1) Total Bilirubin 0.2 mg/dL (0.2-1.0) 0.2 mg/dL (0.2-1.0) Aspartate Amino Transf (AST/SGOT) 18 U/L (15-37) 15 U/L (15-37) Alanine Aminotransferase (ALT/SGPT) 40 U/L (14-59) 34 U/L (14-59) Alkaline Phosphatase 70 U/L (46-116) 60 U/L (46-116) Total Protein 7.5 g/dL (6.4-8.2) 6.3 g/dL (6.4-8.2) Albumin 3.5 g/dL (3.4-5.0) 2.8 g/dL (3.4-5.0) Albumin/Globulin Ratio 0.9 (1.0-1.7) 0.8 (1.0-1.7) Lipase 80 U/L (73-393) Segmented Neutrophils % 91 % (35-66) Lymphocytes % 8 % (24-48) Monocytes % 1 % (0-10) Hypersegmented Neutrophils Present Platelet Estimate Adequate (ADEQUATE) Laboratory Tests Test 04/30/19 08:00 White Blood Count 12.5 x10^3/uL (4.0-11.0) Red Blood Count 3.85 x10^6/uL (3.50-5.40) Hemoglobin 9.3 g/dL (12.0-15.5) Hematocrit 29.5 % (36.0-47.0) Mean Corpuscular Volume 77 fL (79-100) Mean Corpuscular Hemoglobin 24 pg (25-35) Mean Corpuscular Hemoglobin Concent 31 g/dL (31-37) Red Cell Distribution Width 18.8 % (11.5-14.5) Platelet Count 357 x10^3/uL (140-400) Neutrophils (%) (Auto) 70 % (31-73) Lymphocytes (%) (Auto) 16 % (24-48) Monocytes (%) (Auto) 14 % (0-9) Eosinophils (%) (Auto) 0 % (0-3) Basophils (%) (Auto) 0 % (0-3) Neutrophils # (Auto) 8.7 x10^3/uL (1.8-7.7) Lymphocytes # (Auto) 2.0 x10^3/uL (1.0-4.8) Monocytes # (Auto) 1.8 x10^3/uL (0.0-1.1) Eosinophils # (Auto) 0.0 x10^3/uL (0.0-0.7) Basophils # (Auto) 0.0 x10^3/uL (0.0-0.2) Sodium Level 140 mmol/L (136-145) Potassium Level 4.3 mmol/L (3.5-5.1) Chloride Level 102 mmol/L (98-107) Carbon Dioxide Level 37 mmol/L (21-32) Anion Gap 1 (6-14) Blood Urea Nitrogen 27 mg/dL (7-20) Creatinine 0.6 mg/dL (0.6-1.0) Estimated GFR (Cockcroft-Gault) 97.5 Glucose Level 113 mg/dL (70-99) Calcium Level 8.6 mg/dL (8.5-10.1) Medications Active Scripts Medications Dose Route/Sig Max Daily Dose Days Date Category Prednisone 50 Mg Tablet 1 Tab PO DAILY 04/21/19 Rx Cefdinir 300 Mg Capsule 300 Mg PO BID 7 04/21/19 Rx Daliresp (Roflumilast) 500 Mcg Tablet 1 Tab PO DAILY 03/03/19 Reported Lisinopril 20 Mg Tablet 1 Tab PO DAILY 03/03/19 Reported Albuterol Sulfate Neb Soln (Albuterol Sulfate) 1.25 Mg/3 Ml Vial.neb 1 Vial NEB Q6HRS 03/03/19 Reported Senna-Time S Tablet (Sennosides/Docusate Sodium) 1 Each Tablet 2 Tab PO PRN DAILY PRN 30 11/03/18 Rx Mucinex (Guaifenesin) 1,200 Mg Tbmp.12hr 1 Tab PO BID 10/30/18 Reported Tylenol (Acetaminophen) 325 Mg Tablet 650 Mg PO PRN Q6HRS PRN 30 09/22/18 Rx Spiriva (Tiotropium [place]) 18 Mcg Cap.w.dev 1 Cap IH DAILY 08/15/18 Reported Alendronate Sodium 70 Mg Tablet 1 Tab PO WEEKLY 08/15/18 Reported Symbicort 160-4.5 Mcg Inhaler (Budesonide/Formoterol Fumarate) 10.2 Gm Hfa.aer.ad 2 Puff IH BID 01/06/18 Rx Duoneb 0.5-3(2.5) Mg/3 Ml (Albuterol/Ipratropium) 3 Ml Ampul.neb 3 Ml NEB RTQID 10/23/17 Rx Flonase Allergy Relief (Fluticasone Propionate) 9.9 Ml [place].susp 2 Sprays NS BID 10/20/17 Reported Simvastatin 10 Mg Tablet 1 Tab PO QHS 07/22/17 Reported Pepcid (Famotidine) 20 Mg Tablet 20 Mg PO BID 07/22/17 Reported Proair Hfa Inhaler (Albuterol Sulfate) 8.5 Gm Hfa.aer.ad 2 Puff INH PRN Q6HRS PRN 07/22/17 Reported Aspirin 81 Mg Tab.chew 1 Tab PO DAILY 07/22/17 Reported Gabapentin (Gabapentin) 100 Mg Capsule 100 Mg PO BID 07/22/17 Reported Baclofen 10 Mg Tablet 1 Tab PO TID PRN 04/23/15 Reported Singulair Tablet (Montelukast Sodium) 10 Mg Tablet 1 Tab PO QEVNG 04/23/15 Reported Zyrtec (Cetirizine Hcl) 10 Mg Tablet 1 Tab PO QHS 04/23/15 Reported Xanax (Alprazolam) 0.5 Mg Tablet 1 Tab PO BID 04/23/15 Reported Impression . IMPRESSION: 1. Abnormal x-ray revealing infiltrate, suspect residual from previous pneumonia. 2. Acute exacerbation of chronic obstructive pulmonary disease secondary to acute nonspecific bronchitis, possibly viral in nature. 3. Shingles. 4. Diarrhea. 5. Generalized weakness. 6. Other comorbidities as indicated above. Plan . IMPROVING WILL CONTINUE THE SAME FOLLOW ID REC ELMER STANLEY MD Apr 30, 2019 11:36
[2019-04-30] MEDS: PANTOPRAZOLE 40 MG TABLET.DR. PO SCH (15:24)
[2019-04-30 15:32] VITALS: BP 111/53
[2019-04-30 19:00] VITALS: BP 124/46
[2019-04-30] MEDS: MONTELUKAST SODIUM 10 MG TABLET. PO SCH (19:49)
[2019-04-30] MEDS: CETIRIZINE HCL 10 MG TABLET. PO SCH (21:46)
[2019-04-30 22:45] VITALS: BP 121/58
[2019-05-01 03:30] VITALS: BP 112/52
[2019-05-01] MEDS: HYDROcodone/APAP 5/325MG 1 TAB TABLET PO PRN (03:58)
[2019-05-01 07:00] VITALS: BP 105/50
[2019-05-01] MEDS: IPRATRPIUM/ALBUTEROL 0.5/2.5MG 3 ML NEBU. NEB SCH ×2 (07:46→11:18)
[2019-05-01] MEDS: BUDESONIDE 0.5 MG/2 ML NEBU. NEB SCH (07:47)
--- NOTE | 2019-05-01 08:54 | PDOC ---
PULMONARY PROGRESS NOTES Subjective PT LESS SOA AND WHEEZE Vitals Vital Signs Date Time Temp Pulse Resp B/P (MAP) Pulse Ox O2 Delivery O2 Flow Rate FiO2 05/01/19 08:00 Nasal Cannula 2.0 05/01/19 07:48 100 05/01/19 07:00 97.7 71 16 105/50 (68) 97.7 ROS: No Nausea, No Chest Pain, No Abdominal Pain, No Increase Cough General: Alert, No acute distress Lungs: Clear Cardiovascular: S1, S2 Abdomen: Soft Neuro Exam: Alert Extremities: No Edema Skin: Warm Labs Laboratory Tests Test 04/30/19 08:00 White Blood Count 12.5 x10^3/uL (4.0-11.0) Red Blood Count 3.85 x10^6/uL (3.50-5.40) Hemoglobin 9.3 g/dL (12.0-15.5) Hematocrit 29.5 % (36.0-47.0) Mean Corpuscular Volume 77 fL (79-100) Mean Corpuscular Hemoglobin 24 pg (25-35) Mean Corpuscular Hemoglobin Concent 31 g/dL (31-37) Red Cell Distribution Width 18.8 % (11.5-14.5) Platelet Count 357 x10^3/uL (140-400) Neutrophils (%) (Auto) 70 % (31-73) Lymphocytes (%) (Auto) 16 % (24-48) Monocytes (%) (Auto) 14 % (0-9) Eosinophils (%) (Auto) 0 % (0-3) Basophils (%) (Auto) 0 % (0-3) Neutrophils # (Auto) 8.7 x10^3/uL (1.8-7.7) Lymphocytes # (Auto) 2.0 x10^3/uL (1.0-4.8) Monocytes # (Auto) 1.8 x10^3/uL (0.0-1.1) Eosinophils # (Auto) 0.0 x10^3/uL (0.0-0.7) Basophils # (Auto) 0.0 x10^3/uL (0.0-0.2) Sodium Level 140 mmol/L (136-145) Potassium Level 4.3 mmol/L (3.5-5.1) Chloride Level 102 mmol/L (98-107) Carbon Dioxide Level 37 mmol/L (21-32) Anion Gap 1 (6-14) Blood Urea Nitrogen 27 mg/dL (7-20) Creatinine 0.6 mg/dL (0.6-1.0) Estimated GFR (Cockcroft-Gault) 97.5 Glucose Level 113 mg/dL (70-99) Calcium Level 8.6 mg/dL (8.5-10.1) Medications Active Scripts Medications Dose Route/Sig Max Daily Dose Days Date Category Prednisone 50 Mg Tablet 1 Tab PO DAILY 04/21/19 Rx Cefdinir 300 Mg Capsule 300 Mg PO BID 7 04/21/19 Rx Daliresp (Roflumilast) 500 Mcg Tablet 1 Tab PO DAILY 03/03/19 Reported Lisinopril 20 Mg Tablet 1 Tab PO DAILY 03/03/19 Reported Albuterol Sulfate Neb Soln (Albuterol Sulfate) 1.25 Mg/3 Ml Vial.neb 1 Vial NEB Q6HRS 03/03/19 Reported Senna-Time S Tablet (Sennosides/Docusate Sodium) 1 Each Tablet 2 Tab PO PRN DAILY PRN 30 11/03/18 Rx Mucinex (Guaifenesin) 1,200 Mg Tbmp.12hr 1 Tab PO BID 10/30/18 Reported Tylenol (Acetaminophen) 325 Mg Tablet 650 Mg PO PRN Q6HRS PRN 30 09/22/18 Rx Spiriva (Tiotropium [place]) 18 Mcg Cap.w.dev 1 Cap IH DAILY 08/15/18 Reported Alendronate Sodium 70 Mg Tablet 1 Tab PO WEEKLY 08/15/18 Reported Symbicort 160-4.5 Mcg Inhaler (Budesonide/Formoterol Fumarate) 10.2 Gm Hfa.aer.ad 2 Puff IH BID 01/06/18 Rx Duoneb 0.5-3(2.5) Mg/3 Ml (Albuterol/Ipratropium) 3 Ml Ampul.neb 3 Ml NEB RTQID 10/23/17 Rx Flonase Allergy Relief (Fluticasone Propionate) 9.9 Ml [place].susp 2 Sprays NS BID 10/20/17 Reported Simvastatin 10 Mg Tablet 1 Tab PO QHS 07/22/17 Reported Pepcid (Famotidine) 20 Mg Tablet 20 Mg PO BID 07/22/17 Reported Proair Hfa Inhaler (Albuterol Sulfate) 8.5 Gm Hfa.aer.ad 2 Puff INH PRN Q6HRS PRN 07/22/17 Reported Aspirin 81 Mg Tab.chew 1 Tab PO DAILY 07/22/17 Reported Gabapentin (Gabapentin) 100 Mg Capsule 100 Mg PO BID 07/22/17 Reported Baclofen 10 Mg Tablet 1 Tab PO TID PRN 04/23/15 Reported Singulair Tablet (Montelukast Sodium) 10 Mg Tablet 1 Tab PO QEVNG 04/23/15 Reported Zyrtec (Cetirizine Hcl) 10 Mg Tablet 1 Tab PO QHS 04/23/15 Reported Xanax (Alprazolam) 0.5 Mg Tablet 1 Tab PO BID 04/23/15 Reported Impression . IMPRESSION: 1. Abnormal x-ray revealing infiltrate, suspect residual from previous pneumonia. 2. Acute exacerbation of chronic obstructive pulmonary disease secondary to acute nonspecific bronchitis, possibly viral in nature. 3. Shingles. 4. Diarrhea. 5. Generalized weakness. 6. Other comorbidities as indicated above. Plan . IMPROVING WILL CONTINUE THE SAME FOLLOW ID REC ELMER STANLEY MD May 01, 2019 08:53
[2019-05-01] MEDS: GABAPENTIN 100 MG CAPSULE. PO SCH (09:00)
[2019-05-01] MEDS ORDERED: VALA500T PO (09:35)
[2019-05-01] MEDS ORDERED: PRED-220 PO (09:35)
--- NOTE | 2019-05-01 09:42 | SNU/HH DC ---
DISCHARGE WITH HOME HEALTH DISCHARGE INFORMATION: Condition on Discharge: Stable HOME HEALTH: Face to Face: I certify this patient is under my care and that I, or a nurse practitioner or physician's placement assistant working with me, had a face to face encounter that meets the physician face to face encounter requirements with this patient on 05/01/19. Medical Complications: COPD RN For Eval/Treatment: Yes Pt Meets Homebound Status: Unsteady balance w/ amb,, Limited distance walking POST DISCHARGE ORDERS: Activity Instructions for Disc: Activity as tolerated Weight Bearing Status after Di: As tolerated DIET AFTER DISCHARGE: Regular CHECKS AFTER DISCHARGE: Checks after discharge: Check blood press - daily, Check your Temp as needed FOLLOW-UP: PCP to follow Home Health: Dr.Pratip Coley in 4 days TREATMENT/EQUIPMENT ORDERS: Adaptive Equipment Issued: Front wheeled walker Discharge Respiratory Equipmen: Oxygen (2 lit/min at rest,2.5 lit with exertion), Nebulizer CERTIFICATION STATEMENT: Certification Statement: Certification Statement: Based on the above finding, I certify that this patient is confined to the home and needs intermittent mcfp care, physical therapy and/or speech therapy, or continues to need occupational therapy.~ This patient is under my care, and I have initiated the establishment of the plan of care.~ This patient will be followed by myself or a community physician who will periodically review the plan of care. Home Meds Active Scripts Prednisone (PREDNISONE) 50 Mg Tablet, 1 TAB PO DAILY for copd, #7 TAB Prov:NIXON HOU MD 04/21/19 Cefdinir (CEFDINIR) 300 Mg Capsule, 300 MG PO BID for pneumonia for 7 Days, #14 CAP Prov:NIXON HOU MD 04/21/19 Sennosides/Docusate Sodium (SENNA-TIME S TABLET) 1 Each Tablet, 2 TAB PO PRN DAILY PRN for CONSTIPATION for 30 Days, #60 TAB Prov:MARIANELA COLEY MD 11/03/18 Acetaminophen (TYLENOL) 325 Mg Tablet, 650 MG PO PRN Q6HRS PRN for MILD PAIN / TEMP for 30 Days, TAB Prov:MARIANELA COLEY MD 09/22/18 Budesonide/Formoterol Fumarate (SYMBICORT 160-4.5 MCG INHALER) 10.2 Gm Hfa.aer.ad, 2 PUFF IH BID, #10.6 GM 3 Refills Prov:JEREMY CRUZ [employer] 01/06/18 Ipratropium/Albuterol Sulfate (DUONEB 0.5-3(2.5) MG/3 ML) 3 Ml Ampul.neb, 3 ML NEB RTQID, #120 EACH Prov:JEREMY CRUZ [employer]SHAL 10/23/17 Reported Medications Roflumilast (DALIRESP) 500 Mcg Tablet, 1 TAB PO DAILY for COPD, #90 TAB 3 Refills 03/03/19 Lisinopril (LISINOPRIL) 20 Mg Tablet, 1 TAB PO DAILY for HTN, #30 TAB 5 Refills 03/03/19 Albuterol Sulfate (ALBUTEROL SULFATE NEB SOLN) 1.25 Mg/3 Ml Vial.neb, 1 VIAL NEB Q6HRS for SOA, #150 ML 03/03/19 Guaifenesin (MUCINEX) 1,200 Mg Tbmp.12hr, 1 TAB PO BID for cough, #14 TAB 10/30/18 Tiotropium [place] (SPIRIVA) 18 Mcg Cap.w.dev, 1 CAP IH DAILY for COPD, #30 CAP 3 Refills 08/15/18 Alendronate Sodium (ALENDRONATE SODIUM) 70 Mg Tablet, 1 TAB PO WEEKLY for HELLP JOINTS, #4 TAB 3 Refills 08/15/18 Fluticasone Propionate (Flonase Allergy Relief) 9.9 Ml [place].susp, 2 SPRAYS NS BID, BOTTLE 10/20/17 Simvastatin (SIMVASTATIN) 10 Mg Tablet, 1 TAB PO QHS, #30 TAB 5 Refills 07/22/17 Famotidine (PEPCID) 20 Mg Tablet, 20 MG PO BID, TAB 07/22/17 Albuterol Sulfate (PROAIR HFA INHALER) 8.5 Gm Hfa.aer.ad, 2 PUFF INH PRN Q6HRS PRN for SHORTNESS OF BREATH, INHALER 0 Refills 07/22/17 Aspirin (ASPIRIN) 81 Mg Tab.chew, 1 TAB PO DAILY, #30 TAB 3 Refills 07/22/17 Gabapentin (GABAPENTIN ) 100 Mg Capsule, 100 MG PO BID, CAP 07/22/17 Baclofen (BACLOFEN) 10 Mg Tablet, 1 TAB PO TID PRN for PAIN, #90 TAB 2 Refills 04/23/15 Montelukast Sodium (SINGULAIR TABLET ) 10 Mg Tablet, 1 TAB PO QEVNG for asthma, #90 TAB 1 Refill 04/23/15 Cetirizine Hcl (ZYRTEC) 10 Mg Tablet, 1 TAB PO QHS for allergy, #30 TAB 2 Refills 04/23/15 Alprazolam (XANAX) 0.5 Mg Tablet, 1 TAB PO BID for anxiety, #60 TAB 04/23/15 MARIANELA COLEY MD May 01, 2019 09:42
[2019-05-01] MEDS ORDERED: methylPREDNISolone SOD SUCC PF 40 MG/ML VIAL. IV SCH (10:00)
--- NOTE | 2019-05-01 10:11 | PDOC3 ---
IM DISCHARGE SUMMARY Date of Admission Date of Admission Date of Admission: Apr 28, 2019 at 21:23 Date of Discharge Date of Discharge 05/01/19 Primary Diagnosis Primary Diagnosis 1. Exacerbation of chronic obstructive pulmonary disease. 2. Recent pneumonia. Repeat chest x-ray. 3. Diarrhea, better in the hospital. 4. Acute metabolic encephalopathy. 5. Shingles or herpes zoster. 6. Anxiety. Consults Consults Hu Lezama MD; Chico Lott MD Brief hospital course Brief hospital course This is a 74-year-old old female with severe COPD, who was recently admitted to this institution on 04/15 for pneumonia and exacerbation of COPD, was discharged on 04/23. She went home on prednisone 50 mg daily and oral antibiotics. However, when she was seen in the office yesterday, she was confused. She complained of diarrhea as she was taking excessive amounts of Xanax. She also developed shingles and because of the diarrhea, confusion, shingles and insomnia and not sure what medication she was taking, the patient was sent to the Emergency Room. The patient claimed in the office that she had taken 4 tablets of 50 mg prednisone that day, but she had only 7 tablets given at the time of discharge and she should have left only 1 tablet. In the Emergency Room, the patient was evaluated and admitted for further evaluation and management. For more details regarding the past history, family history, social history, surgical history and other details, please refer to History and Physical. Taper steroids as soon as possible because of the anxiety and confusion. Consult Infectious Disease specialist, Dr. Lezama and Dr. Perez. started on IV Zosyn and Levaquin. For details, please refer to the orders. Herpes Zoster- Valtrex 1 gm bid for total 7 days Acute Bronchitis- off Zosyn,off antibiotics. COPD exacerbation- taper steroids.30-20-10 mg each for 3 days. Diarrhea- resolved. Doing better but prognosis is poor. see in office in 4 days. GERD Medications Current Medications Medications (Trade) Dose Ordered Sig/Geovanny Route PRN Reason Start Time Stop Time Status Last Admin Dose Admin Pantoprazole Sodium (Protonix) 40 mg DAILYAC PO 04/30/19 11:30 04/30/19 15:25 Medications reviewed and reconciled for discharge. Allergy Allergies Coded Allergies Type Severity Reaction Last Updated Verified No Known Drug Allergies 10/30/18 No Follow up in 4 days. DISPOSITION: Home health services Comments Discharge Management - 35 minutes. For other details please refer to discharge instructions MARIANELA COLEY MD May 01, 2019 10:11
--- NOTE | 2019-05-01 10:29 | NUR ---
KATHIA following pt. Pt wants to use [facility]. KATHIA phoned and faxed orders to [facility]. Pt will transport via central transport at 1430. RN notified.
[2019-05-01] MEDS: FLUTICASONE 50MCG/NASAL SPRAY 16GM BOTTLE. NS SCH (10:34)
[2019-05-01] MEDS: ALPRAZolam 0.5 MG TABLET PO SCH (10:35)
[2019-05-01] MEDS: ROFLUMILAST 500 MCG TABLET. PO SCH (10:35)
[2019-05-01] MEDS: FAMOTIDINE 20 MG TABLET. PO SCH (10:36)
[2019-05-01] MEDS: valACYclovir 500 MG TABLET. PO SCH (10:36)
[2019-05-01] MEDS: ASPIRIN CHEWABLE 81 MG TABLET. PO SCH (10:36)
[2019-05-01] MEDS: PANTOPRAZOLE 40 MG TABLET.DR. PO SCH (10:36)
[2019-05-01] MEDS: LISINOPRIL 20 MG TABLET PO SCH (10:37)
--- NOTE | 2019-05-01 10:48 | PDOC ---
Infectious Disease Note Subjective Subjective pt is feeling better ROS ROS no n/v/d/sob Vital Sign Vital Signs Vital Signs Date Time Temp Pulse Resp B/P (MAP) Pulse Ox O2 Delivery O2 Flow Rate FiO2 05/01/19 10:38 71 105/50 05/01/19 08:00 Nasal Cannula 2.0 05/01/19 07:48 100 05/01/19 07:00 97.7 16 97.7 Physical Exam PHYSICAL EXAM GENERAL: Alert and oriented female, not in distress, very debilitated. VITAL SIGNS: Stable, afebrile. HEENT: NAD. NECK: Supple, no JVP, no lymphadenopathy. LUNGS: Clear. HEART: S1, S2 regular. ABDOMEN: Benign. EXTREMITIES: No edema or cyanosis. SKIN: The patient does have a right side of the back in the lumbar area where she has a maculopapular rash with clusters looking like herpes zoster. Rest of the skin examination is unremarkable. NEUROLOGICAL: The patient is neurologically alert, awake and appropriate. No focal neurologic deficit. Objective Assessment Shingles Diarrhea Weakness COPD Plan Plan of Care valacyclovir for 1 wk supportive care fluids ok to d/c home or SNF EMILIANO PRICE MD May 01, 2019 10:48
[2019-05-01 11:00] VITALS: BP 124/68
--- NOTE | 2019-05-01 14:40 | NUR ---
Patient discharged home per w/c van. Belongings in room taken with patient as well as items returned to patient from Security. Patient has verbalized understanding of discharge instructions, of which she has a copy. Prescription sent with patient (2 on 1, copy on chart) Patient has her O2 tank with her. Caregiver will be at her home.
[2019-05-06] MEDS ORDERED: NON FORMULARY ITEM (Alendronate Sodium 1 TAB) PO SCH (09:00)
== END 2019-05-01 14:40 | disposition home health service (06) | DRG 189 ==
LOC: ER 18:13 → 5 NORTH 21:23
PROVIDERS: ADMIT Internal Medicine; ATTEND Internal Medicine
DX: J96.21 Acute and chronic respiratory failure with hypoxia (principal); G93.41 Metabolic encephalopathy; J44.1 Chronic obstructive pulmonary disease with (acute) exacerbation; J44.0 Chronic obstructive pulmonary disease with (acute) lower respiratory infection; J96.22 Acute and chronic respiratory failure with hypercapnia; F41.9 Anxiety disorder, unspecified; M19.90 Unspecified osteoarthritis, unspecified site; I10 Essential (primary) hypertension; K21.9 Gastro-esophageal reflux disease without esophagitis; E78.00 Pure hypercholesterolemia, unspecified; K58.0 Irritable bowel syndrome with diarrhea; Z99.81 Dependence on supplemental oxygen; E11.40 Type 2 diabetes mellitus with diabetic neuropathy, unspecified; E78.5 Hyperlipidemia, unspecified; F32.9 Major depressive disorder, single episode, unspecified; I27.29 Other secondary pulmonary hypertension; Z87.440 Personal history of urinary (tract) infections; Z87.442 Personal history of urinary calculi; Z87.11 Personal history of peptic ulcer disease; Z87.01 Personal history of pneumonia (recurrent); Z88.6 Allergy status to analgesic agent; Z80.0 Family history of malignant neoplasm of digestive organs; Z87.891 Personal history of nicotine dependence; B02.9 Zoster without complications; Z96.649 Presence of unspecified artificial hip joint; Z86.19 Personal history of other infectious and parasitic diseases; J20.9 Acute bronchitis, unspecified; G47.00 Insomnia, unspecified
CPT/HCPCS: 36415; 71045; 74177; 80048; 80053; 83690; 85007; 85025; 94640; 94760; J1956; J2270; J2405; J2543; J2920; J7030; J7613; J7620; J7626; Q0162; Q9967; 97116; 99285-25; G0378

== ENCOUNTER 2019-06-28 13:09 | Inpatient (IN) | payer OTHER, MEDICAID ==
[~2019-06-28] VITALS: Ht 156.2 cm; Wt 37.6 kg
[~2019-06-28 13:09] MED LIST changes: +VALA500T PO
[2019-06-28] MEDS ORDERED: IV NORMAL SALINE 1000ML BAG 1,000 ML IV SCH (13:30)
[2019-06-28] MEDS ORDERED: methylPREDNISolone SOD SUCC PF 125 MG/2 ML VIAL. IV ONE (13:45)
[2019-06-28] MEDS ORDERED: IPRATRPIUM/ALBUTEROL 0.5/2.5MG 3 ML NEBU. NEB ONE (13:45)
--- NOTE | 2019-06-28 14:00 | RAD ---
PORTABLE CHEST 1V History: Shortness of breath Comparison: April 29, 2019 Findings: Single view of the chest is submitted. Cardiac silhouette is stable, within normal limits. There is no pneumothorax or dependent pleural fluid. There is no new lobar consolidation. There is suspected emphysema. Mild interstitial opacity is similar. Impression: 1. There is suspected emphysema, no new lobar consolidation. Electronically signed by: Chago Adams MD (06/28/2019 1:58 PM) [facility]
[2019-06-28 14:29] LABS: BASO # 0.1 x10^3/uL (0.0-0.2); BASO % 1 % (0-3); EOS # 0.3 x10^3/uL (0.0-0.7); EOS % 3 % (0-3); HEMATOCRIT 30.9 % (36.0-47.0); HEMOGLOBIN 9.9 g/dL (12.0-15.5); LYMPH # 2.4 x10^3/uL (1.0-4.8); LYMPH % 24 % (24-48); MEAN CORPUSCULAR HEMOGLOBIN 25 pg (25-35); MEAN CORPUSCULAR HGB CONC 32 g/dL (31-37); MEAN CORPUSCULAR VOLUME 77 fL (79-100); MONO % 10 % (0-9); NEUT # 6.3 x10^3/uL (1.8-7.7); NEUT % 63 % (31-73); PLATELET COUNT 333 x10^3/uL (140-400); RED BLOOD COUNT 4.02 x10^6/uL (3.50-5.40)
[2019-06-28 14:37] LABS: CALCIUM 10.1 mg/dL (8.5-10.1); CREATININE 0.8 mg/dL (0.6-1.0); GFR 69.9; POTASSIUM 4.2 mmol/L (3.5-5.1)
[2019-06-28 14:43] LABS: ALBUMIN 3.8 g/dL (3.4-5.0); ALBUMIN/GLOBULIN RATIO 0.8 (1.0-1.7); TOTAL BILIRUBIN 0.2 mg/dL (0.2-1.0); TOTAL PROTEIN 8.3 g/dL (6.4-8.2)
[2019-06-28] MEDS ORDERED: KETOROLAC 30 MG/ML VIAL. IV ONE (15:00)
[2019-06-28] MEDS ORDERED: LEVO500T59 PO (15:17)
[2019-06-28] MEDS ORDERED: METH4TAB2 PO (15:17)
--- NOTE | 2019-06-28 15:17 | PHYS DOC ---
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, Alcohol Use: Rarely Drug Use: None Adult General Chief Complaint Chief Complaint: SHORTNESS OF BREATH HPI HPI 74-year-old female who underlying history of chronic respiratory failure presents to the emergency department with complaints of cough, shortness of breath. Unknown exact onset. Patient was apparently 70% on 2-1/2 L nasal cannula which is her baseline. She received a DuoNeb per EMS improving her saturation to the 90s. Patient was transported to this facility for further evaluation given her tachycardia of 130s to 140s however that has improved at this time and is currently 100. She denies any complaints of nausea, vomiting, chest pain, abdominal pain, headache or visual change. She denies any fever, has had some chills. Review of Systems Review of Systems Constitutional: Chills Eyes: Denies change in visual acuity, redness, or eye pain [] HENT: Denies nasal congestion or sore throat [] Respiratory: Cough, shortness of breath Cardiovascular: No additional information not addressed in HPI [] GI: Denies abdominal pain, nausea, vomiting, bloody stools or diarrhea [] : Denies dysuria or hematuria [] Musculoskeletal: Denies back pain or joint pain [] Integument: Denies rash or skin lesions [] Neurologic: Denies headache, focal weakness or sensory changes [] All other systems were reviewed and found to be within normal limits, except as documented in this note. Current Medications Current Medications Current Medications Medications (Trade) Dose Ordered Sig/Geovanny Start Time Stop Time Status Last Admin Dose Admin Albuterol/ Ipratropium (Duoneb) 3 ml 1X ONCE 06/28/19 13:45 06/28/19 13:46 DC 06/28/19 13:32 3 ML Ketorolac Tromethamine (Toradol 30mg Vial) 30 mg 1X ONCE 06/28/19 15:00 06/28/19 15:01 DC 06/28/19 14:37 30 MG Methylprednisolone Sodium Succinate (SOLU-Medrol 125MG VIAL) 125 mg 1X ONCE 06/28/19 13:45 06/28/19 13:46 DC 06/28/19 13:43 125 MG Sodium Chloride 1,000 ml @ 1,000 mls/hr Q1H 06/28/19 13:30 06/28/19 14:29 DC 06/28/19 13:43 1,000 MLS/HR Allergies Allergies Allergies Coded Allergies Type Severity Reaction Last Updated Verified No Known Drug Allergies 10/30/18 No Physical Exam Physical Exam Constitutional: Well developed, well nourished, no acute distress, non-toxic appearance. [] HENT: Normocephalic, atraumatic, bilateral external ears normal, oropharynx moist, no oral exudates, nose normal. [] Eyes: PERRLA, EOMI, conjunctiva normal, no discharge. [] Neck: Normal range of motion, no tenderness, supple, no stridor. [] Cardiovascular:Heart rate regular rhythm, no murmur [] Lungs & Thorax: Bilateral breath sounds clear to auscultation [] Abdomen: Bowel sounds normal, soft, no tenderness, no masses, no pulsatile masses. [] Skin: Warm, dry, no erythema, no rash. [] Back: No tenderness, no CVA tenderness. [] Extremities: No tenderness, no cyanosis, no clubbing, ROM intact, no edema. [] Neurologic: Alert and oriented X 3, normal motor function, normal sensory function, no focal deficits noted. [] Psychologic: Affect normal, judgement normal, mood normal. [] Current Patient Data Vital Signs Vital Signs Date Time Temp Pulse Resp B/P (MAP) Pulse Ox O2 Delivery O2 Flow Rate FiO2 06/28/19 13:33 96 Nasal Cannula 2.5 06/28/19 13:10 98.0 126 20 160/116 (131) 98.0 Lab Values Laboratory Tests Test 06/28/19 14:15 White Blood Count 10.0 x10^3/uL (4.0-11.0) Red Blood Count 4.02 x10^6/uL (3.50-5.40) Hemoglobin 9.9 g/dL (12.0-15.5) L Hematocrit 30.9 % (36.0-47.0) L Mean Corpuscular Volume 77 fL (79-100) L Mean Corpuscular Hemoglobin 25 pg (25-35) Mean Corpuscular Hemoglobin Concent 32 g/dL (31-37) Red Cell Distribution Width 19.0 % (11.5-14.5) H Platelet Count 333 x10^3/uL (140-400) Neutrophils (%) (Auto) 63 % (31-73) Lymphocytes (%) (Auto) 24 % (24-48) Monocytes (%) (Auto) 10 % (0-9) H Eosinophils (%) (Auto) 3 % (0-3) Basophils (%) (Auto) 1 % (0-3) Neutrophils # (Auto) 6.3 x10^3/uL (1.8-7.7) Lymphocytes # (Auto) 2.4 x10^3/uL (1.0-4.8) Monocytes # (Auto) 1.0 x10^3/uL (0.0-1.1) Eosinophils # (Auto) 0.3 x10^3/uL (0.0-0.7) Basophils # (Auto) 0.1 x10^3/uL (0.0-0.2) Sodium Level 145 mmol/L (136-145) Potassium Level 4.2 mmol/L (3.5-5.1) Chloride Level 102 mmol/L (98-107) Carbon Dioxide Level 38 mmol/L (21-32) H Anion Gap 5 (6-14) L Blood Urea Nitrogen 29 mg/dL (7-20) H Creatinine 0.8 mg/dL (0.6-1.0) Estimated GFR (Cockcroft-Gault) 69.9 BUN/Creatinine Ratio 36 (6-20) H Glucose Level 139 mg/dL (70-99) H Calcium Level 10.1 mg/dL (8.5-10.1) Total Bilirubin 0.2 mg/dL (0.2-1.0) Aspartate Amino Transferase (AST) 28 U/L (15-37) Alanine Aminotransferase (ALT) 19 U/L (14-59) Alkaline Phosphatase 61 U/L (46-116) Total Protein 8.3 g/dL (6.4-8.2) H Albumin 3.8 g/dL (3.4-5.0) Albumin/Globulin Ratio 0.8 (1.0-1.7) L Laboratory Tests 06/28/19 14:15 Laboratory Tests 06/28/19 14:15 EKG EKG EKG reveals sinus tachycardia, heart rate 123, no acute evidence of ST elevation SD[] Interpretation Time: Interpretation time 1317 Radiology/Procedures Radiology/Procedures [facility] [address] [place] [address] IMAGING REPORT Signed PATIENT: ZULEIKA PIZARRO ACCOUNT: [id number] : 1945 LOCATION: ER AGE: 74 SEX: F EXAM STATUS: REG ER ORD. PHYSICIAN: LIILANA TORRES MD REASON: SOB PROCEDURE: PORTABLE CHEST 1V PORTABLE CHEST 1V History: Shortness of breath Comparison: April 29, 2019 Findings: Single view of the chest is submitted. Cardiac silhouette is stable, within normal limits. There is no pneumothorax or dependent pleural fluid. There is no new lobar consolidation. There is suspected emphysema. Mild interstitial opacity is similar. Impression: 1. There is suspected emphysema, no new lobar consolidation. Electronically signed by: Graham Cast MD (06/28/2019 1:58 PM) [facility] DICTATED and SIGNED BY: GRAHAM CAST MD DATE: 06/28/19 [] Course & Med Decision Making Course & Med Decision Making Pertinent Labs and Imaging studies reviewed. (See chart for details) []74-year-old female who underlying history of chronic respiratory failure presents to the emergency department with complaints of cough, shortness of breath. Unknown exact onset. Patient was apparently 70% on 2-1/2 L nasal cannula which is her baseline. She received a DuoNeb per EMS improving her saturation to the 90s. Patient was transported to this facility for further evaluation given her tachycardia of 130s to 140s however that has improved at this time and is currently 100. She denies any complaints of nausea, vomiting, chest pain, abdominal pain, headache or visual change. She denies any fever, has had some chills. Patient received duoneb upon arrival Labs/Imaging reviewed, no evidence of acute infection - VS have improved CXR shows no evidence of new consolidation or fluid overload Patient would prefer to dc home, she is currently at her baseline O2 Will plan a 2nd treatment prior to dc home Plan abx and steroid taper Hernandez Disclaimer Dragon Disclaimer This electronic medical record was generated, in whole or in part, using a voice recognition dictation system. Departure Departure Impression: Primary Impression: COPD exacerbation Disposition: HOME, SELF-CARE Condition: IMPROVED Referrals: MARIANELA COLEY MD (PCP) Patient Instructions: Chronic Obstructive Pulmonary Disease Exacerbation, [id number] Additional Instructions: Recommend follow up with PCP 3 - 5 days Return to the ER with worsening symptoms, intractable pain, fever, altered mental status Tylenol/Motrin as needed for pain Take antibioitics as directed Take prednisone as directed Scripts Methylprednisolone (MEDROL) 4 Mg Tab.ds.pk 1 PKG PO UD for inflammation, #1 PKG Prov: LILIANA TORRES MD 06/28/19 Levofloxacin (LEVAQUIN) 500 Mg Tablet 1 TAB PO DAILY for 7 Days, #7 TAB 0 Refills Prov: LILIANA TORRES MD 06/28/19 LILIANA TORRES MD Jun 28, 2019 15:17
[2019-06-28] MEDS ORDERED: ALBUTEROL SULFATE 2.5 MG/3 ML NEBU. NEB ONE (15:45)
--- NOTE | 2019-06-28 15:52 | EKG ---
[facility] [address] [place] [address] Test Date: 2019-06-28 Test Time: 13:17:00 Pat Name: ZULEIKA PIZARRO Department: Room: Gender: F Helper Electrical: TEETEE : 1945 Requested By: LILIANA TORRES Order Number: [id number] Reading MD: Measurements Intervals [place] Rate: 123 P: 90 PA: 116 QRS: 117 QRSD: 80 T: 64 QT: 304 QTc: 441 Interpretive Statements SINUS TACHYCARDIA ABNORMAL RIGHT AXIS DEVIATION ABNORMAL ECG RI6.01 No previous ECG available for comparison
[2019-06-28] MEDS ORDERED: ONDANSETRON PF 4 MG/2 ML VIAL. IV PRN (16:00)
[2019-06-28] MEDS ORDERED: ACETAMINOPHEN 325 MG TABLET. PO PRN ×2 (16:00→20:00)
[2019-06-28] MEDS ORDERED: IPRATRPIUM/ALBUTEROL 0.5/2.5MG 3 ML NEBU. NEB SCH (16:00)
[2019-06-28] MEDS ORDERED: FURO-69 PO (17:41)
[2019-06-28 19:00] VITALS: BP 136/61
[2019-06-28] MEDS ORDERED: ALBUTEROL SULFATE 2.5 MG/3 ML NEBU. INH PRN (20:00)
[2019-06-28] MEDS ORDERED: SENNOSIDES/DOCUSATE 8.6/50MG TABLET. PO PRN (20:00)
[2019-06-28] MEDS ORDERED: CYCLOBENZAPRINE 10 MG TABLET. PO PRN (20:15)
[2019-06-28] MEDS ORDERED: HYDROcodone/APAP 5/325MG 1 TAB TABLET PO ONE (20:30)
[2019-06-28] MEDS: FAMOTIDINE 20 MG TABLET. PO SCH (20:40)
[2019-06-28] MEDS: GABAPENTIN 100 MG CAPSULE. PO SCH (20:40)
[2019-06-28] MEDS: ALPRAZolam 0.5 MG TABLET PO SCH (20:40)
[2019-06-28] MEDS: FLUTICASONE 50MCG/NASAL SPRAY 16GM BOTTLE. NS SCH (20:41)
[2019-06-28] MEDS: BUDESONIDE 0.5 MG/2 ML NEBU. NEB SCH (20:52)
[2019-06-28] MEDS: IPRATRPIUM/ALBUTEROL 0.5/2.5MG 3 ML NEBU. NEB SCH (20:52)
[2019-06-28] MEDS ORDERED: NON FORMULARY ITEM (Budesonide/Formoterol Fumarate (Symbicort 160-4.5 Mcg Inhaler) 2 PUFF) IH SCH (21:00)
[2019-06-28] MEDS ORDERED: MONTELUKAST SODIUM 10 MG TABLET. PO SCH (21:00)
[2019-06-28] MEDS ORDERED: CETIRIZINE HCL 10 MG TABLET. PO SCH (21:00)
[2019-06-28] MEDS ORDERED: SIMVASTATIN 10 MG TABLET PO SCH (21:00)
[2019-06-28 23:00] VITALS: BP 132/72
[2019-06-29] MEDS ORDERED: NON FORMULARY ITEM (Albuterol Sulfate (Albuterol Sulfate Neb Soln) 1 VIAL) NEB SCH
[2019-06-29 02:24] VITALS: BP 99/62
[2019-06-29] MEDS ORDERED: FUROSEMIDE 20 MG TABLET PO SCH ×2 (06:00→09:00)
[2019-06-29] MEDS: BUDESONIDE 0.5 MG/2 ML NEBU. NEB SCH (06:20)
[2019-06-29] MEDS: IPRATRPIUM/ALBUTEROL 0.5/2.5MG 3 ML NEBU. NEB SCH ×3 (06:20→15:07)
[2019-06-29 07:00] VITALS: BP 130/71
[2019-06-29 07:06] LABS: BASO % 1 % (0-3); EOS % 0 % (0-3); HEMATOCRIT 27.6 % (36.0-47.0); HEMOGLOBIN 8.9 g/dL (12.0-15.5); LYMPH # 1.5 x10^3/uL (1.0-4.8); LYMPH % 20 % (24-48); MEAN CORPUSCULAR HEMOGLOBIN 25 pg (25-35); MEAN CORPUSCULAR HGB CONC 32 g/dL (31-37); MEAN CORPUSCULAR VOLUME 77 fL (79-100); MONO # 0.8 x10^3/uL (0.0-1.1); MONO % 11 % (0-9); NEUT # 5.1 x10^3/uL (1.8-7.7); NEUT % 68 % (31-73); PLATELET COUNT 279 x10^3/uL (140-400); RED BLOOD COUNT 3.61 x10^6/uL (3.50-5.40); RED CELL DISTRIBUTION WIDTH 18.8 % (11.5-14.5); WHITE BLOOD COUNT 7.5 x10^3/uL (4.0-11.0)
[2019-06-29 07:31] LABS: ALBUMIN 3.3 g/dL (3.4-5.0); ALBUMIN/GLOBULIN RATIO 0.8 (1.0-1.7); CALCIUM 9.4 mg/dL (8.5-10.1); TOTAL PROTEIN 7.4 g/dL (6.4-8.2)
[2019-06-29 07:32] LABS: CREATININE 0.9 mg/dL (0.6-1.0); TOTAL BILIRUBIN 0.2 mg/dL (0.2-1.0)
[2019-06-29] MEDS: FAMOTIDINE 20 MG TABLET. PO SCH (07:54)
[2019-06-29] MEDS: ALPRAZolam 0.5 MG TABLET PO SCH (07:55)
[2019-06-29] MEDS: GABAPENTIN 100 MG CAPSULE. PO SCH (07:55)
[2019-06-29] MEDS ORDERED: ALBUTEROL SULFATE 2.5 MG/3 ML NEBU. INH PRN (08:00)
[2019-06-29] MEDS ORDERED: LISINOPRIL 20 MG TABLET PO SCH (09:00)
[2019-06-29] MEDS ORDERED: ROFLUMILAST 500 MCG TABLET. PO SCH (09:00)
[2019-06-29] MEDS ORDERED: NON FORMULARY ITEM (Tiotropium Bromide (Spiriva) 1 CAP) IH SCH (09:00)
[2019-06-29] MEDS ORDERED: ASPIRIN CHEWABLE 81 MG TABLET. PO SCH (09:00)
--- NOTE | 2019-06-29 10:01 | PDOC ---
Provider Note Provider Note Combined history and physical and discharge summary dictated #[id number] MARIANELA COLEY MD Jun 29, 2019 10:01
--- NOTE | 2019-06-29 10:10 | SNU/HH DC ---
DISCHARGE WITH HOME HEALTH DISCHARGE INFORMATION: Final Diagnosis: Problems Medical Problems: (1) Abdominal pain Status: Acute Condition on Discharge: Stable HOME HEALTH: Face to Face: I certify this patient is under my care and that I, or a nurse practitioner or physician's assistant broker working with me, had a face to face encounter that meets the physician face to face encounter requirements with this patient on June 29, 2019 Medical Complications: COPD RN For Eval/Treatment: Yes Pt Meets Homebound Status: Fatigue w/ amb. POST DISCHARGE ORDERS: Activity Instructions for Disc: Activity as tolerated (walk with walker) Weight Bearing Status after Di: No restrictions DIET AFTER DISCHARGE: Regular Wound/Incision Care: Other, see below CHECKS AFTER DISCHARGE: Checks after discharge: Check blood press - daily, Check your Temp as needed FOLLOW-UP: PCP to follow Home Health: Yes Follow up with: Dr. MARIANELA Coley in 5 days TREATMENT/EQUIPMENT ORDERS: Adaptive Equipment Issued: Front wheeled walker Discharge Respiratory Equipmen: Oxygen (2-1/2 L/m), Nebulizer CERTIFICATION STATEMENT: Certification Statement: Certification Statement: Based on the above finding, I certify that this patient is confined to the home and needs intermittent residential care, physical therapy and/or speech therapy, or continues to need occupational therapy.~ This patient is under my care, and I have initiated the establishment of the plan of care.~ This patient will be followed by myself or a community physician who will periodically review the plan of care. Home Meds Active Scripts Sennosides/Docusate Sodium (SENNA-TIME S TABLET) 1 Each Tablet, 2 TAB PO PRN DAILY PRN for CONSTIPATION for 30 Days, #60 TAB Prov:MARIANELA COLEY MD 11/03/18 Acetaminophen (TYLENOL) 325 Mg Tablet, 650 MG PO PRN Q6HRS PRN for MILD PAIN / TEMP for 30 Days, TAB Prov:MARIANELA COLEY MD 09/22/18 Budesonide/Formoterol Fumarate (SYMBICORT 160-4.5 MCG INHALER) 10.2 Gm Hfa.aer.ad, 2 PUFF IH BID, #10.6 GM 3 Refills Prov:JEREMY CRUZ FACILITIES CUSTODIAN 01/06/18 Ipratropium/Albuterol Sulfate (DUONEB 0.5-3(2.5) MG/3 ML) 3 Ml Ampul.neb, 3 ML NEB RTQID, #120 EACH Prov:JEREMY CRUZ FACILITIES CUSTODIAN 10/23/17 Reported Medications Furosemide (LASIX) 20 Mg Tablet, 1 TAB PO DAILY for edema for 30 Days, #30 TAB 0 Refills 06/28/19 Roflumilast (DALIRESP) 500 Mcg Tablet, 1 TAB PO DAILY for COPD, #90 TAB 3 Refills 03/03/19 Lisinopril (LISINOPRIL) 20 Mg Tablet, 1 TAB PO DAILY for HTN, #30 TAB 5 Refills 03/03/19 Albuterol Sulfate (ALBUTEROL SULFATE NEB SOLN) 1.25 Mg/3 Ml Vial.neb, 1 VIAL NEB Q6HRS for SOA, #150 ML 03/03/19 Guaifenesin (MUCINEX) 1,200 Mg Tbmp.12hr, 1 TAB PO BID for cough, #14 TAB 10/30/18 Tiotropium [place] (SPIRIVA) 18 Mcg Cap.w.dev, 1 CAP IH DAILY for COPD, #30 CAP 3 Refills 08/15/18 Fluticasone Propionate (Flonase Allergy Relief) 9.9 Ml [place].susp, 2 SPRAYS NS BID, BOTTLE 10/20/17 Simvastatin (SIMVASTATIN) 10 Mg Tablet, 1 TAB PO QHS, #30 TAB 5 Refills 07/22/17 Famotidine (PEPCID) 20 Mg Tablet, 20 MG PO BID, TAB 07/22/17 Albuterol Sulfate (PROAIR HFA INHALER) 8.5 Gm Hfa.aer.ad, 2 PUFF INH PRN Q6HRS PRN for SHORTNESS OF BREATH, INHALER 0 Refills 07/22/17 Aspirin (ASPIRIN) 81 Mg Tab.chew, 1 TAB PO DAILY, #30 TAB 3 Refills 07/22/17 Gabapentin (GABAPENTIN ) 100 Mg Capsule, 100 MG PO BID, CAP 07/22/17 Baclofen (BACLOFEN) 10 Mg Tablet, 1 TAB PO TID PRN for PAIN, #90 TAB 2 Refills 04/23/15 Montelukast Sodium (SINGULAIR TABLET ) 10 Mg Tablet, 1 TAB PO QEVNG for asthma, #90 TAB 1 Refill 04/23/15 Cetirizine Hcl (ZYRTEC) 10 Mg Tablet, 1 TAB PO QHS for allergy, #30 TAB 2 Refills 04/23/15 Alprazolam (XANAX) 0.5 Mg Tablet, 1 TAB PO BID for anxiety, #60 TAB 04/23/15 MARIANELA COLEY MD Jun 29, 2019 10:10
--- NOTE | 2019-06-29 10:37 | HP ---
ADMIT DATE: 06/29/2019 COMBINED HISTORY AND PHYSICAL AND DISCHARGE SUMMARY HISTORY OF PRESENT ILLNESS: This is a 74-year-old female who lives at home alone with some help from caregivers, had shortness of breath. I am not sure if she was using her oxygen as she has a history of not using the oxygen as well as her concentrators on and off. The fire department went there and her oxygen saturation was in 70s and she was placed on her oxygen by nasal cannula 2.5 liters and was given a breathing treatment and her O2 sats were in the 90s. The patient did not want to come to the Emergency Room where she was feeling fine, but she did come to the Emergency Room and because of the tachycardia of 130 per minute at that time, the patient was admitted for further evaluation and management. REVIEW OF SYSTEMS: At present time; the patient denies any cold, cough, congestion, dyspnea, fever, chest pains, palpitations, dizziness or any other problems. She would like to go back home. Other systems reviewed and are negative. PAST MEDICAL HISTORY: Severe COPD, recurrent bronchitis and pneumonia, chronic cognitive deficits, suprapubic catheter for urinary retention, hypertension, diabetes with neuropathy, hyperlipidemia, anxiety, depression, severe malnutrition, secondary pulmonary hypertension, recurrent UTI. PAST SURGICAL HISTORY: Right renal stone in 2008, fractured hip with ORIF in 2012, left breast surgery for fibrocystic disease, peptic ulcer disease, suprapubic catheter. ALLERGIES: THE PATIENT IS ALLERGIC TO TRAMADOL. FAMILY HISTORY: Father had bleeding, peptic ulcer disease, cancer of the colon. Sister had colon cancer. SOCIAL HISTORY: Former smoker. No history of alcoholism or drug abuse. The patient lives at home alone and has part-time caregivers. MEDICATIONS: Reviewed and reconciled. PHYSICAL EXAMINATION: VITAL SIGNS: Temperature 98.1, pulse 74 per minute, respirations 16 per minute, blood pressure is 130/71 mmHg, oxygen is 98% at 2.5 liters per minute. GENERAL: The patient is alert and oriented, not in acute distress. HEENT: Unremarkable. NECK: Supple. JVP normal. No thyromegaly. Trachea midline. SKIN: Warm and dry. There is no cyanosis. LUNGS: Increased air entry. No wheezing. CARDIOVASCULAR: S1, S2 regular. ABDOMEN: Soft, nontender, no guarding, no rigidity. Bowel sounds present. RECTAL: Exam not done. PELVIC: Exam not done. EXTREMITIES: No edema, no cyanosis, no calf tenderness. CENTRAL NERVOUS SYSTEM: Generalized weakness. LABORATORY FINDINGS: WBC count 10 yesterday, today is 7.5 and hemoglobin 9.9 yesterday, 8.9 today. Sodium was 145 and potassium 4.2 yesterday, today's potassium is 6, so I will recheck the BMP and if it is stable, we will not take any other action. BUN is 32 today, creatinine 0.9. Chest x-ray did not show any acute changes. FINAL DIAGNOSES: 1. Acute hypoxic respiratory failure. 2. Chronic obstructive pulmonary disease with mild exacerbation, better. 3. Hypertension. 4. Diabetes mellitus type 2. 5. Anxiety. 6. Hyperkalemia. This may be a lab error. PLAN: We will recheck labs and if BMP is stable and potassium is normal, we will discharge her home with current home medications as well as oxygen by nasal cannula 2.5 liters per minute. See me in the office in 5 days. For other details, please refer to the discharge orders. The patient is currently not on prednisone and so far is stable, we will monitor her without prednisone and if needed, we will restart it as an outpatient. Condition at the time of discharge is stable, but because of her multiple medical problems and some cognitive issues, her readmission likelihood is high and her short-term as well as long-term prognosis is poor. MARIANELA COLEY MD DR: ORA/shqa JOB#: [id number] / [id number]
[2019-06-29 10:50] VITALS: BP 138/60
[2019-06-29 11:20] LABS: CALCIUM 9.4 mg/dL (8.5-10.1); CREATININE 0.9 mg/dL (0.6-1.0); POTASSIUM 4.8 mmol/L (3.5-5.1)
[2019-06-29] MEDS: FLUTICASONE 50MCG/NASAL SPRAY 16GM BOTTLE. NS SCH (11:48)
--- NOTE | 2019-06-29 14:00 | NUR ---
KATHIA notified by Physician pt will dc with services. Pt is current with [facility]. KATHIA spoke with Rita and since pt was discharging less than 24 hours they will not need new orders. KATHIA phoned and faxed clinicals/orders to [facility]. D/W RN.
--- NOTE | 2019-06-29 16:17 | NUR ---
Discharge Note: Patient was discharged home with current services. Patient IV's were discontinued without any complications per LEAD PERSON. Patient was given discharge summary/instructions, follow-ups and educational material. Patient did not have any further questions or concerns. Patient was taken home via wheelchair van per hospitals transportation. Patient took all personal belongings with her. Patients caregiver Kirsten was notified when patient left.
== END 2019-06-29 15:23 | disposition home health service (06) | DRG 189 ==
LOC: ER 13:09 → 5 SOUTH 16:51
PROVIDERS: ADMIT Internal Medicine; ATTEND Internal Medicine
DX: J96.21 Acute and chronic respiratory failure with hypoxia (principal); J44.1 Chronic obstructive pulmonary disease with (acute) exacerbation; M19.90 Unspecified osteoarthritis, unspecified site; E11.40 Type 2 diabetes mellitus with diabetic neuropathy, unspecified; R91.1 Solitary pulmonary nodule; K21.9 Gastro-esophageal reflux disease without esophagitis; E78.00 Pure hypercholesterolemia, unspecified; E87.5 Hyperkalemia; E78.5 Hyperlipidemia, unspecified; I10 Essential (primary) hypertension; I27.29 Other secondary pulmonary hypertension; K58.9 Irritable bowel syndrome, unspecified; F32.9 Major depressive disorder, single episode, unspecified; F41.9 Anxiety disorder, unspecified; Z87.01 Personal history of pneumonia (recurrent); Z99.81 Dependence on supplemental oxygen; Z87.891 Personal history of nicotine dependence; Z80.0 Family history of malignant neoplasm of digestive organs; Z83.79 Family history of other diseases of the digestive system; Z87.440 Personal history of urinary (tract) infections; Z87.11 Personal history of peptic ulcer disease; Z87.442 Personal history of urinary calculi
CPT/HCPCS: 36415; 71045; 80048; 80053; 82962; 85025; 93005; 94640; 99406; J1885; J1956; J2930; J7030; J7613; J7620; J7626; G0378